=== PATIENT | male | born 1965 | race Two or more races ===

== ENCOUNTER 2020-10-23 06:21 | Outpatient (REF) | payer BC, SELFPAY ==
[2020-10-23 11:11] LABS: MANUAL DIFF FLAG NO
[2020-10-23 11:23] LABS: Glucose Urine UA NEG (NEG); Leukocyte Esterase Urine NEG (NEG); Nitrite Urine NEG (NEG); Urine Blood NEG (NEG); Urine Ketones NEG (NEG); Urine Protein NEG (NEG-TRACE)
[2020-10-23 11:25] LABS: Basophils Percent Auto 0.5 % (0-2); Eosinophils Absolute Auto 0.3 X10*3/uL (0.0-0.4); Eosinophils Percent Auto 5.3 % (0-4); Hematocrit 42.4 % (42-52); Hemoglobin 14.4 g/dl (14.0-18.0); Imm Gran Abs Auto 0.01 X10*3/uL (0.00-0.03); Imm Gran Pct Auto 0.2 % (0.0-0.4); Lymphocytes Absolute Auto 1.3 X10*3/uL (1.2-4.9); Lymphocytes Percent Auto 20.6 % (20-40); Mean Corpuscular Hemoglobin 32.8 pg (27.0-33.0); Mean Corpuscular Volume 96.6 fL (80-98); Mean Platelet Volume 10.8 fL (9.4-12.4); Monocytes Absolute Auto 0.5 X10*3/uL (0.1-1.2); Monocytes Percent Auto 8.1 % (2-11); Neutrophils Percent Auto 65.3 % (45-73); Platelet Count 205 X10*3/uL (160-400); Red Blood Count 4.39 X10*6/uL (4.60-5.80); Red Cell Distribution Width 12.8 % (11.0-16.0); White Blood Count 6.1 X10*3/uL (4.8-10.8)
[2020-10-23 11:29] LABS: Appearance Urine CLEAR; Color Urine YELLOW; Estimated Average Glucose 131 mg/dL; Hemoglobin A1c % 6.2 %
[2020-10-23 11:42] LABS: Alanine Aminotransferase 41 U/L (0-40); Alkaline Phosphatase 88 U/L (39-117); Anion Gap 11 (12-20); Aspartate Amino Transferase 48 U/L (5-37); Bilirubin Total 0.8 mg/dL (0.0-1.0); Blood Urea Nitrogen 20 mg/dL (9-16); Calcium 9.2 mg/dL (8.4-10.2); Carbon Dioxide 28 mmol/L (22-29); Chloride 100 mmol/L (96-108); Cholesterol 170 mg/dL; Estimated Glomerular Filt Rate 55; Glucose Random 136 mg/dL (60-115); HDL Cholesterol 51 mg/dL; LDL Cholesterol Calculated 96 mg/dl; Potassium 4.1 mmol/L (3.3-5.1); Sodium 135 mmol/L (135-145); Total Protein 7.1 g/dL (6.5-8.0); Triglycerides 117 mg/dL
== END 2020-10-23 06:22 | disposition home or self-care (01) ==
LOC: HO.HMGCLDS 06:21
PROVIDERS: PCP Internal Medicine Pulmonary Disease; Visit Provider Internal Medicine Pulmonary Disease
DX: J45.909 Unspecified asthma, uncomplicated (principal); E11.9 Type 2 diabetes mellitus without complications; I10 Essential (primary) hypertension; R56.9 Unspecified convulsions
CPT/HCPCS: 36415; 80053; 80061; 81003; 83036; 85025

== ENCOUNTER 2022-01-14 14:07 | Outpatient (REF) | payer BC, SELFPAY ==
--- NOTE | ~2022-01-14 | CT_ITS ---
EXAMINATION: CT CHEST SCREENING CLINICAL INFORMATION: Current smoker. 33 pack year history. COMPARISON: None. TECHNIQUE: Multidetector volumetric CT imaging of the chest is performed without contrast using low dose technique. Additional 2D coronal and sagittal reformatted images and axial 3D maximum intensity projection (MIP) images are generated on the CT workstation. This CT examination was performed using dose optimization techniques as appropriate, variously including the following: *Automated exposure control *Adjustment of mA and/or kV according to patient size (this includes techniques or standardized protocols for targeted exams where dose is matched to indication/reason for exam; i.e. extremities or head) *Use of iterative reconstruction technique DLP: 67 mGy-cm FINDINGS: LUNGS: 2 mm peripheral or subpleural right upper lobe nodule axial image 99 series 5. 2 mm right upper lobe nodule axial image 137 series 5. 2 mm right upper lobe nodule axial image 159 series 5 that may represent endobronchial soft tissue opacification or secretions. 2 mm right upper lobe nodule axial image 199 series 5. 2 mm peripheral or subpleural right middle lobe nodule adjacent to the minor fissure axial image 258 series 5 probably representing a subpleural lymph node. 2 mm peripheral left upper lobe nodule axial image 250 series 5. No endobronchial or endotracheal lesion. MEDIASTINUM: The mediastinum is normal. CORONARY ARTERY CALCIFICATION: Mild PLEURA: There is no pleural effusion. No pleural mass or thickening. AXILLA: No lymphadenopathy. UPPER ABDOMEN: Fatty liver. 4 mm left lower lobe nodule axial image 343 series 5. OSSEOUS STRUCTURES: Unremarkable. CT/CT lung screening IMPRESSION: Small pulmonary nodules, largest measuring 4 mm in the left lower lobe. Mild coronary artery calcification. ASSESSMENT: Lung-RADS category 2: Benign RECOMMENDATION: Annual low-dose chest CT follow-up recommended.
== END 2022-01-14 14:08 | disposition home or self-care (01) ==
LOC: HO.CT 14:07
PROVIDERS: Visit Provider Physician Assistant Medical
DX: Z12.2 Encounter for screening for malignant neoplasm of respiratory organs (principal); F17.210 Nicotine dependence, cigarettes, uncomplicated
CPT/HCPCS: 71271; G0296

== ENCOUNTER 2022-03-04 06:53 | Outpatient (REF) | payer BC, SELFPAY ==
[2022-03-04 11:27] LABS: MANUAL DIFF FLAG NO
[2022-03-04 11:40] LABS: Appearance Urine Clear; Color Urine Dark Yellow; Glucose Urine UA Negative (Negative); Leukocyte Esterase Urine Trace (Negative); Nitrite Urine Negative (Negative); Specific Gravity - Urine 1.025 (1.005-1.025); UMIC TRIGGER UACC YES; Urine Blood Negative (Negative); Urine Ketones Negative (Negative); Urine Protein Trace mg/dL (Neg-Trace)
[2022-03-04 11:48] LABS: Basophils Percent Auto 0.8 % (0-2); Eosinophils Absolute Auto 0.3 X10*3/uL (0.0-0.4); Eosinophils Percent Auto 5.1 % (0-4); Hematocrit 38.4 % (42.0-52.0); Imm Gran Abs Auto 0.01 X10*3/uL (0.00-0.03); Imm Gran Pct Auto 0.2 % (0.0-0.4); Lymphocytes Absolute Auto 1.2 X10*3/uL (1.2-4.9); Lymphocytes Percent Auto 22.6 % (20-40); Mean Corpuscular HGB Conc 33.9 g/dl (31.0-36.0); Mean Corpuscular Hemoglobin 32.3 pg (27.0-33.0); Mean Corpuscular Volume 95.3 fL (80.0-98.0); Mean Platelet Volume 10.4 fL (9.4-12.4); Monocytes Absolute Auto 0.6 X10*3/uL (0.1-1.2); Monocytes Percent Auto 11.6 % (2-11); Neutrophils Percent Auto 59.7 % (45-73); Platelet Count 165 X10*3/uL (160-400); Red Blood Count 4.03 X10*6/uL (4.60-5.80); Red Cell Distribution Width 13.3 % (11.0-16.0); White Blood Count 5.1 X10*3/uL (4.8-10.8)
[2022-03-04 11:50] LABS: Bacteria Urine None Seen (None Seen); Hyaline Casts Urine 0-2 /LPF (0-2); RBC Urine 0-2 /HPF (0-2); Squamous Epithelial Cell Urine 0-2 /HPF (0-2); WBC Urine 0-5 /HPF (0-5)
[2022-03-04 12:16] LABS: Estimated Average Glucose 140 mg/dL; Hemoglobin A1c % 6.5 %
[2022-03-04 12:24] LABS: Creatinine Urine 200.34 mg/dL; Microalbum/Creatinine Ratio Ur 12.4 ug/mg cr
[2022-03-04 13:36] LABS: Alanine Aminotransferase 91 U/L (0-40); Albumin Level 3.7 g/dL (3.5-5.0); Alkaline Phosphatase 109 U/L (39-117); Anion Gap 10 (12-20); Aspartate Amino Transferase 108 U/L (5-37); Blood Urea Nitrogen 24 mg/dL (9-16); Calcium 8.8 mg/dL (8.4-10.2); Carbon Dioxide 26 mmol/L (22-29); Chloride 103 mmol/L (96-108); Cholesterol 171 mg/dL; Estimated Glomerular Filt Rate 59; Glucose Fasting 136 mg/dL (60-99); HDL Cholesterol 42 mg/dL; LDL Cholesterol Calculated 113 mg/dl; Potassium 3.9 mmol/L (3.3-5.1); Prostate Specific Antigen Scr 0.85 ng/mL (<0.05-4.0); Sodium 135 mmol/L (135-145); TSH reflex Free T4 1.23 uIU/mL (0.32-4.0); Total Protein 6.8 g/dL (6.5-8.0); Triglycerides 84 mg/dL
== END 2022-03-04 06:54 | disposition home or self-care (01) ==
LOC: HO.HMGCLDS 06:53
PROVIDERS: PCP Nurse Practitioner Family; Visit Provider Nurse Practitioner Family
DX: Z12.5 Encounter for screening for malignant neoplasm of prostate (principal); E11.9 Type 2 diabetes mellitus without complications
CPT/HCPCS: 36415; 80053; 80061; 81001; 82043; 83036; 84153; 84443; 85025

== ENCOUNTER 2022-03-14 09:32 | Outpatient (REF) | payer BC, SELFPAY ==
[2022-03-14 11:30] LABS: MANUAL DIFF FLAG NO
[2022-03-14 11:36] LABS: Basophils Percent Auto 0.5 % (0-2); Eosinophils Absolute Auto 0.1 X10*3/uL (0.0-0.4); Eosinophils Percent Auto 1.3 % (0-4); Hematocrit 43.8 % (42.0-52.0); Hemoglobin 15.1 g/dl (14.0-18.0); Imm Gran Abs Auto 0.02 X10*3/uL (0.00-0.03); Imm Gran Pct Auto 0.3 % (0.0-0.4); Lymphocytes Absolute Auto 0.6 X10*3/uL (1.2-4.9); Lymphocytes Percent Auto 7.4 % (20-40); Mean Corpuscular HGB Conc 34.5 g/dl (31.0-36.0); Mean Corpuscular Hemoglobin 31.9 pg (27.0-33.0); Mean Corpuscular Volume 92.6 fL (80.0-98.0); Mean Platelet Volume 11.2 fL (9.4-12.4); Monocytes Absolute Auto 0.5 X10*3/uL (0.1-1.2); Monocytes Percent Auto 5.8 % (2-11); Neutrophils Absolute Auto 6.6 x10*3/uL (2.0-8.3); Neutrophils Percent Auto 84.7 % (45-73); Platelet Count 228 X10*3/uL (160-400); Red Blood Count 4.73 X10*6/uL (4.60-5.80); Red Cell Distribution Width 13.5 % (11.0-16.0); White Blood Count 7.7 X10*3/uL (4.8-10.8)
[2022-03-14 11:49] LABS: Appearance Urine Clear; Color Urine Dark Yellow; Glucose Urine UA Negative (Negative); Leukocyte Esterase Urine Trace (Negative); Nitrite Urine Negative (Negative); PH 5.5 (5.0-9.0); Specific Gravity - Urine 1.025 (1.005-1.025); UMIC TRIGGER UACC YES; Urine Blood Negative (Negative); Urine Ketones Trace mg/dL (Negative); Urine Protein 30 (1+) mg/dL (Neg-Trace)
[2022-03-14 11:53] LABS: Bacteria Urine None Seen (None Seen); Hyaline Casts Urine 0-2 /LPF (0-2); RBC Urine 0-2 /HPF (0-2); Squamous Epithelial Cell Urine 0-2 /HPF (0-2); WBC Urine 0-5 /HPF (0-5)
[2022-03-14 12:37] LABS: Alanine Aminotransferase 69 U/L (0-40); Alkaline Phosphatase 132 U/L (39-117); Anion Gap 13 (12-20); Aspartate Amino Transferase 73 U/L (5-37); Bilirubin Total 0.9 mg/dL (0.0-1.0); Blood Urea Nitrogen 16 mg/dL (9-16); Calcium 9.7 mg/dL (8.4-10.2); Carbon Dioxide 29 mmol/L (22-29); Chloride 97 mmol/L (96-108); Estimated Glomerular Filt Rate 55; Glucose Random 169 mg/dL (60-115); Potassium 4.2 mmol/L (3.3-5.1); Sodium 135 mmol/L (135-145); TSH reflex Free T4 1.33 uIU/mL (0.32-4.0); Total Protein 7.5 g/dL (6.5-8.0)
[2022-03-16 05:26] LABS: HBS Num1 0.63 mIU/mL (0-7.99); HBc Num1 0.06 S/CO (0.00-0.79); Hepatitis A Antibody IgM 0.63 Index (0-0.79); Hepatitis B Core Antibody Nonreactive (Nonreactive); ~HepC Num1 0.08 S/CO (0.00-0.79); ~Hepatitis A Antibody IgM Nonreactive (Nonreactive); ~Hepatitis B Surface Antibody NONREACTIVE (Nonreactive); ~Hepatitis C Antibody Nonreactive (Nonreactive)
[2022-03-16 06:03] LABS: HBsAGNum1 0.29 S/CO (0.00-0.99); Hepatitis B Surface Antigen Negative (Negative)
== END 2022-03-14 09:33 | disposition home or self-care (01) ==
LOC: HO.HMGCLDS 09:32
PROVIDERS: PCP Nurse Practitioner Family; Visit Provider Nurse Practitioner Family
DX: R74.8 Abnormal levels of other serum enzymes (principal); E11.9 Type 2 diabetes mellitus without complications; R60.0 Localized edema
CPT/HCPCS: 36415; 80053; 81001; 84443; 85025; 86704; 86706; 86709; 86803; 87340

== ENCOUNTER → 2022-03-22 07:15 | Outpatient (REF) | payer BC, SELFPAY ==
--- NOTE | 2022-03-22 07:19 | CA_ITS ---
Transthoracic Echocardiogram Patient (Last, First, Middle): Navneet Samaniego, Gender: Male Date of : 1965 Age: 56 Procedure Date: 03/22/2022 Procedure Type: Transthoracic Echocardiogram Location: OP Height: 180.34 cm Weight: 95.26 kg BSA: 2.15 m2 Heart Rate: bpm BP: 130 / 80 mmHg Wax Bleacher: TO Referring MD: Jose Romero [facility]- Symptoms: R60.0 - Localized edema Study Quality: Fair Conclusions: - 1. Normal LV systolic function with grade 1 diastolic dysfunction 2. Normal cardiac valvular Doppler 3. No gross pericardial effusion Findings Left Ventricle Normal left ventricular size, thickness, and systolic function. The visually estimated ejection fraction is between 60-65%. Spectral Doppler is indicative of an impaired relaxation filling pattern. E/E prime ratio is <8, consistent with normal filling pressures. Evidence suggests grade I (mild) diastolic dysfunction. Right Ventricle Normal right ventricular cavity size and systolic function. Atria The left atrium is normal in size. There is lipomatous hypertrophy of the interatrial septum. There is no evidence of interatrial shunt. The right atrium is normal in size. Aortic Valve The aortic valve structure and function is likely normal. There is no aortic valve stenosis. There is no aortic valve regurgitation. Mitral Valve Normal mitral valve structure and function. There is trace mitral valve regurgitation. There is no mitral valve stenosis. Pulmonic Valve The pulmonic valve was not well visualized. Tricuspid Valve Likely normal tricuspid valve structure and function. Tricuspid regurgitation envelope is inadequate for calculation of right ventricular systolic pressure. Normal right atrial pressure. Great Vessels The aorta was not well visualized. The pulmonary artery was not well visualized. Venous The inferior vena cava is normal in size and collapses greater than 50% with inspiration. Pericardium/Pleural There is no evidence of pericardial effusion. Prior Study Comparison No prior study available for comparison. Measurements 2D Linear Measurements IVSd: 1.10 0.6-0.9/0.6-1.0 cm LVIDd: 5.55 3.9-5.3/4.2-5.9 cm LVIDd Index: 2.58 2.4-3.2/2.2-3.1 cm/m2 LVIDs: 3.43 2.0-3.6 cm LVPWd: 0.87 0.7-1.1 cm LA Diam: 3.50 2.7-3.8/3.0-4.0 cm LAIDs Index: 1.63 1.5-2.3 cm/m2 LV Mass: 264.48 67-162/88-224 g LV Mass Index: 123.01 43-95/49-115 g/m2 LVOT Diam: 2.20 3.0+(-)1.3 cm 2D Systolic Function EF 4C: 66.40 >55% EF 2C: 63.10 >55% EF BiP: 65.00 >55% Mitral Valve MV Pk E: 0.60 MV PK A: 0.91 MV Decel Time: 273.00 E/A: 0.70 E'Lateral: 9.36 E'Medial: 8.81 E/E' Med: 6.90 E/E' Lat: 6.50 PHT: 80.00 MVA PHT: 2.75 Decel [place]: 2.21 Aortic Valve AoV Pk Emmanuel: 1.87 AoV Mn Emmanuel: 1.23 AoV VTI: 0.34 AoV Pk Grad: 14.00 Aov Mn Grad: 7.00 KARON Cont.VTI: 3.12 LVOT LVOT Pk Emmanuel: 1.54 LVOT Mn Emmanuel: 0.86 LVOT VTI: 0.28 LVOT Pk Grad: 9.00 LVOT Mn Grad: 4.00 LVOT Diam: 2.20 LVOT Area: 3.80 Diastolic Function MV Pk E: 0.60 MV Pk A: 0.91 E/A: 0.70 E'Medial: 8.81 E/E' Med: 6.90 E' Laterial: 9.36 E/E' Lat: 6.50 Right Ventricle TAPSE (mm): 29.10 TVS' Emmanuel: 17.30 Tricuspid Valve RA Press: 3.00 Great Vessels Aorta Sinus of Valsalva: 3.65 2.0-3.5 cm Ao Asc: 3.80 2.1-3.4 cm Updated in Other Vendor System with Status of Final Sumanth Pruett MD electronically signed on 03/23/2022 4:24:37 PM with status of Final
== END ==
LOC: HO.CARD 07:15
PROVIDERS: PCP Nurse Practitioner Family; Visit Provider Nurse Practitioner Family
DX: R60.0 Localized edema (principal)
CPT/HCPCS: 93306

== ENCOUNTER 2022-04-08 08:23 | Outpatient (REF) | payer BC, SELFPAY ==
--- NOTE | ~2022-04-08 | US_ITS ---
EXAMINATION: US ABDOMEN COMPLETE CLINICAL INFORMATION: Abnormal levels of other serum enzymes. COMPARISON: None TECHNIQUE: Real-time imaging of the abdominal viscera. FINDINGS: PANCREAS: Largely obscured by overlapping bowel gas. ABDOMINAL AORTA: The proximal, mid, and distal segments are normal in caliber. INFERIOR VENA CAVA: Visualized portions are normal. LIVER: The liver is normal in size. The liver contour is normal. There is diffuse increased liver parenchymal echogenicity, with pericholecystic sparing. No focal hepatic lesion. There is no intrahepatic biliary duct dilatation seen. GALLBLADDER: Normal. The gallbladder is physiologically distended without evidence of stones, sludge, polyps, wall thickening or pericholecystic fluid. COMMON BILE DUCT: Normal in caliber measuring 0.3 cm in diameter. RIGHT KIDNEY: Normal. No hydronephrosis. No renal calculi or focal parenchymal lesions. The kidney measures 11.0 cm in maximum dimension. LEFT KIDNEY: Normal. No hydronephrosis. No renal calculi or focal parenchymal lesions. The kidney measures 10.5 cm in maximum dimension. SPLEEN: Normal. The spleen measures 12.2 cm in maximum dimension. FREE FLUID: None. US/US abdomen complete IMPRESSION: 1. There is generalized increase in hepatic echotexture, consistent with fatty infiltration or hepatocellular disease. Please correlate clinically. Characteristic pericholecystic sparing favors fatty infiltration. No focal hepatic mass or intrahepatic biliary dilatation is seen. 2. Technically limited ultrasound examination of the pancreas.
== END 2022-04-08 08:24 | disposition home or self-care (01) ==
LOC: HO.HMGCX 08:23
PROVIDERS: PCP Nurse Practitioner Family; Visit Provider Nurse Practitioner Family
DX: R74.8 Abnormal levels of other serum enzymes (principal)
CPT/HCPCS: 76700

== ENCOUNTER 2022-10-27 06:33 | Outpatient (REF) | payer BC, SELFPAY ==
[2022-10-27 11:28] LABS: MANUAL DIFF FLAG NO
[2022-10-27 11:48] LABS: Basophils Percent Auto 0.7 % (0-2); Eosinophils Absolute Auto 0.3 X10*3/uL (0.0-0.4); Eosinophils Percent Auto 4.6 % (0-4); Hematocrit 38.4 % (42.0-52.0); Hemoglobin 13.5 g/dl (14.0-18.0); Imm Gran Abs Auto 0.02 X10*3/uL (0.00-0.03); Imm Gran Pct Auto 0.4 % (0.0-0.4); Lymphocytes Absolute Auto 1.5 X10*3/uL (1.2-4.9); Mean Corpuscular HGB Conc 35.2 g/dl (31.0-36.0); Mean Corpuscular Hemoglobin 34.1 pg (27.0-33.0); Monocytes Absolute Auto 0.6 X10*3/uL (0.1-1.2); Neutrophils Absolute Auto 3.3 x10*3/uL (2.0-8.3); Neutrophils Percent Auto 57.3 % (45-73); Platelet Count 157 X10*3/uL (160-400); Red Blood Count 3.96 X10*6/uL (4.60-5.80); White Blood Count 5.7 X10*3/uL (4.8-10.8)
[2022-10-27 11:55] LABS: Appearance Urine Turbid; Color Urine Dark Yellow; Glucose Urine UA Negative (Negative); Leukocyte Esterase Urine Moderate (2+) (Negative); Nitrite Urine Negative (Negative); PH 5.5 (5.0-9.0); Specific Gravity - Urine 1.015 (1.005-1.025); UMIC TRIGGER UACC YES; Urine Blood Trace (Negative); Urine Ketones Negative (Negative); Urine Protein 100 (2+) mg/dL (Neg-Trace)
[2022-10-27 12:05] LABS: Estimated Average Glucose 160 mg/dL; Hemoglobin A1c % 7.2 %
[2022-10-27 12:09] LABS: Alanine Aminotransferase 72 U/L (0-40); Alkaline Phosphatase 140 U/L (39-117); Anion Gap 20 (12-20); Aspartate Amino Transferase 124 U/L (5-37); Bilirubin Total 1.4 mg/dL (0.0-1.0); Blood Urea Nitrogen 23 mg/dL (9-16); Calcium 9.3 mg/dL (8.4-10.2); Carbon Dioxide 21 mmol/L (22-29); Chloride 96 mmol/L (96-108); Cholesterol 194 mg/dL; Estimated Glomerular Filt Rate 47; Glucose Fasting 147 mg/dL (60-99); HDL Cholesterol 55 mg/dL; LDL Cholesterol Calculated 108 mg/dl; Potassium 3.6 mmol/L (3.3-5.1); Sodium 133 mmol/L (135-145); Total Protein 8.1 g/dL (6.5-8.0); Triglycerides 159 mg/dL
[2022-10-27 12:10] LABS: Bacteria Urine None Seen (None Seen); UACC Culture Trigger YES
[2022-10-27 12:11] LABS: TSH reflex Free T4 1.65 uIU/mL (0.32-4.0)
== END 2022-10-27 06:34 | disposition home or self-care (01) ==
LOC: HO.HMGCLDS 06:33
PROVIDERS: PCP Nurse Practitioner Family; Visit Provider Nurse Practitioner Family
DX: E11.9 Type 2 diabetes mellitus without complications (principal); R82.90 Unspecified abnormal findings in urine
CPT/HCPCS: 36415; 80053; 80061; 81001; 83036; 84443; 85025; 87086

== ENCOUNTER 2022-10-31 13:34 | Outpatient (AMB) | payer BC, SELFPAY ==
--- NOTE | 2022-10-31 14:13 | MHC.PC.OV ---
Vital Signs 10/31/22 14:14 Height 5 ft 11 in Weight 203 lb 4 oz BMI 28.3 BP 130/78 Blood Pressure Location Lt brachial Position Sitting Pulse 80 Pulse Source Pulse Oximeter Pulse Oximetry (%) 97 Oxygen Delivery Method Room Air Intake Visit Reasons: Annual PE Allergies Penicillins Allergy (Verified 10/31/22 14:16) Hives Medication List - Last Reconciled 10/31/22 by DAMIÁN Gordon-CODEY albuterol sulfate 90 mcg/actuation (ProAir HFA) 2 puffs inhalation Q6H PRN amlodipine 5 mg PO DAILY 90 days fluticasone propion-salmeterol 250-50 mcg/dose (Advair Diskus) 1 inh inhalation BID hydrochlorothiazide 12.5 mg PO DAILY 30 days irbesartan 300 mg PO DAILY 90 days levetiracetam 1,000 mg PO BID 30 days metformin 1,000 mg PO DAILY Tobacco use date assessed: 10/31/22 Dental Screening Dental Screen Date: 10/31/22 Did you have a dental visit in the last 12 months?: Yes Did you have a dental problem in the last 6 months where you did not have access to dental care?: No Was dental information given to patient?: No HPI Annual PE HPI Details Pt is here for a PE. Labs were already performed. Colon screen is up to date. PSA is up to date. Denies dribbling with urination, weak stream, and nocturia. Pt is a diabetic, on an ARB. Last A1c was 7.2, microalbumin is up to date. Denies polyuria, polydipsia, and neuropathy. Pt denies any signs and symptoms of hypoglycemia and does know how to correct it. Eye exam is up to date. Micro hem noted, hx of kidney stones. Will repeat UA and order cytology and US. Creatinine was elevated, will have pt push fluids and repeat labs. elevated liver enzymes, Previous imaging with fatty liver. Pt reports he does not drink often. Pt reports he will work on his diet, repeating labs next week. [facility] Medical History (Updated 10/31/22 @ 14:34 by DAMIÁN Gordon-CODEY) Asthma Diabetes Fatty liver HTN (hypertension) Nicotine dependence, cigarettes, uncomplicated Seizures Surgical History History of colonoscopy Social History Housing: House Alcohol intake: current Alcohol intake frequency: a few times a month Patient Tobacco Use Status: Current everyday Tobacco user Cigarettes Per Day: 5 Years Smoked: (onset 20yo, 1/2-3/4ppd x 36yrs, 20pyh) e-Cigarette/Vaping Use: Never Used Second Hand Smoke Exposure: No service: No Current occupational status: employed Current occupation: [employer] Current occupational exposures/hazards: No Cognitive needs: No Hearing needs: No Vision needs: No Questionnaire Thrive Questionnaire Date Thrive assessed: 07/18/22 SARA-7 AMB Questionnaire SARA-7 Date SARA - 7 assessed: 07/18/22 Source: Developed by Drs. Archie Ribeiro, Sharlene Norris, Sean Celeste and colleagues, with an educational manjit from [employer]. Review of Systems Const Denies chills and Denies fever(s) Eyes Denies blurry vision ENT Denies vertigo, Denies dizziness and Denies sore throat Card Denies chest pain at rest, Denies chest pain with activity, Denies diaphoresis, Denies dyspnea and Denies dyspnea on exertion Resp Denies cough, Denies dyspnea, Denies dyspnea on exertion and Denies wheezing GI Denies abdominal pain, Denies melena, Denies hematochezia, Denies constipation, Denies diarrhea and Denies loose stools Denies hematuria Musc Denies numbness and Denies tingling Skin/Breast Denies lesions Neuro Denies vertigo, Denies dizziness, Denies numbness and Denies tingling Psych Denies anxiety, Denies depression, Denies homicidal ideation, Denies suicidal ideation and Denies other (substance abuse) Aller/Immun Denies wheezing Physical exam (Primary Care) Vital Signs: Last Vital Signs Pulse 80 10/31/22 14:14 BP 130/78 10/31/22 14:14 Pulse Ox 97 10/31/22 14:14 Oxygen Delivery Method Room Air 10/31/22 14:14 BMI result Body Mass Index 28.3 Tobacco/Smoking Status: Tobacco use Status Tobacco use date assessed 10/31/22 10/31/22 14:17 Patient Tobacco Use Status Current everyday Tobacco 10/31/22 14:14 e-Cigarette/Vaping Use Never Used 10/31/22 14:14 Thrive Assessment: Date of Thrive Assessment Date Thrive assessed 07/18/22 10/31/22 14:14 Const General: cooperative Nutritional Appearance: well nourished Orientation/consciousness: patient oriented x3 HENMT Head: Yes normal to inspection, Yes normocephalic and Yes atraumatic Ears: TM's normal bilaterally Eyes General: appearance normal, both eyes and all related structures Alignment and Position: alignment normal and position normal Neck Neck: Yes normal visual inspection and Yes no lymphadenopathy Thyroid: Thyroid normal Resp Effort & Inspection: normal respiratory effort Auscultation: clear to auscultation bilaterally Cardio Rate: regular rate Rhythm: regular rhythm Heart sounds: S1 normal heart sound present, S2 normal heart sound present and no murmurs GI Palpation (GI): Soft to palpation and nontender Auscultation: normal bowel sounds General: Yes no CVA tenderness Male General Exam: Yes normal external exam Penis: normal penis Scrotum: scrotum normal, testes descended bilaterally and no inguinal hernias Testes: no testicular mass Back/Spine/Pelvis Back: no CVA tenderness Skin Rashes: no rashes Neuro General: patient oriented x3, moves all extremities, no focal motor deficits and deep tendon reflexes 2+ bilaterally Romberg Test: Negative Extrem Other: bilat feet: + sensation with use of monofilament, onychomycosis noted to bilat big toenails Psych Appearance: grossly normal Mental Status: mental status grossly normal Speech and movement: Normal speech and movement present Affect: normal affect Attitude: cooperative Thought process: Normal thought process present Thought content: Normal thought content present Insight: Good insight present (Psych) Judgement: Good judgement present (Psych) Assessment and Plan Assessment & Plan (1) Microscopic hematuria: Code(s): R31.29 - Other microscopic hematuria Plan: UA and cytology ordered (2) Diabetes: Code(s): E11.9 - Type 2 diabetes mellitus without complications Plan: Labs ordered (3) Physical exam: Code(s): Z00.00 - Encounter for general adult medical examination without abnormal findings Plan: Labs ordered (4) HTN (hypertension): Code(s): I10 - Essential (primary) hypertension (5) Elevated serum creatinine: Code(s): R79.89 - Other specified abnormal findings of blood chemistry (6) Elevated liver enzymes: Code(s): R74.8 - Abnormal levels of other serum enzymes Plan The patient agreed to the use of a outside medical sales representative for this encounter. Scribed for PARMINDER Hernandez by Massiel Fox outside medical sales representative, on 10/31/2022 at 14:30 EST. Orders: Orders UA CC w/rflx Micro + Cult Today R31.29 - Other microscopic hematuria Urine Cytology Today R31.29 - Other microscopic hematuria Comprehensive Met. Panel Today I10 - Essential (primary) hypertension, R79.89 - Other specified abnormal findings of blood chemistry Complete Blood Count Auto Diff Today I10 - Essential (primary) hypertension, R79.89 - Other specified abnormal findings of blood chemistry US retroperitoneal comp Today R31.29 - Other microscopic hematuria Coding Level of Care Code Est Pt Prev Care 40-64y(34028) Diagnoses Microscopic hematuria R31.29 Diabetes E11.9 Physical exam Z00.00 HTN (hypertension) I10 Elevated serum creatinine R79.89 Elevated liver enzymes R74.8
[2022-10-31 14:14] VITALS: BP 130/78; PULSE 80; O2SAT 97; BMI 28.3
== END 2022-10-31 15:44 | disposition home or self-care (01) ==
PROVIDERS: Visit Provider Nurse Practitioner Family
DX: R31.29 Other microscopic hematuria (principal); E11.9 Type 2 diabetes mellitus without complications; Z00.00 Encounter for general adult medical examination without abnormal findings; I10 Essential (primary) hypertension; R79.89 Other specified abnormal findings of blood chemistry; R74.8 Abnormal levels of other serum enzymes
CPT/HCPCS: 99396

== ENCOUNTER 2022-11-08 09:38 | Outpatient (REF) | payer BC, SELFPAY ==
--- NOTE | ~2022-11-08 | US_ITS ---
EXAMINATION: US RETROPERITONEAL LIMITED (RENAL ONLY) CLINICAL INFORMATION: Other microscopic hematuria. COMPARISON: Ultrasound abdomen complete 04/08/2022. TECHNIQUE: Real-time imaging of the kidneys. FINDINGS: RIGHT KIDNEY: 10.8 x 4.8 x 4.4 cm (SAG x AP x TRV). The kidney is normal in size, contour, and echogenicity. Renal cortical thickness is normal. No calculi or focal parenchymal lesions. No hydronephrosis. LEFT KIDNEY: 11.4 x 5.0 x 4.8 cm (SAG x AP x TRV). The kidney is normal in size, contour, and echogenicity. Renal cortical thickness is normal. No calculi or focal parenchymal lesions. No hydronephrosis. BLADDER: Bladder is decompressed. Bilateral ureteral jets are demonstrated. ADDITIONAL FINDINGS: Prostate volume 23 mL. Nonspecific prominence of the seminal vesicles. Partially imaged increased echogenicity of the liver. US/US renal BI IMPRESSION: 1. No nephrolithiasis or hydronephrosis. 2. Suboptimally evaluation of the urinary bladder due to decompression, a repeat dedicated ultrasound of the bladder after adequate distention was scheduled, correlate with separate future dictation. 3. Nonspecific symmetric prominence of the seminal vesicles which could be seen in the absence of recent ejaculation, correlate clinically. If a seminal vesicle lesion/mass is suspected, correlation with an MRI could be obtained as clinically indicated. 4. Increased liver parenchyma echogenicity suggesting hepatic steatosis.
== END 2022-11-08 09:39 | disposition home or self-care (01) ==
LOC: HO.US 09:38
PROVIDERS: PCP Nurse Practitioner Family; Visit Provider Nurse Practitioner Family
DX: R31.29 Other microscopic hematuria (principal)
CPT/HCPCS: 76775

== ENCOUNTER 2022-11-08 11:05 | Outpatient (REF) | payer BC, SELFPAY ==
[2022-11-08 13:29] LABS: MANUAL DIFF FLAG NO
[2022-11-08 13:57] LABS: Basophils Percent Auto 0.4 % (0-2); Eosinophils Absolute Auto 0.1 X10*3/uL (0.0-0.4); Eosinophils Percent Auto 1.5 % (0-4); Hematocrit 37.5 % (42.0-52.0); Hemoglobin 13.3 g/dl (14.0-18.0); Imm Gran Abs Auto 0.03 X10*3/uL (0.00-0.03); Imm Gran Pct Auto 0.4 % (0.0-0.4); Lymphocytes Percent Auto 13.1 % (20-40); Mean Corpuscular HGB Conc 35.5 g/dl (31.0-36.0); Mean Corpuscular Hemoglobin 34.1 pg (27.0-33.0); Mean Corpuscular Volume 96.2 fL (80.0-98.0); Mean Platelet Volume 10.3 fL (9.4-12.4); Monocytes Absolute Auto 0.6 X10*3/uL (0.1-1.2); Monocytes Percent Auto 8.1 % (2-11); Neutrophils Absolute Auto 5.7 x10*3/uL (2.0-8.3); Neutrophils Percent Auto 76.5 % (45-73); Platelet Count 202 X10*3/uL (160-400); White Blood Count 7.5 X10*3/uL (4.8-10.8)
[2022-11-08 15:14] LABS: Alanine Aminotransferase 85 U/L (0-40); Alkaline Phosphatase 116 U/L (39-117); Anion Gap 19 (12-20); Aspartate Amino Transferase 106 U/L (5-37); Bilirubin Total 1.3 mg/dL (0.0-1.0); Blood Urea Nitrogen 15 mg/dL (9-16); Calcium 9.4 mg/dL (8.4-10.2); Carbon Dioxide 23 mmol/L (22-29); Chloride 96 mmol/L (96-108); Estimated Glomerular Filt Rate 49; Glucose Random 146 mg/dL (60-115); Potassium 4.5 mmol/L (3.3-5.1); Sodium 133 mmol/L (135-145); Total Protein 8.6 g/dL (6.5-8.0)
[2022-11-08 16:12] LABS: Urine Cytology See Pathology rpt
[2022-11-08 16:25] LABS: Appearance Urine Clear; Color Urine Yellow; Glucose Urine UA Negative (Negative); Leukocyte Esterase Urine Negative (Negative); Nitrite Urine Negative (Negative); PH 5.5 (5.0-9.0); Urine Blood Negative (Negative); Urine Ketones Negative (Negative); Urine Protein Negative (Neg-Trace)
== END 2022-11-08 11:06 | disposition home or self-care (01) ==
LOC: HO.HMGCLDS 11:05
PROVIDERS: PCP Nurse Practitioner Family; Visit Provider Nurse Practitioner Family
DX: R31.29 Other microscopic hematuria (principal); I10 Essential (primary) hypertension; R79.89 Other specified abnormal findings of blood chemistry
CPT/HCPCS: 36415; 80053; 81003; 85025; 88112

== ENCOUNTER 2022-11-09 14:36 | Outpatient (REF) | payer BC, SELFPAY ==
--- NOTE | ~2022-11-09 | US_ITS ---
EXAMINATION: US PELVIS LIMITED (BLADDER) CLINICAL INFORMATION: Microscopic hematuria. COMPARISON: Renal ultrasound 11/08/2022. Ultrasound abdomen complete 04/08/2022. TECHNIQUE: Real-time imaging of the bladder. FINDINGS: BLADDER: Well distended and normal. Bilateral ureteral jets are demonstrated. Prevoid bladder volume is 232 mL. Postvoid bladder volume is 7.8 mL. ADDITIONAL FINDINGS: Enlarged seminal vesicles. US/US bladder IMPRESSION: 1. No significant post void residual. 2. Normal sonographic appearance of the urinary bladder. 3. Nonspecific symmetric prominence of the seminal vesicles which could be seen in the absence of recent ejaculation, correlate clinically. If a seminal vesicle lesion/mass is suspected, correlation with an MRI could be obtained as clinically indicated.
== END 2022-11-09 14:37 | disposition home or self-care (01) ==
LOC: HO.US 14:36
PROVIDERS: PCP Nurse Practitioner Family; Visit Provider Nurse Practitioner Family
DX: R31.29 Other microscopic hematuria (principal)
CPT/HCPCS: 76857

== ENCOUNTER 2022-12-19 14:22 | Outpatient (AMB) | payer BC, SELFPAY ==
--- NOTE | 2022-12-19 14:24 | A.OFFVIS_ITS ---
Intake Intake Visit Reasons: microscopic hematuria Intake Note: NEW Patient presents today to established treatment for Microscopic Hematuria: Meds- None Allergies to Antibiotic- Penicillin Blood Thinner- None Client Support Administrator Required: No Accompanied by: Self / Same As Patient Allergies Penicillins Allergy (Verified 12/19/22 14:30) Hives HPI HPI Comments History of Present Illness Details Navneet is a 57-year-old male who presents today to the office to establish as a new patient for an evaluation of microscopic hematuria. 12/19/2022? He presents today for an evaluation of?microscopic hematuria. The Patient has a history of nicotine dependence, and cigarette use. He states that he is still smoking. He states that he noticed hematuria 1 month ago. He denies any pain with urination. He was referred to the nephrology by his PCP. He state he has seen medical kidney doctor last week. I reviewed the baldder US results from 11/09/2022 revealed no significant post void residual.? Normal sonographic appearance of the urinary bladder. I reviewed results from Kidney US- 11/08/2022 revealed no nephrolithiasis or hydronephrosis. Suboptimally evaluation of the urinary bladder due to decompression. I reviewed the urine culture results from 10/27/2022 which came back negative for bacterial growth.? I reviewed the urine cytology reports from 11/09/2022 revealed negative for high-grade urothelial carcinoma. I reviewed the PSA results from 03/04/2022 revealed 0.95 ng/mL. Evaluation today--UA--Leukocytes: negative; blood: negative; protein 1 +; bilirubin: 1 +. Plan: Discussed recommendations for nicotine cessation. Follow-up in office cystoscopy. [facility] Medical History (Updated 01/16/23 @ 14:12 by Orin Hernandez MD) Fatty liver Nicotine dependence, cigarettes, uncomplicated HTN (hypertension) Seizures Asthma Diabetes Surgical History History of colonoscopy Social History Housing: House Alcohol intake: current Alcohol intake frequency: a few times a month Patient Tobacco Use Status: Current everyday Tobacco user Cigarettes Per Day: 5 Years Smoked: (onset 20yo, 1/2-3/4ppd x 36yrs, 20pyh) e-Cigarette/Vaping Use: Never Used Second Hand Smoke Exposure: No service: No Current occupational status: employed Current occupation: [employer] Current occupational exposures/hazards: No Cognitive needs: No Hearing needs: No Vision needs: No Review of Systems Const All systems reviewed & are unremarkable except as noted in HPI and below Reports no additional complaints Eyes Reports no additional complaints ENT Reports no additional complaints Card Denies dyspnea Resp Denies cough and Denies dyspnea GI Reports no additional complaints Musc Reports no additional complaints Skin/Breast Denies rash and Denies unusual bruising Neuro Reports no additional complaints Psych Reports no additional complaints Endo Reports no additional complaints Isiah/Lymph Reports no additional complaints Aller/Immun Reports no additional complaints Physical Exam Const General: healthy appearing, no acute distress and well developed Orientation/consciousness: patient oriented x3 HEENT Head: Yes normocephalic and Yes atraumatic Eyes Conjunctivae: conjunctivae normal Neck Neck: Yes normal visual inspection Chest Chest palpation & inspection: normal inspection of the chest Resp Effort & Inspection: normal respiratory effort Cardio Rate: regular rate GI Inspection: Yes normal to inspection Palpation (GI): Soft to palpation Skin General skin exam: no rashes or lesions noted Neuro General: patient oriented x3 Extrem General: No pedal edema Psych Appearance: grossly normal Affect: normal affect Results AMB Urinalysis, Automated UA Leukoctes 0 Rosalina/uL Last Edit by JOSE Pandya on 12/19/22 14:37 UA Nitrite Negative Last Edit by JOSE Pandya on 12/19/22 14:37 UA Urobilinogen 0.2 mg/dL Last Edit by JOSE Pandya on 12/19/22 14:3 7 UA Protein 30 mg/dL Last Edit by JOSE Pandya on 12/19/22 14:37 1+ Jermaine Martinez 12/19/22 14:37 UA pH 6.0 Last Edit by JOSE Pandya on 12/19/22 14:37 UA Blood 0 Beni/uL Last Edit by Simafarhan Juan, JOSE on 12/19/22 14:37 UA Specific [place] 1.030 Last Edit by Simafarhan Juan, A on 12/19/22 14: 37 UA Ketone Positive Last Edit by Simafarhan JuanJOSE leary on 12/19/22 14:37 5mg/dL Jermaine Martinez 12/19/22 14:37 UA Bilirubin 1 mg/dL Last Edit by ANA PandyaA on 12/19/22 14:37 1+ Jermaine Martinez 12/19/22 14:37 UA Glucose 0 mg/dL Last Edit by Simafarhan JuanANA [email or web address] on 12/19/22 14:37 Results Reviewed Results Reviewed: Laboratory Last Values Urine pH (Auto) 6.0 12/19/22 14:35 Specific [place] (Auto) 1.030 12/19/22 14:35 Urine Protein (Auto) 30 mg/dL 12/19/22 14:35 Glucose (UA)(Auto) 0 mg/dL 12/19/22 14:35 Urine Ketones (Auto) Positive 12/19/22 14:35 Urine Blood (Auto) 0 Beni/uL 12/19/22 14:35 Urine Nitrite (Auto) Negative 12/19/22 14:35 Urine Bilirubin (Auto) 1 mg/dL 12/19/22 14:35 Urine Urobilinogen (Auto) 0.2 mg/dL 12/19/22 14:35 Leukocyte Esterase (Auto) 0 Rosalina/uL 12/19/22 14:35 Diagnosis Urine: Negative for high-grade urothelial carcinoma. COMMENT: Examination of a monolayer preparation slide shows benign squamous cells, benign urothelial cells with reactive changes, occasional acute and chronic inflammatory cells and few red blood cells. Clinical History Other microscopic hematuria Material Received Urine Gross Description 50cc clear yellow fluid Ordered:? Urine Culture? Procedure?Result?Verified?Site ? Urine Culture? Final?10/28/22-1254 ? No growth. Date of Service: 11/08/22 EXAMINATION:? US RETROPERITONEAL LIMITED (RENAL ONLY) CLINICAL INFORMATION: Other microscopic hematuria. COMPARISON:? Ultrasound abdomen complete 04/08/2022. FINDINGS: RIGHT KIDNEY: 10.8 x 4.8 x 4.4 cm (SAG x AP x TRV). The kidney is normal in size, contour, and echogenicity. Renal cortical thickness is normal. No calculi or focal parenchymal lesions. No hydronephrosis. LEFT KIDNEY: 11.4 x 5.0 x 4.8 cm (SAG x AP x TRV). The kidney is normal in size, contour, and echogenicity. Renal cortical thickness is normal. No calculi or focal parenchymal lesions. No hydronephrosis. BLADDER: Bladder is decompressed. Bilateral ureteral jets are demonstrated.? ADDITIONAL FINDINGS: Prostate volume 23 mL. Nonspecific prominence of the seminal vesicles. Partially imaged increased echogenicity of the liver. IMPRESSION:? 1.? No nephrolithiasis or hydronephrosis. 2.? Suboptimally evaluation of the urinary bladder due to decompression, a repeat dedicated ultrasound of the bladder after adequate distention was scheduled, correlate with separate future dictation. 3.? Nonspecific symmetric prominence of the seminal vesicles which could be seen in the absence of recent ejaculation, correlate clinically. If a seminal vesicle lesion/mass is suspected, correlation with an MRI could be obtained as clinically indicated.? 4.? Increased liver parenchyma echogenicity suggesting hepatic steatosis. Date of Service: 11/09/22 EXAMINATION:? US PELVIS LIMITED (BLADDER) CLINICAL INFORMATION: Microscopic hematuria. COMPARISON:? Renal ultrasound 11/08/2022. Ultrasound abdomen complete 04/08/2022. FINDINGS: BLADDER: Well distended and normal. Bilateral ureteral jets are demonstrated. Prevoid bladder volume is 232 mL. Postvoid bladder volume is 7.8 mL.? ADDITIONAL FINDINGS: Enlarged seminal vesicles. IMPRESSION:? 1.? No significant post void residual. 2.? Normal sonographic appearance of the urinary bladder. 3.? Nonspecific symmetric prominence of the seminal vesicles which could be seen in the absence of recent ejaculation, correlate clinically. If a seminal vesicle lesion/mass is suspected, correlation with an MRI could be obtained as clinically indicated. Assessment & Plan Assessment & Plan (1) Hematuria: Code(s): R31.9 - Hematuria, unspecified (2) Nicotine dependence, cigarettes, uncomplicated: Comment: (current smoker, onset 20yo, 1/2-3/4ppd x 36yrs, 20pyh) Code(s): F17.210 - Nicotine dependence, cigarettes, uncomplicated Plan Discussed recommendations for nicotine cessation. Follow-up in office cystoscopy. Orders: Orders AMB Urinalysis Automated 12/19/22 Z13.9 - Encounter for screening, unspecified Patient Instructions: The patient had an opportunity to ask questions regarding treatment plan. All questions were answered. Imaging, Laboratory studies and physical exam results were discussed and reviewed in detail. No major barriers to understanding were identified. The patient expressed understanding and agreement with the above treatment plan.? ? ? The patient is aware they should contact our office by phone for worsening of their current condition or the appearance of new symptoms. Compliance is encouraged with any medications and followup testing that is ordered.? ? ? It is a privilege to be allowed the opportunity to participate in the urologic care of your patient. If you have any questions or concerns regarding treatment for the above conditions please do not hesitate to contact me. The office telephone contact is [phone].? ? ? This note is constructed in part using voice recognition software. While every effort has been made to ensure accuracy quality control assistant errors may have been included.? ? ? Yours sincerely,? ? ? Orin Hernandez MD? Coding Level of Care Code New Pt Level 4 (97620) Diagnoses Hematuria R31.9 Nicotine dependence, cigarettes, uncomplicated F17.210
== END 2022-12-19 15:41 | disposition home or self-care (01) ==
PROVIDERS: PCP Nurse Practitioner Family; Visit Provider Urology
DX: R31.9 Hematuria, unspecified (principal); F17.210 Nicotine dependence, cigarettes, uncomplicated
CPT/HCPCS: 99204

== ENCOUNTER → 2022-12-19 14:22 | Outpatient (BNVA) | payer BC, SELFPAY | PROVIDERS: PCP Nurse Practitioner Family; Visit Provider Urology | DX: R31.29 Other microscopic hematuria (principal); F17.210 Nicotine dependence, cigarettes, uncomplicated | CPT/HCPCS: 81003 ==

== ENCOUNTER 2022-12-26 15:31 | Outpatient (REF) | payer BC, SELFPAY ==
--- NOTE | ~2022-12-26 | MR_ITS ---
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 FINDINGS: PROSTATE AND SEMINAL VESICLES: Prostate is normal in size measuring 4.2 cm in transverse diameter. Few wedge-shaped hypodensities in the peripheral zone which may reflect sequelae of prior prostatitis. Please note this was not performed as a dedicated prostate MR and therefore limited assessment for any underlying prostatic malignancy. Seminal vesicles are mildlysymmetrically prominent without discrete underlying mass. BLADDER: Unremarkable. PELVIC FREE FLUID: No free fluid or ascites. LYMPH NODES: No pathologically enlarged lymph nodes. VISUALIZED BOWEL: Unremarkable. SOFT TISSUES: Unremarkable. OSSEOUS STRUCTURES: No acute or suspicious osseous abnormalities. MR/MR pelvis wo/w con IMPRESSION: * Seminal vesicles are mildly symmetrically prominent without discrete underlying mass. * Few wedge-shaped hypodensities in the peripheral zone which may reflect sequelae of prior prostatitis. Please note this was not performed as a dedicated prostate MR and therefore limited assessment for any underlying prostatic malignancy.
[2022-12-26] MEDS: gadobutroL 10 ML VIAL IVPUSH (16:55)
== END 2022-12-26 15:32 | disposition home or self-care (01) ==
LOC: HO.MRI 15:31
PROVIDERS: PCP Nurse Practitioner Family; Visit Provider Nurse Practitioner Family
DX: N49.0 Inflammatory disorders of seminal vesicle (principal)
CPT/HCPCS: 72197; A9585

== ENCOUNTER 2023-01-16 13:48 | Outpatient (AMB) | payer BC, SELFPAY ==
--- NOTE | 2023-01-16 14:47 | A.OFFVIS_ITS ---
Intake Intake Visit Reasons: cysto Intake Note: Patient presents today for a CYSTOSCOPY Procedure: Meds: None Allergies to Antibiotic: No Known Allergies Blood Thinner: None Urinalysis test cleared for Cysto Disposable Uro-G Cystoscope Cannula: Lot: [id number] Exp: 08/07/2024 Lean Consultant Required: No Accompanied by: Self / Same As Patient Allergies Penicillins Allergy (Verified 01/17/23 07:55) Hives HPI HPI Comments History of Present Illness Details Navneet is a 57-year-old male who presents today to the office for a follow-up. 01/16/23? He is followed today for a cystoscopy procedure and to discuss results. Cystoscopy procedure: Consent form was obtained for Cystoscopy procedure. Cystoscopy findings: Moderate trabeculations noted; bilobar enlargement of the prostate; no suspicious bladder lesions noted. I reviewed the bladder US results from 11/09/22 revealed no significant post void residual. Normal sonographic appearance of the urinary bladder. I reviewed the PSA results revealed 0.95 ng/mL. I reviewed the renal US results from 11/08/22 revealed no nephrolithiasis or hydronephrosis. 12/26/22--MRI of the pelvis did not note any discrete masses in the seminal vesicles, few symmetrical shaped hypo densities which may reflect prior prostatitis. 01/16/23: Evaluation today?UA?Leukocytes : 15 Rosalina; blood: negative. 01/16/23: Plan: Continue tamsulosin daily 0.4 mg daily at bed time. Ordered PSA screening. [facility] Medical History Fatty liver Nicotine dependence, cigarettes, uncomplicated HTN (hypertension) Seizures Asthma Diabetes Surgical History History of colonoscopy Social History Housing: House Alcohol intake: current Alcohol intake frequency: a few times a month Alcohol type: hard liquor Patient Tobacco Use Status: Current everyday Tobacco user Cigarettes Per Day: 5 Years Smoked: (onset 20yo, 1/2-3/4ppd x 36yrs, 20pyh) Smoked in Last 30 Days: Yes e-Cigarette/Vaping Use: Never Used Second Hand Smoke Exposure: No Use of substances other than those prescribed or required for medical reasons: No Any prior treatment program specific to substance use: No Advance Directives: No Advance Directives Information Provided: No service: No Current occupational status: employed Current occupation: [employer] Current occupational exposures/hazards: No Cognitive needs: No Hearing needs: No Vision needs: No Office Procedures Cystoscopy Consent Discussed risk and benefit or proposed procedure with the patient. Information consent for procedure given to the patient. Discussed technical aspects, risks, benefits and alternatives in full. Addressed all of the patient's questions and concerns regarding the procedure. The patient demonstrated knowledge and und erstanding. They wish to proceed with this procedure. Preparation The patient was prepped in the usual manner. A heavy equipment plumbing supervisor was present and in the room. Genitalia was prepped with betadine solution in a sterile manner. Lidocaine Jelly 2% was placed into the urethra and 16Fr flexible Olympus cystoscope was inserted into the meatus after adequate lubrication. Procedure Time out per protocol performed. Bladder Inspection Bladder Inspection: The bladder was inspected in its entirety with utilization retroflexion displaying: Tumor(s): none visualized Trabeculation: moderate Mucosal Erthema: N/A Orifices: normal shape and position Urethra: normal Cystoscopy findings: prostatic urethra bilobar enlargement, bulbous urethra WNL, no suspicious bladder lesions visualized [id number] DISPOSABLE SCOPE URO-G FLEXIBLE SCOPE Procedure code (CPT) selection complete Office Meds lidocaine HCl 2 % mucosal jelly in applicator Performing Provider: Orin Hernandez MD Performing Location: [facility] Administered by: Sergei Palma LPN on 01/16/23 14:56 Dose Route Admin Location Dispensed Lot Number Expiration Date ND Blocker And Cutter Contact Lens 10 mL intra-urethral 20 mL naproxen 500 mg tablet Performing Provider: Orin Hernandez MD Performing Location: [facility] Administered by: Sergei Palma LPN on 01/16/23 14:56 Dose Route Admin Location Dispensed Lot Number Expiration Date NDC Blocker And Cutter Contact Lens 500 mg PO 1 tab ciprofloxacin HCl 500 mg tablet Performing Provider: Orin Hernandez MD Performing Location[facility] Administered by: Sergei Palma LPN on 01/16/23 14:56 Dose Route Admin Location Dispensed Lot Number Expiration Date NDC Blocker And Cutter Contact Lens 500 mg PO 1 tab Results AMB Urinalysis, Automated UA Leukoctes 15 Rosalina/uL Last Edit by JOSE Pandya on 01/16/23 14:56 UA Nitrite Negative Last Edit by Jermaine Martinez [facility] on 01/16/23 14:56 UA Urobilinogen 1 mg/dL Last Edit by Jermaine Martinez [facility] on 01/16/23 14:56 UA Protein 100 mg/dL Last Edit by Jermaine Martinez [facility] on 01/16/23 14:56 2+ Jermaine Martinez 01/16/23 14:56 UA pH 5.5 Last Edit by Jermaine Martinez [facility] on 01/16/23 14:56 UA Blood 0 Beni/uL Last Edit by Jermaine Martinez [facility] on 01/16/23 14:56 UA Specific [place] 1.030 Last Edit by Jermaine Martinez [place] on 01/16/23 14: 56 UA Ketone Negative Last Edit by Jermaine Martinez [facility] on 01/16/23 14:56 5mg Jermaine Martinez 01/16/23 14:56 UA Bilirubin 0 mg/dL Last Edit by Jermaine Martinez [facility] on 01/16/23 14:56 UA Glucose 0 mg/dL Last Edit by Jermaine Martinez [facility] on 01/16/23 14:56 Results Reviewed Results Reviewed: Laboratory Last Values Urine pH (Auto) 5.5 01/16/23 14:54 Specific [place] (Auto) 1.030 01/16/23 14:54 Urine Protein (Auto) 100 mg/dL 01/16/23 14:54 Glucose (UA)(Auto) 0 mg/dL 01/16/23 14:54 Urine Ketones (Auto) Negative 01/16/23 14:54 Urine Blood (Auto) 0 Beni/uL 01/16/23 14:54 Urine Nitrite (Auto) Negative 01/16/23 14:54 Urine Bilirubin (Auto) 0 mg/dL 01/16/23 14:54 Urine Urobilinogen (Auto) 1 mg/dL 01/16/23 14:54 Leukocyte Esterase (Auto) 15 Rosalina/uL 01/16/23 14:54 Date of Service: 11/09/22 EXAMINATION:? US PELVIS LIMITED (BLADDER) CLINICAL INFORMATION: Microscopic hematuria. COMPARISON:? Renal ultrasound 11/08/2022. Ultrasound abdomen complete 04/08/2022. FINDINGS: BLADDER: Well distended and normal. Bilateral ureteral jets are demonstrated. Prevoid bladder volume is 232 mL. Postvoid bladder volume is 7.8 mL.? ADDITIONAL FINDINGS: Enlarged seminal vesicles. IMPRESSION:? 1.? No significant post void residual. 2.? Normal sonographic appearance of the urinary bladder. 3.? Nonspecific symmetric prominence of the seminal vesicles which could be seen in the absence of recent ejaculation, correlate clinically. If a seminal vesicle lesion/mass is suspected, correlation with an MRI could be obtained as clinically indicated. Date of Service: 11/08/22 EXAMINATION:? US RETROPERITONEAL LIMITED (RENAL ONLY) CLINICAL INFORMATION: Other microscopic hematuria. COMPARISON:? Ultrasound abdomen complete 04/08/2022. FINDINGS: RIGHT KIDNEY: 10.8 x 4.8 x 4.4 cm (SAG x AP x TRV). The kidney is normal in size, contour, and echogenicity. Renal cortical thickness is normal. No calculi or focal parenchymal lesions. No hydronephrosis. LEFT KIDNEY: 11.4 x 5.0 x 4.8 cm (SAG x AP x TRV). The kidney is normal in size, contour, and echogenicity. Renal cortical thickness is normal. No calculi or focal parenchymal lesions. No hydronephrosis. BLADDER: Bladder is decompressed. Bilateral ureteral jets are demonstrated.? ADDITIONAL FINDINGS: Prostate volume 23 mL. Nonspecific prominence of the seminal vesicles. Partially imaged increased echogenicity of the liver. IMPRESSION:? 1.? No nephrolithiasis or hydronephrosis. 2.? Suboptimally evaluation of the urinary bladder due to decompression, a repeat dedicated ultrasound of the bladder after adequate distention was scheduled, correlate with separate future dictation. 3.? Nonspecific symmetric prominence of the seminal vesicles which could be seen in the absence of recent ejaculation, correlate clinically. If a seminal vesicle lesion/mass is suspected, correlation with an MRI could be obtained as clinically indicated.? 4.? Increased liver parenchyma echogenicity suggesting hepatic steatosis. Assessment & Plan Assessment & Plan (1) BPH loc w urin obs/LUTS: Code(s): N40.1 - Benign prostatic hyperplasia with lower urinary tract symptoms (2) Nicotine dependence, cigarettes, uncomplicated: Comment: (current smoker, onset 20yo, 1/2-3/4ppd x 36yrs, 20pyh) Code(s): F17.210 - Nicotine dependence, cigarettes, uncomplicated (3) Hematuria: Code(s): R31.9 - Hematuria, unspecified Plan Continue tamsulosin daily 0.4 mg daily at bed time. Ordered PSA screening. Orders: Orders AMB Cystoscopy 01/16/23 R31.9 - Hematuria, unspecified AMB Urinalysis Automated 01/16/23 Z13.9 - Encounter for screening, unspecified PSA,Total (Free>4and<10) 02/23/23 N40.1 - Benign prostatic hyperplasia with lower urinary tract symptoms Medications: New tamsulosin (Flomax) 0.4 mg PO BEDTIME 90 caps 2RF Patient Instructions: The patient had an opportunity to ask questions regarding treatment plan. All questions were answered. Imaging, Laboratory studies and physical exam results were discussed and reviewed in detail. No major barriers to understanding were identified. The patient expressed understanding and agreement with the above treatment plan.? ? ? The patient is aware they should contact our office by phone for worsening of their current condition or the appearance of new symptoms. Compliance is encouraged with any medications and followup testing that is ordered.? ? ? It is a privilege to be allowed the opportunity to participate in the urologic care of your patient. If you have any questions or concerns regarding treatment for the above conditions please do not hesitate to contact me. The office telephone contact is [phone].? ? ? This note is constructed in part using voice recognition software. While every effort has been made to ensure accuracy news agent errors may have been included.? ? ? Yours sincerely,? ? ? Orin Hernandez MD? Coding Level of Care Code Est Pt Level 3 (90479) Diagnoses BPH loc w urin obs/LUTS N40.1 Nicotine dependence, cigarettes, uncomplicated F17.210 Hematuria R31.9 CPT Codes Cystoscopy - CPT: [id number] ([id number])
== END 2023-01-16 15:37 | disposition home or self-care (01) ==
PROVIDERS: PCP Nurse Practitioner Family; Visit Provider Urology
DX: R31.9 Hematuria, unspecified (principal); Z13.9 Encounter for screening, unspecified
CPT/HCPCS: 52000

== ENCOUNTER → 2023-01-16 13:48 | Outpatient (BNVA) | payer BC, SELFPAY | PROVIDERS: PCP Nurse Practitioner Family; Visit Provider Urology | DX: N40.1 Benign prostatic hyperplasia with lower urinary tract symptoms (principal); N13.8 Other obstructive and reflux uropathy; R31.9 Hematuria, unspecified; F17.210 Nicotine dependence, cigarettes, uncomplicated | CPT/HCPCS: 52000; 81003 ==

== ENCOUNTER 2023-01-30 08:47 | Emergency (ER) | payer BC, SELFPAY ==
[2023-01-30 08:55] VITALS: BP 160/80; PULSE 88; RESP 18; TEMP 37.1; O2SAT 99; BMI 29.3
[2023-01-30 09:06] VITALS: BP 151/87; PULSE 83; RESP 14; O2SAT 99
--- NOTE | 2023-01-30 09:13 | ED.GENADULT ---
HPI - General Adult General Chief complaint: General Medical Stated complaint: shaking/ history of seizures Time Seen by Provider: 01/30/23 09:06 Source: patient Mode of arrival: ambulatory Limitations: no limitations History of Present Illness HPI narrative: This is a 57 years old male with history of epilepsy on Keppra 1000 mg twice a day presented to the emergency department with a chief complaint of feeling shaky he feels like is going to have a seizure. He reported he is compliant with the Keppra, the last seizure was about 1 year ago Onset (ago): hour(s) (5) Radiation: non-radiation Severity: moderate Pain Consistency: constant Relieving factors: none Exacerbating factors: none Related Data Home Medications Medication Instructions Recorded Confirmed albuterol sulfate 90 mcg/actuation 2 puff inhalation Q6H PRN 03/14/22 10/31/22 aerosol inhaler (ProAir HFA) fluticasone 250 mcg-salmeterol 50 1 inh inhalation BID 03/14/22 10/31/22 mcg/dose blistr powdr for inhalation (Advair Diskus) Previous Rx's Medication Instructions Recorded irbesartan 300 mg tablet 300 mg PO DAILY 90 days #90 tabs 10/14/22 amlodipine 5 mg tablet 5 mg PO DAILY 90 days #90 tabs 11/30/22 metformin 1,000 mg tablet 1,000 mg PO DAILY #90 tabs 01/13/23 tamsulosin 0.4 mg capsule (Flomax) 0.4 mg PO BEDTIME #90 caps 01/16/23 levetiracetam 1,000 mg tablet 1,000 mg PO BID 30 days #60 tabs 01/17/23 hydrochlorothiazide 12.5 mg tablet 12.5 mg PO DAILY 30 days #30 tabs 02/17/23 magnesium oxide 500 mg capsule 500 mg PO DAILY #30 caps 02/19/23 Allergies Allergy/AdvReac Type Severity Reaction Status Date / Time Penicillins Allergy Hives Verified 01/17/23 07:55 Review of Systems Eyes: Eyes: Reports no additional eye complaints ENT: Reports system reviewed and no additional complaints, except as documented Respiratory: Respiratory: Reports no additional respiratory complaints Neurologic: Reports as per HPI [facility] Past Medical History Medical History Fatty liver Nicotine dependence, cigarettes, uncomplicated HTN (hypertension) Seizures Asthma Diabetes Surgical History History of colonoscopy Social History Social History Housing: House Alcohol intake: current Alcohol intake frequency: a few times a month Alcohol type: hard liquor Patient Tobacco Use Status: Current everyday Tobacco user Cigarettes Per Day: 5 Years Smoked: (onset 20yo, 1/2-3/4ppd x 36yrs, 20pyh) e-Cigarette/Vaping Use: Never Used Second Hand Smoke Exposure: No service: No Current occupational status: employed Current occupation: [employer] Current occupational exposures/hazards: No Cognitive needs: No Hearing needs: No Vision needs: No Physical Exam ED Vital Signs: Vital Signs - 24 hr 01/30/23 08:55 01/30/23 09:06 01/30/23 09:23 Temperature 98.8 F 98.2 F Pulse Rate 88 83 69 Respiratory Rate 18 14 Blood Pressure 160/80 H 151/87 H Pulse Oximetry 99 99 Oxygen Delivery Method Room Air Room Air 01/30/23 10:09 Temperature Pulse Rate 88 Respiratory Rate 14 Blood Pressure 130/80 Pulse Oximetry 98 Oxygen Delivery Method BMI result Body Mass Index 29.3 Const General: cooperative Nutritional Appearance: well nourished Orientation/consciousness: oriented to person and patient oriented x3 HENMT Head: Yes normal to inspection Ears: hearing grossly normal bilaterally General nose exam: Normal external nose present Face and sinus: Yes normal facial exam Mouth: Normal oral and palatal mucosa present Throat: Yes posterior oropharynx normal Neck Neck: Yes normal visual inspection Chest Chest palpation & inspection: normal inspection of the chest Resp Effort & Inspection: normal respiratory effort Cardio Jugular venous distension: no JVD Rate: regular rate Rhythm: regular rhythm GI Inspection: Yes normal to inspection Palpation (GI): Soft to palpation, not firm and nontender Auscultation: normal bowel sounds Skin General skin exam: no rashes or lesions noted and elasticity normal Lesions: no lesions Rashes: no rashes Neuro General: oriented to person and patient oriented x3 Course Reevaluation(s) Reevaluation #1: doing better asymptomatic Time: 12:02 Medications Administered Discontinued Medications Generic Name Dose Route Start Last Admin Trade Name Freq PRN Reason Stop Dose Admin Magnesium Sulfate 2 gm in 50 mls @ 25 mls/hr 01/30/23 09:46 01/30/23 10:09 Magnesium Sulfate/H2o IV 01/30/23 11:45 25 mls/hr ONCE ONE Administration Lorazepam 1 mg 01/30/23 09:12 01/30/23 09:22 Lorazepam 2 Mg/Ml Vial IVPUSH 01/30/23 09:13 1 mg ONCE ONE Administration Medical Decision Making Medical Decision Making [facility] Narrative: Patient presented to the emergency department complaining of tremors shakiness he thinks he may have a seizure will check his blood work administer lorazepam and reassessed @12:02 PM completely asymptomatic workup showed hypo magnesemia elevated liver function tests, reviewing the chart liver function tests have been elevated in the past. He has history of alcohol abuse. Magnesium has been repleted received 1 mg lorazepam and is completely asymptomatic. His vital signs at this point a stable, no tachycardia normotensive afebrile anticipate discharge Differential Diagnosis Differential Diagnoses: The differential diagnosis associated with the presentation includes Aura for seizure/infection/anxiety Admission/Observation Consideration of admission/observation: Escalation of care including admission/observation considered Lab Data [facility] Lab Attestation statement: I reviewed the patient's lab results. 01/30/23 09:19 01/30/23 09:19 Labs: Lab Results 01/30/23 Range/Units 09:19 WBC 5.9 (4.8-10.8) X10*3/uL RBC 3.77 L (4.60-5.80) X10*6/uL Hgb 13.1 L (14.0-18.0) g/dl Hct 36.4 L (42.0-52.0) % MCV 96.6 (80.0-98.0) fL MCH 34.7 H (27.0-33.0) pg MCHC 36.0 (31.0-36.0) g/dl RDW 14.2 (11.0-16.0) % Plt Count 80 L D (160-400) X10*3/uL MPV 10.0 (9.4-12.4) fL Immature Gran % (Auto) 0.2 (0.0-0.4) % Neut % (Auto) 88.4 H (45-73) % Lymph % (Auto) 5.3 L (20-40) % [place] % (Auto) 5.6 (2-11) % Eos % (Auto) 0.2 (0-4) % Baso % (Auto) 0.3 (0-2) % Lymph # (Auto) 0.3 L (1.2-4.9) X10*3/uL [place] # (Auto) 0.3 (0.1-1.2) X10*3/uL Eos # (Auto) 0.0 (0.0-0.4) X10*3/uL Baso # (Auto) 0.0 (0.0-0.2) X10*3/uL Abs Immat Gran (auto) 0.01 (0.00-0.03) X10*3/uL Absolute Neuts (auto) 5.2 (2.0-8.3) x10*3/uL Absolute Nucleated RBC 0.000 (0.0-0.012) X10*3/uL Nucleated RBC % (auto) 0.0 (0.0-0.2) /100WBC Sodium 131 L (135-145) mmol/L Potassium 4.7 (3.3-5.1) mmol/L Chloride 94 L (96-108) mmol/L Carbon Dioxide 21 L (22-29) mmol/L Anion Gap 21 H (12-20) BUN 15 (9-16) mg/dL Creatinine 1.37 (0.5-1.4) mg/dL Estim Creat Clear Calc 70.0 Estimated GFR 54 Random Glucose 200 H (60-115) mg/dL Calcium 9.3 (8.4-10.2) mg/dL Magnesium 1.2 L* (1.6-2.6) mg/dL Total Bilirubin 2.0 H (0.0-1.0) mg/dL AST 97 H (5-37) U/L ALT 45 H (0-40) U/L Alkaline Phosphatase 169 H (39-117) U/L Total Protein 8.5 H (6.5-8.0) g/dL Albumin 4.1 (3.5-5.0) g/dL Influenza Type A (PCR) NEGATIVE (Negative) Influenza Type B (PCR) NEGATIVE (Negative) RSV RNA Qual (PCR) NEGATIVE (Negative) SARS-CoV-2 RNA (RT-PCR) NEGATIVE (Negative) Discharge Plan Discharge Clinical Impression: Hypomagnesemia, Elevated LFTs Patient Disposition: Home, Self-Care Instructions: Hypomagnesemia (ED) Additional Instructions: Your liver function tests were elevated ,were elevated in the past, measure you follow-up with your primary care physician call today make an appointment Prescriptions: No Action irbesartan 300 mg tablet 300 mg PO DAILY 90 Days Qty: 90 1RF amlodipine 5 mg tablet 5 mg PO DAILY 90 Days Qty: 90 1RF metformin 1,000 mg tablet 1,000 mg PO DAILY Qty: 90 1RF levetiracetam 1,000 mg tablet 1,000 mg PO BID 30 Days Qty: 60 1RF hydrochlorothiazide 12.5 mg tablet 12.5 mg PO DAILY 30 Days Qty: 30 3RF magnesium oxide 500 mg capsule 500 mg PO DAILY Qty: 30 1RF fluticasone propion-salmeterol [Advair Diskus] 250-50 mcg/dose blister with device 1 inh inhalation BID albuterol sulfate [ProAir HFA] 90 mcg/actuation HFA aerosol inhaler 2 puff inhalation Q6H PRN tamsulosin [Flomax] 0.4 mg capsule 0.4 mg PO BEDTIME Qty: 90 2RF Referrals: Jose Romero, [employer] [facility] [Primary Care Provider] - 2 days Stand Alone Forms: Work/School Release Interventions: ED Discharge Assessment Last Done: 01/30/23 12:17 Discharge Date/Time: 01/30/23 12:18
[2023-01-30] MEDS: LORazepam 2 MG/ML VIAL 1 MG IVPUSH (09:22)
[2023-01-30 09:23] VITALS: PULSE 69; TEMP 36.8
[2023-01-30 09:24] LABS: MANUAL DIFF FLAG NO
[2023-01-30 09:25] LABS: Basophils Percent Auto 0.3 % (0-2); Eosinophils Percent Auto 0.2 % (0-4); Hematocrit 36.4 % (42.0-52.0); Hemoglobin 13.1 g/dl (14.0-18.0); Imm Gran Abs Auto 0.01 X10*3/uL (0.00-0.03); Imm Gran Pct Auto 0.2 % (0.0-0.4); Lymphocytes Absolute Auto 0.3 X10*3/uL (1.2-4.9); Lymphocytes Percent Auto 5.3 % (20-40); Mean Corpuscular Hemoglobin 34.7 pg (27.0-33.0); Mean Corpuscular Volume 96.6 fL (80.0-98.0); Monocytes Absolute Auto 0.3 X10*3/uL (0.1-1.2); Monocytes Percent Auto 5.6 % (2-11); Neutrophils Absolute Auto 5.2 x10*3/uL (2.0-8.3); Neutrophils Percent Auto 88.4 % (45-73); Red Blood Count 3.77 X10*6/uL (4.60-5.80); Red Cell Distribution Width 14.2 % (11.0-16.0); White Blood Count 5.9 X10*3/uL (4.8-10.8)
--- OUTSIDE RECORDS SUMMARY | 2023-01-30 09:34 | XMS_ITS | Continuity of Care Document ---
Author Name Unknown Organization [facility] Address [address], [address], [address] [place] [id number] Care Team Providers Care Alliances Consultant Name Role Phone Juana UNGER, Gregorio Primary Care Physician Unava ilable [place] [facility] [place]22 [facility] [address], [address], [address] [place] [id number] Allergies, Adverse Reactions, Alerts Substance Reaction Severity Status amoxicillin Active Medications amLODIPine 2.5 mg oral tablet 1 tablet = 2.5 mg, By Mouth, Daily, # 30 tablet, 0 Refills, Maintenance, 03/21/19 15:28:00 EST, Tablet Start Date: 03/21/19 Status: Ordered hydrochlorothiazide 25 mg oral tablet 25 mg, 1, tablet, By Mouth, Daily, # 30 tablet, Refills 0, Maintenance, 03/21/19 15:29:00 EST Start Date: 03/21/19 Status: Ordered Keppra 1000 mg oral tablet 1 tablet = 1,000 mg, By Mouth, 2 times a day, # 180 tablet, 3 Refills, Maintenance, 08/02/22 16:39:00 EDT, Tablet, [facility], 173, cm, 09/01/20 7:46:00 EDT, Height Start Date: 08/02/22 Stop Date: 07/28/23 Status: Ordered losartan 100 mg oral tablet TAKE 1 TABLET BY MOUTH ONCE DAILY Start Date: 03/21/19 Status: Ordered metFORMIN 1000 mg oral tablet 1 tablet = 1,000 mg, By Mouth, 2 times a day, # 180 tablet, 0 Refills, Maintenance, 03/21/19 15:29:00 EST, Tablet Start Date: 03/21/19 Status: Ordered thiamine 100 mg oral tablet 2 Tablets, By Mouth, Daily, # 100 tablet, Refills 5, Tot. Refills 5, Maintenance, 02/18/20 11:21:00EST, Route to Pharmacy Electronically, [id number], 173, cm, 03/24/19 4:57:00 EST, Height, 88.8, kg, 03/21/19 11:56:00 EST, Dry Weight Start Date: 02/18/20 Status: Ordered Patient Care team information Care Team Personnel Name: Arturo Segovia RN Position: S RN Member Role: Primary Care Nurse Name: Gregorio Arias MD Position: Reference Physician Member Role: PCP Address: Address: [address] [place] [id number] Name: Shanel Syed RN Position: S RN Member Role: Primary Care Nurse Care Team Related Persons Name: KISHORE MARKS Address: home SAME PT
[2023-01-30 09:45] LABS: Alanine Aminotransferase 45 U/L (0-40); Albumin Level 4.1 g/dL (3.5-5.0); Alkaline Phosphatase 169 U/L (39-117); Anion Gap 21 (12-20); Aspartate Amino Transferase 97 U/L (5-37); Blood Urea Nitrogen 15 mg/dL (9-16); Calcium 9.3 mg/dL (8.4-10.2); Carbon Dioxide 21 mmol/L (22-29); Chloride 94 mmol/L (96-108); Estimated Glomerular Filt Rate 54; Glucose Random 200 mg/dL (60-115); Magnesium 1.2 mg/dL (1.6-2.6); Potassium 4.7 mmol/L (3.3-5.1); Sodium 131 mmol/L (135-145); Total Protein 8.5 g/dL (6.5-8.0)
[2023-01-30 09:53] LABS: Platelet Count 80 X10*3/uL (160-400)
[2023-01-30 10:04] LABS: Influenza A PCR NEGATIVE (Negative); Influenza B PCR NEGATIVE (Negative); Resp Syncy Virus RNA Qual PCR NEGATIVE (Negative); SARS COV2 PCR INHOUSE NEGATIVE (Negative)
[2023-01-30 10:09] VITALS: BP 130/80; PULSE 88; RESP 14; O2SAT 98
[2023-01-30] MEDS: Magnesium Sulfate/H2O 2 GM/50 ML PIGGYBACK IV (10:09)
--- NOTE | 2023-01-30 11:39 | PC.NURSE ---
alert. nad, skin wpd, states he feels better, no complaints
[2023-01-30 12:08] VITALS: BP 127/73; PULSE 84; RESP 14; O2SAT 97
== END 2023-01-30 12:18 | disposition home or self-care (01) ==
PROVIDERS: Emergency Provider Emergency Medicine; PCP Nurse Practitioner Family
DX: R25.1 Tremor, unspecified (principal); F17.210 Nicotine dependence, cigarettes, uncomplicated; Z20.822 Contact with and (suspected) exposure to COVID-19; Z20.828 Contact with and (suspected) exposure to other viral communicable diseases; Z79.899 Other long term (current) drug therapy; Z71.6 Tobacco abuse counseling
CPT/HCPCS: 0241U; 36415; 80053; 83735; 85025; 96374; 96375; 99284; J2060; J3475

== ENCOUNTER 2023-02-17 13:41 | Outpatient (REF) | payer BC, SELFPAY ==
[2023-02-17 15:14] LABS: MANUAL DIFF FLAG NO
[2023-02-17 15:15] LABS: Basophils Absolute Auto 0.1 X10*3/uL (0.0-0.2); Basophils Percent Auto 0.7 % (0-2); Eosinophils Absolute Auto 0.1 X10*3/uL (0.0-0.4); Eosinophils Percent Auto 1.3 % (0-4); Hematocrit 36.2 % (42.0-52.0); Hemoglobin 12.7 g/dl (14.0-18.0); Imm Gran Abs Auto 0.01 X10*3/uL (0.00-0.03); Imm Gran Pct Auto 0.1 % (0.0-0.4); Lymphocytes Absolute Auto 0.6 X10*3/uL (1.2-4.9); Mean Corpuscular HGB Conc 35.1 g/dl (31.0-36.0); Mean Corpuscular Hemoglobin 34.6 pg (27.0-33.0); Mean Corpuscular Volume 98.6 fL (80.0-98.0); Mean Platelet Volume 10.3 fL (9.4-12.4); Monocytes Absolute Auto 0.5 X10*3/uL (0.1-1.2); Monocytes Percent Auto 8.1 % (2-11); Neutrophils Absolute Auto 5.4 x10*3/uL (2.0-8.3); Neutrophils Percent Auto 80.8 % (45-73); Platelet Count 239 X10*3/uL (160-400); Red Blood Count 3.67 X10*6/uL (4.60-5.80); Red Cell Distribution Width 14.3 % (11.0-16.0); White Blood Count 6.7 X10*3/uL (4.8-10.8)
[2023-02-17 15:17] LABS: Appearance Urine Clear; Color Urine Yellow; Glucose Urine UA Negative (Negative); Leukocyte Esterase Urine Negative (Negative); Nitrite Urine Negative (Negative); PH 5.5 (5.0-9.0); Urine Blood Negative (Negative); Urine Ketones Negative (Negative); Urine Protein Negative (Neg-Trace)
[2023-02-17 15:47] LABS: TSH reflex Free T4 1.65 uIU/mL (0.32-4.0)
[2023-02-17 19:57] LABS: Alanine Aminotransferase 86 U/L (0-40); Albumin Level 3.9 g/dL (3.5-5.0); Alkaline Phosphatase 169 U/L (39-117); Anion Gap 15 (12-20); Aspartate Amino Transferase 139 U/L (5-37); Bilirubin Total 1.2 mg/dL (0.0-1.0); Blood Urea Nitrogen 15 mg/dL (9-16); Calcium 9.5 mg/dL (8.4-10.2); Carbon Dioxide 24 mmol/L (22-29); Chloride 97 mmol/L (96-108); Estimated Glomerular Filt Rate 56; Glucose Random 139 mg/dL (60-115); Potassium 4.1 mmol/L (3.3-5.1); Sodium 132 mmol/L (135-145); Total Protein 8.1 g/dL (6.5-8.0)
[2023-02-17 20:06] LABS: Magnesium 1.4 mg/dL (1.6-2.6)
== END 2023-02-17 13:42 | disposition home or self-care (01) ==
LOC: HO.HMGCLDS 13:41
PROVIDERS: PCP Nurse Practitioner Family; Visit Provider Nurse Practitioner Family
DX: I10 Essential (primary) hypertension (principal); E83.42 Hypomagnesemia
CPT/HCPCS: 36415; 80053; 81003; 83735; 84443; 85025

== ENCOUNTER 2023-02-27 15:06 | Outpatient (AMB) | payer BC, SELFPAY ==
--- NOTE | 2023-02-27 15:09 | MHC.PC.OV ---
Vital Signs 02/27/23 15:27 Height 5 ft 11 in Weight 196 lb BMI 27.3 BP 118/70 Blood Pressure Location Lt brachial Position Sitting Pulse 86 Pulse Source Pulse Oximeter Pulse Oximetry (%) 97 Oxygen Delivery Method Room Air Intake Visit Reasons: 4 month f/u Intake Note: Pt is here today for his 4 mo. f/u Allergies Penicillins Allergy (Verified 01/17/23 07:55) Hives Tobacco use date assessed: 02/27/23 Dental Screening Dental Screen Date: 02/27/23 Did you have a dental visit in the last 12 months?: No Was dental information given to patient?: No HPI 4 month f/u HPI Details Pt is a diabetic, on an ARB. A1C in office today is 7.2. Due for microalbumin. Denies polyuria, polydipsia, and neuropathy. Pt denies any signs and symptoms of hypoglycemia and does know how to correct it. Pt reports that his blood sugar at home is similar to what it is today. Will start jardiance 10mg. Eye exam is up to date. Will restart atorvastatin. Encouraged pt to obtain his shingles vaccine at his pharmacy. Pt is working on quitting smoking. [facility] Medical History Fatty liver Nicotine dependence, cigarettes, uncomplicated HTN (hypertension) Seizures Asthma Diabetes Surgical History History of colonoscopy Social History Housing: House Alcohol intake: current Alcohol intake frequency: a few times a month Alcohol type: hard liquor Patient Tobacco Use Status: Current everyday Tobacco user Cigarettes Per Day: 5 Years Smoked: (onset 20yo, 1/2-3/4ppd x 36yrs, 20pyh) e-Cigarette/Vaping Use: Never Used Second Hand Smoke Exposure: No service: No Current occupational status: employed Current occupation: [employer] Current occupational exposures/hazards: No Cognitive needs: No Hearing needs: No Vision needs: No Questionnaire Thrive Questionnaire Date Thrive assessed: 07/18/22 SARA-7 AMB Questionnaire SARA-7 Date SARA - 7 assessed: 07/18/22 Source: Developed by Drs. Archie Ribeiro, SharleneSean Gomez and colleagues, with an educational manjit from [employer]. Review of Systems Const Reports as per HPI Physical exam (Primary Care) Vital Signs: Last Vital Signs Pulse 86 02/27/23 15:27 BP 118/70 02/27/23 15:27 Pulse Ox 97 02/27/23 15:27 Oxygen Delivery Method Room Air 02/27/23 15:27 BMI result Body Mass Index 27.3 Tobacco/Smoking Status: Tobacco use Status Tobacco use date assessed 02/27/23 02/27/23 15:29 Patient Tobacco Use Status Current everyday Tobacco 02/27/23 15:09 e-Cigarette/Vaping Use Never Used 02/27/23 15:09 Thrive Assessment: Date of Thrive Assessment Date Thrive assessed 07/18/22 02/27/23 15:09 Const General: cooperative Orientation/consciousness: patient oriented x3 Resp Effort & Inspection: normal respiratory effort Auscultation: clear to auscultation bilaterally Cardio Rate: regular rate Rhythm: regular rhythm Heart sounds: S1 normal heart sound present and S2 normal heart sound present Neuro General: patient oriented x3 Extrem Other: bilat feet: + sensation with use of monofilament Psych Appearance: grossly normal Mental Status: mental status grossly normal Speech and movement: Normal speech and movement present Affect: normal affect Attitude: cooperative Thought process: Normal thought process present Thought content: Normal thought content present Insight: Good insight present (Psych) Judgement: Good judgement present (Psych) Results AMB Hemoglobin A1c AMB Hemoglobin A1c 7.2 % Last Edit by Eduarda Cardoso CMA on 02/27/23 15:27 Immunizations pneumoc 20-mei conj-dip cr(PF) 0.5 mL IM syringe Performing Provider: PARMINDER Gordon Performing [facility] Administered by: Eduarda Cardoso CMA on 02/27/23 15:59 Dose Route Admin Location Dispensed Lot Number Expiration Date NDC Director Of Valuation 0.5 mL IM Right Deltoid 0.5 mL [id number] 11/25/23 0076-6096-33 WYETH/PFIZER VIS Given Date VIS Provided VIS Publication Date 02/27/23 Single Vaccine 21 Eligibility Eligibility Date Funding Source Not VFC Eligible 02/27/23 Private Results Reviewed Results Reviewed: Laboratory Last Values Hgb A1c (Clinic) 7.2 % (4.0-6.0) H 02/27/23 15:17 Assessment and Plan Assessment & Plan (1) ETOH abuse: Code(s): F10.10 - Alcohol abuse, uncomplicated (2) Low magnesium level: Code(s): R79.0 - Abnormal level of blood mineral (3) Diabetes: Code(s): E11.9 - Type 2 diabetes mellitus without complications Plan The patient agreed to the use of a director of medical staff services for this encounter. Scribed for PARMINDER Hernandez by Massiel Fox director of medical staff services, on 02/27/2023 at 15:45 EST. Orders: Orders Pneumococcal 20 Immunization Today Z23 - Encounter for immunization AMB Hemoglobin A1c Today E11.9 - Type 2 diabetes mellitus without complications Coding Level of Care Code Est Pt Level 3 (97878) Diagnoses ETOH abuse F10.10 Low magnesium level R79.0 Diabetes E11.9
[2023-02-27 15:27] VITALS: BP 118/70; PULSE 86; O2SAT 97; BMI 27.3
== END 2023-02-27 16:05 | disposition home or self-care (01) ==
PROVIDERS: PCP Nurse Practitioner Family; Visit Provider Nurse Practitioner Family
DX: F10.10 Alcohol abuse, uncomplicated (principal); R79.0 Abnormal level of blood mineral; E11.9 Type 2 diabetes mellitus without complications; Z23 Encounter for immunization
CPT/HCPCS: 83036; 90471; 90677; 99213

== ENCOUNTER 2023-06-08 11:15 | Inpatient (IN) | payer SELFPAY ==
[2023-06-08] VITALS (9 sets, daily range): BP systolic 81–140; BP diastolic 49–81; PULSE 71–88; RESP 12–20; TEMP 36.5–37.6; O2SAT 96–98; BMI 28.6; BMI 26.4
--- NOTE | ~2023-06-08 | CT_ITS ---
EXAMINATION: CT brain and CT cervical spine without IV contrast. CLINICAL INDICATION: Fall.. Injury. COMPARISON:: None. TECHNIQUE: 5 mm thin axial and reformatted 2 mm thin sagittal and coronal images of brain were obtained. Subsequently axial 3 mm thin and reformatted 2 mm thin sagittal and coronal images of cervical spine were obtained. DLP [id number]. This CT examination was performed using dose optimization technique as appropriate, variously including the following: Automated exposure control Adjustment of MA and/or KV according to patient size(this includes techniques or standardized protocols for targeted exams where dose is matched to indication/reason for exam; extremities or head. Use of iterative reconstruction techniques. FINDINGS: Brain: There is no acute intra-axial, extra-axial bleed, masses or midline shift. There is no acute infarction in evolution. 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 The hannah to white matter differentiation is maintained normal. The lateral ventricles are slightly asymmetrical but enlarged. Bone windows reveal no calvarial abnormality. There is complete opacification of left maxillary sinus. Rest of the paranasal sinuses and mastoid air cells are well-aerated. Cervical spine: On sagittal reconstructed images there is mild straightening of cervical lordosis. The vertebral heights and alignment is normal. Is loss of C5-C6 disc height. Rest of the disc heights and vertebral heights are normal. There is mild ventral spondylosis at C5-C6 and C6-C7 disc levels. The craniovertebral junction and C1-C2 alignment is normal. The thyroid lobes are symmetrical and normal. The lung apices are clear No aggressive lytic or sclerotic process seen. The paravertebral soft tissues are normal. Visualized airway is widely patent. CT/CT cervical spine wo IV con IMPRESSION: 1. No acute intracranial process seen. 2. 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 3. There is no acute fracture, dislocation or subluxation seen in cervical spine. There are degenerative disc changes C5-C6 disc level with mild ventral spondylosis C5-C6 and C6-C7 disc levels.
--- NOTE | ~2023-06-08 | XR_ITS ---
EXAMINATION: XR CHEST CLINICAL INFORMATION: Weakness. COMPARISON: None available. TECHNIQUE: Frontal view of the chest was obtained. FINDINGS: The lungs are moderately expanded. No focal consolidation. No pleural effusion. Cardiac silhouette is within normal limits. XR/XR chest 1V IMPRESSION: No acute abnormality.
--- NOTE | ~2023-06-08 | CT_ITS ---
EXAMINATION: CT ABDOMEN AND PELVIS WITHOUT CONTRAST CLINICAL INFORMATION: Nausea/vomiting and diarrhea and elevated creatinine. COMPARISON: None available. TECHNIQUE: Multidetector volumetric imaging was performed from the superior aspect of the liver through the pubic symphysis. Sagittal and coronal reformatted images were obtained on the technologist's workstation. This CT examination was performed using dose optimization techniques as appropriate, variously including the following: *Automated exposure control *Adjustment of mA and/or kV according to patient size (this includes techniques or standardized protocols for targeted exams where dose is matched to indication/reason for exam; i.e. extremities or head) *Use of iterative reconstruction technique DLP: 2526 mGy-cm FINDINGS: LUNG BASES: The visualized lung bases are unremarkable. LIVER, GALLBLADDER, AND BILIARY TREE: The liver is mildly enlarged in size, normal shape, and diffusely hypoattenuated. No focal hepatic lesion or biliary ductal dilatation is present. The gallbladder is unremarkable with no evidence of radiopaque gallstones, gallbladder wall thickening, or obvious pericholecystic inflammatory changes. PANCREAS: Unremarkable. SPLEEN: Unremarkable. ADRENAL GLANDS: Unremarkable. KIDNEYS AND URETERS: The kidneys are normal in size, shape, and attenuation. No hydronephrosis, hydroureter, or calculi seen. No perinephric stranding. BLADDER: Unremarkable. GASTROINTESTINAL TRACT: There is scattered stool and gas seen throughout the colon without any significant distention. The small bowel loops are normal caliber. Appendix is not visualized. No inflammatory process, free air or free fluid seen. ABDOMINAL WALL: No significant hernia is appreciated. LYMPH NODES: Normal. VASCULAR: Unremarkable. PELVIC VISCERA: There is no free air or free fluid. OSSEOUS STRUCTURES: No aggressive lytic or sclerotic process seen. CT/CT abdomen pelvis wo IV con IMPRESSION: 1. No acute intra-abdominal process seen. 2. Mild hepatomegaly with hepatic steatosis. Fleischner guidelines were followed.
[2023-06-08 11:33] LABS: Glucose, Whole Blood 172 mg/dL (60-115)
--- NOTE | 2023-06-08 11:42 | ECG_ITS ---
Test Reason : WEAKNESS Blood Pressure : / mmHG Vent. Rate : 076 BPM Atrial Rate : 076 BPM P-R Int : 184 ms QRS Dur : 094 ms QT Int : 398 ms P-R-T Axes : 069 041 073 degrees QTc Int : 447 ms Normal sinus rhythm Low voltage QRS Borderline ECG No previous ECGs available Referred By: Generic ED Physician Electronically Signed By:ROSE MARIE VARELA MD
[2023-06-08 11:54] LABS: MANUAL DIFF FLAG NO
[2023-06-08] MEDS: 0.9 % Sodium Chloride 1,000 ML 999 ML IV ×2 (11:55→13:11)
--- NOTE | 2023-06-08 11:55 | PC.NURSE ---
Addendum entered by Denise Kaufman 06/08/23 12:41: pt is also reporting some coughing at home, ls clear, abd soft and non-tender with active bowel sounds in all 4 quadrants Original Note: pt is alert and oriented, but slightly drowsy, skin appropriate for ethnicity but also slightly pale in color/sclera jaundice- pt reports being a daily drinker and has not dranked in a few days because of feeling generally weak, vomiting and having diarrhea, pt currently denies any pain, but is feeling slightly dizzy. ns on the monitor bp improving with fluids
[2023-06-08 11:58] LABS: Basophils Percent Auto 0.7 % (0-2); Eosinophils Percent Auto 0.5 % (0-4); Hemoglobin 11.2 g/dl (14.0-18.0); Imm Gran Abs Auto 0.03 X10*3/uL (0.00-0.03); Imm Gran Pct Auto 0.5 % (0.0-0.4); Lymphocytes Absolute Auto 0.7 X10*3/uL (1.2-4.9); Lymphocytes Percent Auto 11.3 % (20-40); Mean Corpuscular HGB Conc 36.1 g/dl (31.0-36.0); Mean Corpuscular Volume 94.2 fL (80.0-98.0); Monocytes Absolute Auto 0.5 X10*3/uL (0.1-1.2); Monocytes Percent Auto 8.9 % (2-11); NRBC Pct Auto 0.3 /100WBC (0.0-0.2); Neutrophils Absolute Auto 4.6 x10*3/uL (2.0-8.3); Neutrophils Percent Auto 78.1 % (45-73); Red Blood Count 3.29 X10*6/uL (4.60-5.80); Red Cell Distribution Width 15.5 % (11.0-16.0); White Blood Count 5.8 X10*3/uL (4.8-10.8)
[2023-06-08 12:13] LABS: Alanine Aminotransferase 49 U/L (0-40); Albumin Level 3.6 g/dL (3.5-5.0); Alkaline Phosphatase 315 U/L (39-117); Anion Gap 22 (12-20); Aspartate Amino Transferase 152 U/L (5-37); Bilirubin Direct 1.7 mg/dL (0.0-0.5); Bilirubin Total 2.4 mg/dL (0.0-1.0); Blood Urea Nitrogen 30 mg/dL (9-16); Calcium 9.2 mg/dL (8.4-10.2); Carbon Dioxide 21 mmol/L (22-29); Chloride 91 mmol/L (96-108); Estimated Glomerular Filt Rate 30; Ethanol 80 mg/dL; Glucose Random 161 mg/dL (60-115); Lipase 247 U/L (8-78); Potassium 4.5 mmol/L (3.3-5.1); Sodium 129 mmol/L (135-145); Total Protein 8.3 g/dL (6.5-8.0)
[2023-06-08 12:40] LABS: Platelet Count 80 X10*3/uL (160-400)
--- NOTE | 2023-06-08 12:45 | ED_ITS ---
HPI - Weakness General Chief complaint: Weakness Stated complaint: Weakness Time Seen by Provider: 06/08/23 11:56 History of Present Illness HPI Narrative: Patient is a 58-year-old male with a history of diabetes history of alcohol use presents today with having generalized malaise weakness. Also having nausea vomiting diarrhea. Feels very tired. Drinks alcohol on a daily basis. Denies noticing any blood in stool. No chest pain or shortness of breath. Positive coughing upper respiratory symptoms. Is vaccinated for COVID. Feel very weak. Related Data Home Medications Medication Instructions Recorded Confirmed albuterol sulfate 90 mcg/actuation 2 puff inhalation Q6H PRN 03/14/22 10/31/22 aerosol inhaler (ProAir HFA) fluticasone 250 mcg-salmeterol 50 1 inh inhalation BID 03/14/22 10/31/22 mcg/dose blistr powdr for inhalation (Advair Diskus) Previous Rx's Medication Instructions Recorded amlodipine 5 mg tablet 5 mg PO DAILY 90 days #90 tabs 11/30/22 metformin 1,000 mg tablet 1,000 mg PO DAILY #90 tabs 01/13/23 tamsulosin 0.4 mg capsule (Flomax) 0.4 mg PO BEDTIME #90 caps 01/16/23 levetiracetam 1,000 mg tablet 1,000 mg PO BID 30 days #60 tabs 01/17/23 hydrochlorothiazide 12.5 mg tablet 12.5 mg PO DAILY 30 days #30 tabs 02/17/23 magnesium oxide 500 mg capsule 500 mg PO DAILY #30 caps 02/19/23 empagliflozin 10 mg tablet 10 mg PO DAILY 30 days #30 tabs 02/27/23 (Jardiance) irbesartan 300 mg tablet 300 mg PO DAILY 90 days #90 tabs 04/11/23 atorvastatin 20 mg tablet 20 mg PO BEDTIME 90 days #90 tabs 05/28/23 Allergies Allergy/AdvReac Type Severity Reaction Status Date / Time Penicillins Allergy Hives Verified 06/08/23 11:20 Review of Systems 2 Review of Systems: Positive generalized malaise weakness PMFSH Past Medical History Attestation statement: The following information was validated with the patient. Medical History Fatty liver Nicotine dependence, cigarettes, uncomplicated HTN (hypertension) Seizures Asthma Diabetes Surgical History History of colonoscopy Social History Social History Housing: House Alcohol intake: current Alcohol intake frequency: 3 or more drinks per day Alcohol type: hard liquor Patient Tobacco Use Status: Current everyday Tobacco user Cigarettes Per Day: 5 Years Smoked: (onset 20yo, 1/2-3/4ppd x 36yrs, 20pyh) Smoked in Last 30 Days: Yes e-Cigarette/Vaping Use: Never Used Second Hand Smoke Exposure: No Use of substances other than those prescribed or required for medical reasons: No Advance Directives: No service: No Current occupational status: employed Current occupation: [employer] Current occupational exposures/hazards: No Cognitive needs: No Hearing needs: No Vision needs: No Physical Exam 2 Vital Signs: Vital Signs: Last Vital Signs Temp 98.5 F 06/08/23 11:55 Pulse 78 06/08/23 14:02 Resp 18 06/08/23 14:02 BP 121/77 06/08/23 14:02 Pulse Ox 96 06/08/23 14:02 O2 Del Method Room Air 06/08/23 14:02 BMI result Body Mass Index 28.6 Appearance: Alert. Oriented to self place time. No acute distress. Eyes: Pupils equal, round and reactive to light. ENT: Pharynx normal. Neck: Normal inspection. Neck supple. No lymph nodes noted. No crepitus CVS: Normal heart rate and rhythm. Pulses normal. Normal S1 and S2 Respiratory: No respiratory distress. Breath sounds normal. No Wheezing. No rales Abdomen: Soft and nontender. No rigidity. No distention. good BS x4 Skin: Skin warm and dry. Normal skin color. Normal skin turgor. Extremities: No lower extremity edema. Neurovascular intact to all extremities. No Lacerations. No Rash Neuro: Oriented X 3. No motor deficit. No sensory deficit. Moving all extermities. No slurred speech Medications Administered Discontinued Medications Generic Name Dose Route Start Last Admin Trade Name Freq PRN Reason Stop Dose Admin Sodium Chloride 1,000 mls @ 999 mls/hr 06/08/23 11:45 06/08/23 12:57 Ns IV 06/08/23 12:45 Infused .Q1H1M ISABELLA Infusion Sodium Chloride 1,000 mls @ 999 mls/hr 06/08/23 12:45 06/08/23 13:11 Ns IV 06/08/23 13:45 999 mls/hr .Q1H1M ISABELLA Administration Ceftriaxone Sodium 1 gm/ 50 mls @ 100 mls/hr 06/08/23 14:41 06/08/23 15:15 Sodium Chloride IV 06/08/23 15:10 100 mls/hr ONCE ONE Administration Medical Decision Making Medical Decision Making [facility] Narrative: Initial 1 reading of blood pressure was 81/49 after bolus of fluid blood pressure is 138/81. Patient's BUN and creatinine elevated consistent with having pre renal insufficiency positive EtOH which per patient is baseline. Might have fallen. Might have hit his head. CT scan of the head and C-spine was ordered. With the nausea vomiting and acute renal insufficiency CT scan of the abdomen pelvis was ordered. Additional IV fluid was ordered. Will monitor carefully. There is a question UTI. Patient's lactate is normal after bolus of fluids patient well-appearing. Patient given Rocephin for the urinary tract infection. To be admitted. Differential Diagnosis Differential Diagnoses: The differential diagnosis associated with the presentation includes Alcohol intoxication dehydration acute renal insufficiency urinary tract infection Admission/Observation Consideration of admission/observation: Escalation of care including admission/observation considered Consult Healthcare Provider Management of the patient was discussed with: Hospitalist Lab Data [facility] Lab Attestation statement: I reviewed the patient's lab results. 06/08/23 11:45 06/08/23 11:45 Labs: Lab Results 06/08/23 06/08/23 06/08/23 Range/Units 11:30 11:45 11:52 WBC 5.8 (4.8-10.8) X10*3/uL RBC 3.29 L (4.60-5.80) X10*6/uL Hgb 11.2 L (14.0-18.0) g/dl Hct 31.0 L (42.0-52.0) % MCV 94.2 (80.0-98.0) fL MCH 34.0 H (27.0-33.0) pg MCHC 36.1 H (31.0-36.0) g/dl RDW 15.5 (11.0-16.0) % Plt Count 80 L D (160-400) X10*3/uL MPV 11.0 (9.4-12.4) fL Immature Gran % (Auto) 0.5 H (0.0-0.4) % Neut % (Auto) 78.1 H (45-73) % Lymph % (Auto) 11.3 L (20-40) % [place] % (Auto) 8.9 (2-11) % Eos % (Auto) 0.5 (0-4) % Baso % (Auto) 0.7 (0-2) % Lymph # (Auto) 0.7 L (1.2-4.9) X10*3/uL [place] # (Auto) 0.5 (0.1-1.2) X10*3/uL Eos # (Auto) 0.0 (0.0-0.4) X10*3/uL Baso # (Auto) 0.0 (0.0-0.2) X10*3/uL Abs Immat Gran (auto) 0.03 (0.00-0.03) X10*3/uL Absolute Neuts (auto) 4.6 (2.0-8.3) x10*3/uL Absolute Nucleated RBC 0.020 H (0.0-0.012) X10*3/uL Nucleated RBC % (auto) 0.3 H (0.0-0.2) /100WBC Sodium 129 L (135-145) mmol/L Potassium 4.5 (3.3-5.1) mmol/L Chloride 91 L (96-108) mmol/L Carbon Dioxide 21 L (22-29) mmol/L Anion Gap 22 H (12-20) BUN 30 H (9-16) mg/dL Creatinine 2.23 H (0.5-1.4) mg/dL Estim Creat Clear Calc 42.0 Estimated GFR 30 POC Glucose 172 H (60-115) mg/dL Random Glucose 161 H (60-115) mg/dL Calcium 9.2 (8.4-10.2) mg/dL Magnesium 1.8 (1.6-2.6) mg/dL Total Bilirubin 2.4 H (0.0-1.0) mg/dL Direct Bilirubin 1.7 H (0.0-0.5) mg/dL AST 152 H (5-37) U/L ALT 49 H (0-40) U/L Alkaline Phosphatase 315 H (39-117) U/L Troponin I High Sens 3.0 (<3.5-35.0) ng/L Total Protein 8.3 H (6.5-8.0) g/dL Albumin 3.6 (3.5-5.0) g/dL Lipase 247 H (8-78) U/L Urine Color Urine Appearance Urine pH (5.0-9.0) Ur Specific [place] (1.005-1.025) Urine Protein (Neg-Trace) mg/dL Urine Glucose (UA) (Negative) mg/dL Urine Ketones (Negative) mg/dL Urine Blood (Negative) Urine Nitrite (Negative) Ur Leukocyte Esterase (Negative) Urine RBC (0-2) /HPF Urine WBC (0-5) /HPF Ur Squamous Epith Cells (0-2) /HPF Urine Bacteria (None Seen) Hyaline Casts (0-2) /LPF Granular Casts Ethyl Alcohol 80 mg/dL Influenza Type A (PCR) NEGATIVE (Negative) Influenza Type B (PCR) NEGATIVE (Negative) RSV RNA Qual (PCR) NEGATIVE (Negative) SARS-CoV-2 RNA (RT-PCR) NEGATIVE (Negative) 06/08/23 Range/Units 14:07 WBC (4.8-10.8) X10*3/uL RBC (4.60-5.80) X10*6/uL Hgb (14.0-18.0) g/dl Hct (42.0-52.0) % MCV (80.0-98.0) fL MCH (27.0-33.0) pg MCHC (31.0-36.0) g/dl RDW (11.0-16.0) % Plt Count (160-400) X10*3/uL MPV (9.4-12.4) fL Immature Gran % (Auto) (0.0-0.4) % Neut % (Auto) (45-73) % Lymph % (Auto) (20-40) % [place] % (Auto) (2-11) % Eos % (Auto) (0-4) % Baso % (Auto) (0-2) % Lymph # (Auto) (1.2-4.9) X10*3/uL [place] # (Auto) (0.1-1.2) X10*3/uL Eos # (Auto) (0.0-0.4) X10*3/uL Baso # (Auto) (0.0-0.2) X10*3/uL Abs Immat Gran (auto) (0.00-0.03) X10*3/uL Absolute Neuts (auto) (2.0-8.3) x10*3/uL Absolute Nucleated RBC (0.0-0.012) X10*3/uL Nucleated RBC % (auto) (0.0-0.2) /100WBC Sodium (135-145) mmol/L Potassium (3.3-5.1) mmol/L Chloride (96-108) mmol/L Carbon Dioxide (22-29) mmol/L Anion Gap (12-20) BUN (9-16) mg/dL Creatinine (0.5-1.4) mg/dL Estim Creat Clear Calc Estimated GFR POC Glucose (60-115) mg/dL Random Glucose (60-115) mg/dL Calcium (8.4-10.2) mg/dL Magnesium (1.6-2.6) mg/dL Total Bilirubin (0.0-1.0) mg/dL Direct Bilirubin (0.0-0.5) mg/dL AST (5-37) U/L ALT (0-40) U/L Alkaline Phosphatase (39-117) U/L Troponin I High Sens (<3.5-35.0) ng/L Total Protein (6.5-8.0) g/dL Albumin (3.5-5.0) g/dL Lipase (8-78) U/L Urine Color Dark Yellow Urine Appearance Cloudy Urine pH 5.5 (5.0-9.0) Ur Specific [place] 1.015 (1.005-1.025) Urine Protein 100 (2+) H (Neg-Trace) mg/dL Urine Glucose (UA) Negative (Negative) mg/dL Urine Ketones Negative (Negative) mg/dL Urine Blood Moderate (2+) H (Negative) Urine Nitrite Positive H (Negative) Ur Leukocyte Esterase Negative (Negative) Urine RBC 0-2 (0-2) /HPF Urine WBC 0-5 (0-5) /HPF Ur Squamous Epith Cells 11-20 (0-2) /HPF Urine Bacteria 4+ (None Seen) Hyaline Casts 3-5 (0-2) /LPF Granular Casts Present Ethyl Alcohol mg/dL Influenza Type A (PCR) (Negative) Influenza Type B (PCR) (Negative) RSV RNA Qual (PCR) (Negative) SARS-CoV-2 RNA (RT-PCR) (Negative) Independent Interpretation I performed an independent interpretation of an: CT Scan (CT scan of the abdomen is grossly negative) Radiology Impression Discussion of test interpretation with radiology: I have reviewed the radiologist's reading. Independent Historian Clinical information obtained from an independent historian. History obtained from or confirmed by: Spouse External Record Review External record reviewed: Inpatient record Chronic Conditions History of ETOH, chronic kidney disease, hypertension, hyperthyroid, seizures, diabetes Social Determinants Patient?s care significantly limited by Social Determinants of Health including: Inadequate housing and Alcoholism and drug addiction in family Critical Care Time Critical Care Time Critical Care Time: Yes Total Critical Care Time: 40 Attestation: I have personally provided 40 minutes of critical care time exclusive of time spent on separately billable procedures. ?Time includes review of lab data, radiology results, discussion with consultants, and monitoring for potential decompensation. ?Interventions were performed as documented above Discharge Plan Discharge Clinical Impression: Diabetes, Alcohol abuse, Renal failure Patient Disposition: Admitted As Inpatient
[2023-06-08 12:48] LABS: Influenza A PCR NEGATIVE (Negative); Influenza B PCR NEGATIVE (Negative); Resp Syncy Virus RNA Qual PCR NEGATIVE (Negative); SARS COV2 PCR INHOUSE NEGATIVE (Negative)
[2023-06-08 13:32] LABS: Magnesium 1.8 mg/dL (1.6-2.6)
--- NOTE | 2023-06-08 14:04 | PC.NURSE ---
patient resting comfortably at this time, at bedside, patient denies any pain at this time
[2023-06-08 14:20] LABS: Appearance Urine Cloudy; Color Urine Dark Yellow; Glucose Urine UA Negative (Negative); Leukocyte Esterase Urine Negative (Negative); Nitrite Urine Positive (Negative); PH 5.5 (5.0-9.0); Specific Gravity - Urine 1.015 (1.005-1.025); UMIC TRIGGER UACC YES; Urine Blood Moderate (2+) (Negative); Urine Ketones Negative (Negative); Urine Protein 100 (2+) mg/dL (Neg-Trace)
[2023-06-08 14:29] LABS: Bacteria Urine 4+ (None Seen); Granular Casts Urine Present; RBC Urine 0-2 /HPF (0-2); UACC Culture Trigger YES; WBC Urine 0-5 /HPF (0-5)
[2023-06-08] MEDS: cefTRIAXone sodium 1 GM in 0.9 % Sodium Chloride 50 ML IV (15:15)
[2023-06-08 15:27] LABS: Lactic Acid 1.2 mmol/L (0.5-2.0)
--- NOTE | 2023-06-08 15:54 | P.HPHOSP_ITS ---
History of Present Illness Date of Service: 06/08/23 Chief Complaint: Weakness, diarrhea 58 year old male with HTN, diabetes, seizure disorder, HLD, chronic Etoh use--up to 5 drinks a day. He presents to the ED accompanied by his with complaint weakness that has been ongoin for the last 2 weeks and getting worse. Additional he has been having intermitted diarrhea, nause and vomitting, no report of abdominal pain. He continues to drink however, last drink couple of days ago . Initial blood pressures 81/49. Work up has revealed acute kidney failure with creatine of 2.33, Sodium 129, LFTs are elevated, Lipase level of 247, UA show + nitrate, and 4 bacteria. Review of Systems 2 Review of Systems: Gen: no fever Resp: no sob, no cough CV: no chest, no VALENTIN, no leg edema GI: No n/v, no abd pain Neuro: No confusion Yes all other systems are reviewed and are negative [facility] Medical History Fatty liver Nicotine dependence, cigarettes, uncomplicated HTN (hypertension) Seizures Asthma Diabetes Surgical History History of colonoscopy Social History Household Members: Family Housing: House Do you presently have visiting nurse or other home services: No Alcohol intake: current Alcohol intake frequency: 3 or more drinks per day Alcohol type: hard liquor Patient Tobacco Use Status: Former Tobacco user Cigarettes Per Day: 5 Years Smoked: (onset 20yo, 1/2-3/4ppd x 36yrs, 20pyh) Smoked in Last 30 Days: Yes e-Cigarette/Vaping Use: Never Used Second Hand Smoke Exposure: No Use of substances other than those prescribed or required for medical reasons: Yes Substance Use Type: Marijuana Currently Displaying Signs/Symptoms of Drug Intoxication Withdrawal: No Have you been hit, kicked, punched, or otherwise hurt by someone within the past year? If so, by whom?: No Do you feel safe in your current relationship?: Yes Is there a partner from a previous relationship who is making you feel unsafe now?: No Advance Directives: No Do you have thoughts of harming others: None Do you have a plan to hurt others: No Plan Recently lost weight without trying: No Nutrition Risks: No Nutritional Risk service: No Current occupational status: employed Current occupation: [employer] Current occupational exposures/hazards: No Cognitive needs: No Hearing needs: No Vision needs: No Meds Allergies Allergy/AdvReac Type Severity Reaction Status Date / Time Penicillins Allergy Hives Verified 06/08/23 11:20 Home Medications Medication Instructions Recorded Confirmed Last Taken Type albuterol sulfate 90 mcg/actuation 2 puff inhalation Q6H PRN Wheezing 03/14/22 06/08/23 06/07/23 History aerosol inhaler (ProAir HFA) fluticasone 250 mcg-salmeterol 50 1 inh inhalation BID 03/14/22 06/08/23 06/07/23 History mcg/dose blistr powdr for inhalation (Advair Diskus) Physical Exam 2 Vital Signs and Narrative: Vital Signs: Last Vital Signs Temp 99.1 F 06/08/23 15:33 Pulse 86 06/08/23 15:33 Resp 16 06/08/23 15:33 BP 115/79 06/08/23 15:33 Pulse Ox 97 06/08/23 15:33 O2 Del Method Room Air 06/08/23 15:33 BMI result Body Mass Index 28.6 Constitutional: Alert, in no distress, overweight. Mental Status: Oriented to person, place and time. Eyes: Pupils are equal, round and reactive to light. Ear, Nose and Throat: Oropharynx clear, mucous membranes moist. Ears and nose without eformities. Trachea midline. Respiratory: Clear to auscultation. No wheezing, rales or rhonchi. Cardiovascular: S1 S2 regular. No murmurs, rubs or gallops. Gastrointestinal: Abdomen soft, non-tender, non-distended. Normal bowel sounds.? Neurologic: Cranial nerves II-XII grossly intact. No focal neurological deficits. Moves all extremities spontaneously.? Skin: No rashes or lesions.? Musculoskeletal: No cyanosis or clubbing. Psychiatric: Normal mood and affect? Results Labs 06/08/23 11:45 06/09/23 07:30 Labs: Laboratory Results - last 24 hr 06/08/23 06/08/23 06/08/23 11:30 11:45 11:52 MCV 94.2 MCH 34.0 H MCHC 36.1 H RDW 15.5 Plt Count 80 L D MPV 11.0 Immature Gran % (Auto) 0.5 H Neut % (Auto) 78.1 H Lymph % (Auto) 11.3 L [place] % (Auto) 8.9 Eos % (Auto) 0.5 Baso % (Auto) 0.7 Lymph # (Auto) 0.7 L [place] # (Auto) 0.5 Eos # (Auto) 0.0 Baso # (Auto) 0.0 Abs Immat Gran (auto) 0.03 Absolute Neuts (auto) 4.6 Absolute Nucleated RBC 0.020 H Nucleated RBC % (auto) 0.3 H Anion Gap 22 H Estim Creat Clear Calc 42.0 Estimated GFR 30 POC Glucose 172 H Random Glucose 161 H Lactic Acid Calcium 9.2 Magnesium 1.8 Total Bilirubin 2.4 H Direct Bilirubin 1.7 H AST 152 H ALT 49 H Alkaline Phosphatase 315 H Troponin I High Sens 3.0 Total Protein 8.3 H Albumin 3.6 Lipase 247 H Urine Color Urine Appearance Urine pH Ur Specific [place] Urine Protein Urine Glucose (UA) Urine Ketones Urine Blood Urine Nitrite Ur Leukocyte Esterase Urine RBC Urine WBC Ur Squamous Epith Cells Urine Bacteria Hyaline Casts Granular Casts Ethyl Alcohol 80 Influenza Type A (PCR) NEGATIVE Influenza Type B (PCR) NEGATIVE RSV RNA Qual (PCR) NEGATIVE SARS-CoV-2 RNA (RT-PCR) NEGATIVE 06/08/23 06/08/23 14:07 14:57 MCV MCH MCHC RDW Plt Count MPV Immature Gran % (Auto) Neut % (Auto) Lymph % (Auto) [place] % (Auto) Eos % (Auto) Baso % (Auto) Lymph # (Auto) [place] # (Auto) Eos # (Auto) Baso # (Auto) Abs Immat Gran (auto) Absolute Neuts (auto) Absolute Nucleated RBC Nucleated RBC % (auto) Anion Gap Estim Creat Clear Calc Estimated GFR POC Glucose Random Glucose Lactic Acid 1.2 Calcium Magnesium Total Bilirubin Direct Bilirubin AST ALT Alkaline Phosphatase Troponin I High Sens Total Protein Albumin Lipase Urine Color Dark Yellow Urine Appearance Cloudy Urine pH 5.5 Ur Specific [place] 1.015 Urine Protein 100 (2+) H Urine Glucose (UA) Negative Urine Ketones Negative Urine Blood Moderate (2+) H Urine Nitrite Positive H Ur Leukocyte Esterase Negative Urine RBC 0-2 Urine WBC 0-5 Ur Squamous Epith Cells 11-20 Urine Bacteria 4+ Hyaline Casts 3-5 Granular Casts Present Ethyl Alcohol Influenza Type A (PCR) Influenza Type B (PCR) RSV RNA Qual (PCR) SARS-CoV-2 RNA (RT-PCR) Imaging Radiologist's Impressions: Impressions Chest X-Ray 06/08/23 11:50 IMPRESSION: No acute abnormality. Abdomen/Pelvis CT 06/08/23 13:53 IMPRESSION: 1. No acute intra-abdominal process seen. 2. Mild hepatomegaly with hepatic steatosis. Fleischner guidelines were followed. Cervical Spine CT 06/08/23 13:53 IMPRESSION: 1. No acute intracranial process seen. 2. 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 3. There is no acute fracture, dislocation or subluxation seen in cervical spine. There are degenerative disc changes C5-C6 disc level with mild ventral spondylosis C5-C6 and C6-C7 disc levels. Head CT 06/08/23 13:53 IMPRESSION: 1. No acute intracranial process seen. 2. 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 3. There is no acute fracture, dislocation or subluxation seen in cervical spine. There are degenerative disc changes C5-C6 disc level with mild ventral spondylosis C5-C6 and C6-C7 disc levels. Assessment and Plan (1) Renal failure: Status: Acute (2) Alcohol abuse: Status: Acute (3) ETOH abuse: Status: Acute (4) Low magnesium level: Status: Acute Plan 58 year old male with HTN, diabetes, seizure disorder, HLD, chronic Etoh use--up to 5 drinks a day here with gen weakness, dehydration, STEFANO STEFANO--likely pre renal from dehydration -IVF and repeat labs in the morning, if not improving then US of kidney and nephrology consult HypOtension--not due sepsis, d/t diarrhea and dehydration--resolved with IVF -hold BP meds HypOnatremia--hypovolemia -hyponatremia, expected to improve with hydration Acute pancreatiis--likely related to Etoh -IVF, liquid diet and advance as sumeet -hold HCTZ and Irbesartan -repeat labs tomorrow Diabetes--Hold metformin in light of renal failure, add SI and if needed add lantus HTN--initialy was hypotensive, (not due to sepsis) -hold meds and reassess tomorrow Etoh use --at risk for withdrawal, add Phenobarbital Elevated AGAP, normal lactic and normal bicab, likely due renal failure and should improve with IVF UTI--Ceftriaxone, follow culture Elevated LFTs, hyperbilirubin, likely BPH--Flomax Seizure d/o--continue Keppra DVT prophylaxis heparin, Full Code admission for 2 midnights for management of STEFANO needing IVF Quality Stroke Does the patient have a stroke diagnosis?: No VTE Prior VTE?: No VTE Risk Level:: Medical - moderate - high VTE Device Contraindication: Treatment Not Indicated VTE Drug Contraindication: N/A - Med Ordered
[2023-06-08 17:41] LABS: Estimated Average Glucose 140 mg/dL; Hemoglobin A1c % 6.5 % (<6.0)
[2023-06-08] MEDS: Enoxaparin Sodium 40 MG/0.4 ML SYRINGE SUBCUT (18:21)
[2023-06-08] MEDS: PHENobarbitaL sodium 130 MG/ML IM ONCE 240.5 MG IM (18:22)
[2023-06-08] MEDS: 0.9 % Sodium Chloride 1,000 ML 100 ML IVCONT (18:24)
[2023-06-08 18:48] LABS: Glucose, Whole Blood 113 mg/dL (60-115)
[2023-06-08 20:56] LABS: Glucose, Whole Blood 127 mg/dL (60-115)
[2023-06-08] MEDS: levETIRAcetam 1,000 MG TABLET 1000 MG PO (21:13)
[2023-06-08] MEDS: Tamsulosin HCL 0.4 MG CAPSULE PO (21:13)
[2023-06-08] MEDS: PHENobarbitaL sodium 130 MG/ML VIAL IM Q3Hx2 180.7 MG IM ×2 (21:13→23:55)
[2023-06-09 04:00] VITALS: BP 128/72; PULSE 69; RESP 18; TEMP 36.9; O2SAT 97
[2023-06-09] MEDS: 0.9 % Sodium Chloride 1,000 ML 100 ML IVCONT ×2 (06:35→14:43)
[2023-06-09 07:28] LABS: Alanine Aminotransferase 39 U/L (0-40); Albumin Level 3.2 g/dL (3.5-5.0); Alkaline Phosphatase 269 U/L (39-117); Aspartate Amino Transferase 108 U/L (5-37); Bilirubin Direct 1.8 mg/dL (0.0-0.5); Bilirubin Total 2.3 mg/dL (0.0-1.0); Blood Urea Nitrogen 26 mg/dL (9-16); Calcium 8.5 mg/dL (8.4-10.2); Carbon Dioxide 22 mmol/L (22-29); Chloride 98 mmol/L (96-108); Creatinine Clr Calc Pharmacy 54.6; Estimated Glomerular Filt Rate 46; Glucose Random 101 mg/dL (60-115); Potassium 4.1 mmol/L (3.3-5.1); Sodium 131 mmol/L (135-145); Total Protein 7.2 g/dL (6.5-8.0)
[2023-06-09 07:53] LABS: Glucose, Whole Blood 109 mg/dL (60-115)
[2023-06-09 07:55] VITALS: BP 138/81; PULSE 74; RESP 20; TEMP 37.2; O2SAT 98
[2023-06-09 07:57] LABS: Anion Gap 16 (12-20)
[2023-06-09] MEDS: Magnesium Oxide 400 MG TABLET PO (08:49)
[2023-06-09] MEDS: levETIRAcetam 1,000 MG TABLET 1000 MG PO ×2 (08:49→21:32)
[2023-06-09] MEDS: PHENobarbitaL 30 MG TABLET 60 MG PO ×2 (08:49→21:32)
--- NOTE | 2023-06-09 11:14 | HO.PM.IMPN ---
Subjective Subjective Date of Service: 06/09/23 Interval History: F/u on dehydration, STEFANO, acute pancreatitis. He feels better, no further diarrhea, no abdominal pain, no signs of alcohol withdrawal renal function is better Physical Exam Vital Signs: Vital Signs: Last Vital Signs Temp 98.9 F 06/09/23 07:55 Pulse 74 06/09/23 07:55 Resp 20 06/09/23 07:55 BP 138/81 06/09/23 07:55 Pulse Ox 98 06/09/23 07:55 O2 Del Method Room Air 06/09/23 07:55 BMI result Body Mass Index 26.4 General: AO X 3, no acute distress Resp: CTA bilateral CVS: S1,S2,RRR GI: +BS, NT, no distention Skin: No rash Neuro: motor grossly intact Psych: appropriate affect Objective Data Active Medications Acetaminophen (Acetaminophen 325 Mg Tablet) 650 mg PO Q6H PRN PRN Reason: Pain, Mild (Pain Scale 1-3) Albuterol Sulfate (Albuterol Sulfate 90 Mcg 8 Gm Inhaler) 2 puff INHALE Q6H PRN PRN Reason: Wheezing Dextrose (Dextrose 50 % 25 Gm/50 Ml Syringe) 25 gm IVPUSH Q15M PRN; Protocol PRN Reason: per Hypoglycemia Standing Ord. Enoxaparin Sodium (Enoxaparin Sodium 40 Mg/0.4 Ml Syringe) 40 mg SUBCUT Q24H [facility] Last Admin: 06/08/23 18:21 Dose: 40 mg Documented By: SEBASTIAN Fluticasone/Vilanterol (Fluticasone/Vilanterol 100/25 Blst.W.Dev) 1 puff INHALE RDAILY [facility] Last Admin: 06/09/23 08:06 Dose: Not Given Documented By: MARU Non-Admin Reason: Med Not Available Comments: pharmacy notified Glucose (Glucose Gel 15 Gm Gel..Gram.) 15 gm PO Q15M PRN; Protocol PRN Reason: per Hypoglycemia Standing Ord. Sodium Chloride (Ns) 1,000 mls @ 100 mls/hr IVCONT .Q10H [facility] Last Admin: 06/09/23 06:35 Dose: 100 mls/hr Documented By: GABINO Ceftriaxone Sodium 1 gm/ (Sodium Chloride) 50 mls @ 100 mls/hr IV Q24H [facility] Insulin Human Lispro (Insulin Lispro 100 Unit/Ml 3 Ml Vial) 0 unit SUBCUT QIDACHS [facility]; Protocol Last Admin: 06/09/23 08:28 Dose: Not Given Documented By: MICHEAL Non-Admin Reason: poc 109 Levetiracetam (Levetiracetam 1,000 Mg Tablet) 1,000 mg PO BID [facility] Last Admin: 06/09/23 08:49 Dose: 1,000 mg Documented By: GABINO Magnesium Oxide (Magnesium Oxide 400 Mg Tablet) 400 mg PO DAILY [facility] Last Admin: 06/09/23 08:49 Dose: 400 mg Documented By: GABINO Melatonin (Melatonin 3 Mg Tablet) 6 mg PO BEDTIME PRN PRN Reason: Insomnia Ondansetron HCl (Ondansetron Hcl 4 Mg/2 Ml Vial) 4 mg IVPUSH Q8H PRN PRN Reason: Nausea and Vomiting Pharmacy Consult (Consult Rx Etoh Phenob Im/Po) 1 each MISCELLANE ONCE PRN; Protocol PRN Reason: Consult order Phenobarbital (Phenobarbital 30 Mg Tablet) 60 mg PO BID [facility]; Protocol Stop: 06/10/23 21:01 Last Admin: 06/09/23 08:49 Dose: 60 mg Documented By: GABINO Phenobarbital (Phenobarbital 30 Mg Tablet) 30 mg PO BID [facility]; Protocol Stop: 06/12/23 21:01 Phenobarbital (Phenobarbital 30 Mg Tablet) 30 mg PO DAILY [facility]; Protocol Stop: 06/14/23 09:01 Sodium Chloride (0.9 % Sodium Chloride Flush 3 Ml Syringe) 3 ml IVFLUSH QSHIFT [facility] Last Admin: 06/09/23 08:51 Dose: Not Given Documented By: GABINO Non-Admin Reason: IV Running Tamsulosin HCl (Tamsulosin Hcl 0.4 Mg Capsule) 0.4 mg PO BEDTIME [facility] Last Admin: 06/08/23 21:13 Dose: 0.4 mg Documented By: RK Labs 06/08/23 11:45 06/09/23 07:30 Labs: Laboratory Results - last 24 hr 06/08/23 06/08/23 06/08/23 11:30 11:45 11:52 MCV 94.2 MCH 34.0 H MCHC 36.1 H RDW 15.5 Plt Count 80 L D MPV 11.0 Immature Gran % (Auto) 0.5 H Neut % (Auto) 78.1 H Lymph % (Auto) 11.3 L Letcher % (Auto) 8.9 Eos % (Auto) 0.5 Baso % (Auto) 0.7 Lymph # (Auto) 0.7 L [place]cher # (Auto) 0.5 Eos # (Auto) 0.0 Baso # (Auto) 0.0 Abs Immat Gran (auto) 0.03 Absolute Neuts (auto) 4.6 Absolute Nucleated RBC 0.020 H Nucleated RBC % (auto) 0.3 H Hold Purple Top Anion Gap 22 H Estim Creat Clear Calc 42.0 Estimated GFR 30 POC Glucose 172 H Random Glucose 161 H Estimat Average Glucose 140 Hemoglobin A1c % 6.5 H Lactic Acid Calcium 9.2 Magnesium 1.8 Total Bilirubin 2.4 H Direct Bilirubin 1.7 H AST 152 H ALT 49 H Alkaline Phosphatase 315 H Troponin I High Sens 3.0 Total Protein 8.3 H Albumin 3.6 Lipase 247 H Urine Color Urine Appearance Urine pH Ur Specific [place] Urine Protein Urine Glucose (UA) Urine Ketones Urine Blood Urine Nitrite Ur Leukocyte Esterase Urine RBC Urine WBC Ur Squamous Epith Cells Urine Bacteria Hyaline Casts Granular Casts Ethyl Alcohol 80 Influenza Type A (PCR) NEGATIVE Influenza Type B (PCR) NEGATIVE RSV RNA Qual (PCR) NEGATIVE SARS-CoV-2 RNA (RT-PCR) NEGATIVE 06/08/23 06/08/23 06/08/23 14:07 14:57 18:45 MCV MCH MCHC RDW Plt Count MPV Immature Gran % (Auto) Neut % (Auto) Lymph % (Auto) Letcher % (Auto) Eos % (Auto) Baso % (Auto) Lymph # (Auto) [place]cher # (Auto) Eos # (Auto) Baso # (Auto) Abs Immat Gran (auto) Absolute Neuts (auto) Absolute Nucleated RBC Nucleated RBC % (auto) Hold Purple Top Anion Gap Estim Creat Clear Calc Estimated GFR POC Glucose 113 Random Glucose Estimat Average Glucose Hemoglobin A1c % Lactic Acid 1.2 Calcium Magnesium Total Bilirubin Direct Bilirubin AST ALT Alkaline Phosphatase Troponin I High Sens Total Protein Albumin Lipase Urine Color Dark Yellow Urine Appearance Cloudy Urine pH 5.5 Ur Specific [place] 1.015 Urine Protein 100 (2+) H Urine Glucose (UA) Negative Urine Ketones Negative Urine Blood Moderate (2+) H Urine Nitrite Positive H Ur Leukocyte Esterase Negative Urine RBC 0-2 Urine WBC 0-5 Ur Squamous Epith Cells 11-20 Urine Bacteria 4+ Hyaline Casts 3-5 Granular Casts Present Ethyl Alcohol Influenza Type A (PCR) Influenza Type B (PCR) RSV RNA Qual (PCR) SARS-CoV-2 RNA (RT-PCR) 06/08/23 06/09/23 06/09/23 20:53 06:40 07:30 MCV MCH MCHC RDW Plt Count MPV Immature Gran % (Auto) Neut % (Auto) Lymph % (Auto) [place] % (Auto) Eos % (Auto) Baso % (Auto) Lymph # (Auto) [place] # (Auto) Eos # (Auto) Baso # (Auto) Abs Immat Gran (auto) Absolute Neuts (auto) Absolute Nucleated RBC Nucleated RBC % (auto) Hold Purple Top SEE NOTE Anion Gap 16 Estim Creat Clear Calc 54.6 Estimated GFR 46 POC Glucose 127 H Random Glucose 101 Estimat Average Glucose Hemoglobin A1c % Lactic Acid Calcium 8.5 D Magnesium Total Bilirubin 2.3 H Direct Bilirubin 1.8 H AST 108 H ALT 39 Alkaline Phosphatase 269 H Troponin I High Sens Total Protein 7.2 Albumin 3.2 L Lipase Urine Color Urine Appearance Urine pH Ur Specific [place] Urine Protein Urine Glucose (UA) Urine Ketones Urine Blood Urine Nitrite Ur Leukocyte Esterase Urine RBC Urine WBC Ur Squamous Epith Cells Urine Bacteria Hyaline Casts Granular Casts Ethyl Alcohol Influenza Type A (PCR) Influenza Type B (PCR) RSV RNA Qual (PCR) SARS-CoV-2 RNA (RT-PCR) 06/09/23 07:33 MCV MCH MCHC RDW Plt Count MPV Immature Gran % (Auto) Neut % (Auto) Lymph % (Auto) [place] % (Auto) Eos % (Auto) Baso % (Auto) Lymph # (Auto) [place]cher # (Auto) Eos # (Auto) Baso # (Auto) Abs Immat Gran (auto) Absolute Neuts (auto) Absolute Nucleated RBC Nucleated RBC % (auto) Hold Purple Top Anion Gap Estim Creat Clear Calc Estimated GFR POC Glucose 109 Random Glucose Estimat Average Glucose Hemoglobin A1c % Lactic Acid Calcium Magnesium Total Bilirubin Direct Bilirubin AST ALT Alkaline Phosphatase Troponin I High Sens Total Protein Albumin Lipase Urine Color Urine Appearance Urine pH Ur Specific [place] Urine Protein Urine Glucose (UA) Urine Ketones Urine Blood Urine Nitrite Ur Leukocyte Esterase Urine RBC Urine WBC Ur Squamous Epith Cells Urine Bacteria Hyaline Casts Granular Casts Ethyl Alcohol Influenza Type A (PCR) Influenza Type B (PCR) RSV RNA Qual (PCR) SARS-CoV-2 RNA (RT-PCR) Assessment and Plan (1) Renal failure: Status: Acute (2) Alcohol abuse: Status: Acute Plan 58 year old male with HTN, diabetes, seizure disorder, HLD, chronic Etoh use--up to 5 drinks a day here with gen weakness, dehydration, STEFANO STEFANO--likely pre renal from dehydration, improving -IVF and repeat labs in the morning, HypOtension--not due sepsis, d/t diarrhea and dehydration--resolved with IVF -hold BP meds HypOnatremia--hypovolemia -hyponatremia, expected to improve with hydration diarrhea--resolved. Acute pancreatiis--likely related to Etoh -IVF, advance to full liq then regular Diabetes--Hold metformin in light of renal failure, SSI and A1C is 6.5 only , consider replacing metformin with glipizide 2.5 daily if sugars are high HTN--initialy was hypotensive, (not due to sepsis) -hold meds and reassess tomorrow Etoh use --at risk for withdrawal, add Phenobarbital Elevated AGAP, normal lactic and normal bicab, likely due renal failure and resolved. Thrmobocytopenia--likely related chronic alcohol use UTI--Ceftriaxone, follow culture Elevated LFTs, hyperbilirubin, likely BPH--Flomax Seizure d/o--continue Keppra DVT prophylaxis heparin, Full Code admission for 2 midnights for management of STEFANO needing IVF Quality Stroke Does the patient have a stroke diagnosis?: No VTE Prior VTE?: No VTE Risk Level:: Medical - moderate - high VTE Device Contraindication: Treatment Not Indicated VTE Drug Contraindication: N/A - Med Ordered
[2023-06-09 11:34] VITALS: BP 130/78; PULSE 78; RESP 20; TEMP 37.2; O2SAT 97
[2023-06-09 11:51] LABS: Lipase 239 U/L (8-78)
[2023-06-09 11:57] LABS: Hematocrit 29.4 % (42.0-52.0); Hemoglobin 10.4 g/dl (14.0-18.0); Mean Corpuscular HGB Conc 35.4 g/dl (31.0-36.0); Mean Corpuscular Hemoglobin 33.9 pg (27.0-33.0); Mean Corpuscular Volume 95.8 fL (80.0-98.0); Mean Platelet Volume 10.9 fL (9.4-12.4); Red Blood Count 3.07 X10*6/uL (4.60-5.80); Red Cell Distribution Width 15.9 % (11.0-16.0); White Blood Count 3.6 X10*3/uL (4.8-10.8)
[2023-06-09 12:00] LABS: Glucose, Whole Blood 116 mg/dL (60-115)
--- NOTE | 2023-06-09 12:21 | MHC.RECOVRN ---
Attempted to meet with pt in 461 after Addiction Medicine consult was received for alcohol use. Pt had presented to the ED reporting nonspecific weakness increasing over the past few weeks, hx seizures and diabetes. Upon evaluation, pt admitted for renal failure and alcohol use. Pt laying in bed, asleep, does not wake to voice. Pts , Aletha, at bedside. reports she has some concern regarding patient's alcohol use and that pt would like to reduce the amount he drinks. Resources were left at the bedside as patient was soundly sleeping and did not wake while and t/w were talking. denies questions or concerns at this time. Will return to discuss further with patient.
[2023-06-09 12:23] LABS: Platelet Count 47 X10*3/uL (160-400)
--- NOTE | 2023-06-09 14:24 | MHC.CM.PN ---
Pt sleeping very soundly, unable to awaken to engage in CM intake assessment. Pts Halle present at bedside able to answer questions on his behalf. Pt self-care, lives at home with his Halle who will transport him home at D/C. Pts states he has trouble sleeping at night and sleeps a lot during the day. No HCP, unable to complete at this time due to somnolence. PCP: Dr. Jose Romero
[2023-06-09 15:18] VITALS: BP 126/78; PULSE 78; RESP 16; TEMP 37; O2SAT 98
[2023-06-09] MEDS: 0.9 % Sodium Chloride Flush 3 ML SYRINGE IVFLUSH (15:30)
[2023-06-09] MEDS: cefTRIAXone sodium 1 GM in 0.9 % Sodium Chloride 50 ML IV (15:30)
[2023-06-09 16:13] LABS: Glucose, Whole Blood 126 mg/dL (60-115)
[2023-06-09] MEDS: Enoxaparin Sodium 40 MG/0.4 ML SYRINGE SUBCUT (17:30)
[2023-06-09 19:48] VITALS: BP 137/87; PULSE 82; RESP 20; TEMP 36.7; O2SAT 97
[2023-06-09 19:59] LABS: Glucose, Whole Blood 125 mg/dL (60-115)
[2023-06-09] MEDS: Tamsulosin HCL 0.4 MG CAPSULE PO (21:32)
[2023-06-10] VITALS: BP 143/78; PULSE 65; RESP 20; TEMP 37.1; O2SAT 99
[2023-06-10 03:25] VITALS: BP 127/75; PULSE 71; RESP 20; TEMP 36.1; O2SAT 96
[2023-06-10] MEDS: 0.9 % Sodium Chloride 1,000 ML 100 ML IVCONT (03:29)
[2023-06-10 07:13] VITALS: BP 133/78; PULSE 61; RESP 20; TEMP 36.9; O2SAT 98
[2023-06-10 07:19] LABS: Glucose, Whole Blood 81 mg/dL (60-115)
[2023-06-10 07:44] LABS: Hematocrit 29.8 % (42.0-52.0); Hemoglobin 10.4 g/dl (14.0-18.0); Mean Corpuscular HGB Conc 34.9 g/dl (31.0-36.0); Mean Corpuscular Hemoglobin 33.2 pg (27.0-33.0); Mean Corpuscular Volume 95.2 fL (80.0-98.0); Mean Platelet Volume 11.6 fL (9.4-12.4); Red Blood Count 3.13 X10*6/uL (4.60-5.80); Red Cell Distribution Width 15.7 % (11.0-16.0)
[2023-06-10 07:45] LABS: Platelet Count 50 X10*3/uL (160-400)
[2023-06-10 08:00] LABS: Anion Gap 16 (12-20); Blood Urea Nitrogen 19 mg/dL (9-16); Calcium 8.5 mg/dL (8.4-10.2); Carbon Dioxide 20 mmol/L (22-29); Chloride 101 mmol/L (96-108); Creatinine Clr Calc Pharmacy 73.2; Estimated Glomerular Filt Rate > 60; Glucose Random 83 mg/dL (60-115); Potassium 3.9 mmol/L (3.3-5.1); Sodium 133 mmol/L (135-145)
[2023-06-10] MEDS: Fluticasone/Vilanterol 100/25 BLST.W.DEV 1 PUFF INHALE (08:44)
[2023-06-10 08:47] VITALS: PULSE 76; RESP 16; O2SAT 99
[2023-06-10] MEDS: levETIRAcetam 1,000 MG TABLET 1000 MG PO (08:48)
[2023-06-10] MEDS: Magnesium Oxide 400 MG TABLET PO (08:48)
[2023-06-10] MEDS: PHENobarbitaL 30 MG TABLET 60 MG PO (08:48)
[2023-06-10 11:47] VITALS: BP 131/80; PULSE 71; RESP 20; TEMP 36.9; O2SAT 99
[2023-06-10 11:54] LABS: Glucose, Whole Blood 91 mg/dL (60-115)
--- NOTE | 2023-06-10 12:31 | PM.DS ---
DS: Providers Provider Date of Service: 06/10/23 Date of admission: 06/08/23 16:32 Primary care physician: MICHAEL Patel Consults: 06/08/23 16:44 Addiction Medicine Routine Consulting Provider: Addiction Covering Reason for consultation: excessive alcohol use DS: Diagnosis Discharge Diagnosis (1) Renal failure: Status: Resolved (2) Alcohol abuse: Status: Acute DS: Summary Hospital Course Hospital Course: admission hpi Chief Complaint: Weakness, diarrhea 58 year old male with HTN, diabetes, seizure disorder, HLD, chronic Etoh use--up to 5 drinks a day. He presents to the ED accompanied by his with complaint weakness that has been ongoin for the last 2 STEFANO--due to dehydration, diarrhea and irbesartan use. He was hydrated, Irbesartan stopped and renal function has returned to normal. Stoping Irbestartan Hospital course: HypOtension--not due sepsis, d/t diarrhea and dehydration--resolved with IVF HypOnatremia--hypovolemia -hyponatremia, improved with IVF sodium is now 133 diarrhea--resolved. No further testing was done Acute pancreatiis--likely related to Etoh, clinically resolved. Tolerating regular diet Diabetes--Held metformin in light of renal failure, SSI and A1C is 6.5 only , can resume metformin HTN--initialy was hypotensive, (not due to sepsis) Holding Irbesartin and to continue Norvasc at 10 mg daily Etoh use --at risk for withdrawal, was treated with phenobarbital and advised to stop drinking Elevated AGAP, normal lactic and normal bicab, likely due renal failure and resolving Thrmobocytopenia--likely related chronic alcohol and hypersplenism.. Was 80 then 47 and now 50.. No bleeding, again advised to stop drinking alohol and follow up with PCP UTI--Ceftriaxone, follow culture showing staph epidermis, sensitive to macrobid and will discharge with macrobid 100 bid x 5 hillman Elevated LFTs, hyperbilirubin, likely chronic from chronic alcohol use BPH--Flomax Seizure d/o--continue Keppra Time Attestation Discharge Coordination Time (in mins): 45 Quality: Safe Use of Opioids Does Pt have an Active Cancer Diagnosis on the Problem List?: No Quality: Stroke Does the patient have a stroke diagnosis?: No Physical Exam Vital Signs: Vital Signs: Last Vital Signs Temp 98.5 F 06/10/23 11:47 Pulse 71 06/10/23 11:47 Resp 20 06/10/23 11:47 BP 131/80 06/10/23 11:47 Pulse Ox 99 06/10/23 11:47 O2 Del Method Room Air 06/10/23 11:47 BMI result Body Mass Index 26.4 DS: Data Data Completed and Pending Labs on day of discharge: Laboratory Results - last 24 hr 06/09/23 06/09/23 06/10/23 16:00 19:55 06:59 WBC 4.0 L RBC 3.13 L Hgb 10.4 L Hct 29.8 L MCV 95.2 MCH 33.2 H MCHC 34.9 RDW 15.7 Plt Count 50 L MPV 11.6 Absolute Nucleated RBC 0.000 Nucleated RBC % (auto) 0.0 Sodium 133 L Potassium 3.9 Chloride 101 Carbon Dioxide 20 L Anion Gap 16 BUN 19 H Creatinine 1.17 Estim Creat Clear Calc 73.2 Estimated GFR > 60 POC Glucose 126 H 125 H Random Glucose 83 Calcium 8.5 06/10/23 06/10/23 07:12 11:49 WBC RBC Hgb Hct MCV MCH MCHC RDW Plt Count MPV Absolute Nucleated RBC Nucleated RBC % (auto) Sodium Potassium Chloride Carbon Dioxide Anion Gap BUN Creatinine Estim Creat Clear Calc Estimated GFR POC Glucose 81 91 Random Glucose Calcium Preliminary micro results at discharge 06/08/23 15:01 Blood Culture - Preliminary Blood - Venous No growth after 24 hours. 06/08/23 14:57 Blood Culture - Preliminary Blood - Venous No growth after 24 hours. Discharge Plan Discharge Anticipated Discharge Date/Time: 06/10/23 12:01 Patient Disposition: Home, Self-Care Discharge Diagnosis: Acute renal failure, Dehydration Referrals: Jose Romero, [facility] [Primary Care Provider] - 1 Week Discharge Medications: New amlodipine [Norvasc] 10 mg tablet 10 mg PO DAILY Qty: 30 0RF Continued levetiracetam 1,000 mg tablet 1,000 mg PO BID 30 Days Qty: 60 1RF atorvastatin 20 mg tablet 20 mg PO BEDTIME 90 Days Qty: 90 1RF fluticasone propion-salmeterol [Advair Diskus] 250-50 mcg/dose blister with device 1 inh inhalation BID albuterol sulfate [ProAir HFA] 90 mcg/actuation HFA aerosol inhaler 2 puff inhalation Q6H PRN (Reason: Wheezing) tamsulosin [Flomax] 0.4 mg capsule 0.4 mg PO BEDTIME Qty: 90 2RF Changed magnesium oxide 500 mg capsule 500 mg PO BID Qty: 60 1RF Discontinued amlodipine 5 mg tablet 5 mg PO DAILY 90 Days Qty: 90 1RF irbesartan 300 mg tablet 300 mg PO DAILY 90 Days Qty: 90 1RF No Action metformin 1,000 mg tablet 1,000 mg PO DAILY Qty: 90 1RF Discharge Orders: Discharge Order (Routine); Ordered 06/10/23 Ordered By: Cholo Solomon Diet: Diabetic diet Activity on Discharge: As tolerated Stand Alone Forms: Patient Portal Discharge page Print Language: Armenian Care Plan Goals: recovery from dedhydration and renal failure Health Concerns: Dehydration renal failure and diarrhea [place] Alsohol use disorder Plan of Treatment: stop taking Irbesartan Norvasc dose has been increased to 10 mg daily magnesium dose have been increased to 500 mg twice daily Drink plenty of fluid and get lab work done next and follow up with your Doctor in a week Assessment: See above Discharge Date/Time: 06/10/23 16:35
[2023-06-10 12:42] LABS: Magnesium 1.4 mg/dL (1.6-2.6)
--- NOTE | 2023-06-10 13:04 | MHC.RECOVRN ---
Attempted to meet with pt again to discuss recovery resources. Pt asleep, at bedside. reports pt has not looked over resources yet and does not have questions herself. Encouraged and patient to reach out to t/w if needed.
[2023-06-10] MEDS: Magnesium Sulfate/H2O 2 GM/50 ML PIGGYBACK IV (13:20)
[2023-06-10 15:02] VITALS: BP 95/66; PULSE 94; RESP 20; TEMP 36.4; O2SAT 99
[2023-06-10 15:21] LABS: Glucose, Whole Blood 137 mg/dL (60-115)
== END 2023-06-10 16:35 | disposition home or self-care (01) | DRG 689 ==
LOC: HO.ED 15:28 → HO.EDOVER 16:41 → HO.IMC 19:15
PROVIDERS: Admitting Provider Internal Medicine; Emergency Provider Emergency Medicine Emergency Medical Services; PCP Nurse Practitioner Family; Visit Provider Internal Medicine
DX: N39.0 Urinary tract infection, site not specified (principal); K85.20 Alcohol induced acute pancreatitis without necrosis or infection; E87.1 Hypo-osmolality and hyponatremia; N17.9 Acute kidney failure, unspecified; F10.129 Alcohol abuse with intoxication, unspecified; I95.9 Hypotension, unspecified; B95.7 Other staphylococcus as the cause of diseases classified elsewhere; N40.0 Benign prostatic hyperplasia without lower urinary tract symptoms; E86.1 Hypovolemia; T46.5X5A Adverse effect of other antihypertensive drugs, initial encounter; Y90.4 Blood alcohol level of 80-99 mg/100 ml; D69.59 Other secondary thrombocytopenia; E86.0 Dehydration; I10 Essential (primary) hypertension; E11.9 Type 2 diabetes mellitus without complications; E78.5 Hyperlipidemia, unspecified; G40.909 Epilepsy, unspecified, not intractable, without status epilepticus; Z20.822 Contact with and (suspected) exposure to COVID-19; Z87.891 Personal history of nicotine dependence; Z79.51 Long term (current) use of inhaled steroids; Z79.84 Long term (current) use of oral hypoglycemic drugs; Z79.899 Other long term (current) drug therapy
CPT/HCPCS: 0241U; 36415; 70450; 71045; 72125; 74176; 80048; 80076; 80307; 81001; 82947; 83036; 83605; 83690; 83735; 84484; 85025; 85027; 87040; 87086; 87088; 87186; 93005; 94640; 99285; J0696; J1650; J2560; J3475

== ENCOUNTER → 2023-06-08 11:42 | Outpatient (BNV) | payer SELFPAY | PROVIDERS: Emergency Provider Emergency Medicine Emergency Medical Services; PCP Nurse Practitioner Family; Visit Provider Internal Medicine Cardiovascular Disease | DX: R53.1 Weakness (principal) | CPT/HCPCS: 93010 ==

== ENCOUNTER → 2023-06-08 16:32 | Outpatient (BNV) | payer SELFPAY | PROVIDERS: Admitting Provider Internal Medicine; Emergency Provider Emergency Medicine Emergency Medical Services; PCP Nurse Practitioner Family; Visit Provider Internal Medicine | DX: N19 Unspecified kidney failure (principal); F10.10 Alcohol abuse, uncomplicated | CPT/HCPCS: 99223; 99232; 99239 ==

== ENCOUNTER 2023-06-29 01:57 | Inpatient (IN) | payer OTHER, SELFPAY ==
[2023-06-29] VITALS (8 sets, daily range): BP systolic 98–124; BP diastolic 61–75; PULSE 72–88; RESP 16–18; TEMP 36.9–37.7; O2SAT 96–100; BMI 28.6
--- OUTSIDE RECORDS SUMMARY | 2023-06-29 02:09 | XMS_ITS | Continuity of Care Document ---
Author Name Unknown Organization [facility] Address [address] [place] [address]- Care Team Providers Care Driver Guard Name Role Phone Juana UNGER, Gregorio Primary Care Physician Unava ilable [place] [facility] [place] - 02/23/[address] [id number] Attending Physician: Diego Ramos Admitting Physician: AdmtrDiego Referring Physician: Admtr, Ar8 Allergies, Adverse Reactions, Alerts Substance Reaction Severity [...] mg, By Mouth, 2 times a day, for 90 days, # 180 tablet, 3 Refills, Hard Stop 07/28/23 16:39:00 EDT, 08/02/22 16:39:00 EDT, Tablet, [facility], 173, cm, 09/01/20 7:46:00 EDT, Height Start Date: 08/02/22 Stop Date: 07/28/23 Status: Ordered Keppra 1000 mg oral tablet 1 tablet = 1,000 mg, By Mouth, 2 times a day, # 180 tablet, 3 Refills, Maintenance, 07/28/23 16:39:00 EDT, Tablet, [id number] Start Date: 07/28/23 Stop Date: 07/22/24 Status: Ordered losartan 100 mg oral tablet [...] Maintenance, 02/18/20 11:21:00EST, Route to Pharmacy Electronically, [id number], 173, cm, 03/24/19 4:57:00 EST, Height, 88.8, kg, 03/21/19 11:56:00 EST, Dry Weight Start Date: 02/18/20 Status: Ordered Patient Care team information Care Team Personnel Name: Arturo Segovia RN Position: [facility] RN Member Role: Primary Care Nurse Name: Gregorio Arias MD Position: Reference Physician Member Role: PCP Address: Address: [address] [place] [address] Name: Kunal CALDWELL, Shanel Position: [facility] RN Member Role: Primary Care Nurse Care Team Related Persons Name: KISHORE MARKS Address: home [address] [place] [address]
--- OUTSIDE RECORDS SUMMARY | 2023-06-29 02:09 | XMS_ITS | Continuity of Care Document ---
Author Name Unknown Organization [facility] Address [address] [facility], [address] Floor, [address] [place] [id number]- Care Team Providers Care Proced Tech Name Role Phone Juana UNGER, Gregorio Primary Care Physician Unava ilable En[place] [facility] [place] Date(s): 01/16/23 - 02/15/23 [facility] [address], [address], [address] [place] [id number] Allergies, Adverse Reactions, Alerts Substance Reaction Severity [...] 07/28/23 16:39:00 EDT, 08/02/22 16:39:00 EDT, Tablet, [facility], 173, cm, 09/01/20 7:46:00 EDT, Height Start Date: 08/02/22 Stop Date: 07/28/23 Status: Ordered Keppra 1000 mg oral tablet 1 tablet = 1,000 mg, By Mouth, 2 times a day, # 180 tablet, 3 Refills, Maintenance, 07/28/23 16:39:00 EDT, Tablet, [id number] Start Date: 07/28/23 Stop Date: 07/22/24 Status: [...] Maintenance, 02/18/20 11:21:00EST, Route to Pharmacy Electronically, [id number], 173, cm, 03/24/19 4:57:00 EST, Height, 88.8, kg, 03/21/19 11:56:00 EST, Dry Weight Start Date: 02/18/20 Status: Ordered Patient Care team information Care Team Personnel Name: Arturo Segovia RN Position: [facility] RN Member Role: Primary Care Nurse Name: Gregorio Arias MD Position: Reference Physician Member Role: PCP Address: Address: [address] [place] [id number] Name: Shanel Syed RN Position: [facility] RN Member Role: Primary Care Nurse Care Team Related Persons Name: KISHORE MARKS Address: home [address] [place] [address]
--- NOTE | 2023-06-29 02:53 | ED.ALCOHOL ---
HPI - Alcohol General Chief Complaint: ETOH/Substance Use Stated Complaint: Alcohol withdrawal Time Seen by Provider: 06/29/23 02:49 Source: patient and family Mode of arrival: ambulatory Limitations: no limitations History of Present Illness HPI narrative: 58-year-old male with history of HTN, DM, seizure disorder, HLD, chronic ETOH use came in feeling anxious, irritated, as per significant other patient with decreased appetite, feel nauseous, did not drink for 2 days patient has no reason for not drinking, last drink was 2 days ago, came in concern of alcohol withdrawal symptoms. Patient had recent admission for STEFANO and alcohol withdrawal. Patient with decreased p.o. intake and concern also of dehydration. Related Data Home Medications ?Medication ?Instructions ?Recorded ?Confirmed albuterol sulfate 90 mcg/actuation 2 puff inhalation Q6H PRN Wheezing 03/14/22 06/08/23 aerosol inhaler (ProAir HFA) fluticasone 250 mcg-salmeterol 50 1 inh inhalation BID 03/14/22 06/08/23 mcg/dose blistr powdr for inhalation (Advair Diskus) Previous Rx's ?Medication ?Instructions ?Recorded metformin 1,000 mg tablet 1,000 mg PO DAILY #90 tabs 01/13/23 tamsulosin 0.4 mg capsule (Flomax) 0.4 mg PO BEDTIME #90 caps 01/16/23 levetiracetam 1,000 mg tablet 1,000 mg PO BID 30 days #60 tabs 01/17/23 hydrochlorothiazide 12.5 mg tablet 12.5 mg PO DAILY 30 days #30 tabs 02/17/23 atorvastatin 20 mg tablet 20 mg PO BEDTIME 90 days #90 tabs 05/28/23 amlodipine 10 mg tablet (Norvasc) 10 mg PO DAILY #30 tabs 06/10/23 magnesium oxide 500 mg capsule 500 mg PO BID #60 caps 06/10/23 nitrofurantoin 100 mg PO Q12H 5 days #10 caps 06/11/23 monohydrate/macrocrystals 100 mg capsule (Macrobid) Allergies Allergy/AdvReac Type Severity Reaction Status Date / Time Penicillins Allergy Hives Verified 06/29/23 02:00 Review of Systems Review of Systems: All other systems are reviewed and are negative Constitutional: Reports as per HPI and Reports no additional constitutional complaints Eyes: Reports as per HPI and Reports no additional eye complaints Reports system reviewed and no additional complaints, except as documented Cardiovascular: Reports as per HPI and Reports no additional cardiovascular complaints Respiratory: Reports as per HPI and Reports no additional respiratory complaints Gastrointestinal: Reports as per HPI and Reports no additional gastrointestinal complaints Genitourinary: Reports no additional female genitourinary complaints Musculoskeletal: Reports no additional musculoskeletal complaints Skin/Breast: Reports system reviewed and no additional complaints, except as docu Psychiatric: Reports no additional psychiatric complaints Endocrine: Reports no additional endocrine complaints Hematologic/Lymphatic: Reports no additional hematologic/lymphatic complaints Allergic/Immunologic: Reports no additional allergic/immunologic complaints Reports system reviewed and no additional complaints, except as documented and Reports Abnormal speech present [facility] Past Medical History Medical History Fatty liver Nicotine dependence, cigarettes, uncomplicated HTN (hypertension) Seizures Asthma Diabetes Surgical History History of colonoscopy Social History Social History Household Members: Family Housing: House Do you presently have visiting nurse or other home services: No Alcohol intake: current Alcohol intake frequency: 3 or more drinks per day Alcohol type: hard liquor Patient Tobacco Use Status: Former Tobacco user Cigarettes Per Day: 5 Years Smoked: (onset 20yo, 1/2-3/4ppd x 36yrs, 20pyh) e-Cigarette/Vaping Use: Never Used Second Hand Smoke Exposure: No Substance Use Type: Marijuana Advance Directives: No Advance Directives Information Provided: No service: No Current occupational status: employed Current occupation: [employer] Current occupational exposures/hazards: No Cognitive needs: No Hearing needs: No Vision needs: No Physical Exam ED Vital Signs: Vital Signs - 24 hr 06/29/23 02:00 Temperature 99 F Pulse Rate 88 Respiratory Rate 18 Blood Pressure 98/65 Pulse Oximetry 100 Oxygen Delivery Method Room Air BMI result Body Mass Index 28.6 Vital signs have been reviewed and appear to be correct. Blood pressure elevated. Heart rate normal. Respiratory rate normal. Temperature normal. Oxygen saturation normal. Constitutional: Alert, in no distress, anxious, tremors, tongue fasciculation was noted on exam. Mental Status: Oriented to person, place and time. Eyes: Pupils are equal, round and reactive to light. Ear, Nose and Throat: Oropharynx clear, mucous membranes moist. Ears and nose without eformities. Trachea midline. Respiratory: Clear to auscultation. No wheezing, rales or rhonchi. Cardiovascular: S1 S2 regular. No murmurs, rubs or gallops. Gastrointestinal: Abdomen soft, non-tender, non-distended. Normal bowel sounds.? Neurologic: Cranial nerves II-XII grossly intact. No focal neurological deficits. Moves all extremities spontaneously.? Skin: No rashes or lesions.? Musculoskeletal: No cyanosis or clubbing. Psychiatric: Normal mood and affect? Course Reevaluation(s) Reevaluation #1: Alcohol withdrawal concern, dehydration, electrolyte derangement is a concern. Check electrolytes, IV hydration, start on phenobarb protocol for withdrawal. Time: 02:56 Medical Decision Making Differential Diagnosis Differential Diagnoses: The differential diagnosis associated with the presentation includes (Acute alcohol withdrawal, seizure, electrolyte derangement, severe anemia, dehydration, STEFANO, acute pancreatitis.) Admission/Observation Consideration of admission/observation: Escalation of care including admission/observation considered Consult Healthcare Provider Management of the patient was discussed with: Hospitalist (Dr. Schroeder) Lab Data MDM Lab Attestation statement: I reviewed the patient's lab results. 06/29/23 05:16 06/29/23 05:16 Labs: Lab Results 06/29/23 Range/Units 05:16 WBC 8.9 (4.8-10.8) X10*3/uL RBC 3.11 L (4.60-5.80) X10*6/uL Hgb 10.7 L (14.0-18.0) g/dl Hct 29.8 L (42.0-52.0) % MCV 95.8 (80.0-98.0) fL MCH 34.4 H (27.0-33.0) pg MCHC 35.9 (31.0-36.0) g/dl RDW 15.8 (11.0-16.0) % Plt Count 216 D (160-400) X10*3/uL MPV 10.2 (9.4-12.4) fL Immature Gran % (Auto) 0.6 H (0.0-0.4) % Neut % (Auto) 87.8 H (45-73) % Lymph % (Auto) 5.3 L (20-40) % [place] % (Auto) 5.7 (2-11) % Eos % (Auto) 0.0 (0-4) % Baso % (Auto) 0.6 (0-2) % Lymph # (Auto) 0.5 L (1.2-4.9) X10*3/uL [place] # (Auto) 0.5 (0.1-1.2) X10*3/uL Eos # (Auto) 0.0 (0.0-0.4) X10*3/uL Baso # (Auto) 0.1 (0.0-0.2) X10*3/uL Abs Immat Gran (auto) 0.05 H (0.00-0.03) X10*3/uL Absolute Neuts (auto) 7.9 (2.0-8.3) x10*3/uL Absolute Nucleated RBC 0.000 (0.0-0.012) X10*3/uL Nucleated RBC % (auto) 0.0 (0.0-0.2) /100WBC Sodium 132 L (135-145) mmol/L Potassium 4.1 (3.3-5.1) mmol/L Chloride 93 L (96-108) mmol/L Carbon Dioxide 28 (22-29) mmol/L Anion Gap 15 (12-20) BUN 15 (9-16) mg/dL Creatinine 1.15 (0.5-1.4) mg/dL Estim Creat Clear Calc 81.5 Estimated GFR > 60 Random Glucose 148 H (60-115) mg/dL Calcium 8.8 (8.4-10.2) mg/dL Magnesium 1.6 (1.6-2.6) mg/dL Total Bilirubin 2.4 H (0.0-1.0) mg/dL Direct Bilirubin 1.8 H (0.0-0.5) mg/dL AST 85 H (5-37) U/L ALT 31 (0-40) U/L Alkaline Phosphatase 321 H (39-117) U/L Troponin I High Sens < 2.7 (<3.5-35.0) ng/L Total Protein 7.8 (6.5-8.0) g/dL Albumin 3.0 L (3.5-5.0) g/dL Lipase 69 (8-78) U/L Ethyl Alcohol < 10 mg/dL Chronic Conditions Patient?s care impacted by: Diabetes, Hypertension and Other (Chronic alcohol abuse.) Discharge Plan Discharge Clinical Impression: Alcohol withdrawal, Dehydration Patient Disposition: Admitted As Inpatient Print Language: American
[2023-06-29] MEDS: 0.9 % Sodium Chloride 1,000 ML 999 ML IV (03:00)
[2023-06-29] MEDS: PHENobarbitaL sodium 130 MG/ML IM ONCE 299 MG IM (04:30)
[2023-06-29 05:59] LABS: Alanine Aminotransferase 31 U/L (0-40); Alkaline Phosphatase 321 U/L (39-117); Anion Gap 15 (12-20); Aspartate Amino Transferase 85 U/L (5-37); Bilirubin Direct 1.8 mg/dL (0.0-0.5); Bilirubin Total 2.4 mg/dL (0.0-1.0); Blood Urea Nitrogen 15 mg/dL (9-16); Calcium 8.8 mg/dL (8.4-10.2); Carbon Dioxide 28 mmol/L (22-29); Chloride 93 mmol/L (96-108); Creatinine Clr Calc Pharmacy 81.5; Estimated Glomerular Filt Rate > 60; Ethanol < 10 mg/dL; Glucose Random 148 mg/dL (60-115); Lipase 69 U/L (8-78); Magnesium 1.6 mg/dL (1.6-2.6); Potassium 4.1 mmol/L (3.3-5.1); Sodium 132 mmol/L (135-145); Total Protein 7.8 g/dL (6.5-8.0); Troponin-I High Sensitivity < 2.7 ng/L (<3.5-35.0)
[2023-06-29 06:09] LABS: Basophils Absolute Auto 0.1 X10*3/uL (0.0-0.2); Basophils Percent Auto 0.6 % (0-2); Hematocrit 29.8 % (42.0-52.0); Hemoglobin 10.7 g/dl (14.0-18.0); Imm Gran Abs Auto 0.05 X10*3/uL (0.00-0.03); Imm Gran Pct Auto 0.6 % (0.0-0.4); Lymphocytes Absolute Auto 0.5 X10*3/uL (1.2-4.9); Lymphocytes Percent Auto 5.3 % (20-40); MANUAL DIFF FLAG NO; Mean Corpuscular HGB Conc 35.9 g/dl (31.0-36.0); Mean Corpuscular Hemoglobin 34.4 pg (27.0-33.0); Mean Corpuscular Volume 95.8 fL (80.0-98.0); Mean Platelet Volume 10.2 fL (9.4-12.4); Monocytes Absolute Auto 0.5 X10*3/uL (0.1-1.2); Monocytes Percent Auto 5.7 % (2-11); Neutrophils Absolute Auto 7.9 x10*3/uL (2.0-8.3); Neutrophils Percent Auto 87.8 % (45-73); Platelet Count 216 X10*3/uL (160-400); Red Blood Count 3.11 X10*6/uL (4.60-5.80); Red Cell Distribution Width 15.8 % (11.0-16.0); White Blood Count 8.9 X10*3/uL (4.8-10.8)
[2023-06-29 06:27] LABS: Appearance Urine Clear; Color Urine Yellow; Glucose Urine UA Negative (Negative); Leukocyte Esterase Urine Negative (Negative); Nitrite Urine Negative (Negative); PH 6.5 (5.0-9.0); Urine Blood Negative (Negative); Urine Ketones Negative (Negative); Urine Protein Trace mg/dL (Neg-Trace)
--- NOTE | 2023-06-29 06:35 | PC.NURSE ---
Pt ca&ox4, no signs distress pt ambulates to the restroom with a steady gait. Pts at bedside. Plan of care ongoing.
--- NOTE | 2023-06-29 08:53 | PC.NURSE ---
PT IS A/OX 4 NO SOB/GLADYS NOTED . SPEAKS IN FULL SENTENCES. CIWA SCALE 1, AWARE. IV #20 TO L AC, PATENT. PT AMB (I) GAIT STEADY. PT AWARE OF PLAN OF CARE FOR ADMISSION. WILL CONTINUE TO MONITOR.
[2023-06-29] MEDS: PHENobarbitaL sodium 130 MG/ML VIAL IM Q3Hx2 221 MG IM ×2 (09:03→12:31)
--- NOTE | 2023-06-29 10:22 | PHA.MEDREC ---
Pharmacy Consult ? Medication Reconciliation Pharmacy has completed the medication reconciliation. Spoke to patient and confirmed medication list. He was unable to confirm when he did take his medications. He said he's not taking naltrexone.
--- NOTE | 2023-06-29 16:39 | P.HPHOSP_ITS ---
History of Present Illness Date of Service: 06/29/23 Attending physician on admission: Mel Lott Chief Complaint: alcohol withdrawal 58-year-old male with history of HTN, DM, seizure disorder, HLD, chronic ETOH use came in feeling anxious, irritated, as per significant other patient with decreased appetite, feel nauseous, did not drink for 2 days patient has no reason for not drinking, last drink was 2 days ago, came in concern of alcohol withdrawal with anxious and tremulous. Denies any new complaint of chest pain or shortness of breath or abdominal pain or fever or chills or any cough Denies any weakness or numbness. Patient had recent admission for STEFANO and alcohol withdrawal. Patient with decreased p.o. intake and concern also of dehydration. Lab imaging reviewed: Sodium 132 LFT mildly elevated but improving since the last admission Troponin x1 negative Review of Systems 2 Review of Systems: Yes all other systems are reviewed and are negative [facility] Medical History Fatty liver Nicotine dependence, cigarettes, uncomplicated HTN (hypertension) Seizures Asthma Diabetes Surgical History History of colonoscopy Social History Household Members: Family Housing: House Do you presently have visiting nurse or other home services: No Alcohol intake: current Alcohol intake frequency: 3 or more drinks per day Alcohol type: hard liquor Patient Tobacco Use Status: Former Tobacco user Cigarettes Per Day: 5 Years Smoked: (onset 20yo, 1/2-3/4ppd x 36yrs, 20pyh) e-Cigarette/Vaping Use: Never Used Second Hand Smoke Exposure: No Substance Use Type: Marijuana Advance Directives: No Advance Directives Information Provided: No service: No Current occupational status: employed Current occupation: [employer] Current occupational exposures/hazards: No Cognitive needs: No Hearing needs: No Vision needs: No Meds Allergies Allergy/AdvReac Type Severity Reaction Status Date / Time Penicillins Allergy Hives Verified 06/29/23 02:00 Active Medications: Current Medications Albuterol Sulfate (Albuterol Sulfate 90 Mcg 8 Gm Inhaler) 2 puff INHALE Q6H PRN PRN Reason: Wheezing Amlodipine Besylate (Amlodipine Besylate 10 Mg Tablet) 10 mg PO DAILY [facility]; Protocol Atorvastatin Calcium (Atorvastatin Calcium 20 Mg Tablet) 20 mg PO BEDTIME [facility] Hydrochlorothiazide (Hydrochlorothiazide 12.5 Mg Tablet) 12.5 mg PO DAILY [facility]; Protocol Levetiracetam (Levetiracetam 1,000 Mg Tablet) 1,000 mg PO BID [facility] Non-Formulary Medication (Fluticasone Propion-Salmeterol [Advair Diskus]) 1 inhalation INHALE BID [facility] Non-Formulary Medication (Magnesium Oxide) 500 mg PO BID [facility] Pharmacy Consult (Consult Rx Etoh Phenob Im/Po) 1 each MISCELLANE ONCE PRN; Protocol PRN Reason: Consult order Phenobarbital (Phenobarbital 30 Mg Tablet) 60 mg PO BID [facility]; Protocol Stop: 07/01/23 09:01 Phenobarbital (Phenobarbital 30 Mg Tablet) 30 mg PO BID [facility]; Protocol Stop: 07/03/23 09:01 Phenobarbital (Phenobarbital 30 Mg Tablet) 30 mg PO DAILY [facility]; Protocol Stop: 07/05/23 09:01 Sodium Chloride (0.9 % Sodium Chloride Flush 3 Ml Syringe) 3 ml IVFLUSH QSHIFT [facility] Tamsulosin HCl (Tamsulosin Hcl 0.4 Mg Capsule) 0.4 mg PO BEDTIME [facility] Home Medications ?Medication ?Instructions ?Recorded ?Confirmed ?Last Taken ?Type albuterol sulfate 90 mcg/actuation 2 puff inhalation Q6H PRN Wheezing 03/14/22 06/29/23 06/07/23 History aerosol inhaler (ProAir HFA) fluticasone 250 mcg-salmeterol 50 1 inh inhalation BID 03/14/22 06/29/23 06/07/23 History mcg/dose blistr powdr for inhalation (Advair Diskus) Physical Exam 2 Vital Signs and Narrative: Vital Signs: Last Vital Signs Temp 99.4 F 06/29/23 16:33 Pulse 88 06/29/23 16:33 Resp 18 06/29/23 16:33 BP 114/71 06/29/23 16:33 Pulse Ox 96 06/29/23 16:33 O2 Del Method Room Air 06/29/23 16:33 BMI result Body Mass Index 28.6 Appearance: Alert.? Oriented X3.? Tremulous and anxious Eyes: Pupils equal, round and reactive to light.? Sclera nonicteric.? ? somewhat dry mucous membranes. cvs: rrr, [id number] , no murmur res: clear to auscultation ,no rhonchii or wheezing abd: no rebound or guarding ,nt, bs present. ext pulses present , no cyanosis neuro: axo3 , nonfocal. Results Labs 06/29/23 05:16 06/29/23 05:16 Labs: Laboratory Results - last 24 hr 06/29/23 06/29/23 05:16 06:21 MCV 95.8 MCH 34.4 H MCHC 35.9 RDW 15.8 Plt Count 216 D MPV 10.2 Immature Gran % (Auto) 0.6 H Neut % (Auto) 87.8 H Lymph % (Auto) 5.3 L [place] % (Auto) 5.7 Eos % (Auto) 0.0 Baso % (Auto) 0.6 Lymph # (Auto) 0.5 L [place] # (Auto) 0.5 Eos # (Auto) 0.0 Baso # (Auto) 0.1 Abs Immat Gran (auto) 0.05 H Absolute Neuts (auto) 7.9 Absolute Nucleated RBC 0.000 Nucleated RBC % (auto) 0.0 Anion Gap 15 Estim Creat Clear Calc 81.5 Estimated GFR > 60 Random Glucose 148 H Calcium 8.8 Magnesium 1.6 Total Bilirubin 2.4 H Direct Bilirubin 1.8 H AST 85 H ALT 31 Alkaline Phosphatase 321 H Troponin I High Sens < 2.7 Total Protein 7.8 Albumin 3.0 L Lipase 69 Urine Color Yellow Urine Appearance Clear Urine pH 6.5 Ur Specific [place] 1.010 Urine Protein Trace Urine Glucose (UA) Negative Urine Ketones Negative Urine Blood Negative Urine Nitrite Negative Ur Leukocyte Esterase Negative Ethyl Alcohol < 10 Assessment and Plan (1) Dehydration: Status: Acute (2) Alcohol withdrawal: Qualifiers: Complication of substance-induced condition: uncomplicated Qualified Code(s): F10.930 - Alcohol use, unspecified with withdrawal, uncomplicated Status: Acute (3) Renal failure: Qualifiers: Renal failure chronicity: acute Status: Acute Plan 58 year old male with HTN, diabetes, seizure disorder, HLD, chronic Etoh use--up to 5 drinks a day here with gen weakness, dehydration, STEFANO Etoh withdrawal - Started phenobarb protocol, CIWA scale. Thiamine folic acid Addiction consult STEFANO--likely pre renal from dehydration -IVF and repeat labs in the morning, if not improving then US of kidney and nephrology consult HypOnatremia--hypovolemia -hyponatremia, expected to improve with hydration Diabetes--Hold metformin in light of renal failure, add SI . HTN--continue home medications. Elevated LFTs, hyperbilirubin, likely improving in comparison to last admission. BPH--Flomax Seizure d/o--continue Keppra DVT prophylaxis : Mechanical devices, ambulation Full Code Patient will benefit from 2 midnight stay for management of STEFANO needing IVF , alcohol withdrawal on CIWA scale and phenobarb protocol, hyponatremia need renal function and electrolyte monitoring. Above management discussed the patient and his family at bedside they both understand and in agreement with the above plan, time spent 70 minute. Quality Stroke Does the patient have a stroke diagnosis?: No VTE Prior VTE?: No VTE Risk Level:: Medical - moderate - high VTE Device Contraindication: N/A - Device Ordered VTE Drug Contraindication: N/A - Med Ordered
[2023-06-29] MEDS: PHENobarbitaL 30 MG TABLET 60 MG PO (18:37)
[2023-06-29] MEDS: Lactated Ringers 1,000 ML 80 ML IVCONT (18:38)
[2023-06-29] MEDS: 0.9 % Sodium Chloride Flush 3 ML SYRINGE IVFLUSH (18:38)
[2023-06-29] MEDS: Omeprazole 20 MG CAPSULE.DR PO (18:38)
[2023-06-29 19:35] LABS: Glucose, Whole Blood 162 mg/dL (60-115)
[2023-06-29] MEDS: ondansetron HCL 4 MG/2 ML VIAL IVPUSH (20:28)
[2023-06-29] MEDS: Atorvastatin Calcium 20 MG TABLET PO (21:19)
[2023-06-29] MEDS: Tamsulosin HCL 0.4 MG CAPSULE PO (21:19)
[2023-06-29] MEDS: Calcium Carbonate 750 MG TAB.CHEW PO (21:19)
[2023-06-29] MEDS: levETIRAcetam 1,000 MG TABLET 1000 MG PO (21:19)
[2023-06-29] MEDS: Magnesium Oxide 400 MG TABLET PO (21:19)
[2023-06-30 03:58] VITALS: BP 112/66; PULSE 80; RESP 20; TEMP 36.8; O2SAT 97
[2023-06-30] MEDS: Lactated Ringers 1,000 ML 80 ML IVCONT (05:32)
[2023-06-30] MEDS: Omeprazole 20 MG CAPSULE.DR PO (05:32)
[2023-06-30 07:04] VITALS: BP 110/73; PULSE 74; RESP 20; TEMP 37.5; O2SAT 95
[2023-06-30 07:24] LABS: Glucose, Whole Blood 113 mg/dL (60-115)
[2023-06-30] MEDS: amLODIPine Besylate 10 MG TABLET PO (07:47)
[2023-06-30] MEDS: levETIRAcetam 1,000 MG TABLET 1000 MG PO (07:47)
[2023-06-30] MEDS: Magnesium Oxide 400 MG TABLET PO (07:47)
[2023-06-30] MEDS: PHENobarbitaL 30 MG TABLET 60 MG PO (07:47)
[2023-06-30] MEDS: Fluticasone/Vilanterol 100/25 BLST.W.DEV 1 PUFF INHALE (08:03)
[2023-06-30 08:05] VITALS: PULSE 75; RESP 16; O2SAT 95
--- NOTE | 2023-06-30 11:02 | MHC.CM.PN ---
EMR REVIEWED, PT ADMITTED W/ETOH WITHDRAWAL, CM MET W/PT WHO REPORTS HE LIVES W/, IS FULLY INDEP W/CARE, DENIES USE OF DME/SERVICES, PT REPORTS HE DOES NOT FEEL HE NEEDS RECOVERY TEAM INTERVENTION HOWEVER WILL BE PROVIDED AT LEAST W/RESOURCES FROM RECOVERY TEAM. PT VERIFIES PCP IS SHERMAN VILLARREAL, LORRIE VACC X2 AND PT HAS BEEN EDUCATED ON AND COMPLETED A HCP NAMING HIS DARLENE GALAVIZ [phone] HIS H[facility] W/NO ALTERNATE CHOSEN, COPY UPLOADED TO [facility] AND PLACED IN CHART.
[2023-06-30 11:28] LABS: Glucose, Whole Blood 144 mg/dL (60-115)
--- NOTE | 2023-06-30 11:43 | P.DS_ITS ---
DS: Providers Provider Date of Service: 06/30/23 Date of admission: 06/29/23 10:33 Date of discharge: 06/30/23 Primary care physician: DAYNE PatelP- Consults: 06/29/23 20:23 Addiction Medicine Routine Consulting Provider: Addiction Covering Reason for consultation: drinks daily Has provider been notified: No Attending physician on discharge: Mel Lott Discharging clinician: Mel Lott DS: Diagnosis Discharge Diagnosis (1) Dehydration: Status: Acute (2) Alcohol withdrawal: Status: Acute (3) Renal failure: Status: Acute DS: Summary Hospital Course Hospital Course: 58-year-old male with history of HTN, DM, seizure disorder, HLD, chronic ETOH use came in feeling anxious, irritated, as per significant other patient with decreased appetite, feel nauseous, did not drink for 2 days patient has no reason for not drinking, last drink was 2 days ago, came in concern of alcohol withdrawal with anxious and tremulous. Denies any new complaint of chest pain or shortness of breath or abdominal pain or fever or chills or any cough Denies any weakness or numbness. Patient had recent admission for STEFANO and alcohol withdrawal. Patient with decreased p.o. intake and concern also of dehydration. Lab imaging reviewed: Sodium 132 LFT mildly elevated but improving since the last admission Troponin x1 negative Hospital course: Patient was admitted for alcohol withdrawal, STEFANO, hyponatremia, elevated LFT: patient was started on iv hydration ,hctz stopped for stefano ,hyponatremia . in addition started on pheonobarital protocol and monitered ciwa -with above supportive care patient improved. htn : blood pressure seems controlled is optimal with amlodipine ,will stop hctz -consider stefano,hyponatremia . moniter bmp outpatient with pcp. Lft's elevation seems chronic. moniter lft's plan: Patient was strongly advised to abstain from alcohol, htn : blood pressure seems controlled is optimal with amlodipine ,will stop hctz -consider stefano,hyponatremia . Lft's elevation seems chronic. moniter lft's Above management discussed with the patient detail length, he understand and in agreement with the above plan. Time spent 35 minutes. Time Attestation Total time managing care of this patient today: 35 mintues. Discharge Coordination Time (in mins): 35 min Quality: Safe Use of Opioids Does Pt have an Active Cancer Diagnosis on the Problem List?: No Quality: Stroke Does the patient have a stroke diagnosis?: No Physical Exam Vital Signs: Vital Signs: Last Vital Signs Temp 99.5 F 06/30/23 07:04 Pulse 75 06/30/23 08:05 Resp 16 06/30/23 08:05 BP 110/73 06/30/23 07:04 Pulse Ox 95 06/30/23 07:04 O2 Del Method Room Air 06/30/23 07:04 BMI result Body Mass Index 28.6 Appearance: Alert.? Oriented X3.? cvs: rrr, [id number] , no murmur res: clear to auscultation ,no rhonchii or wheezing abd: no rebound or guarding ,nt, bs present. ext pulses present , no cyanosis neuro: axo3 , nonfocal. DS: Data Data Completed and Pending Labs on day of discharge: Laboratory Results - last 24 hr 06/29/23 06/30/23 06/30/23 19:31 07:07 11:12 POC Glucose 162 H 113 144 H Discharge Plan Discharge Anticipated Discharge Date/Time: 06/30/23 11:34 Patient Disposition: Home, Self-Care Discharge Diagnosis: Alcohol withdrawal, STEFANO, hyponatremia ,htn Referrals: Jose Romero, [employer] [Primary Care Provider] - 1 Week Discharge Medications: Continued metformin 1,000 mg tablet 1,000 mg PO DAILY Qty: 90 1RF levetiracetam 1,000 mg tablet 1,000 mg PO BID 30 Days Qty: 60 1RF atorvastatin 20 mg tablet 20 mg PO BEDTIME 90 Days Qty: 90 1RF amlodipine [Norvasc] 10 mg tablet 10 mg PO DAILY Qty: 30 0RF magnesium oxide 500 mg capsule 500 mg PO BID Qty: 60 1RF fluticasone propion-salmeterol [Advair Diskus] 250-50 mcg/dose blister with device 1 inh inhalation BID albuterol sulfate [ProAir HFA] 90 mcg/actuation HFA aerosol inhaler 2 puff inhalation Q6H PRN (Reason: Wheezing) tamsulosin [Flomax] 0.4 mg capsule 0.4 mg PO BEDTIME Qty: 90 2RF Discontinued hydrochlorothiazide 12.5 mg tablet 12.5 mg PO DAILY 30 Days Qty: 30 3RF Discharge Orders: Discharge Order (Routine); Ordered 06/30/23 Ordered By: Mel Lott Diet: Advance to usual diet Activity on Discharge: As tolerated Stand Alone Forms: Patient Portal Discharge page Print Language: Divehi Other Ambulatory Orders: Basic Metabolic Panel (Routine) Timeframe: 1 Week Facility: [facility] - Location: Laboratory Ordered By: Mel Lott Liver Panel (Routine) Timeframe: 1 Week Facility: [facility] - Location: Laboratory Ordered By: Mel Lott Care Plan Goals: Patient was admitted for alcohol withdrawal, STEFANO, hyponatremia, elevated LFT: patient was started on iv hydration ,hctz stopped for stefano ,hyponatremia . in addition started on pheonobarital protocol -with above supportive care patient improved. htn : blood pressure seems controlled is optimal with amlodipine ,will stop hctz -consider stefano,hyponatremia . moniter bmp outpatient with pcp. Lft's elevation seems chronic. moniter lft's Health Concerns: As above. Plan of Treatment: As above. Assessment: As above.
--- NOTE | 2023-06-30 15:38 | MHC.RECOVRN ---
T/W received referral for Audit C assessment with this pt. Upon arrival to pt's room this PM, he was already D/C so I was unable to meet with pt.
== END 2023-06-30 14:30 | disposition home or self-care (01) | DRG 775 ==
LOC: HO.ED 02:58 → HO.EDOVER 11:49 → HO.S3 18:22
PROVIDERS: Admitting Provider Internal Medicine; Emergency Provider Emergency Medicine; PCP Nurse Practitioner Family; Visit Provider Internal Medicine
DX: F10.930 Alcohol use, unspecified with withdrawal, uncomplicated (principal); E78.5 Hyperlipidemia, unspecified; E86.0 Dehydration; E86.1 Hypovolemia; G40.909 Epilepsy, unspecified, not intractable, without status epilepticus; F17.210 Nicotine dependence, cigarettes, uncomplicated; Z71.6 Tobacco abuse counseling; Z79.51 Long term (current) use of inhaled steroids; Z79.84 Long term (current) use of oral hypoglycemic drugs; Z79.899 Other long term (current) drug therapy
CPT/HCPCS: 36415; 80048; 80076; 80307; 81003; 82947; 83690; 83735; 84484; 85025; 94640; 99285; J2405; J2560; J7120

== ENCOUNTER → 2023-06-29 10:33 | Outpatient (BNV) | payer OTHER, SELFPAY | PROVIDERS: Admitting Provider Internal Medicine; Emergency Provider Emergency Medicine; PCP Nurse Practitioner Family; Visit Provider Internal Medicine | DX: E86.0 Dehydration (principal); F10.930 Alcohol use, unspecified with withdrawal, uncomplicated; N19 Unspecified kidney failure | CPT/HCPCS: 99222; 99239 ==

== ENCOUNTER 2023-08-07 12:32 | Outpatient (AMB) | payer OTHER, SELFPAY ==
--- NOTE | 2023-08-07 12:42 | A.OFFPC_ITS ---
Vital Signs 08/07/23 12:43 Height 5 ft 11 in Weight 186 lb BMI 25.9 BP 108/70 Blood Pressure Location Lt brachial Position Sitting Pulse 114 H Pulse Source Pulse Oximeter Pulse Oximetry (%) 99 Oxygen Delivery Method Room Air Intake Visit Reasons: F/U after Detox missed on 08/03/23 Intake Note: Patient here to follow up. Allergies Penicillins Allergy (Verified 08/07/23 12:44) Hives Tobacco use date assessed: 08/07/23 Dental Screening Dental Screen Date: 08/07/23 Did you have a dental visit in the last 12 months?: No Did you have a dental problem in the last 6 months where you did not have access to dental care?: No Was dental information given to patient?: No HPI F/U after Detox missed on 08/03/23 HPI Details Pt was recently admitted to a detox program for 1 week due to alcohol abuse. Pt reports that he is still drinking alcohol daily. team spoke with pt and pt will be set up with a psychiatrist in addiction medicine. Pt c/o insomnia. Will send prazosin. Denies fever, chills, and dizziness. [facility] Medical History Fatty liver Nicotine dependence, cigarettes, uncomplicated HTN (hypertension) Seizures Asthma Diabetes Surgical History History of colonoscopy Social History Household Members: Spouse Housing: House Do you presently have visiting nurse or other home services: No Alcohol intake: current Alcohol intake frequency: 3 or more drinks per day Alcohol type: hard liquor Patient Tobacco Use Status: Current everyday Tobacco user Tobacco use type: Cigarette Cigarette Packs Per Day: 0.25 Cigarettes Per Day: 5.0 Years Smoked: 15 e-Cigarette/Vaping Use: Never Used Second Hand Smoke Exposure: No Substance Use Type: Marijuana service: No Current occupational status: employed Current occupation: [employer] Current occupational exposures/hazards: No Cognitive needs: No Hearing needs: No Vision needs: No Questionnaire Thrive Questionnaire Date Thrive assessed: 06/30/23 SARA-7 AMB Questionnaire SARA-7 Date SARA - 7 assessed: 07/18/22 Source: Developed by Drs. Archie Ribeiro, Sharlene Norris, Sean Celeste and colleagues, with an educational manjit from [employer]. Review of Systems Const Reports as per HPI Physical exam (Primary Care) Vital Signs: Last Vital Signs Pulse 114 H 08/07/23 12:43 BP 108/70 08/07/23 12:43 Pulse Ox 99 08/07/23 12:43 Oxygen Delivery Method Room Air 08/07/23 12:43 BMI result Body Mass Index 25.9 Tobacco/Smoking Status: Tobacco use Status Tobacco use date assessed 08/07/23 08/07/23 12:47 Patient Tobacco Use Status Current everyday Tobacco 08/07/23 12:43 Tobacco use type Cigarette 08/07/23 12:43 e-Cigarette/Vaping Use Never Used 08/07/23 12:43 Thrive Assessment: Date of Thrive Assessment Date Thrive assessed 06/30/23 08/07/23 12:43 Const General: cooperative Orientation/consciousness: patient oriented x3 Resp Other: lungs fairly clear Effort & Inspection: normal respiratory effort Cardio Rate: regular rate Rhythm: regular rhythm Heart sounds: S1 normal heart sound present and S2 normal heart sound present Neuro General: patient oriented x3 Psych Appearance: grossly normal Mental Status: mental status grossly normal Speech and movement: Normal speech and movement present Affect: normal affect Attitude: cooperative Thought process: Normal thought process present Thought content: Normal thought content present Insight: Good insight present (Psych) Judgement: Good judgement present (Psych) Assessment and Plan Assessment & Plan (1) Alcohol abuse: Code(s): F10.10 - Alcohol abuse, uncomplicated Plan: Pt will be set up with psychiatry/addiction medicine (2) Insomnia: Code(s): G47.00 - Insomnia, unspecified Plan: Prazosin sent Plan The patient agreed to the use of a medical certification specialist for this encounter. Scribed for DAMIÁN Hernandez-CODEY by Massiel Fox medical certification specialist, on 08/07/2023 at 13:00 EST. Medications: New prazosin 1 mg PO BEDTIME 30 caps 2RF 30 days Coding Level of Care Code Est Pt Level 3 (73494) Diagnoses Alcohol abuse F10.10 Insomnia G47.00
[2023-08-07 12:43] VITALS: BP 108/70; PULSE 114; O2SAT 99; BMI 25.9
== END 2023-08-07 14:07 | disposition home or self-care (01) ==
PROVIDERS: PCP Nurse Practitioner Family; Visit Provider Nurse Practitioner Family
DX: G47.00 Insomnia, unspecified (principal); F10.10 Alcohol abuse, uncomplicated; F17.210 Nicotine dependence, cigarettes, uncomplicated
CPT/HCPCS: 99213

== ENCOUNTER 2023-08-16 10:40 | Outpatient (REF) | payer OTHER, SELFPAY ==
[2023-08-16 13:16] LABS: MANUAL DIFF FLAG NO
[2023-08-16 13:21] LABS: Basophils Percent Auto 0.5 % (0-2); Eosinophils Absolute Auto 0.1 X10*3/uL (0.0-0.4); Eosinophils Percent Auto 0.8 % (0-4); Hematocrit 29.1 % (42.0-52.0); Hemoglobin 10.1 g/dl (14.0-18.0); Imm Gran Abs Auto 0.07 X10*3/uL (0.00-0.03); Imm Gran Pct Auto 0.8 % (0.0-0.4); Lymphocytes Absolute Auto 1.5 X10*3/uL (1.2-4.9); Mean Corpuscular HGB Conc 34.7 g/dl (31.0-36.0); Mean Corpuscular Hemoglobin 34.4 pg (27.0-33.0); Mean Platelet Volume 11.9 fL (9.4-12.4); Monocytes Absolute Auto 0.7 X10*3/uL (0.1-1.2); Monocytes Percent Auto 7.9 % (2-11); Neutrophils Absolute Auto 6.4 x10*3/uL (2.0-8.3); Red Blood Count 2.94 X10*6/uL (4.60-5.80); Red Cell Distribution Width 17.3 % (11.0-16.0); White Blood Count 8.8 X10*3/uL (4.8-10.8)
[2023-08-16 13:32] LABS: Platelet Count 68 X10*3/uL (160-400)
[2023-08-16 13:41] LABS: Alanine Aminotransferase 30 U/L (0-40); Albumin Level 2.3 g/dL (3.5-5.0); Alkaline Phosphatase 334 U/L (39-117); Anion Gap 19 (12-20); Aspartate Amino Transferase 131 U/L (5-37); Bilirubin Total 3.5 mg/dL (0.0-1.0); Blood Urea Nitrogen 8 mg/dL (9-16); Calcium 8.3 mg/dL (8.4-10.2); Carbon Dioxide 21 mmol/L (22-29); Chloride 101 mmol/L (96-108); Cholesterol 127 mg/dL (<200); Estimated Glomerular Filt Rate > 60; Glucose Fasting 134 mg/dL (60-99); HDL Cholesterol 12 mg/dL (>40); LDL Cholesterol Calculated 90 mg/dL (<100); Magnesium 1.5 mg/dL (1.6-2.6); Potassium 3.6 mmol/L (3.3-5.1); Sodium 137 mmol/L (135-145); Total Protein 8.1 g/dL (6.5-8.0); Triglycerides 125 mg/dL (<150)
[2023-08-16 13:59] LABS: TSH reflex Free T4 2.67 uIU/mL (0.32-4.0)
== END 2023-08-16 10:41 | disposition home or self-care (01) ==
LOC: HO.HMGCLDS 10:40
PROVIDERS: PCP Nurse Practitioner Family; Visit Provider Nurse Practitioner Family
DX: R74.8 Abnormal levels of other serum enzymes (principal); F10.10 Alcohol abuse, uncomplicated; R79.0 Abnormal level of blood mineral
CPT/HCPCS: 36415; 80053; 80061; 83735; 84443; 85025

== ENCOUNTER 2023-08-18 18:10 | Outpatient (REF) | payer OTHER, SELFPAY ==
[2023-08-19 11:21] LABS: Appearance Urine Clear; Color Urine Dark Yellow; Glucose Urine UA Negative (Negative); Leukocyte Esterase Urine Negative (Negative); Nitrite Urine Negative (Negative); Urine Blood Negative (Negative); Urine Ketones Negative (Negative); Urine Protein Trace mg/dL (Neg-Trace)
== END 2023-08-18 18:11 | disposition home or self-care (01) ==
LOC: HO.HMGCLNP 18:10
PROVIDERS: PCP Nurse Practitioner Family; Visit Provider Nurse Practitioner Family
DX: R74.8 Abnormal levels of other serum enzymes (principal); F10.10 Alcohol abuse, uncomplicated
CPT/HCPCS: 81003

== ENCOUNTER 2023-09-04 14:47 | Outpatient (AMB) | payer OTHER, SELFPAY ==
--- NOTE | 2023-09-04 15:25 | A.OFFVISCC_ITS ---
Vital Signs 09/04/23 15:26 BP 88/54 L Blood Pressure Location Rt brachial Position Sitting Respiration 20 Pulse 54 Pulse Source Pulse Oximeter Pulse Oximetry (%) 97 Oxygen Delivery Method Room Air Intake Visit Reasons: Intake Allergies Penicillins Allergy (Verified 08/07/23 12:44) Hives HPI HPI Intake: Details: Patient presents for intake for alcohol use He wishes to cut down and eventually stop drinking: see nursing intake note Denies medical condition or exacerbation of medical condition as a result of drinking, although presents with scleral icterus Guarded in conversation, difficult to engage Reviewed the different CHARBEL with patient Reviewed timeline of etoh withdrawal and educated him not to stop too suddenly with alcohol use PFSH Medical History Fatty liver Nicotine dependence, cigarettes, uncomplicated HTN (hypertension) Seizures Asthma Diabetes Surgical History History of colonoscopy Social History Household Members: Spouse Housing: House Do you presently have visiting nurse or other home services: No Alcohol intake: current Alcohol intake frequency: 3 or more drinks per day Alcohol type: hard liquor Patient Tobacco Use Status: Current everyday Tobacco user Tobacco use type: Cigarette Cigarette Packs Per Day: 0.25 Cigarettes Per Day: 5.0 Years Smoked: 15 e-Cigarette/Vaping Use: Never Used Second Hand Smoke Exposure: No Substance Use Type: Marijuana service: No Current occupational status: employed Current occupation: [employer] Current occupational exposures/hazards: No Cognitive needs: No Hearing needs: No Vision needs: No Physical Exam Vital Signs: Last Vital Signs Pulse 54 09/04/23 15:26 Resp 20 09/04/23 15:26 BP 88/54 L 09/04/23 15:26 Pulse Ox 97 09/04/23 15:26 Oxygen Delivery Method Room Air 09/04/23 15:26 Assessment & Plan Assessment & Plan (1) Alcohol use disorder, severe, dependence: Code(s): F10.20 - Alcohol dependence, uncomplicated Category: Medical Plan: -CHARBEL reveiwed, he is to go home and think about which medication he would like to trial -Harm reduction strategies reviewed -Provided list of AA meetings -Provided patient with information about a health coach, he is uninterested at this time -Follow up 1 week MAT Intake Nursing Intake Reason for visit: Excessive Alcohol use Are you currently using?: Yes What are you taking?: Vodka and seltzer When was your last use?: daily How much?: 10 drinks What is your source of income?: unemployment What is your current relationship status?: Current PCP: Dr. Romero Date of last visit: beginning of August 2023 Referral Source: PCP Substance Abuse History Details: Pt denies any other current or H/O substance use Social History Domestic Violence concerns: No Children: yes 4 boys Do you have a support system?: yes family Current mode of transportation?: drive own car Where are you currently residing?: house in [place] LMP: N/A IV Drug Use Have you ever shared needles?: No Have you ever belonged to a needle exchange program?: No Do you buy needles at a pharmacy?: No Have you ever overdosed?: No Have you ever been hospitalized for an overdose?: No Was Naloxone administered?: No Recovery History Have you had any periods of recovery?: No What is your longest time in recovery?: Never When was the last time you were in recovery?: never Have you ever had inpatient treatment for your substance abuse disorder?: Yes Have you been in an inpatient detoxification program?: Yes Have you been in an inpatient Rehab/Fpc house?: No Have you been in an outpatient Methadone Maintenance program?: No Have you been in an outpatient Suboxone Maintenance program?: No Have you been in an AA/NA support program?: No Have you had a Recovery Support Machine Set [employer]?: No Have you had Peer Support?: No Details: Pt reports he has been to detox a few times . Behavioral Health History Do you have a current provider? If so, who?: No diagnosis: N/A History of other addictive behavior: Denies History of inpatient psychiatric hospitalization? If so, how many? Most Recent? Where?: N/A History of self harming thoughts?: No History of homicidal or suicidal intentions?: No Medical Conditions Endocarditis?: No Skin Infection: No Seizure related to withdrawal or overdose: No Head or brain injury: No Hepatitis A (if yes, have you been treated?): No Hepatitis B (if yes, have you been treated?): No Hepatitis C (if yes, have you been treated?): No HIV (if yes, have you been treated?): No TB (if yes, have you been treated?): No Other: No Do you have any chronic pain conditions?: None Details: Pt is on medication for seizures. Legal History History of incarceration: No Currently on parole or probation: No Court mandated programs: No Pending court cases: No DCF involvement: No
[2023-09-04 15:26] VITALS: BP 88/54; PULSE 54; RESP 20; O2SAT 97
== END 2023-09-04 15:53 | disposition home or self-care (01) ==
PROVIDERS: PCP Nurse Practitioner Family; Visit Provider Nurse Practitioner Family
DX: F10.20 Alcohol dependence, uncomplicated (principal)
CPT/HCPCS: 99204

== ENCOUNTER → 2023-09-04 14:47 | Outpatient (BNVA) | payer OTHER, SELFPAY | PROVIDERS: PCP Nurse Practitioner Family; Visit Provider Nurse Practitioner Family | DX: F10.20 Alcohol dependence, uncomplicated (principal) | CPT/HCPCS: 99202 ==

== ENCOUNTER 2023-09-11 14:27 | Outpatient (AMB) | payer OTHER, SELFPAY ==
[2023-09-11 14:45] VITALS: BP 100/60; PULSE 120; RESP 19; O2SAT 98
--- NOTE | 2023-09-11 14:45 | A.OFFVISCC_ITS ---
Vital Signs 09/11/23 14:45 BP 100/60 Blood Pressure Location Lt radial Position Sitting Respiration 19 Pulse 120 H Pulse Source Pulse Oximeter Pulse Oximetry (%) 98 Intake Visit Reasons: MAT follow up Allergies Penicillins Allergy (Verified 08/07/23 12:44) Hives HPI HPI MAT follow up: Details: Patient presents for AUD treatment and follow up States he has continued to drink daily, mixed drinks Has been measuring, he has been drinking 6 mixed drinks with 1/2 shot glass of alcohol in each drink Endorses poor appetite beginning aproximately a month ago Has been trying to drink Glucerna Would like to trial naltrexone [facility] Medical History Fatty liver Nicotine dependence, cigarettes, uncomplicated HTN (hypertension) Seizures Asthma Diabetes Surgical History History of colonoscopy Social History Household Members: Spouse Housing: House Do you presently have visiting nurse or other home services: No Alcohol intake: current Alcohol intake frequency: 3 or more drinks per day Alcohol type: hard liquor Patient Tobacco Use Status: Current everyday Tobacco user Tobacco use type: Cigarette Cigarette Packs Per Day: 0.25 Cigarettes Per Day: 5.0 Years Smoked: 15 e-Cigarette/Vaping Use: Never Used Second Hand Smoke Exposure: No Substance Use Type: Marijuana service: No Current occupational status: employed Current occupation: [employer] Current occupational exposures/hazards: No Cognitive needs: No Hearing needs: No Vision needs: No Review of Systems Const Reports difficulty sleeping and Reports poor appetite Physical Exam Vital Signs: Last Vital Signs Pulse 120 H 09/11/23 14:45 Resp 19 09/11/23 14:45 BP 100/60 09/11/23 14:45 Pulse Ox 98 09/11/23 14:45 Const General: cooperative and tired appearing Eyes Sclerae: scleral abnormal (icteric) bilateral GI Inspection: Yes distended Skin General skin exam: jaundice Psych Appearance: grossly normal Mental Status: mental status grossly normal Speech and movement: Normal speech and movement present Affect: normal affect Assessment & Plan Assessment & Plan (1) Alcohol use disorder, severe, dependence: Code(s): F10.20 - Alcohol dependence, uncomplicated Category: Medical Plan: -Made plan with patient to decrease his alcohol use by 1/2 shot every 3-4 days. Educated on signs and symptoms of withdrawal and cautioned against stopping alc ohol too abruptly. -Discussed with patient to follow up with his PCP for abd distention, jaundice, and decreased appetite. -Reviewed with him to get his labwork done to assess most recent LFTs -Start Naltrexone, in the setting of jaundice and decreased appetite, the plan is to start at 25mg/day. Educated him on potential side effects and encouraged him to take medication after he has either eaten or had a Glucerna. -Follow up 1 week Medications: New naltrexone Take 1/2 tab daily as tolerated 50 mg PO DAILY 30 tabs 0RF
== END 2023-09-11 15:01 | disposition home or self-care (01) ==
PROVIDERS: PCP Nurse Practitioner Family; Visit Provider Nurse Practitioner Family
DX: F10.20 Alcohol dependence, uncomplicated (principal)
CPT/HCPCS: 99213

== ENCOUNTER → 2023-09-11 14:27 | Outpatient (BNVA) | payer OTHER, SELFPAY | PROVIDERS: PCP Nurse Practitioner Family; Visit Provider Nurse Practitioner Family | DX: F10.20 Alcohol dependence, uncomplicated (principal) | CPT/HCPCS: 99212 ==

== ENCOUNTER 2023-09-14 08:31 | Outpatient (REF) | payer OTHER, SELFPAY ==
[2023-09-14 08:52] LABS: Ammonia 56 umol/L (13-55)
== END 2023-09-14 08:32 | disposition home or self-care (01) ==
LOC: HO.LAB 08:31
PROVIDERS: PCP Nurse Practitioner Family; Visit Provider Nurse Practitioner Family
DX: F10.20 Alcohol dependence, uncomplicated (principal); I95.9 Hypotension, unspecified
CPT/HCPCS: 36415; 82140; 99212

== ENCOUNTER 2023-09-14 08:55 | Outpatient (AMB) | payer OTHER, SELFPAY ==
[2023-09-14 09:16] VITALS: BP 84/62; PULSE 90; O2SAT 99
--- NOTE | 2023-09-14 09:16 | MHC.AM.SUB ---
Vital Signs 09/14/23 09:16 BP 84/62 L Blood Pressure Location Lt brachial Pulse 90 Pulse Source Pulse Oximeter Pulse Oximetry (%) 99 Oxygen Delivery Method Room Air Intake Visit Reasons: MAT Allergies Penicillins Allergy (Verified 09/14/23 09:32) Hives HPI HPI MAT: Details: Patient presents for AUD treatment and follow up post lab draw Reports abdomen has been increasing in size, causing him discomfort He endorses poor appetite, and mental fogginess Hypotensive at visit, does endorse lightheadedness. States he is feeling like he is beginning to withdraw, last drink hours ago is with patient at this time [facility] Medical History Fatty liver Nicotine dependence, cigarettes, uncomplicated HTN (hypertension) Seizures Asthma Diabetes Surgical History History of colonoscopy Social History Household Members: Spouse Housing: House Do you presently have visiting nurse or other home services: No Alcohol intake: current Alcohol intake frequency: 3 or more drinks per day Alcohol type: hard liquor Patient Tobacco Use Status: Current everyday Tobacco user Tobacco use type: Cigarette Cigarette Packs Per Day: 0.25 Cigarettes Per Day: 5.0 Years Smoked: 15 e-Cigarette/Vaping Use: Never Used Second Hand Smoke Exposure: No Substance Use Type: Marijuana service: No Current occupational status: employed Current occupation: [employer] Current occupational exposures/hazards: No Cognitive needs: No Hearing needs: No Vision needs: No Review of Systems Const Reports poor appetite and Reports weakness GI Reports abdominal pain, Denies melena, Reports bloating and Denies coffee ground emesis Neuro Reports tremor(s) and Reports weakness Physical Exam Const General: ill appearing and tired appearing Nutritional Appearance: thin Eyes Sclerae: scleral abnormal (icteric) bilateral Resp Effort & Inspection: normal respiratory effort GI Inspection: Yes distended Skin General skin exam: no rashes or lesions noted and jaundice Assessment & Plan Assessment & Plan (1) Alcohol use disorder, severe, dependence: Code(s): F10.20 - Alcohol dependence, uncomplicated Category: Medical Plan: -Reviewed ammonia level results with patient and his , provided education on cause and effect of elevated serum ammonia. In light of symptomatic hypotension, increase in abdominal distention, worsening jaundice, patient and have been strongly encouraged to present to the emergency department. Will hold off on prescribing lactulose at this time and defer to emergency provider. -Report/expect called down to the charge nurse Chloe. T/w reported off his elevated ammonia, liver involvement, and impending alcohol withdrawal. -Will reach out to patient for follow up. Orders: Orders Comprehensive Met. Panel Today F10.20 - Alcohol dependence, uncomplicated Medications: New acamprosate 666 mg (2 x 333 mg) PO TID 90 tabs 0RF
== END 2023-09-14 09:13 | disposition home or self-care (01) ==
PROVIDERS: PCP Nurse Practitioner Family; Visit Provider Nurse Practitioner Family
DX: F10.20 Alcohol dependence, uncomplicated (principal)
CPT/HCPCS: 99213

== ENCOUNTER 2023-09-14 09:24 | Inpatient (IN) | payer OTHER, SELFPAY ==
[2023-09-14] VITALS (11 sets, daily range): BP systolic 82–120; BP diastolic 43–84; PULSE 90–122; RESP 14–24; TEMP 35.2–37.5; O2SAT 93–97; BMI 24.1
--- NOTE | ~2023-09-14 | XR_ITS ---
EXAMINATION: XR CHEST CLINICAL INFORMATION: Weakness COMPARISON: 06/08/2023 TECHNIQUE: Frontal view of the chest was obtained. FINDINGS: Lungs are well-inflated and clear. Trachea is midline in position. No interstitial disease, consolidation or mass. No pleural effusion or pneumothorax. Cardiac silhouette and pulmonary vessels are normal in size. The mediastinum and paloma have normal contour. The visualized bones and upper abdomen are unremarkable. XR/XR chest 1V IMPRESSION: Lungs have a normal appearance. No acute cardiopulmonary abnormality.
--- NOTE | ~2023-09-14 | US_ITS ---
ULTRASOUND GUIDED PARACENTESIS HISTORY: Ascites. STEFANO TECHNIQUE: Risks and benefits and possible complications were discussed with the patient and consent form was signed. A safe pocket of ascitic fluid was identified left lower quadrant using ultrasound guidance, and the overlying skin was marked, prepped, and draped in sterile fashion. 1% lidocaine was used as a local anesthetic. Using ultrasound guidance, a 5 fr catheter was placed into the ascitic pocket. 2.0 liters of yellow fluid was removed passively. The catheter was then removed. A few registration representative images from before and after the examination were obtained. The procedure was performed by Ian Christine PA-C and supervised by Dr. Marinelli. US/US paracentesis abd w/image IMPRESSION: Ultrasound-guided paracentesis as described above. No immediate complications
--- NOTE | ~2023-09-14 | US_ITS ---
EXAMINATION: US ABDOMEN LIMITED CLINICAL INFORMATION: History of abdominal pain. Evaluate for portal vein thrombosis.. COMPARISON: CT imaging of the abdomen from 09/14/2023 TECHNIQUE: Real-time imaging of the right upper quadrant abdominal viscera. FINDINGS: There is hepatomegaly with the right lobe measuring up to 25 cm in maximum craniocaudal dimension. The parenchyma is diffusely hyperechoic from steatosis or steatohepatitis. No evidence of focal liver lesion. The color Doppler images do not convincingly show any flow within the main portal vein although placement of a Doppler cursor in the vessel suggests low velocity flow. Overall, the vasculature is difficult to evaluate in this patient with a markedly enlarged hyperechoic liver. The visualized left hepatic artery has a peak systolic velocity of 93 cm/s and normal waveform. Moderate amount of abdominal ascites is visualized. US/US abdomen limited IMPRESSION: * Hepatomegaly and diffuse hepatic steatosis (or steatohepatitis). * Moderate volume of abdominal ascites is visualized. * The Doppler imaging exam is abnormal but is somewhat limited. There is either abnormally low velocity flow in the main portal vein (resulting in a false imaging appearance of thrombosis) or actual thrombosis within the vein. The recent noncontrast images from 09/14/2023 show a homogeneous appearance of the portal veins. If there are no contraindications to use of intravenous contrast, recommend follow-up portal venous phase CT imaging examination of the liver.
--- NOTE | ~2023-09-14 | CT_ITS ---
EXAMINATION: CT ABDOMEN AND PELVIS WITHOUT CONTRAST CLINICAL INFORMATION: Left lower quadrant pain COMPARISON: CT abdomen pelvis 06/08/2023 TECHNIQUE: Multidetector volumetric imaging was performed from the superior aspect of the liver through the pubic symphysis. Sagittal and coronal reformatted images were obtained on the technologist's workstation. This CT examination was performed using dose optimization techniques as appropriate, variously including the following: *Automated exposure control *Adjustment of mA and/or kV according to patient size (this includes techniques or standardized protocols for targeted exams where dose is matched to indication/reason for exam; i.e. extremities or head) *Use of iterative reconstruction technique DLP: 572 mGy-cm FINDINGS: LUNG BASES: The visualized lung bases are unremarkable. LIVER, GALLBLADDER, AND BILIARY TREE: Since the 06/08/2023 study there's been dramatic worsening of the hepatic steatosis. The liver continues to be markedly enlarged measuring approximately 23 cm in cephalocaudad dimension. No biliary ductal dilatation or definite focal hepatic lesion is seen. The gallbladder continues to contain high density material with no evidence of gallbladder wall thickening or obvious pericholecystic inflammatory changes. PERITONEUM: There is new large volume ascites present. At the time of the prior study on 06/08/2023, no ascites was present. No free intraperitoneal air. PANCREAS: Unremarkable. SPLEEN: Spleen is enlarged at 14.3 cm in greatest dimension. ADRENAL GLANDS: Unremarkable. KIDNEYS AND URETERS: The kidneys are normal in size, shape, and attenuation. No hydronephrosis, hydroureter, or calculi seen. No perinephric stranding. BLADDER: Empty but unremarkable GASTROINTESTINAL TRACT: The small and large bowel are unremarkable. The appendix is unremarkable. ABDOMINAL WALL: No significant hernia is appreciated. LYMPH NODES: No retroperitoneal lymphadenopathy. VASCULAR: Calcific atherosclerotic changes are present in the aorta and iliofemoral vessels. There is no evidence of an abdominal aortic aneurysm. PELVIC VISCERA: Unremarkable. OSSEOUS STRUCTURES: Unremarkable. CT/CT abdomen pelvis wo IV con IMPRESSION: 1. Marked worsening of hepatic steatosis with hepatomegaly and new large volume ascites. 2. Other incidental findings as described above. Fleischner guidelines were followed.
--- NOTE | 2023-09-14 09:40 | ECG_ITS ---
Test Reason : HYPOTENSION Blood Pressure : / mmHG Vent. Rate : 096 BPM Atrial Rate : 096 BPM P-R Int : 150 ms QRS Dur : 086 ms QT Int : 340 ms P-R-T Axes : 065 052 076 degrees QTc Int : 429 ms Normal sinus rhythm Nonspecific T wave abnormality Abnormal ECG When compared with ECG of 08-JUN-2023 11:55, Nonspecific T wave abnormality now evident in Lateral leads Referred By: Katie Snyder Electronically Signed By:Speedy Lara
[2023-09-14 10:07] LABS: MANUAL DIFF FLAG NO
[2023-09-14] MEDS: 0.9 % Sodium Chloride 1,000 ML 999 ML IV (10:08)
[2023-09-14 10:09] LABS: Basophils Percent Auto 0.3 % (0-2); Eosinophils Percent Auto 0.1 % (0-4); Hematocrit 26.4 % (42.0-52.0); Hemoglobin 9.3 g/dl (14.0-18.0); Imm Gran Pct Auto 0.7 % (0.0-0.4); Lymphocytes Absolute Auto 0.6 X10*3/uL (1.2-4.9); Lymphocytes Percent Auto 4.6 % (20-40); Mean Corpuscular HGB Conc 35.2 g/dl (31.0-36.0); Mean Corpuscular Hemoglobin 34.8 pg (27.0-33.0); Mean Corpuscular Volume 98.9 fL (80.0-98.0); Mean Platelet Volume 11.3 fL (9.4-12.4); Monocytes Absolute Auto 0.6 X10*3/uL (0.1-1.2); Monocytes Percent Auto 4.4 % (2-11); NRBC Pct Auto 0.4 /100WBC (0.0-0.2); Neutrophils Absolute Auto 12.2 x10*3/uL (2.0-8.3); Neutrophils Percent Auto 89.9 % (45-73); Platelet Count 187 X10*3/uL (160-400); Red Blood Count 2.67 X10*6/uL (4.60-5.80); Red Cell Distribution Width 20.8 % (11.0-16.0); White Blood Count 13.6 X10*3/uL (4.8-10.8)
--- NOTE | 2023-09-14 10:09 | ED_ITS ---
HPI - General Adult General Chief complaint: General Medical Stated complaint: Low BP Time Seen by Provider: 09/14/23 09:41 Source: patient, family and old records reviewed Mode of arrival: ambulatory Limitations: no limitations History of Present Illness ED Provider: HE TORIBIO narrative: 58 yo male with PMH of HTN, DM, seizure disorder on keppra, HLD, chronic ETOH use admitted in June for withdrawal mild STEFANO, low Na and mild bump in LFTs he was at addiction medicine clinic for ETOH management and they noted low BP so he was referred to the ED. He presents to the ED with his partner who notes 1 week of jaundice, increased swelling of abdomen, poor PO intake weakness and he started to c/o pain in LLQ only. No fevers, vomiting. Last drink was 10pm last night. He does not feel anxious or shaky. They deny hx of liver failure cirrhosis or jaundice to this degree. MD complaint: jaundice Onset (ago): week(s) (1) Location: abdomen Radiation: non-radiation Severity: moderate Quality: aching and dull Pain Consistency: intermittent Relieving factors: none Exacerbating factors: movement Associated symptoms: loss of appetite, malaise and nausea/vomiting Treatments prior to arrival: none Related Data Home Medications ?Medication ?Instructions ?Recorded ?Confirmed fluticasone 250 mcg-salmeterol 50 1 inh inhalation BID 03/14/22 09/14/23 mcg/dose blistr powdr for inhalation (Advair Diskus) irbesartan 300 mg tablet 300 mg PO DAILY 09/14/23 09/14/23 magnesium oxide 400 mg PO BID 09/14/23 09/14/23 tamsulosin 0.4 mg capsule 0.4 mg PO BEDTIME 09/14/23 09/14/23 Previous Rx's ?Medication ?Instructions ?Recorded atorvastatin 20 mg tablet 20 mg PO BEDTIME 90 days #90 tabs 05/28/23 metformin 1,000 mg tablet 1,000 mg PO DAILY #90 tabs 07/09/23 prazosin 1 mg capsule 1 mg PO BEDTIME 30 days #30 caps 08/07/23 levetiracetam 1,000 mg tablet 1,000 mg PO BID 90 days #180 tabs 08/09/23 Allergies Allergy/AdvReac Type Severity Reaction Status Date / Time Penicillins Allergy Hives Verified 09/14/23 09:32 Review of Systems 2 Review of Systems: Constitutional : pos fatigue, No Fever, No Chills ENT/Mouth : No sore throat, No Rhinorrhea Eyes: No Swelling, No Redness Cardiovascular : No Chest Pain, No SOB, NoEdema Respiratory : No Cough, No Sputum, No Wheezing Gastrointestinal : Positive Nausea, no Vomiting, no Diarrhea, positive abdominal Pain, No Hematochezia, No Melena Genitourinary : No Dysuria, No Urinary Frequency, No Hematuria, No Urgency Musculoskeletal : No joint pain, No Myalgias, No Joint Swelling Skin : No Skin Lesions, No rash Neuro : pos Weakness, No Numbness, No Dizziness, No Headache Psych : No Anxiety/Panic, No Depression All other systems reviewed and are negative. [facility] Past Medical History Attestation statement: The following information was validated with the patient. Source: old records reviewed Medical History Fatty liver Nicotine dependence, cigarettes, uncomplicated HTN (hypertension) Seizures Asthma Diabetes Surgical History History of colonoscopy Social History Social History Household Members: Spouse Housing: House Do you presently have visiting nurse or other home services: No Alcohol intake: current Alcohol intake frequency: 3 or more drinks per day Alcohol type: hard liquor Patient Tobacco Use Status: Current everyday Tobacco user Tobacco use type: Cigarette Cigarette Packs Per Day: 0.25 Cigarettes Per Day: 5.0 Years Smoked: 15 Smoked in Last 30 Days: No e-Cigarette/Vaping Use: Never Used Second Hand Smoke Exposure: No Use of substances other than those prescribed or required for medical reasons: No Substance Use Type: Marijuana Advance Directives: No Advance Directives Information Provided: Yes service: No Current occupational status: employed Current occupation: [employer]. Current occupational exposures/hazards: No Cognitive needs: No Hearing needs: No Vision needs: No Physical Exam ED Vital Signs: Vital Signs - 24 hr 09/14/23 09:30 09/14/23 09:43 09/14/23 10:42 Temperature 95.3 F L 97.9 F Pulse Rate 122 H 97 Respiratory Rate 14 24 H 18 Blood Pressure 82/43 L 94/48 L 97/67 Pulse Oximetry 97 96 Oxygen Delivery Method Room Air Room Air 09/14/23 12:21 09/14/23 12:47 09/14/23 13:17 Temperature 98.1 F Pulse Rate 93 Respiratory Rate 17 Blood Pressure 108/79 108/77 114/75 Pulse Oximetry 94 Oxygen Delivery Method Room Air 09/14/23 13:43 Temperature 98.1 F Pulse Rate 90 Respiratory Rate 18 Blood Pressure 108/77 Pulse Oximetry 95 Oxygen Delivery Method Room Air BMI result Body Mass Index 24.1 Appearance: Alert. Oriented X3. No acute distress. Eyes: Pupils equal, round and reactive to light. scleral icterus ENT: Pharynx very dry MM Neck: Normal inspection. Neck supple. CVS: Normal heart rate and rhythm. Pulses normal. Respiratory: No respiratory distress. Breath sounds diminished in basese Abdomen: moderate ascites no bruising noted has mild LLQ ttp no rebound Skin: Skin warm and dry. jaundice skin color. Normal skin turgor. Extremities: No lower extremity edema. No calf ttp Neuro: Oriented X 3. No motor deficit. No sensory deficit. Course Course Course Narrative: BP improved wtih fluids EGD rescheduled for tomorrow Medications Administered Discontinued Medications Generic Name Dose Route Start Last Admin Trade Name Freq PRN Reason Stop Dose Admin Sodium Chloride 1,000 mls @ 999 mls/hr 09/14/23 09:39 09/14/23 12:18 Ns IV 09/14/23 10:39 Infused .Q1H1M ONE Infusion Albumin Human 100 mls @ 133.333 mls/hr 09/14/23 09:45 09/14/23 12:32 Kedbumin 25 % IV 09/14/23 11:29 Infused Q1H ISABELLA Infusion Thiamine HCl 200 mg/ Sodium 102 mls @ 204 mls/hr 09/14/23 10:00 09/14/23 11:58 Chloride IV 09/14/23 10:29 Infused ONCE ONE Infusion Magnesium Sulfate 2 gm in 50 mls @ 25 mls/hr 09/14/23 10:00 09/14/23 12:18 Magnesium Sulfate/H2o IV 09/14/23 11:59 Infused ONCE ONE Infusion Ceftriaxone Sodium 2 gm/ 50 mls @ 100 mls/hr 09/14/23 10:16 09/14/23 11:58 Sodium Chloride IV 09/14/23 10:45 Infused ONCE ONE Infusion Phytonadione 5 mg/ Sodium 50.5 mls @ 50.5 mls/hr 09/14/23 14:00 09/14/23 14:21 Chloride IV 09/14/23 14:59 50.5 mls/hr ONCE ONE Administration Lidocaine HCl 5 ml 09/14/23 10:24 09/14/23 10:40 Lidocaine Hcl 1 % Mpf 5 Ml Vial SUBCUT 09/14/23 10:25 5 ml ONCE ONE Administration Pantoprazole Sodium 40 mg 09/14/23 10:00 09/14/23 10:19 Pantoprazole Sodium 40 Mg/10 Ml Vial IVPUSH 09/14/23 10:01 40 mg ONCE ONE Administration Phenobarbital Sodium 240 mg 09/14/23 14:00 09/14/23 14:26 Phenobarbital Sodium 130 Mg/Ml Im Once IM 09/14/23 14:01 240 mg ONCE ONE Administration Protocol Procedures Paracentesis Time Out Performed: Yes Indication: Ascites Procedure: diagnostic paracentesis Location: LLQ Local Anesthetic: lidocaine 1% Amount of anesthesia used (mL): 5 Bedside Ultrasound Used: yes, Ascites confirmed and location marked Preparation: sterile prep and drape Amount of fluid obtained (mL): 60 Fluid: clear Post Procedure Exam: awake, alert, normal BP, normal HR and normal SpO2 Patient Tolerated Procedure: well and no complications Complications: none Medical Decision Making Medical Decision Making MDM Narrative: 58 yo male with PMH of HTN, DM, seizure disorder on keppra, HLD, chronic ETOH use here with c/o jaundice, ascites, LLQ Pain and low BPs at this time 1L of NS, albumin x 2, empiric ceftriaxone, diagnostic tap to be done, UA, CXR, CT scan, IV thiamine/magnesium, protonix. Once BP improved will start on phenobarb low dose given heavy ETOH history. He is likely in acute alcoholic hepatitis. US also ordered for PV thrombosis. Differential Diagnosis Differential Diagnoses: The differential diagnosis associated with the presentation includes possible infection suspected 1023am - could be diverticulitis, SBP given WBC count but pressures low held tap at this time until plts and coags back and BP up will get diagnostic tap Admission/Observation Consideration of admission/observation: Escalation of care including admission/observation considered admit for further workup to GET EGD at 3pm with Dr. Wright Consult Healthcare Provider Management of the patient was discussed with: Hospitalist (will admit) and Order Department Supervisor (Dr. Wright aware agrees with plan EGD today at 3pm) Lab Data MDM Lab Attestation statement: I reviewed the patient's lab results. 09/14/23 10:01 09/14/23 10:00 Labs: Lab Results 09/14/23 09/14/23 09/14/23 Range/Units 10:00 10:01 10:36 WBC 13.6 H (4.8-10.8) X10*3/uL RBC 2.67 L (4.60-5.80) X10*6/uL Hgb 9.3 L (14.0-18.0) g/dl Hct 26.4 L (42.0-52.0) % MCV 98.9 H (80.0-98.0) fL MCH 34.8 H (27.0-33.0) pg MCHC 35.2 (31.0-36.0) g/dl RDW 20.8 H (11.0-16.0) % Plt Count 187 D (160-400) X10*3/uL MPV 11.3 (9.4-12.4) fL Immature Gran % (Auto) 0.7 H (0.0-0.4) % Neut % (Auto) 89.9 H (45-73) % Lymph % (Auto) 4.6 L (20-40) % [place] % (Auto) 4.4 (2-11) % Eos % (Auto) 0.1 (0-4) % Baso % (Auto) 0.3 (0-2) % Lymph # (Auto) 0.6 L (1.2-4.9) X10*3/uL [place] # (Auto) 0.6 (0.1-1.2) X10*3/uL Eos # (Auto) 0.0 (0.0-0.4) X10*3/uL Baso # (Auto) 0.0 (0.0-0.2) X10*3/uL Abs Immat Gran (auto) 0.10 H (0.00-0.03) X10*3/uL Absolute Neuts (auto) 12.2 H (2.0-8.3) x10*3/uL Absolute Nucleated RBC 0.060 H (0.0-0.012) X10*3/uL Nucleated RBC % (auto) 0.4 H (0.0-0.2) /100WBC Hold Purple Top SEE NOTE PT 26.7 H (11.1-13.3) SEC INR 2.2 H (0.9-1.1) APTT 35.7 (26.0-36.8) SEC Sodium 132 L (135-145) mmol/L Potassium 4.7 D (3.3-5.1) mmol/L Chloride 97 (96-108) mmol/L Carbon Dioxide 18 L (22-29) mmol/L Anion Gap 22 H (12-20) BUN 19 H (9-16) mg/dL Creatinine 2.31 H (0.5-1.4) mg/dL Estim Creat Clear Calc 37.1 Estimated GFR 29 Random Glucose 150 H (60-115) mg/dL Lactic Acid 4.2 H* (0.5-2.0) mmol/L Lactic Acid F/U @ 2Hr (0.5-2.0) mmol/L Calcium 8.4 (8.4-10.2) mg/dL Magnesium 1.5 L (1.6-2.6) mg/dL Total Bilirubin 13.3 H (0.0-1.0) mg/dL Direct Bilirubin 9.6 H (0.0-0.5) mg/dL AST 127 H (5-37) U/L ALT 26 (0-40) U/L Alkaline Phosphatase 228 H (39-117) U/L Ammonia 59 H (13-55) umol/L B-Natriuretic Peptide 82 (<100) pg/mL Total Protein 9.0 H (6.5-8.0) g/dL Albumin 2.1 L (3.5-5.0) g/dL Lipase 16 (8-78) U/L Peritoneal WBC X10*3/uL Peritoneal RBC X10*6/uL Periton Neutrophils % Periton Lymphocytes % Peritoneal Monocytes % Peritoneal Other Cells % Ethyl Alcohol < 10 mg/dL Influenza Type A (PCR) NEGATIVE (Negative) Influenza Type B (PCR) NEGATIVE (Negative) RSV RNA Qual (PCR) NEGATIVE (Negative) SARS-CoV-2 RNA (RT-PCR) NEGATIVE (Negative) Blood Type O Positive Antibody Screen NEGATIVE 09/14/23 09/14/23 Range/Units 12:21 13:36 WBC (4.8-10.8) X10*3/uL RBC (4.60-5.80) X10*6/uL Hgb (14.0-18.0) g/dl Hct (42.0-52.0) % MCV (80.0-98.0) fL MCH (27.0-33.0) pg MCHC (31.0-36.0) g/dl RDW (11.0-16.0) % Plt Count (160-400) X10*3/uL MPV (9.4-12.4) fL Immature Gran % (Auto) (0.0-0.4) % Neut % (Auto) (45-73) % Lymph % (Auto) (20-40) % [place] % (Auto) (2-11) % Eos % (Auto) (0-4) % Baso % (Auto) (0-2) % Lymph # (Auto) (1.2-4.9) X10*3/uL [place] # (Auto) (0.1-1.2) X10*3/uL Eos # (Auto) (0.0-0.4) X10*3/uL Baso # (Auto) (0.0-0.2) X10*3/uL Abs Immat Gran (auto) (0.00-0.03) X10*3/uL Absolute Neuts (auto) (2.0-8.3) x10*3/uL Absolute Nucleated RBC (0.0-0.012) X10*3/uL Nucleated RBC % (auto) (0.0-0.2) /100WBC Hold Purple Top PT (11.1-13.3) SEC INR (0.9-1.1) APTT (26.0-36.8) SEC Sodium (135-145) mmol/L Potassium (3.3-5.1) mmol/L Chloride (96-108) mmol/L Carbon Dioxide (22-29) mmol/L Anion Gap (12-20) BUN (9-16) mg/dL Creatinine (0.5-1.4) mg/dL Estim Creat Clear Calc Estimated GFR Random Glucose (60-115) mg/dL Lactic Acid (0.5-2.0) mmol/L Lactic Acid F/U @ 2Hr 2.0 (0.5-2.0) mmol/L Calcium (8.4-10.2) mg/dL Magnesium (1.6-2.6) mg/dL Total Bilirubin (0.0-1.0) mg/dL Direct Bilirubin (0.0-0.5) mg/dL AST (5-37) U/L ALT (0-40) U/L Alkaline Phosphatase (39-117) U/L Ammonia (13-55) umol/L B-Natriuretic Peptide (<100) pg/mL Total Protein (6.5-8.0) g/dL Albumin (3.5-5.0) g/dL Lipase (8-78) U/L Peritoneal WBC 0.103 X10*3/uL Peritoneal RBC < 0.002 X10*6/uL Periton Neutrophils 25 % Periton Lymphocytes 4 % Peritoneal Monocytes 9 % Peritoneal Other Cells 62 % Ethyl Alcohol mg/dL Influenza Type A (PCR) (Negative) Influenza Type B (PCR) (Negative) RSV RNA Qual (PCR) (Negative) SARS-CoV-2 RNA (RT-PCR) (Negative) Blood Type Antibody Screen Independent Interpretation I performed an independent interpretation of an: EKG, Plain X-Ray (no pneumonia) and CT Scan (ascites) Interpretation: Rate: 96 Rhythm: NSR [place]: normal Normal P waves. Normal CAMIL[place]. Normal QRS complex. ST T wave : nonspecific ST T wave changes lateral leads no KAI qTC:[id number] prior studies: slight change from priors The study has been interpreted contemporaneously by me. . Radiology Impression Discussion of test interpretation with radiology: I have reviewed the radiologist's reading. Independent Historian Clinical information obtained from an independent historian. History obtained from or confirmed by: Spouse External Record Review External record reviewed: Inpatient record and Office record Critical Care Time Critical Care Time Critical Care Time: Yes Total Critical Care Time: 60 Attestation: review of records, medical consult, fluid resuscitation, admission, IV magnesium, admission I attest to this time spent taking care of the patient Discharge Plan Discharge Clinical Impression: STEFANO (acute kidney injury), Elevated bilirubin Elevated WBC count Qualifiers: Leukocytosis type: unspecified Qualified Code(s): D72.829 - Elevated white blood cell count, unspecified Abdominal ascites Qualifiers: Ascites type: due to alcoholic cirrhosis Qualified Code(s): K70.31 - Alcoholic cirrhosis of liver with ascites Cirrhosis Qualifiers: Hepatic cirrhosis type: alcoholic cirrhosis Ascites presence: with ascites Q ualified Code(s): K70.31 - Alcoholic cirrhosis of liver with ascites Patient Disposition: Admitted as Observation Sepsis Bolus Exclusion Sepsis Bolus Exclusion CHF/Renal Failure This patient met severe sepsis criteria due to the following condition(s):: H ypotension and Lactate>=4mmol/L In my clinical judgement the administration of 30 ml/kg of crystalloid would be detrimental to this patient due to the patient's following conditions:: Concern for fluid overload Replace the 30 mls/kg with (Zero amount not acceptable and all fluids for severe sepsis must be given at GREATER than 125 mls/hr) Crystalloids amount given in mls: (rate must be at least 150cc/hr): 1,000 Colloids amount given in mls:: 200
[2023-09-14] MEDS: Albumin Human 25 % 100 ML 133.33 ML IV ×3 (10:19→17:24)
[2023-09-14] MEDS: Thiamine HCL 200 MG in 0.9 % Sodium Chloride 100 ML 204 MG IV (10:19)
[2023-09-14] MEDS: Magnesium Sulfate/H2O 2 GM/50 ML PIGGYBACK IV (10:19)
[2023-09-14] MEDS: Pantoprazole Sodium 40 MG/10 ML VIAL IVPUSH (10:19)
[2023-09-14 10:26] LABS: Ethanol < 10 mg/dL; Lactic Acid 4.2 mmol/L (0.5-2.0)
[2023-09-14 10:27] LABS: INTERNATIONAL NORM RATIO 2.2 (0.9-1.1); Prothrombin Time 26.7 SEC (11.1-13.3)
[2023-09-14 10:30] LABS: Alanine Aminotransferase 26 U/L (0-40); Albumin Level 2.1 g/dL (3.5-5.0); Alkaline Phosphatase 228 U/L (39-117); Anion Gap 22 (12-20); Aspartate Amino Transferase 127 U/L (5-37); Bilirubin Direct 9.6 mg/dL (0.0-0.5); Bilirubin Total 13.3 mg/dL (0.0-1.0); Blood Urea Nitrogen 19 mg/dL (9-16); Calcium 8.4 mg/dL (8.4-10.2); Carbon Dioxide 18 mmol/L (22-29); Chloride 97 mmol/L (96-108); Creatinine Clr Calc Pharmacy 37.1; Estimated Glomerular Filt Rate 29; Glucose Random 150 mg/dL (60-115); Lipase 16 U/L (8-78); Magnesium 1.5 mg/dL (1.6-2.6); Potassium 4.7 mmol/L (3.3-5.1); Sodium 132 mmol/L (135-145)
[2023-09-14 10:30] LABS: Partial Thromboplastin Time 35.7 SEC (26.0-36.8)
[2023-09-14 10:39] LABS: B Type Natriuretic Peptide 82 pg/mL (<100)
[2023-09-14] MEDS: cefTRIAXone sodium 2 GM in 0.9 % Sodium Chloride 50 ML IV (10:40)
[2023-09-14] MEDS: Lidocaine HCl 1 % MPF 5 ML VIAL SUBCUT (10:40)
[2023-09-14 10:46] LABS: Ammonia 59 umol/L (13-55)
[2023-09-14 10:49] LABS: Influenza A PCR NEGATIVE (Negative); Influenza B PCR NEGATIVE (Negative); Resp Syncy Virus RNA Qual PCR NEGATIVE (Negative); SARS COV2 PCR INHOUSE NEGATIVE (Negative)
--- NOTE | 2023-09-14 11:10 | PC.NURSE ---
a&ox4. vss and up to date aside from being slightly hypotensive. nsr on the air sampling and monitoring. pt presents to the ED from weekly addiction medicine appointment - staff noticed pt hypotensive as well as jaundice throughout which is not his baseline. pt reports to this administrative underwriter that he has a hx of etoh. pt is a daily drinker of 8+ vodka ginergerales per day. chronic etoh x 15 years. last drink was around 2200 on 09/12. CIWA = 1. sclera jaundice. yellow discoloration noted throughout entire body. abdomen round/distended. tender upon palpation in LLQ. nonradiating. 3+ pitting edema in LE bilaterally. two 20gIVs placed in the forearms bilaterally - labs obtained/sent to lab. ekg performed by tech. medication administered per provider order. xray/CT completed. results pending. pt waiting for ultrasound to be completed. no sob/wob noted. respirations even/unlabored. pt repositioned to comfort. plan of care ongoing. call meneses placed within reach.
[2023-09-14 12:04] LABS: Reflex Lactate? Lactic Acid Added
--- NOTE | 2023-09-14 13:29 | PC.NURSE ---
[facility]
--- NOTE | 2023-09-14 13:32 | PC.NURSE ---
MD Snyder at bedside for diagnostic parenthesis
--- NOTE | 2023-09-14 13:38 | P.HPHOSP_ITS ---
History of Present Illness Date of Service: 09/14/23 Attending physician on admission: Mumtaz Roberson Chief Complaint: Hypotension Pt is a 58-year-old male with a PMH significant for?HTN, cbi-vsujizx-nfmwbievd type 2 diabetes, seizure disorder, HLD, and alcohol use disorder with history of withdrawal who [facility] for evaluation low blood pressure with SBP in the 80s. The patient states he has been experiencing increased abdominal swelling for the past 2 months abdominal pain for the past 1 month, worsening in the past week. Also has been experiencing intermittent weakness, SOB, lightheadedness, and dizziness, significantly worse this morning while at the [facility]. States he is unable to climb up a flight of stairs. Endorses chills but no fever. Has had reduced p.o. intake of both food and drink secondary to increased abdominal bloating. Also reports has not been able to urinate for the past 3 weeks, when he was able to go ?only a little? while having a bowel movement. Continues to drink ?a few? drinks of vodka daily with last drink yesterday evening. States he was told by someone it was better for him to continue drinking at least a little rather than completely quitting. No increased agitation/anxiety, diaphoresis, tremors. Denies auditory or visual hallucinations. No acute bleeding: Denies hematemesis, hemoptysis, hematochezia, or melena. In the ED patient was initially hypothermic at 95.3, tachycardic up to 122, tachypneic up to 24, and hypotensive as low as 82/43. Labs were significant for leukocytosis of 13.6, H&H 9.3/26.4, MCV 98.9, INR 2.2, sodium 132, creatinine 2.31 (up from 1.03 on 08/15), lactic acid 4.2, magnesium 1.5. Total bilirubin 13.3, direct bilirubin 9.6, AST 127, alk-phos to 28, ammonia 59, and albumin 2.1. Tested negative for flu, RSV, COVID. CXR showed no acute cardiopulmonary abnormality. CT?of abdomen and pelvis showed marked worsening of hepatic steatosis with hepatomegaly and new large volume ascites. Ultrasound of abdomen found hepatomegaly and diffuse hepatic steatosis, moderate volume of abdominal ascites, and either abnormal low velocity flow and main portal vein or actual thrombosis within the vein. EKG demonstrated normal sinus rhythm without evidence of significant ST elevations or depressions. Pt was treated with IVF, albumin, thiamine, Mag sulfate, pantoprazole, ceftriaxone, vitamin K, and started phenobarb protocol. Pt will be admitted to the hospital for treatment and further evaluation of acute alcoholic hepatitis and acute hepatorenal syndrome. Review of Systems 2 Review of Systems: Abdominal pain, abdominal distention Weakness, fatigue Lightheadedness and dizziness Natividad x3 weeks Intermittent SOB, VALENTIN No hematochezia, melena, hemoptysis, or hematemesis Denies tremors, auditory or visual hallucinations, diaphoresis, increased anxiety PMFSH Medical History Fatty liver Nicotine dependence, cigarettes, uncomplicated HTN (hypertension) Seizures Asthma Diabetes Surgical History History of colonoscopy Social History Household Members: Family Housing: House Do you presently have visiting nurse or other home services: No Alcohol intake: current Alcohol intake frequency: 3 or more drinks per day Alcohol type: hard liquor Patient Tobacco Use Status: Former Tobacco user Tobacco use type: Cigarette Cigarette Packs Per Day: 0.25 Cigarettes Per Day: 5.0 Years Smoked: 15 Smoked in Last 30 Days: No e-Cigarette/Vaping Use: Never Used Patient Interested in Nicotine Replacement: No Second Hand Smoke Exposure: No Use of substances other than those prescribed or required for medical reasons: No Substance Use Type: Marijuana Currently Displaying Signs/Symptoms of Drug Intoxication Withdrawal: No Any prior treatment program specific to substance use: Yes Have you been hit, kicked, punched, or otherwise hurt by someone within the past year? If so, by whom?: No Do you feel safe in your current relationship?: Yes Is there a partner from a previous relationship who is making you feel unsafe now?: No Are you made to feel afraid or neglected: No Advance Directives: No Advance Directives Information Provided: Yes Do you have a plan to hurt others: No Plan Recently lost weight without trying: Yes How much weight loss: 24-33 pounds Eating poorly because of decreased appetite: Yes Nutrition screen score: 6 Poor oral hygiene: No service: No Current occupational status: employed Current occupation: [employer] Current occupational exposures/hazards: No Cognitive needs: No Hearing needs: No Vision needs: No Meds Allergies Allergy/AdvReac Type Severity Reaction Status Date / Time Penicillins Allergy Hives Verified 09/14/23 09:32 Active Medications: Current Medications Phytonadione 5 mg/ Sodium (Chloride) 50.5 mls @ 50.5 mls/hr IV ONCE ONE Stop: 09/14/23 14:05 Pharmacy Consult (Consult Rx Etoh Phenob Im/Po) 1 each MISCELLANE ONCE PRN; Protocol PRN Reason: Consult order Phenobarbital (Phenobarbital 30 Mg Tablet) 60 mg PO BID ISABELLA; Protocol Stop: 09/16/23 21:01 Phenobarbital (Phenobarbital 30 Mg Tablet) 30 mg PO BID ISABELLA; Protocol Stop: 09/18/23 21:01 Phenobarbital (Phenobarbital 30 Mg Tablet) 30 mg PO DAILY ISABELLA Stop: 09/20/23 09:01 Phenobarbital Sodium (Phenobarbital Sodium 130 Mg/Ml Im Once) 240 mg IM ONCE ONE; Protocol Stop: 09/14/23 14:01 Phenobarbital Sodium (Phenobarbital Sodium 130 Mg/Ml Vial Im Q3hx2) 180 mg IM Q3H ISABELLA; Protocol Stop: 09/14/23 20:01 Home Medications ?Medication ?Instructions ?Recorded ?Confirmed ?Last Taken ?Type fluticasone 250 mcg-salmeterol 50 1 inh inhalation BID 03/14/22 09/14/23 09/13/23 History mcg/dose blistr powdr for inhalation (Advair Diskus) irbesartan 300 mg tablet 300 mg PO DAILY 09/14/23 09/14/23 09/13/23 History magnesium oxide 400 mg PO BID 09/14/23 09/14/23 09/13/23 History tamsulosin 0.4 mg capsule 0.4 mg PO BEDTIME 09/14/23 09/14/23 09/13/23 19:00 History Physical Exam 2 Vital Signs and Narrative: Vital Signs: Last Vital Signs Temp 98.1 F 09/14/23 12:21 Pulse 93 09/14/23 12:21 Resp 17 09/14/23 12:21 BP 108/79 09/14/23 12:21 Pulse Ox 94 09/14/23 12:21 O2 Del Method Room Air 09/14/23 12:21 BMI result Body Mass Index 24.1 Constitutional: Alert, frail-looking, in no acute distress. Jaundiced. Mental Status: Oriented to person, place and time. Eyes: Pupils are equal, round, and reactive to light. Sclerae icteric Ear, Nose, and Throat: Oropharynx clear, mucous membranes moist. Ears and nose without deformities. Trachea midline. Respiratory: Clear to auscultation bilaterally. No wheezing, rales, or rhonchi. Cardiovascular: S1, S2 regular. No murmurs, rubs, or gallops. Gastrointestinal: Abdomen firm, non-tender, with moderate distention. Tympanic to palpation. Neurologic: Cranial nerves II-XII are grossly intact bilaterally. No focal neurological deficits. Moves all extremities spontaneously. Skin: Warm, dry. Musculoskeletal: No cyanosis or clubbing. Extremities: 3+ bilateral pitting edema of lower extremities. Psychiatric: Normal mood and affect. Results Labs 09/15/23 06:34 09/15/23 06:34 Labs: Laboratory Results - last 24 hr 09/14/23 09/14/23 09/14/23 10:00 10:01 10:36 MCV 98.9 H MCH 34.8 H MCHC 35.2 RDW 20.8 H Plt Count 187 D MPV 11.3 Immature Gran % (Auto) 0.7 H Neut % (Auto) 89.9 H Lymph % (Auto) 4.6 L Ware % (Auto) 4.4 Eos % (Auto) 0.1 Baso % (Auto) 0.3 Lymph # (Auto) 0.6 L Ware # (Auto) 0.6 Eos # (Auto) 0.0 Baso # (Auto) 0.0 Abs Immat Gran (auto) 0.10 H Absolute Neuts (auto) 12.2 H Absolute Nucleated RBC 0.060 H Nucleated RBC % (auto) 0.4 H Hold Purple Top SEE NOTE PT 26.7 H INR 2.2 H APTT 35.7 Anion Gap 22 H Estim Creat Clear Calc 37.1 Estimated GFR 29 Random Glucose 150 H Lactic Acid 4.2 H* Lactic Acid F/U @ 2Hr Calcium 8.4 Magnesium 1.5 L Total Bilirubin 13.3 H Direct Bilirubin 9.6 H AST 127 H ALT 26 Alkaline Phosphatase 228 H Ammonia 59 H B-Natriuretic Peptide 82 Total Protein 9.0 H Albumin 2.1 L Lipase 16 Ethyl Alcohol < 10 Influenza Type A (PCR) NEGATIVE Influenza Type B (PCR) NEGATIVE RSV RNA Qual (PCR) NEGATIVE SARS-CoV-2 RNA (RT-PCR) NEGATIVE Blood Type O Positive Antibody Screen NEGATIVE 09/14/23 12:21 MCV MCH MCHC RDW Plt Count MPV Immature Gran % (Auto) Neut % (Auto) Lymph % (Auto) Ware % (Auto) Eos % (Auto) Baso % (Auto) Lymph # (Auto) Ware # (Auto) Eos # (Auto) Baso # (Auto) Abs Immat Gran (auto) Absolute Neuts (auto) Absolute Nucleated RBC Nucleated RBC % (auto) Hold Purple Top PT INR APTT Anion Gap Estim Creat Clear Calc Estimated GFR Random Glucose Lactic Acid Lactic Acid F/U @ 2Hr 2.0 Calcium Magnesium Total Bilirubin Direct Bilirubin AST ALT Alkaline Phosphatase Ammonia B-Natriuretic Peptide Total Protein Albumin Lipase Ethyl Alcohol Influenza Type A (PCR) Influenza Type B (PCR) RSV RNA Qual (PCR) SARS-CoV-2 RNA (RT-PCR) Blood Type Antibody Screen Imaging Radiologist's Impressions: Impressions Abdomen/Pelvis CT 09/14/23 10:15 IMPRESSION: 1. Marked worsening of hepatic steatosis with hepatomegaly and new large volume ascites. 2. Other incidental findings as described above. Fleischner guidelines were followed. Chest X-Ray 09/14/23 10:22 IMPRESSION: Lungs have a normal appearance. No acute cardiopulmonary abnormality. Abdomen Ultrasound 09/14/23 11:35 IMPRESSION: * Hepatomegaly and diffuse hepatic steatosis (or steatohepatitis). * Moderate volume of abdominal ascites is visualized. * The Doppler imaging exam is abnormal but is somewhat limited. There is either abnormally low velocity flow in the main portal vein (resulting in a false imaging appearance of thrombosis) or actual thrombosis within the vein. The recent noncontrast images from 09/14/2023 show a homogeneous appearance of the portal veins. If there are no contraindications to use of intravenous contrast, recommend follow-up portal venous phase CT imaging examination of the liver. Assessment and Plan (1) Alcoholic hepatitis: Status: Acute (2) Hepatorenal syndrome: Status: Acute Plan Pt is a 58-year-old male with a PMH significant for?HTN, gyc-ugzbywa-nudvtmzje type 2 diabetes, seizure disorder, HLD, and alcohol use disorder with history of withdrawal who presents [facility] for evaluation low blood pressure with SBP in the 80s. Pt will be admitted to the hospital for treatment and further evaluation of acute alcoholic hepatitis and acute hepatorenal syndrome. Acute alcoholic hepatitis Patient with ascites, abdominal distention, jaundice, bilirubin 13.3, INR 2.2 In the setting of continued alcohol use, possible portal vein thrombosis as seen on U/S of abdomen Will hold on steroids for now awaiting EGD results tomorrow GI consult NPO after midnight Acute hepatorenal syndrome Patient reports anuria x3 weeks, creatinine 2.31 (up from 1.03 1 month prior on 08/15) Likely in the setting acute alcohol hepatitis secondary to portal vein thrombosis Nephrology consult Follow BMP Hypoalbuminemia Patient's albumin 2.1 at time of presentation Patient received 200 mL albumin in the ED Will give albumin 50 mL q.6 Follow albumin Hyperammonemia Ammonia 59 at time of presentation Pt AOx4 Will give lactulose Follow ammonia Question of SBP Patient received diagnostic paracentesis and prophylactically given ceftriaxone 2 g IV in the ED No indication of infection at this time: Abdomen nontender to palpation, no fever, CXR negative Will hold on additional antibiotics pending paracentesis cultures No indication for sepsis: Tachycardia, tachypnea secondary to ascites/abdominal distention, leukocytosis reactionary Clinically patient does not appear septic Lactic Acidosis, resolved Lactic acid 4.2 at time of presentation Repeat 2.0 after 1 L IVF Secondary to acute alcoholic hepatitis, not sepsis Hyponatremia, mild Sodium 132 at time presentation Patient given IVF in the ED Follow BMP Elevated INR INR 2.2 at time of presentation In the setting of above Will give 1 unit FFP tomorrow morning prior to EGD Hypomagnesemia Magnesium 1.5 at time of presentation Received magnesium 2 g IV in ED Follow Mag Alcohol use disorder Continue phenobarb protocol Daily multivitamin, folic acid, thiamine, famotidine Follow lytes, Mag, BNP Monitor on CIWA scale Seizure protocols Addiction medicine consult Monitor on telemetry Seizure disorder Continue Keppra Ufk-zrcmiug-yyfuoltjx type 2 diabetes Hold metformin Sliding-scale insulin, diabetic diet HLD Continue statin HTN Hold antihypertensives for now Full Code Attending:?Dr. Roberson DVT Prophylaxis: Pneumatic boots for now due to elevated INR, procedure tomorrow morning Pt will require a hospitalization of at least two nights for treatment of?acute alcoholic hepatitis and acute hepatorenal syndrome. Given patient's significant comorbidities, likelihood for quick decompensation, and significant lab abnormalities, patient will need close monitoring of labs, electrolyte resuscitation as necessary, close monitoring of vitals, and specialist consultation with Nephrology and GI. Quality Stroke Does the patient have a stroke diagnosis?: No VTE Prior VTE?: No VTE Risk Level:: Medical - moderate - high VTE Device Contraindication: N/A - Device Ordered VTE Drug Contraindication: Treatment Not Indicated
[2023-09-14 13:56] LABS: MN% 88.3 %; PMN% 11.7 %; WBC Peritoneal Fluid 0.103 X10*3/uL
[2023-09-14 13:57] LABS: RBC Peritoneal Fluid < 0.002 X10*6/uL
[2023-09-14] MEDS: Phytonadione (Vit K1) 5 MG in 0.9 % Sodium Chloride 50 ML 50.5 MG IV (14:21)
[2023-09-14] MEDS: PHENobarbitaL sodium 130 MG/ML IM ONCE 240 MG IM (14:26)
[2023-09-14 14:35] LABS: BF Shift QC OK YES; Lymphocyte Peritoneal Fl 4 %; Man Diluent Bkgrd OK YES; Monocytes Peritoneal Fl 9 %; Neutrophils Peritoneal Fluid 25 %; Other Peritioneal Fl 62 %
--- NOTE | 2023-09-14 14:49 | PHA.MEDREC ---
Pharmacy Consult ? Medication Reconciliation Pharmacy has completed the medication reconciliation. Confirmed medications with patient.
--- NOTE | 2023-09-14 15:33 | P.CONNP_ITS ---
History of Present Illness Reason for Consult Consult date: 09/14/23 Chief Complaint Chief complaint: Low BP History of Present Illness Narrative: 58-year-old male with HTN, avj-qqpmrbo-bfpenyari type 2 diabetes, seizure disorder, HLD, and alcohol use disorder with history of withdrawal who presents [facility] for evaluation low blood pressure with SBP in the 80s. The patient has increased abdominal swelling for the past 2 months abdominal pain for the past 1 month, worsening in the past week. Also has been experiencing intermittent weakness, SOB, lightheadedness, and dizziness, significantly worse this morning while at the [facility]. States he is unable to climb up a flight of stairs. Endorses chills but no fever. Has had reduced p.o. intake of both food and drink secondary to increased abdominal bloating. Also reports has not been able to urinate for the past 3 weeks, when he was able to go ?only a little? while having a bowel movement. Continues to drink ?a few? drinks of vodka daily with last drink yesterday evening. States he was told by someone it was better for him to continue drinking at least a little rather than completely quitting. No increased agitation/anxiety, diaphoresis, tremors. Denies auditory or visual hallucinations. Admits to drinking alcohol No urinary symptoms- polyuria or dysuria, no hematuria No edema PMFSH Past Medical History Medical History Fatty liver Nicotine dependence, cigarettes, uncomplicated HTN (hypertension) Seizures Asthma Diabetes Surgical History Surgical History History of colonoscopy Social History Social History Household Members: Spouse Housing: House Do you presently have visiting nurse or other home services: No Alcohol intake: current Alcohol intake frequency: 3 or more drinks per day Alcohol type: hard liquor Patient Tobacco Use Status: Current everyday Tobacco user Tobacco use type: Cigarette Cigarette Packs Per Day: 0.25 Cigarettes Per Day: 5.0 Years Smoked: 15 Smoked in Last 30 Days: No e-Cigarette/Vaping Use: Never Used Second Hand Smoke Exposure: No Use of substances other than those prescribed or required for medical reasons: No Substance Use Type: Marijuana Advance Directives: No Advance Directives Information Provided: Yes service: No Current occupational status: employed Current occupation: [employer] Current occupational exposures/hazards: No Cognitive needs: No Hearing needs: No Vision needs: No Meds Allergies Allergy/AdvReac Type Severity Reaction Status Date / Time Penicillins Allergy Hives Verified 09/14/23 09:32 Active Medications: Current Medications Acetaminophen (Acetaminophen 325 Mg Tablet) 650 mg PO Q6H PRN PRN Reason: Pain, Mild (Pain Scale 1-3), fever or headache Calcium Carbonate (Calcium Carbonate 750 Mg Tab.Chew) 750 mg PO Q4H PRN PRN Reason: Heartburn Famotidine (Famotidine 20 Mg Tablet) 20 mg PO BID ISABELLA Folic Acid (Folic Acid 1 Mg Tablet) 1 mg PO DAILY ISABELLA Stop: 09/17/23 15:29 Sodium Chloride (Ns) 100 mls @ 100 mls/hr IV ONCE ONE Stop: 09/14/23 15:57 Albumin Human (Kedbumin 25 %) 100 mls @ 133.333 mls/hr IV Q1H ISABELLA Stop: 09/14/23 19:44 Albumin Human (Kedbumin 25 %) 100 mls @ 133.333 mls/hr IV Q1H ISABELLA Stop: 09/15/23 01:44 Albumin Human (Kedbumin 25 %) 100 mls @ 133.333 mls/hr IV Q1H ISABELLA Stop: 09/15/23 07:44 Lactulose (Lactulose 20 Gm/30 Ml Solution) 20 gm PO BID ISABELLA Stop: 09/14/23 21:01 Magnesium Hydroxide (Milk Of Magnesia 30 Ml Oral.Susp) 30 ml PO DAILY PRN PRN Reason: Constipation Multivitamins/Vitamin C (Multivitamin Tablet) 1 tab PO DAILY ISABELLA Stop: 09/17/23 15:29 Pharmacy Consult (Consult Rx Etoh Phenob Im/Po) 1 each MISCELLANE ONCE PRN; Protocol PRN Reason: Consult order Phenobarbital (Phenobarbital 30 Mg Tablet) 60 mg PO BID ISABELLA; Protocol Stop: 09/16/23 21:01 Phenobarbital (Phenobarbital 30 Mg Tablet) 30 mg PO BID ISABELLA; Protocol Stop: 09/18/23 21:01 Phenobarbital (Phenobarbital 30 Mg Tablet) 30 mg PO DAILY ISABELLA Stop: 09/20/23 09:01 Phenobarbital Sodium (Phenobarbital Sodium 130 Mg/Ml Vial Im Q3hx2) 180 mg IM Q3H ISABELLA; Protocol Stop: 09/14/23 20:01 Sodium Chloride (0.9 % Sodium Chloride Flush 3 Ml Syringe) 3 ml IVFLUSH QSHIFT ISABELLA Thiamine HCl (Thiamine Hcl 100 Mg Tablet) 100 mg PO DAILY ISABELLA Stop: 09/18/23 08:59 Home Medications ?Medication ?Instructions ?Recorded ?Confirmed ?Last Taken ?Type fluticasone 250 mcg-salmeterol 50 1 inh inhalation BID 03/14/22 09/14/23 09/13/23 History mcg/dose blistr powdr for inhalation (Advair Diskus) irbesartan 300 mg tablet 300 mg PO DAILY 09/14/23 09/14/23 09/13/23 History magnesium oxide 400 mg PO BID 09/14/23 09/14/23 09/13/23 History tamsulosin 0.4 mg capsule 0.4 mg PO BEDTIME 09/14/23 09/14/23 09/13/23 19:00 History Physical Exam Vital Signs: Last Vital Signs Temp 98.3 F 09/14/23 14:40 Pulse 96 09/14/23 14:40 Resp 17 09/14/23 14:40 BP 113/77 09/14/23 14:40 Pulse Ox 95 09/14/23 14:40 O2 Del Method Room Air 09/14/23 14:40 BMI result Body Mass Index 24.1 Awake. Comfortable. Neck is supple. Mucosa moist. Lungs bilateral scattered rhonchi. Heart S1-S2 heard no gallop. Abdomen soft. distended Extremities no rash; No edema No involuntary movements. No myoclonus. Results Lab Results 09/14/23 10:01 09/14/23 10:00 Lab results: Chemistry 09/14/23 10:00 Sodium 132 L Potassium 4.7 D Carbon Dioxide 18 L BUN 19 H Creatinine 2.31 H Calcium 8.4 Hematology 09/14/23 10:01 WBC 13.6 H Hgb 9.3 L Plt Count 187 D Assessment and Plan (1) STEFANO (acute kidney injury): Status: Acute Plan STEFANO Most likely due to hypoperfusion Probably progressed to tubular injury Need to r/o obstruction No evidence of GN/IN Hyponatremia Lactic acidosis Anemia Hypomagnesemia Suggest Hold Irbesartan and avoid hypotension No diuretics for now IV hydration with NS at 60 cc/hr x 2 L Watch urine output Abdominal paracenthesis - CAutious volume remove to avoid hypotension; Prefer frequent small volume paracenthesis to avoid hypotension Restrict hypotonic fluids( free water) Replace Mg Procedures Date of Service Date of Service: 09/14/23
[2023-09-14] MEDS: Lactulose 20 GM/30 ML SOLUTION PO ×2 (15:36→21:26)
--- NOTE | 2023-09-14 15:37 | P.CNGI_ITS ---
History of Present Illness Data of Consult Service Date: 09/14/23 Requesting physician: Naif Bello Primary Care Provider: Jose Romero [facility] HPI Reason for consult: Acute alcohol hepatitis, ascites and suspected PVT 58 YM with ?HTN, [id number] type 2 diabetes, seizure disorder, HLD, and alcohol use disorder with history of withdrawal sent to [facility] 09/14[facility]23 for evaluation low blood pressure with SBP in the 80s. The patient complains of progressive abdominal bloating and distention for the past 1-2 months and abdominal pain for the past month - reversal of the past week. Pt also complained of nausea, chills and intermittent weakness, SOB, lightheadedness, and dizziness, significantly worse this morning while at the [facility]. States he is unable to climb up a flight of stairs. Pt reports decrease in oral intake due to increased abdominal bloating and reports has not been able to urinate for the past 3 weeks, when he was able to go ?only a little? while having a bowel movement. Pt admits to drinking ETOH x 15 yrs and continues to drink ?a few - 3 ? drinks of vodka daily with last drink yesterday evening (States he was told by someone it was better for him to continue drinking at least a little rather than completely quitting). 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 No increased agitation/anxiety, diaphoresis, tremors. Denies auditory or visual hallucinations. No acute bleeding: Denies hematemesis, hemoptysis, hematochezia, or melena. Patient quit smoking 6 months ago and denies use of street drugs or marijuana. Pt is and lives with his and has 4 children. He denies known family history of liver disease, alcoholism, colon polyps or GI malignancy, In the ED patient was initially hypothermic at 95.3, tachycardic up to 122, tachypneic up to 24, and hypotensive as low as 82/43. Labs were significant for leukocytosis of 13.6, H&H 9.3/26.4, MCV 98.9, INR 2.2, sodium 132, creatinine 2.31 (up from 1.03 on 08/15), lactic acid 4.2, magnesium 1.5. LFTs showed Total bilirubin 13.3, direct bilirubin 9.6, AST 127, alk-phos to 28, ammonia 59, and albumin 2.1. He tested negative for flu, RSV, COVID. CXR showed no acute cardiopulmonary abnormality. Ultrasound of abdomen found hepatomegaly and diffuse hepatic steatosis, moderate volume of abdominal ascites, and either abnormal low velocity flow and main portal vein or actual thrombosis within the vein. EKG demonstrated normal sinus rhythm without evidence of significant ST elevations or depressions. Pt was treated with IVF, albumin, thiamine, Mag sulfate, pantoprazole, ceftriaxone, vitamin K, and started phenobarb protocol and admitted for further evaluation of acute alcoholic hepatitis and acute hepatorenal syndrome 09/14/[address] SCAN SHOWED: LIVER, GALLBLADDER, AND BILIARY TREE: Since the 06/08/2023 study there's been dramatic worsening of the hepatic steatosis. The liver continues to be markedly enlarged measuring approximately 23 cm in cephalocaudad dimension. No biliary ductal dilatation or definite focal hepatic lesion is seen. The gallbladder continues to contain high density material with no evidence of gallbladder wall thickening or obvious pericholecystic inflammatory changes. PERITONEUM: There is new large volume ascites present. At the time of the prior study on 06/08/2023, no ascites was present. No free intraperitoneal air. SPLEEN: Spleen is enlarged at 14.3 cm in greatest dimension. IMPRESSION: 1. Marked worsening of hepatic steatosis with hepatomegaly and new large volume ascites. Review of Systems 2 Review of Systems: Abdominal pain, abdominal distention Weakness, fatigue Lightheadedness and dizziness [place] x3 weeks Intermittent SOB, VALENTIN No hematochezia, melena, hemoptysis, or hematemesis Denies tremors, auditory or visual hallucinations, diaphoresis, increased anxiety PMFSH Past Medical History Medical History (Updated 10/10/23 @ 13:04 by Mumtaz Roberson MD) Bleeding hemorrhoids Acute hypokalemia Acute on chronic anemia Hepatorenal syndrome Alcoholic hepatitis Elevated bilirubin Cirrhosis Abdominal ascites Elevated WBC count STEFANO (acute kidney injury) Portal hypertensive gastropathy Portal hypertension with esophageal varices Fatty liver Nicotine dependence, cigarettes, uncomplicated HTN (hypertension) Seizures Asthma Diabetes Surgical History Surgical History History of colonoscopy Social History Social History Household Members: Family Housing: House Do you presently have visiting nurse or other home services: No Alcohol intake: current Alcohol intake frequency: 3 or more drinks per day Alcohol type: hard liquor Comment: 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 Patient Tobacco Use Status: Former Tobacco user Tobacco use type: Cigarette Cigarette Packs Per Day: 0.25 Cigarettes Per Day: 5.0 Years Smoked: 15 e-Cigarette/Vaping Use: Never Used Second Hand Smoke Exposure: No Substance Use Type: Marijuana Advance Directives Date on File: 07/03/23 service: No Current occupational status: employed Current occupation: [employer] Current occupational exposures/hazards: No Cognitive needs: No Hearing needs: No Vision needs: No Meds Allergies Allergy/AdvReac Type Severity Reaction Status Date / Time Penicillins Allergy Hives Verified 10/06/23 19:24 Active Medications: Current Medications Acetaminophen (Acetaminophen 325 Mg Tablet) 650 mg PO Q6H PRN PRN Reason: Pain, Mild (Pain Scale 1-3), fever or headache Calcium Carbonate (Calcium Carbonate 750 Mg Tab.Chew) 750 mg PO Q4H PRN PRN Reason: Heartburn Famotidine (Famotidine 20 Mg Tablet) 20 mg PO BEDTIME ISABELLA Folic Acid (Folic Acid 1 Mg Tablet) 1 mg PO DAILY ISABELLA Stop: 09/17/23 15:29 Sodium Chloride (Ns) 100 mls @ 100 mls/hr IV ONCE ONE Stop: 09/14/23 15:57 Albumin Human (Kedbumin 25 %) 100 mls @ 133.333 mls/hr IV Q1H ISABELLA Stop: 09/14/23 19:44 Albumin Human (Kedbumin 25 %) 100 mls @ 133.333 mls/hr IV Q1H ISABELLA Stop: 09/15/23 01:44 Albumin Human (Kedbumin 25 %) 100 mls @ 133.333 mls/hr IV Q1H ISABELLA Stop: 09/15/23 07:44 Lactulose (Lactulose 20 Gm/30 Ml Solution) 20 gm PO BID ISABELLA Stop: 09/14/23 21:01 Last Admin: 09/14/23 15:36 Dose: 20 gm Magnesium Hydroxide (Milk Of Magnesia 30 Ml Oral.Susp) 30 ml PO DAILY PRN PRN Reason: Constipation Multivitamins/Vitamin C (Multivitamin Tablet) 1 tab PO DAILY [facility] Stop: 09/17/23 15:29 Pharmacy Consult (Consult Rx Etoh Phenob Im/Po) 1 each MISCELLANE ONCE PRN; Protocol PRN Reason: Consult order Phenobarbital (Phenobarbital 30 Mg Tablet) 60 mg PO BID [facility]; Protocol Stop: 09/16/23 21:01 Phenobarbital (Phenobarbital 30 Mg Tablet) 30 mg PO BID [facility]; Protocol Stop: 09/18/23 21:01 Phenobarbital (Phenobarbital 30 Mg Tablet) 30 mg PO DAILY [facility] Stop: 09/20/23 09:01 Phenobarbital Sodium (Phenobarbital Sodium 130 Mg/Ml Vial Im Q3hx2) 180 mg IM Q3H ISABELLA; Protocol Stop: 09/14/23 20:01 Sodium Chloride (0.9 % Sodium Chloride Flush 3 Ml Syringe) 3 ml IVFLUSH QSHIFT ISABELLA Thiamine HCl (Thiamine Hcl 100 Mg Tablet) 100 mg PO DAILY [facility] Stop: 09/18/23 08:59 Home Medications ?Medication ?Instructions ?Recorded ?Confirmed ?Last Taken ?Type fluticasone 250 mcg-salmeterol 50 1 inh inhalation BID 03/14/22 10/07/23 10/06/23 History mcg/dose blistr powdr for inhalation (Advair Diskus) magnesium oxide 400 mg PO BID 09/14/23 10/07/23 10/06/23 History prednisolone 15 mg/5 mL oral 40 mg PO DAILY 10/07/23 10/07/23 10/06/23 History solution Physical Exam 2 Vital Signs: Vital Signs: Last Vital Signs Temp 98.3 F 09/14/23 14:40 Pulse 96 09/14/23 14:40 Resp 17 09/14/23 14:40 BP 113/77 09/14/23 14:40 Pulse Ox 95 09/14/23 14:40 O2 Del Method Room Air 09/14/23 14:40 BMI result Body Mass Index 24.1 Const: General: no acute distress, ill appearing and tired appearing N utritional Appearance: average body habitus Orientation/consciousness: p atient oriented x3 HEENT: Head: Yes normal to inspection Ears: hearing grossly normal bilaterally Mouth: Normal oral and palatal mucosa present Eyes: Sclerae: sclerae normal and scleral abnormal (Jaundice) Pupils: E qual, round and reactive pupils present Neck: Neck: Yes normal visual inspection Chest: Chest palpation & inspection: normal inspection of the chest Resp: Effort & Inspection: normal respiratory effort Auscultation: clear to auscultation bilaterally Cardio: Palpation: normal PMI Rate: regular rate Rhythm: regular rhythm Heart sounds: S1 normal heart sound present, S2 normal heart sound present and no murmurs GI: Inspection: Yes distended (Due to ascites) Palpation (GI): Soft to palpation, nontender and Hepatomegaly present (Liver enlarged and palpable in RUQ) Auscultation: normal bowel sounds Rectal Exam - Male: Yes deferred Skin: General skin exam: no rashes or lesions noted Neuro: General: patient oriented x3, gait normal and moves all extremities Cranial nerves: Yes Equal, round and reactive pupils present Extrem: General: Yes pedal edema (1+ pitting edema) Psych: Appearance: grossly normal Mental Status: mental status grossly normal Results Labs 09/22/23 10:15 09/22/23 10:15 Labs: Short CBC 09/14/23 Range/Units 10:01 WBC 13.6 H (4.8-10.8) X10*3/uL Hgb 9.3 L (14.0-18.0) g/dl Hct 26.4 L (42.0-52.0) % Plt Count 187 D (160-400) X10*3/uL BMP 09/14/23 10:00 Sodium 132 L Potassium 4.7 D Chloride 97 Carbon Dioxide 18 L BUN 19 H Creatinine 2.31 H Calcium 8.4 Liver Function 09/14/23 Range/Units 10:00 Total Bilirubin 13.3 H (0.0-1.0) mg/dL Direct Bilirubin 9.6 H (0.0-0.5) mg/dL AST 127 H (5-37) U/L ALT 26 (0-40) U/L Alkaline Phosphatase 228 H (39-117) U/L Albumin 2.1 L (3.5-5.0) g/dL Microbiology Microbiology Results: Microbiology 09/14/23 13:36 Peritoneal Fluid Gram Stain - Final Assessment and Plan (1) Alcoholic hepatitis: Status: Inactive (2) Elevated bilirubin: Status: Inactive (3) Abdominal ascites: Qualifiers: Ascites type: due to alcoholic cirrhosis Qualified Code(s): K70.31 - Alcoholic cirrhosis of liver with ascites Status: Inactive (4) STEFANO (acute kidney injury): Status: Inactive Plan 58 YM with ?HTN, [id number] type 2 diabetes, seizure disorder, HLD, and alcohol use disorder with history of withdrawal sent to [facility] on 09/14/23 for evaluation low blood pressure with SBP in the 80s. The patient complains of progressive abdominal bloating and distention for the past 1-2 months and abdominal pain for the past month - reversal of the past week. Pt admits to drinking ETOH x 15 yrs and continues to drink ?a few - 3 ? drinks of vodka daily with last drink yesterday evening. Patient denies a diagnosis loud snoring or sleep apnea Elevated LFTs likely due to acute alcoholic hepatitis +/- cirrhosis, hemochromatosis, autoimmune hepatitis. Hepatitis AB and C serologies were negative. Abd US with duplex suspicious for portal vein thrombosis Maddrey score is 81 and MELD score of 33. RECOMMENDATIONS: 1. Agree with IV pepcid and CIWA protocol 2. Check iron studies to rule out possible hemochromatosis and CADENCE, SMA and AMC to rule out autoimmune hepatitis. 3. Pt is scheduled for an EGD tomorrow to screen for varices. If he has esophageal or gastric varices, treatment with steroids and anticoagulation is not recommended. ADDENDUM: PT WAS DISCHARGED ON 10/10/23: Hospital course - Generalized weakness secondary to physical deconditioning due to chronic liver disease. He was evaluated by Physical therapy who recommended STR. he needs to be on Fall precautions. pending vitamin-D level. - Lactice acidosis. Secondary to poor clearance due to chronic liver disease and use on metformin. DC Metformin at time of discharge. Last A1c of 5.6. no need for diabetes medications at this point. can be followed by PCP. - Chronic liver disease w ascites. Continue steroids tapering dose and lactulose for recent hx of Alcoholic hepatitis. (on tapering dose, lower Prednisone dose to 30mg daily for 1 month on 10/13) US showed moderate asictes. Started on Spironolactone with good tolerance. increased Spironolactone to 25 mg bid for fluid management. Keep on fluid restrictions up to 1.5L. repeat BMP as outpatient. having bowel movements, hold lactulose for diarrhea Discharge plan Continue Spironolactone as prescribed Midodrine as needed for low blood pressure discontinue Metformin Decrease Fluid intake to 1.5L daily only Lactulose with goal of 1-2 Bowel movements daily Increase physical therapy as tolerated to repeat blood test next week Procedures Date of Service Date of Service: 10/12/23
[2023-09-14] MEDS: PHENobarbitaL sodium 130 MG/ML VIAL IM Q3Hx2 180 MG IM ×2 (16:43→21:26)
[2023-09-14] MEDS: Multivitamin TABLET 1 TAB PO (16:44)
[2023-09-14] MEDS: Folic Acid 1 MG TABLET PO (16:44)
[2023-09-14] MEDS: 0.9 % Sodium Chloride Flush 3 ML SYRINGE IVFLUSH ×2 (16:51→21:42)
[2023-09-14] MEDS: Albumin Human 25 % 100 ML 133.3 ML IV (21:29)
[2023-09-14] MEDS: Famotidine 20 MG TABLET PO (21:30)
[2023-09-15] VITALS (15 sets, daily range): BP systolic 92–114; BP diastolic 51–73; PULSE 53–81; RESP 14–20; TEMP 36.3–36.8; O2SAT 95–100; BMI 24.1
[2023-09-15] MEDS: Albumin Human 25 % 100 ML 133.33 ML IV ×3 (00:22→07:23)
[2023-09-15] MEDS: Albumin Human 25 % 100 ML 133.3 ML IV (01:12)
[2023-09-15 06:17] LABS: Appearance Urine Cloudy; Color Urine Dark Yellow; Glucose Urine UA Negative (Negative); Leukocyte Esterase Urine Small (1+) (Negative); Nitrite Urine Positive (Negative); PH 5.5 (5.0-9.0); UMIC TRIGGER UACC YES; Urine Blood Trace (Negative); Urine Ketones Trace mg/dL (Negative); Urine Protein 30 (1+) mg/dL (Neg-Trace)
[2023-09-15 06:30] LABS: Granular Casts Urine Present; UACC Culture Trigger YES
[2023-09-15 06:31] LABS: Bacteria Urine 1+ (None Seen)
[2023-09-15 06:35] LABS: Amphetamine Screen Urine Not Detected (Not Detect); Barbiturates, Urine POSITIVE (Not Detect); Benzodiazepines Screen Urine POSITIVE (Not Detect); Buprenorphine Scr Not Detected (Not Detect); Cannabinoid Screen Urine Not Detected (Not Detect); Cocaine Screen Urine Not Detected (Not Detect); Fentanyl, urine Not Detected (Not Detect); Methadone Screen, Urine Not Detected (Not Detect); Opiate Screen Urine Not Detected (Not Detect); Oxycodone Screen Urine Not Detected (Not Detect); Phencyclidine Screen Urine Not Detected (Not Detect)
--- NOTE | 2023-09-15 06:35 | PC.NURSE ---
Pt. A and oriented to person, place, the date he said 2023 then able to recall rest of night. Flat affect. pt. denies N/V/dizziness overnight. BP's overnight 97/43 and 93/73, reported to Dr. Bear with no further intervention than Albumin 25% that is ordered. Pt. denies SOB, except d/t ascites/distension. CIWA scores 2,0, and 1 respectively. Telephone report called to Endoscopy. Pt. NPO since 12am.
[2023-09-15 06:46] LABS: Ammonia 33 umol/L (13-55)
[2023-09-15 07:25] LABS: Hematocrit 21.6 % (42.0-52.0); Hemoglobin 7.6 g/dl (14.0-18.0); Mean Corpuscular HGB Conc 35.2 g/dl (31.0-36.0); Mean Corpuscular Hemoglobin 35.2 pg (27.0-33.0); Mean Platelet Volume 11.4 fL (9.4-12.4); NRBC Pct Auto 0.3 /100WBC (0.0-0.2); Platelet Count 130 X10*3/uL (160-400); Red Blood Count 2.16 X10*6/uL (4.60-5.80); Red Cell Distribution Width 20.7 % (11.0-16.0)
[2023-09-15 08:13] LABS: Alanine Aminotransferase 19 U/L (0-40); Albumin Level 3.4 g/dL (3.5-5.0); Alkaline Phosphatase 155 U/L (39-117); Anion Gap 16 (12-20); Aspartate Amino Transferase 91 U/L (5-37); Bilirubin Total 13.8 mg/dL (0.0-1.0); Blood Urea Nitrogen 22 mg/dL (9-16); Calcium 9.2 mg/dL (8.4-10.2); Carbon Dioxide 24 mmol/L (22-29); Chloride 101 mmol/L (96-108); Creatinine Clr Calc Pharmacy 35.1; Estimated Glomerular Filt Rate 27; Glucose Random 116 mg/dL (60-115); Iron 74 mcg/dL (45-160); Magnesium 1.8 mg/dL (1.6-2.6); Percent Iron Saturation 75 % (15-50); Potassium 3.3 mmol/L (3.3-5.1); Sodium 138 mmol/L (135-145); Total Iron Binding Capacity 99 mcg/dL (228-428); Total Protein 7.8 g/dL (6.5-8.0); Unsaturated Iron Binding < 25 ug/dL
[2023-09-15 08:41] LABS: Ferritin 2016 ng/mL (20-250)
[2023-09-15] MEDS: Multivitamin TABLET 1 TAB PO (09:03)
[2023-09-15] MEDS: Clindamycin Phosphate/D5W 900 MG/50 ML PIGGYBACK 50 MG IV (09:03)
[2023-09-15] MEDS: Thiamine HCL 100 MG TABLET PO (09:03)
[2023-09-15] MEDS: PHENobarbitaL 30 MG TABLET 60 MG PO ×2 (09:03→20:00)
[2023-09-15] MEDS: Folic Acid 1 MG TABLET PO (09:03)
[2023-09-15] MEDS: 0.9 % Sodium Chloride Flush 3 ML SYRINGE IVFLUSH ×3 (09:04→20:01)
--- NOTE | 2023-09-15 09:40 | P.PNNP_ITS ---
Subjective Subjective Date of Service: 09/15/23 Interval history: Events noted. Has remained hypotensive. He is received IV albumin. It is unclear how much urine he has past Physical Exam 2 Vital Signs: Vital Signs: Last Vital Signs Temp 98.2 F 09/15/23 09:36 Pulse 81 09/15/23 09:36 Resp 16 09/15/23 09:36 BP 95/68 09/15/23 09:36 Pulse Ox 95 09/15/23 09:36 O2 Del Method Room Air 09/15/23 09:36 BMI result Body Mass Index 24.1 Awake. Comfortable. Neck is supple. Mucosa moist. Lungs bilateral scattered rhonchi. Heart S1-S2 heard no gallop. Abdomen soft. Distended Extremities no edema. No involuntary movements. No myoclonus. Objective Data Labs 09/15/23 06:34 09/15/23 06:34 Labs: Laboratory Results - last 24 hr 09/14/23 09/14/23 09/14/23 10:00 10:01 10:36 WBC 13.6 H RBC 2.67 L Hgb 9.3 L Hct 26.4 L MCV 98.9 H MCH 34.8 H MCHC 35.2 RDW 20.8 H Plt Count 187 D MPV 11.3 Immature Gran % (Auto) 0.7 H Neut % (Auto) 89.9 H Lymph % (Auto) 4.6 L [place] % (Auto) 4.4 Eos % (Auto) 0.1 Baso % (Auto) 0.3 Lymph # (Auto) 0.6 L [place] # (Auto) 0.6 Eos # (Auto) 0.0 Baso # (Auto) 0.0 Abs Immat Gran (auto) 0.10 H Absolute Neuts (auto) 12.2 H Absolute Nucleated RBC 0.060 H Nucleated RBC % (auto) 0.4 H Hold Purple Top SEE NOTE PT 26.7 H INR 2.2 H APTT 35.7 Sodium 132 L Potassium 4.7 D Chloride 97 Carbon Dioxide 18 L Anion Gap 22 H BUN 19 H Creatinine 2.31 H Estim Creat Clear Calc 37.1 Estimated GFR 29 Random Glucose 150 H Lactic Acid 4.2 H* Lactic Acid F/U @ 2Hr Calcium 8.4 Magnesium 1.5 L Iron TIBC % Saturation Unsat Iron Binding Ferritin Total Bilirubin 13.3 H Direct Bilirubin 9.6 H AST 127 H ALT 26 Alkaline Phosphatase 228 H Ammonia 59 H B-Natriuretic Peptide 82 Total Protein 9.0 H Albumin 2.1 L Lipase 16 Urine Color Urine Appearance Urine pH Ur Specific [place] Urine Protein Urine Glucose (UA) Urine Ketones Urine Blood Urine Nitrite Ur Leukocyte Esterase Urine RBC Urine WBC Ur Squamous Epith Cells Urine Bacteria Hyaline Casts Granular Casts Peritoneal WBC Peritoneal RBC Periton Neutrophils Periton Lymphocytes Peritoneal Monocytes Peritoneal Other Cells Urine Opiates Screen Ur Buprenorphine Scrn Ur Oxycodone Screen Urine Methadone Screen Urine Fentanyl Screen Ur Barbiturates Screen Ur Phencyclidine Scrn Ur Amphetamines Screen U Benzodiazepines Scrn Urine Cocaine Screen U Marijuana (THC) Screen Ethyl Alcohol < 10 Influenza Type A (PCR) NEGATIVE Influenza Type B (PCR) NEGATIVE RSV RNA Qual (PCR) NEGATIVE SARS-CoV-2 RNA (RT-PCR) NEGATIVE Blood Type O Positive Antibody Screen NEGATIVE 09/14/23 09/14/23 09/15/23 12:21 13:36 06:34 WBC 8.0 RBC 2.16 L Hgb 7.6 L Hct 21.6 L MCV 100.0 H MCH 35.2 H MCHC 35.2 RDW 20.7 H Plt Count 130 L D MPV 11.4 Immature Gran % (Auto) Neut % (Auto) Lymph % (Auto) [place] % (Auto) Eos % (Auto) Baso % (Auto) Lymph # (Auto) [place] # (Auto) Eos # (Auto) Baso # (Auto) Abs Immat Gran (auto) Absolute Neuts (auto) Absolute Nucleated RBC 0.020 H Nucleated RBC % (auto) 0.3 H Hold Purple Top PT INR APTT Sodium 138 Potassium 3.3 D Chloride 101 Carbon Dioxide 24 Anion Gap 16 BUN 22 H Creatinine 2.44 H Estim Creat Clear Calc 35.1 Estimated GFR 27 Random Glucose 116 H Lactic Acid Lactic Acid F/U @ 2Hr 2.0 Calcium 9.2 D Magnesium 1.8 Iron 74 TIBC 99 L % Saturation 75 H Unsat Iron Binding < 25 Ferritin 2016 H Total Bilirubin 13.8 H Direct Bilirubin AST 91 H ALT 19 Alkaline Phosphatase 155 H Ammonia 33 B-Natriuretic Peptide Total Protein 7.8 Albumin 3.4 L Lipase Urine Color Urine Appearance Urine pH Ur Specific [place] Urine Protein Urine Glucose (UA) Urine Ketones Urine Blood Urine Nitrite Ur Leukocyte Esterase Urine RBC Urine WBC Ur Squamous Epith Cells Urine Bacteria Hyaline Casts Granular Casts Peritoneal WBC 0.103 Peritoneal RBC < 0.002 Periton Neutrophils 25 Periton Lymphocytes 4 Peritoneal Monocytes 9 Peritoneal Other Cells 62 Urine Opiates Screen Ur Buprenorphine Scrn Ur Oxycodone Screen Urine Methadone Screen Urine Fentanyl Screen Ur Barbiturates Screen Ur Phencyclidine Scrn Ur Amphetamines Screen U Benzodiazepines Scrn Urine Cocaine Screen U Marijuana (THC) Screen Ethyl Alcohol Influenza Type A (PCR) Influenza Type B (PCR) RSV RNA Qual (PCR) SARS-CoV-2 RNA (RT-PCR) Blood Type Antibody Screen 09/15/23 Unknown WBC RBC Hgb Hct MCV MCH MCHC RDW Plt Count MPV Immature Gran % (Auto) Neut % (Auto) Lymph % (Auto) [place] % (Auto) Eos % (Auto) Baso % (Auto) Lymph # (Auto) [place] # (Auto) Eos # (Auto) Baso # (Auto) Abs Immat Gran (auto) Absolute Neuts (auto) Absolute Nucleated RBC Nucleated RBC % (auto) Hold Purple Top PT INR APTT Sodium Potassium Chloride Carbon Dioxide Anion Gap BUN Creatinine Estim Creat Clear Calc Estimated GFR Random Glucose Lactic Acid Lactic Acid F/U @ 2Hr Calcium Magnesium Iron TIBC % Saturation Unsat Iron Binding Ferritin Total Bilirubin Direct Bilirubin AST ALT Alkaline Phosphatase Ammonia B-Natriuretic Peptide Total Protein Albumin Lipase Urine Color Dark Yellow Urine Appearance Cloudy Urine pH 5.5 Ur Specific [place] 1.020 Urine Protein 30 (1+) H Urine Glucose (UA) Negative Urine Ketones Trace Urine Blood Trace H Urine Nitrite Positive H Ur Leukocyte Esterase Small (1+) H Urine RBC 3-5 H Urine WBC 6-10 Ur Squamous Epith Cells 3-5 Urine Bacteria 1+ Hyaline Casts 11-20 Granular Casts Present Peritoneal WBC Peritoneal RBC Periton Neutrophils Periton Lymphocytes Peritoneal Monocytes Peritoneal Other Cells Urine Opiates Screen Not Detected Ur Buprenorphine Scrn Not Detected Ur Oxycodone Screen Not Detected Urine Methadone Screen Not Detected Urine Fentanyl Screen Not Detected Ur Barbiturates Screen POSITIVE H Ur Phencyclidine Scrn Not Detected Ur Amphetamines Screen Not Detected U Benzodiazepines Scrn POSITIVE H Urine Cocaine Screen Not Detected U Marijuana (THC) Screen Not Detected Ethyl Alcohol Influenza Type A (PCR) Influenza Type B (PCR) RSV RNA Qual (PCR) SARS-CoV-2 RNA (RT-PCR) Blood Type Antibody Screen Microbiology Microbiology Results: Microbiology 09/14/23 13:36 Peritoneal Fluid Gram Stain - Final Procedures Date of Service Date of Service: 09/15/23 Assessment & Plan Assessment and plan (1) STEFANO (acute kidney injury): Status: Acute Plan STEFANO Most likely due to hypoperfusion Probably progressed to tubular injury Need to r/o obstruction No evidence of GN/IN Hyponatremia Lactic acidosis Anemia Hypomagnesemia Suggest Hold Irbesartan and avoid hypotension No diuretics for now IV hydration with NS at 60 cc/hr x 2 L Watch urine output Agree with IV albumin Abdominal paracenthesis - CAutious volume remove to avoid hypotension; Prefer frequent small volume paracenthesis to avoid hypotension Restrict hypotonic fluids( free water) Replace Mg as needed Time Spent With Patient Time: Total time managing care of this patient today ____ minutes. Progress Note: Quality Stroke Does the patient have a stroke diagnosis?: No
--- NOTE | 2023-09-15 09:56 | PC.NURSE ---
FFP unit on arrival to PACU was empty and disconnected from patient. IV ABTx of Clindamycin infusing. finished in PACU and then disconnected by this resume writer.
--- NOTE | 2023-09-15 10:33 | MHC.SHP ---
Pre-Procedural Eval Section A - 24 Hr Update-Section A only Date of Service: 09/15/23 The patient is an INPATIENT: Yes Changes since office visit: Yes New Medical Problems, Yes Changes in Medication and Yes Patient answered all questions; No Cold of Flu in the past 2 weeks The patient has been examined within 24 hours of the surgical procedure. The History & Physical has been completed within 30 days and I have reviewed it.: Yes Section B - Complete if H&P > 30 days Chief Complaint: Low BP Allergies: Allergies Allergy/AdvReac Type Severity Reaction Status Date / Time Penicillins Allergy Hives Verified 09/14/23 09:32 Plan Diagnosis/Plan: Unchanged I have reviewed the history and physical and performed a pertinent physical examination on my patient. No changes have occurred unless specified. Time Spent With Patient Time: Total time managing care of this patient today ____ minutes.
--- NOTE | 2023-09-15 11:18 | W.PM.OPN ---
Operative Note Operative Note Date of Service: 09/15/23 Narrative: FLEXIBLE TRANSORAL UPPER GASTROINTESTINAL ENDOSCOPY Pre-op diagnosis: Cirrhosis - screen for varices Post-op diagnosis: Non-bleeding esophageal varices, portal hypertensive gastropathy Endoscopist:? Suyapa Wright MD Anesthesia:?MAC UPPER ENDOSCOPY Consent: Indications for the procedure and potential complications of bleeding, perforation, reaction to medications and missed diagnosis were discussed with the patient and informed consent was obtained. Instrument: Olympus GIF H 190 mid size upper endoscope Monitoring: Vital signs and clinical assessment, continuous EKG monitoring, Pulse oximetry, Carbon Dioxide monitoring and blood pressure monitoring were done throughout the procedure. Procedure: The patient was placed in the left lateral decubitis position and pre-procedure medications were administered and a bite block was placed. The endoscope was inserted into the mouth and advanced under direct vision to the third part of duodenum. A careful inspection was made as the upper endoscope was withdrawn including a retroflexed examination of the proximal stomach; Findings and interventions are described below. Findings: Larynx: Normal Esophagus: GE junction at 40 cms. Three columns of grade 1-2 varices from 35 to 40 cms. A 4th column of grade 2-3 varix without high risk stigmata for bleeding - band ligation not needed Stomach: Patchy erythema with mosaic appearance of gastric mucosa consistent with portal hypertensive gastropathy. No gastric varices and grade 2 flap valve on retroflexed examination of the cardia. Duodenum: Normal bulb and descending duodenum Intervention: None Impression and Post Procedure Diagnosis: Endoscopy Findings: ESOPHAGUS: Three columns of grade 1-2 varices from 35 to 40 cms. A 4th column of grade 2-3 varix without high risk stigmata for bleeding - band ligation not needed STOMACH: Moderate portal hypertensive gastropathy Plan: 1. Pt can be treated with steroids for acute alcoholic hepatitis 2. Recommend holding off anticoagulation due to presence of esophageal varices. Above findings were reviewed with the patient.
--- NOTE | 2023-09-15 11:28 | P.CONAN_ITS ---
[facility] Active Problems Active Problems: All Active Problems Hepatorenal syndrome (Acute) Alcoholic hepatitis (Acute) Elevated bilirubin (Acute) Cirrhosis (Acute) Abdominal ascites (Acute) Elevated WBC count (Acute) STEFANO (acute kidney injury) (Acute) Alcohol use disorder, severe, dependence (Acute) Insomnia (Acute) Hyponatremia (Acute) Dehydration (Acute) Alcohol withdrawal (Acute) Alcohol abuse (Acute) BPH loc w urin obs/LUTS (Acute) Hematuria (Acute) Abscess, seminal vesicle (Acute) Elevated serum creatinine (Acute) Physical exam (Acute) Microscopic hematuria (Acute) HTN (hypertension) (Acute) Elevated liver enzymes (Acute) Bilateral lower extremity edema (Acute) Nicotine dependence, cigarettes, uncomplicated (Acute) Past Medical History Medical History Fatty liver Nicotine dependence, cigarettes, uncomplicated HTN (hypertension) Seizures Asthma Diabetes Family History Family history of problems with anesthesia: No Surgical History Surgical History History of colonoscopy History of Problems with Anesthesia: No Social History Social History Household Members: Family Housing: House Do you presently have visiting nurse or other home services: No Alcohol intake: current Alcohol intake frequency: 3 or more drinks per day Alcohol type: hard liquor Patient Tobacco Use Status: Former Tobacco user Tobacco use type: Cigarette Cigarette Packs Per Day: 0.25 Cigarettes Per Day: 5.0 Years Smoked: 15 Smoked in Last 30 Days: No e-Cigarette/Vaping Use: Never Used Patient Interested in Nicotine Replacement: No Second Hand Smoke Exposure: No Use of substances other than those prescribed or required for medical reasons: No Substance Use Type: Marijuana Currently Displaying Signs/Symptoms of Drug Intoxication Withdrawal: No Any prior treatment program specific to substance use: Yes Have you been hit, kicked, punched, or otherwise hurt by someone within the past year? If so, by whom?: No Do you feel safe in your current relationship?: Yes Is there a partner from a previous relationship who is making you feel unsafe now?: No Are you made to feel afraid or neglected: No Advance Directives: No Advance Directives Information Provided: Yes Do you have a plan to hurt others: No Plan Recently lost weight without trying: Yes How much weight loss: 24-33 pounds Eating poorly because of decreased appetite: Yes Nutrition screen score: 6 Poor oral hygiene: No service: No Current occupational status: employed Current occupation: [employer] Current occupational exposures/hazards: No Cognitive needs: No Hearing needs: No Vision needs: No Meds Allergies Allergy/AdvReac Type Severity Reaction Status Date / Time Penicillins Allergy Hives Verified 09/14/23 09:32 Active Medications: Current Medications Acetaminophen (Acetaminophen 325 Mg Tablet) 650 mg PO Q6H PRN PRN Reason: Pain, Mild (Pain Scale 1-3), fever or headache Atorvastatin Calcium (Atorvastatin Calcium 20 Mg Tablet) 20 mg PO BEDTIME ISABELLA Calcium Carbonate (Calcium Carbonate 750 Mg Tab.Chew) 750 mg PO Q4H PRN PRN Reason: Heartburn Famotidine (Famotidine 20 Mg Tablet) 20 mg PO BEDTIME [facility] Last Admin: 09/14/23 21:30 Dose: 20 mg Fluticasone/Vilanterol (Fluticasone/Vilanterol 100/25 Blst.W.Dev) 1 puff INHALE RDAILY [facility] Folic Acid (Folic Acid 1 Mg Tablet) 1 mg PO DAILY [facility] Stop: 09/17/23 15:29 Last Admin: 09/15/23 09:03 Dose: 1 mg Levetiracetam (Levetiracetam 500 Mg Tablet) 500 mg PO BID [facility] Magnesium Hydroxide (Milk Of Magnesia 30 Ml Oral.Susp) 30 ml PO DAILY PRN PRN Reason: Constipation Magnesium Oxide (Magnesium Oxide 400 Mg Tablet) 400 mg PO BID [facility] Multivitamins/Vitamin C (Multivitamin Tablet) 1 tab PO DAILY [facility] Stop: 09/17/23 15:29 Last Admin: 09/15/23 09:03 Dose: 1 tab Pharmacy Consult (Consult Rx Etoh Phenob Im/Po) 1 each MISCELLANE ONCE PRN; Protocol PRN Reason: Consult order Phenobarbital (Phenobarbital 30 Mg Tablet) 60 mg PO BID [facility]; Protocol Stop: 09/16/23 21:01 Last Admin: 09/15/23 09:03 Dose: 60 mg Phenobarbital (Phenobarbital 30 Mg Tablet) 30 mg PO BID [facility]; Protocol Stop: 09/18/23 21:01 Phenobarbital (Phenobarbital 30 Mg Tablet) 30 mg PO DAILY [facility] Stop: 09/20/23 09:01 Prazosin HCl (Prazosin Hcl 1 Mg Capsule) 1 mg PO BEDTIME ISABELLA; Protocol Sodium Chloride (0.9 % Sodium Chloride Flush 3 Ml Syringe) 3 ml IVFLUSH QSHIFT ISABELLA Last Admin: 09/15/23 09:04 Dose: 3 ml Thiamine HCl (Thiamine Hcl 100 Mg Tablet) 100 mg PO DAILY ISABELLA Stop: 09/18/23 08:59 Last Admin: 09/15/23 09:03 Dose: 100 mg Home Medications ?Medication ?Instructions ?Recorded ?Confirmed ?Last Taken ?Type fluticasone 250 mcg-salmeterol 50 1 inh inhalation BID 03/14/22 09/14/23 09/13/23 History mcg/dose blistr powdr for inhalation (Advair Diskus) irbesartan 300 mg tablet 300 mg PO DAILY 09/14/23 09/14/23 09/13/23 History magnesium oxide 400 mg PO BID 09/14/23 09/14/23 09/13/23 History tamsulosin 0.4 mg capsule 0.4 mg PO BEDTIME 09/14/23 09/14/23 09/13/23 19:00 History Exam Height,Weight and Vital Signs: Height 5 ft 11 in Weight 78.5 kg Last Vital Signs Temp 97.3 F 09/15/23 11:21 Pulse 79 09/15/23 11:21 Resp 16 09/15/23 11:21 BP 93/64 09/15/23 11:21 Pulse Ox 100 09/15/23 11:21 O2 Del Method Simple Mask 09/15/23 11:21 O2 Flow Rate 6 09/15/23 11:21 Pertinent Lab Results Pertinent Lab Results: Laboratory Tests 09/14/23 09/14/23 09/14/23 10:00 10:01 10:36 WBC 13.6 H RBC 2.67 L Hgb 9.3 L Hct 26.4 L MCV 98.9 H MCH 34.8 H MCHC 35.2 RDW 20.8 H Plt Count 187 D MPV 11.3 Immature Gran % (Auto) 0.7 H Neut % (Auto) 89.9 H Lymph % (Auto) 4.6 L [place] % (Auto) 4.4 Eos % (Auto) 0.1 Baso % (Auto) 0.3 Lymph # (Auto) 0.6 L [place] # (Auto) 0.6 Eos # (Auto) 0.0 Baso # (Auto) 0.0 Abs Immat Gran (auto) 0.10 H Absolute Neuts (auto) 12.2 H Absolute Nucleated RBC 0.060 H Nucleated RBC % (auto) 0.4 H Hold Purple Top SEE NOTE PT 26.7 H INR 2.2 H APTT 35.7 Sodium 132 L Potassium 4.7 D Chloride 97 Carbon Dioxide 18 L Anion Gap 22 H BUN 19 H Creatinine 2.31 H Estim Creat Clear Calc 37.1 Estimated GFR 29 Random Glucose 150 H Lactic Acid 4.2 H* Lactic Acid F/U @ 2Hr Calcium 8.4 Magnesium 1.5 L Iron TIBC % Saturation Unsat Iron Binding Ferritin Total Bilirubin 13.3 H Direct Bilirubin 9.6 H AST 127 H ALT 26 Alkaline Phosphatase 228 H Ammonia 59 H B-Natriuretic Peptide 82 Total Protein 9.0 H Albumin 2.1 L Lipase 16 Urine Color Urine Appearance Urine pH Ur Specific [place] Urine Protein Urine Glucose (UA) Urine Ketones Urine Blood Urine Nitrite Ur Leukocyte Esterase Urine RBC Urine WBC Ur Squamous Epith Cells Urine Bacteria Hyaline Casts Granular Casts Peritoneal WBC Peritoneal RBC Periton Neutrophils [place] Lymphocytes Peritoneal Monocytes Peritoneal Other Cells Urine Opiates Screen Ur Buprenorphine Scrn Ur Oxycodone Screen Urine Methadone Screen Urine Fentanyl Screen Ur Barbiturates Screen Ur Phencyclidine Scrn Ur Amphetamines Screen U Benzodiazepines Scrn Urine Cocaine Screen U Marijuana (THC) Screen Ethyl Alcohol < 10 Influenza Type A (PCR) NEGATIVE Influenza Type B (PCR) NEGATIVE RSV RNA Qual (PCR) NEGATIVE SARS-CoV-2 RNA (RT-PCR) NEGATIVE Blood Type O Positive Antibody Screen NEGATIVE 09/14/23 09/14/23 09/15/23 12:21 13:36 06:34 WBC 8.0 RBC 2.16 L Hgb 7.6 L Hct 21.6 L MCV 100.0 H MCH 35.2 H MCHC 35.2 RDW 20.7 H Plt Count 130 L D MPV 11.4 Immature Gran % (Auto) Neut % (Auto) Lymph % (Auto) [place] % (Auto) Eos % (Auto) Baso % (Auto) Lymph # (Auto) [place] # (Auto) Eos # (Auto) Baso # (Auto) Abs Immat Gran (auto) Absolute Neuts (auto) Absolute Nucleated RBC 0.020 H Nucleated RBC % (auto) 0.3 H Hold Purple Top PT INR APTT Sodium 138 Potassium 3.3 D Chloride 101 Carbon Dioxide 24 Anion Gap 16 BUN 22 H Creatinine 2.44 H Estim Creat Clear Calc 35.1 Estimated GFR 27 Random Glucose 116 H Lactic Acid Lactic Acid F/U @ 2Hr 2.0 Calcium 9.2 D Magnesium 1.8 Iron 74 TIBC 99 L % Saturation 75 H Unsat Iron Binding < 25 Ferritin 2016 H Total Bilirubin 13.8 H Direct Bilirubin AST 91 H ALT 19 Alkaline Phosphatase 155 H Ammonia 33 B-Natriuretic Peptide Total Protein 7.8 Albumin 3.4 L Lipase Urine Color Urine Appearance Urine pH Ur Specific [place] Urine Protein Urine Glucose (UA) Urine Ketones Urine Blood Urine Nitrite Ur Leukocyte Esterase Urine RBC Urine WBC Ur Squamous Epith Cells Urine Bacteria Hyaline Casts Granular Casts Peritoneal WBC 0.103 Peritoneal RBC < 0.002 Periton Neutrophils 25 Periton Lymphocytes 4 Peritoneal Monocytes 9 Peritoneal Other Cells 62 Urine Opiates Screen Ur Buprenorphine Scrn Ur Oxycodone Screen Urine Methadone Screen Urine Fentanyl Screen Ur Barbiturates Screen Ur Phencyclidine Scrn Ur Amphetamines Screen U Benzodiazepines Scrn Urine Cocaine Screen U Marijuana (THC) Screen Ethyl Alcohol Influenza Type A (PCR) Influenza Type B (PCR) RSV RNA Qual (PCR) SARS-CoV-2 RNA (RT-PCR) Blood Type Antibody Screen 09/15/23 Unknown WBC RBC Hgb Hct MCV MCH MCHC RDW Plt Count MPV Immature Gran % (Auto) Neut % (Auto) Lymph % (Auto) [place] % (Auto) Eos % (Auto) Baso % (Auto) Lymph # (Auto) [place] # (Auto) Eos # (Auto) Baso # (Auto) Abs Immat Gran (auto) Absolute Neuts (auto) Absolute Nucleated RBC Nucleated RBC % (auto) Hold Purple Top PT INR APTT Sodium Potassium Chloride Carbon Dioxide Anion Gap BUN Creatinine Estim Creat Clear Calc Estimated GFR Random Glucose Lactic Acid Lactic Acid F/U @ 2Hr Calcium Magnesium Iron TIBC % Saturation Unsat Iron Binding Ferritin Total Bilirubin Direct Bilirubin AST ALT Alkaline Phosphatase Ammonia B-Natriuretic Peptide Total Protein Albumin Lipase Urine Color Dark Yellow Urine Appearance Cloudy Urine pH 5.5 Ur Specific [place] 1.020 Urine Protein 30 (1+) H Urine Glucose (UA) Negative Urine Ketones Trace Urine Blood Trace H Urine Nitrite Positive H Ur Leukocyte Esterase Small (1+) H Urine RBC 3-5 H Urine WBC 6-10 Ur Squamous Epith Cells 3-5 Urine Bacteria 1+ Hyaline Casts 11-20 Granular Casts Present Peritoneal WBC Peritoneal RBC Periton Neutrophils Periton Lymphocytes Peritoneal Monocytes Peritoneal Other Cells Urine Opiates Screen Not Detected Ur Buprenorphine Scrn Not Detected Ur Oxycodone Screen Not Detected Urine Methadone Screen Not Detected Urine Fentanyl Screen Not Detected Ur Barbiturates Screen POSITIVE H Ur Phencyclidine Scrn Not Detected Ur Amphetamines Screen Not Detected U Benzodiazepines Scrn POSITIVE H Urine Cocaine Screen Not Detected U Marijuana (THC) Screen Not Detected Ethyl Alcohol Influenza Type A (PCR) Influenza Type B (PCR) RSV RNA Qual (PCR) SARS-CoV-2 RNA (RT-PCR) Blood Type Antibody Screen Airway Mallampati Class: II TM Dist: >3cm Neck ROM: Full Heart: rrr Lungs: cta Assessment and Plan Assessment Anesthesia Assessment: Anesthesia Plan Discussed and Chart Reviewed Final Anesthetic Review Family History of Problems with Anesthesia: No History of Problems with Anesthesia: No NPO: Yes ASA Class: IV Final Preanesthetic Review: No Changes in Pt Med Stat, Meds/Allgs Chart Reviewed and Consent Obtained/Reviewed Patient Risk: Intermediate Procedure Risk: Intermediate Anesthetic Plan Anesthetic Plan: MAC: Disposition: Standard PACU
--- NOTE | 2023-09-15 12:03 | MHC.CLN ---
PT IS MODERATELY MALNOURISHED-NONSEVERE IN THE CONTEXT OF SOCIAL, ENVIRONMENTAL/BEHAVIOR PT WITH MILDLY DEPLETED SUBCUTANEOUS FAT AND MUSCLE MASS WITH 12% SIGNIFICANT WT LOSS X 6 MONTHS WITH CHRONIC POOR PO INTAKE PT IS CURRENTLY NPO WHEN DIET TO ADVANCE; RECOMMEND 2200DM DIET RECOMMEND ADDING NUTRITION SUPPLEMENTS TO INCREASE KCALS ENSURE BID TO PROVIDE 700KCALS, 40G PROTEIN MONITOR PO INTAKE AND ENCOURAGE SUPPLEMENTS SEE ALSO FULL CLINICAL NUTRITION ASSESSMENT
[2023-09-15] MEDS: levETIRAcetam 500 MG TABLET PO ×2 (12:27→20:00)
[2023-09-15] MEDS: prednisoLONE sodium phosphate 15 MG/5 ML SOLUTION 40 MG PO (12:27)
--- NOTE | 2023-09-15 12:59 | PM.PROC ---
Brief Operative Note Date of procedure: 09/15/23 Pre-op diagnosis: ascites, cirrhosis Post-op diagnosis: same Procedure: US paracentesis 2 L yellow fluid removed. No immediate complications Anesthesia: local
[2023-09-15] MEDS: Lidocaine HCl 1 % MPF 5 ML VIAL SUBCUT (13:07)
--- NOTE | 2023-09-15 14:37 | MHC.CM.PN ---
Pt self-care, lives at home with his spouse/HCP. Pt will arrange his own transportation home at discharge. HCP on file and verified. PCP: Jose [facility]
--- NOTE | 2023-09-15 15:14 | P.PNIM_ITS ---
Subjective Subjective Date of Service: 09/15/23 Interval History: Seen and evaluated this morning reports abd distention moving bowels ammonia improved plan for EGD and Paracentesis Review of Systems Review of Systems: Yes all other systems are reviewed and are negative Physical Exam 2 Vital Signs: Vital Signs: Last Vital Signs Temp 97.3 F 09/15/23 12:11 Pulse 76 09/15/23 12:11 Resp 18 09/15/23 12:11 BP 92/68 09/15/23 12:11 Pulse Ox 100 09/15/23 12:11 O2 Del Method Room Air 09/15/23 12:11 O2 Flow Rate 2 09/15/23 11:51 BMI result Body Mass Index 24.1 Const: Other: Constitutional : Awake, interactive, jaundiced, not in distress Neck : Normal inspection, Supple Cardiovascular : RRR, no JVP, no lower extremity edema Respiratory : good bilateral air entry, no crackles, wheezes or rhonchi Gastrointestinal: soft, lax, Normal bowel sounds, distended with moderate amount of ascites, non tender Skin : Warm, Dry Neurological : Alert & oriented x3, No focal deficit Objective Data Active Medications Acetaminophen (Acetaminophen 325 Mg Tablet) 650 mg PO Q6H PRN PRN Reason: Pain, Mild (Pain Scale 1-3), fever or headache Atorvastatin Calcium (Atorvastatin Calcium 20 Mg Tablet) 20 mg PO BEDTIME [facility] Calcium Carbonate (Calcium Carbonate 750 Mg Tab.Chew) 750 mg PO Q4H PRN PRN Reason: Heartburn Famotidine (Famotidine 20 Mg Tablet) 20 mg PO BEDTIME [facility] Last Admin: 09/14/23 21:30 Dose: 20 mg Documented By: GRICELDA Fluticasone/Vilanterol (Fluticasone/Vilanterol 100/25 Blst.W.Dev) 1 puff INHALE RDAILY [facility] Folic Acid (Folic Acid 1 Mg Tablet) 1 mg PO DAILY [facility] Stop: 09/17/23 15:29 Last Admin: 09/15/23 09:03 Dose: 1 mg Documented By: CAITLIN Albumin Human (Kedbumin 25 %) 100 mls @ 100 mls/hr IV Q6H [facility] Stop: 09/16/23 10:14 Levetiracetam (Levetiracetam 500 Mg Tablet) 500 mg PO BID [facility] Last Admin: 09/15/23 12:27 Dose: 500 mg Documented By: CAITLIN Magnesium Hydroxide (Milk Of Magnesia 30 Ml Oral.Susp) 30 ml PO DAILY PRN PRN Reason: Constipation Magnesium Oxide (Magnesium Oxide 400 Mg Tablet) 400 mg PO BID [facility] Multivitamins/Vitamin C (Multivitamin Tablet) 1 tab PO DAILY [facility] Stop: 09/17/23 15:29 Last Admin: 09/15/23 09:03 Dose: 1 tab Documented By: CAITLIN Pharmacy Consult (Consult Rx Etoh Phenob Im/Po) 1 each MISCELLANE ONCE PRN; Protocol PRN Reason: Consult order Phenobarbital (Phenobarbital 30 Mg Tablet) 60 mg PO BID [facility]; Protocol Stop: 09/16/23 21:01 Last Admin: 09/15/23 09:03 Dose: 60 mg Documented By: CAITLIN Phenobarbital (Phenobarbital 30 Mg Tablet) 30 mg PO BID [facility]; Protocol Stop: 09/18/23 21:01 Phenobarbital (Phenobarbital 30 Mg Tablet) 30 mg PO DAILY [facility] Stop: 09/20/23 09:01 Prazosin HCl (Prazosin Hcl 1 Mg Capsule) 1 mg PO BEDTIME [facility]; Protocol Prednisolone Sodium Phosphate (Prednisolone Sodium Phosphate 15 Mg/5 Ml Solution) 40 mg PO DAILY [facility] Last Admin: 09/15/23 12:27 Dose: 40 mg Documented By: CAITLIN Sodium Chloride (0.9 % Sodium Chloride Flush 3 Ml Syringe) 3 ml IVFLUSH QSHIFT [facility] Last Admin: 09/15/23 09:04 Dose: 3 ml Documented By: CAITLIN Thiamine HCl (Thiamine Hcl 100 Mg Tablet) 100 mg PO DAILY [facility] Stop: 09/18/23 08:59 Last Admin: 09/15/23 09:03 Dose: 100 mg Documented By: CAITLIN Labs 09/15/23 14:40 09/15/23 06:34 Labs: Laboratory Results - last 24 hr 09/14/23 09/15/23 09/15/23 10:00 06:34 Unknown MCV 100.0 H MCH 35.2 H MCHC 35.2 RDW 20.7 H Plt Count 130 L D MPV 11.4 Absolute Nucleated RBC 0.020 H Nucleated RBC % (auto) 0.3 H Anion Gap 16 Estim Creat Clear Calc 35.1 Estimated GFR 27 Random Glucose 116 H Calcium 9.2 D Magnesium 1.8 Iron 74 TIBC 99 L % Saturation 75 H Unsat Iron Binding < 25 Ferritin 2016 H Total Bilirubin 13.8 H AST 91 H ALT 19 Alkaline Phosphatase 155 H Ammonia 33 Total Protein 7.8 Albumin 3.4 L Urine Color Dark Yellow Urine Appearance Cloudy Urine pH 5.5 Ur Specific [place] 1.020 Urine Protein 30 (1+) H Urine Glucose (UA) Negative Urine Ketones Trace Urine Blood Trace H Urine Nitrite Positive H Ur Leukocyte Esterase Small (1+) H Urine RBC 3-5 H Urine WBC 6-10 Ur Squamous Epith Cells 3-5 Urine Bacteria 1+ Hyaline Casts 11-20 Granular Casts Present Urine Opiates Screen Not Detected Ur Buprenorphine Scrn Not Detected Ur Oxycodone Screen Not Detected Urine Methadone Screen Not Detected Urine Fentanyl Screen Not Detected Ur Barbiturates Screen POSITIVE H Ur Phencyclidine Scrn Not Detected Ur Amphetamines Screen Not Detected U Benzodiazepines Scrn POSITIVE H Urine Cocaine Screen Not Detected U Marijuana (THC) Screen Not Detected Blood Type O Positive Antibody Screen NEGATIVE Microbiology Microbiology Results: Microbiology 09/14/23 10:00 Blood Culture - Preliminary Blood - Venous No growth after 24 hours. 09/14/23 10:00 Blood Culture - Preliminary Blood - Venous No growth after 24 hours. 09/14/23 13:36 Gram Stain - Final Peritoneal Fluid Routine Culture - Preliminary No growth to date. Anaerobic Culture - Preliminary No growth to date. Assessment and Plan (1) Hepatorenal syndrome: Status: Acute (2) Alcoholic hepatitis: Status: Acute (3) Abdominal ascites: Status: Acute (4) Cirrhosis: Status: Acute (5) Acute on chronic anemia: Status: Acute Plan Pt is a 58-year-old male with a PMH significant for?HTN, [id number] type 2 diabetes, seizure disorder, HLD, and alcohol use disorder with history of withdrawal who [facility] for evaluation low blood pressure with SBP in the 80s. Pt will be admitted to the hospital for treatment and further evaluation of acute alcoholic hepatitis and acute hepatorenal syndrome. Acute on chronic anemia no blood loss noted Hb 7.6, likely dilutional EGD done showing varices but no bleeding, did not need banding follow H&H transfuse as needed Acute alcoholic hepatitis bilirubin 13.7, INR improved to 2 In the setting of continued alcohol use possible portal vein thrombosis as seen on U/S of abdomen, to avoid blood thinners per dr Wright start Prednisolone GI following Acute hepatorenal syndrome creatinine worsen to 2.4 Albumin, Midodrine Nephrology following Follow BMP Hyperammonemia resolved continue lactulose Lactic Acidosis, resolved Secondary to alcoholic hepatitis, not sepsis Hyponatremia, mild Sodium 132 at time presentation Follow BMP Elevated INR INR 2 1 unit FFP received prior to EGD Hypomagnesemia resolved Alcohol use disorder Continue phenobarb protocol Daily multivitamin, folic acid, thiamine, famotidine CIWA Seizure protocols Addiction medicine consult Seizure disorder Continue Keppra [id number] type 2 diabetes Hold metformin Sliding-scale insulin, diabetic diet HLD Continue statin HTN Hold antihypertensives for now DVT Prophylaxis: Pneumatic boots Pt will require a hospitalization of overnight for treatment of?acute alcoholic hepatitis and acute hepatorenal syndrome. Quality Stroke Does the patient have a stroke diagnosis?: No VTE Prior VTE?: No VTE Risk Level:: Medical - moderate - high VTE Device Contraindication: N/A - Device Ordered VTE Drug Contraindication: Treatment Not Indicated
[2023-09-15 15:18] LABS: Prothrombin Time 23.8 SEC (11.1-13.3)
[2023-09-15 15:31] LABS: Hematocrit 21.4 % (42.0-52.0); Hemoglobin 7.5 g/dl (14.0-18.0); Mean Corpuscular Hemoglobin 34.7 pg (27.0-33.0); Mean Corpuscular Volume 99.1 fL (80.0-98.0); NRBC Pct Auto 0.4 /100WBC (0.0-0.2); Platelet Count 116 X10*3/uL (160-400); Red Blood Count 2.16 X10*6/uL (4.60-5.80); Red Cell Distribution Width 20.6 % (11.0-16.0)
--- NOTE | 2023-09-15 16:17 | P.EN_ITS ---
Event Note Date of Service: 09/15/23 Event Note: Addiction consult placed for paatient with AUD Patient actually seen at the [facility] and was referred to ED on day of admission No additional recommendations at this time. Patient should follow up with [facility] following discharge Time Spent With Patient Time: Total time managing care of this patient today ____ minutes.
[2023-09-15 16:19] LABS: Glucose, Whole Blood 125 mg/dL (60-115)
[2023-09-15] MEDS: Midodrine HCl 5 MG TABLET PO ×2 (16:25→20:00)
[2023-09-15] MEDS: Albumin Human 25 % 100 ML IV ×2 (16:25→21:05)
[2023-09-15] MEDS: Atorvastatin Calcium 20 MG TABLET PO (20:00)
[2023-09-15] MEDS: Prazosin HCL 1 MG CAPSULE PO (20:00)
[2023-09-15] MEDS: Famotidine 20 MG TABLET PO (20:01)
[2023-09-15] MEDS: Magnesium Oxide 400 MG TABLET PO (20:01)
[2023-09-15 20:35] LABS: OBS Int Ctl Valid YES; OBS1 POSITIVE (NEGATIVE)
[2023-09-15 20:55] LABS: Glucose, Whole Blood 200 mg/dL (60-115)
[2023-09-15] MEDS: Insulin Lispro 100 UNIT/ML 3 ML VIAL SUBCUT (21:03)
[2023-09-16] VITALS (14 sets, daily range): BP systolic 86–125; BP diastolic 59–75; PULSE 72–96; RESP 15–20; TEMP 36.3–37.2; O2SAT 92–96
[2023-09-16] MEDS: Albumin Human 25 % 100 ML IV ×4 (03:30→21:43)
[2023-09-16 07:44] LABS: Mean Corpuscular HGB Conc 35.4 g/dl (31.0-36.0); Mean Corpuscular Hemoglobin 35.1 pg (27.0-33.0); Mean Platelet Volume 11.4 fL (9.4-12.4); Platelet Count 105 X10*3/uL (160-400); Red Blood Count 1.91 X10*6/uL (4.60-5.80); Red Cell Distribution Width 20.8 % (11.0-16.0); White Blood Count 6.4 X10*3/uL (4.8-10.8)
[2023-09-16 07:46] LABS: Glucose, Whole Blood 165 mg/dL (60-115)
[2023-09-16] MEDS: Fluticasone/Vilanterol 100/25 BLST.W.DEV 1 PUFF INHALE (07:57)
[2023-09-16 07:58] LABS: Hematocrit 18.9 % (42.0-52.0); Hemoglobin 6.7 g/dl (14.0-18.0)
[2023-09-16 08:04] LABS: Anion Gap 17 (12-20); Blood Urea Nitrogen 24 mg/dL (9-16); Calcium 8.8 mg/dL (8.4-10.2); Carbon Dioxide 22 mmol/L (22-29); Chloride 101 mmol/L (96-108); Creatinine Clr Calc Pharmacy 36.3; Estimated Glomerular Filt Rate 28; Glucose Random 172 mg/dL (60-115); Potassium 3.2 mmol/L (3.3-5.1); Sodium 137 mmol/L (135-145)
[2023-09-16 08:05] LABS: Alanine Aminotransferase 18 U/L (0-40); Albumin Level 3.5 g/dL (3.5-5.0); Alkaline Phosphatase 120 U/L (39-117); Anion Gap 18 (12-20); Aspartate Amino Transferase 76 U/L (5-37); Bilirubin Direct 9.2 mg/dL (0.0-0.5); Bilirubin Total 11.9 mg/dL (0.0-1.0); Blood Urea Nitrogen 24 mg/dL (9-16); Calcium 8.9 mg/dL (8.4-10.2); Carbon Dioxide 21 mmol/L (22-29); Chloride 102 mmol/L (96-108); Creatinine Clr Calc Pharmacy 36.1; Estimated Glomerular Filt Rate 28; Glucose Random 172 mg/dL (60-115); Potassium 3.2 mmol/L (3.3-5.1); Sodium 138 mmol/L (135-145); Total Protein 7.1 g/dL (6.5-8.0)
[2023-09-16] MEDS: Insulin Lispro 100 UNIT/ML 3 ML VIAL SUBCUT ×4 (08:28→21:43)
[2023-09-16] MEDS: prednisoLONE sodium phosphate 15 MG/5 ML SOLUTION 40 MG PO (08:28)
[2023-09-16] MEDS: PHENobarbitaL 30 MG TABLET 60 MG PO ×2 (08:29→21:44)
[2023-09-16] MEDS: Omeprazole 20 MG CAPSULE.DR PO ×2 (08:29→15:38)
[2023-09-16] MEDS: Folic Acid 1 MG TABLET PO (08:30)
[2023-09-16] MEDS: Midodrine HCl 5 MG TABLET PO ×3 (08:30→21:56)
[2023-09-16] MEDS: Magnesium Oxide 400 MG TABLET PO ×2 (08:30→21:44)
[2023-09-16] MEDS: levETIRAcetam 500 MG TABLET PO ×2 (08:30→21:45)
[2023-09-16] MEDS: Thiamine HCL 100 MG TABLET PO (08:30)
[2023-09-16] MEDS: Multivitamin TABLET 1 TAB PO (08:30)
[2023-09-16] MEDS: 0.9 % Sodium Chloride Flush 3 ML SYRINGE IVFLUSH ×2 (08:31→15:39)
[2023-09-16] MEDS: Phytonadione (Vit K1) 10 MG in 0.9 % Sodium Chloride 50 ML 51 MG IV (09:04)
[2023-09-16] MEDS: Calcium Carbonate 750 MG TAB.CHEW PO (09:41)
--- NOTE | 2023-09-16 10:49 | P.PNIM_ITS ---
Subjective Subjective Date of Service: 09/16/23 Interval History: Seen and evaluated this morning Hb dropped to 6.7 Bili trending down moving bowels Had EGD and Paracentesis Review of Systems Review of Systems: Yes all other systems are reviewed and are negative Physical Exam 2 Vital Signs: Vital Signs: Last Vital Signs Temp 98.5 F 09/16/23 09:39 Pulse 96 09/16/23 09:39 Resp 20 09/16/23 09:39 BP 100/62 09/16/23 09:39 Pulse Ox 92 09/16/23 07:54 O2 Del Method Room Air 09/16/23 07:54 O2 Flow Rate 2 09/15/23 11:51 BMI result Body Mass Index 24.1 Const: Other: Constitutional : Awake, interactive, jaundiced, not in distress Neck : Normal inspection, Supple Cardiovascular : RRR, no JVP, no lower extremity edema Respiratory : good bilateral air entry, no crackles, wheezes or rhonchi Gastrointestinal: soft, lax, Normal bowel sounds, distended with mild amount of ascites, non tender Skin : Warm, Dry Neurological : Alert & oriented x3, No focal deficit Objective Data Active Medications Acetaminophen (Acetaminophen 325 Mg Tablet) 650 mg PO Q6H PRN PRN Reason: Pain, Mild (Pain Scale 1-3), fever or headache Atorvastatin Calcium (Atorvastatin Calcium 20 Mg Tablet) 20 mg PO BEDTIME [facility] Last Admin: 09/15/23 20:00 Dose: 20 mg Documented By: SARA Calcium Carbonate (Calcium Carbonate 750 Mg Tab.Chew) 750 mg PO Q4H PRN PRN Reason: Heartburn Last Admin: 09/16/23 09:41 Dose: 750 mg Documented By: ZEB Famotidine (Famotidine 20 Mg Tablet) 20 mg PO Q2D@2100 [facility] Fluticasone/Vilanterol (Fluticasone/Vilanterol 100/25 Blst.W.Dev) 1 puff INHALE RDAILY [facility] Last Admin: 09/16/23 07:57 Dose: 1 puff Documented By: SIMIN Folic Acid (Folic Acid 1 Mg Tablet) 1 mg PO DAILY [facility] Stop: 09/17/23 15:29 Last Admin: 09/16/23 08:30 Dose: 1 mg Documented By: ZEB Glucose (Glucose Gel 15 Gm Gel..Gram.) 15 gm PO Q15M PRN; Protocol PRN Reason: per Hypoglycemia Standing Ord. Albumin Human (Kedbumin 25 %) 100 mls @ 100 mls/hr IV Q6H [facility] Stop: 09/18/23 10:14 Last Infusion: 09/16/23 09:34 Dose: Infused Documented By: ZEB Dextrose (D10) 250 mls @ 750 mls/hr IV Q15M PRN; Protocol PRN Reason: per Hypoglycemia Standing Ord. Insulin Human Lispro (Insulin Lispro 100 Unit/Ml 3 Ml Vial) 0 unit SUBCUT QIDACHS [facility]; Protocol Last Admin: 09/16/23 08:28 Dose: 2 unit Documented By: ZEB Levetiracetam (Levetiracetam 500 Mg Tablet) 500 mg PO BID [facility] Last Admin: 09/16/23 08:30 Dose: 500 mg Documented By: ZEB Magnesium Hydroxide (Milk Of Magnesia 30 Ml Oral.Susp) 30 ml PO DAILY PRN PRN Reason: Constipation Magnesium Oxide (Magnesium Oxide 400 Mg Tablet) 400 mg PO BID [facility] Last Admin: 09/16/23 08:30 Dose: 400 mg Documented By: ZEB Midodrine (Midodrine Hcl 5 Mg Tablet) 5 mg PO TID [facility] Last Admin: 09/16/23 08:30 Dose: 5 mg Documented By: ZEB Multivitamins/Vitamin C (Multivitamin Tablet) 1 tab PO DAILY [facility] Stop: 09/17/23 15:29 Last Admin: 09/16/23 08:30 Dose: 1 tab Documented By: ZEB Omeprazole (Omeprazole 20 Mg Capsule.Dr) 20 mg PO BID@0630,1630 [facility] Last Admin: 09/16/23 08:29 Dose: 20 mg Documented By: ZEB Pharmacy Consult (Consult Rx Etoh Phenob Im/Po) 1 each MISCELLANE ONCE PRN; Protocol PRN Reason: Consult order Phenobarbital (Phenobarbital 30 Mg Tablet) 60 mg PO BID [facility]; Protocol Stop: 09/16/23 21:01 Last Admin: 09/16/23 08:29 Dose: 60 mg Documented By: ZEB Phenobarbital (Phenobarbital 30 Mg Tablet) 30 mg PO BID [facility]; Protocol Stop: 09/18/23 21:01 Phenobarbital (Phenobarbital 30 Mg Tablet) 30 mg PO DAILY [facility] Stop: 09/20/23 09:01 Prazosin HCl (Prazosin Hcl 1 Mg Capsule) 1 mg PO BEDTIME [facility]; Protocol Last Admin: 09/15/23 20:00 Dose: 1 mg Documented By: SARA Prednisolone Sodium Phosphate (Prednisolone Sodium Phosphate 15 Mg/5 Ml Solution) 40 mg PO DAILY [facility] Last Admin: 09/16/23 08:28 Dose: 40 mg Documented By: ZEB Sodium Chloride (0.9 % Sodium Chloride Flush 3 Ml Syringe) [facility] Last Admin: 09/16/23 08:31 Dose: 3 ml Documented By: ZEB Thiamine HCl (Thiamine Hcl 100 Mg Tablet) 100 mg PO DAILY [facility] Stop: 09/18/23 08:59 Last Admin: 09/16/23 08:30 Dose: 100 mg Documented By: ZEB Labs 09/16/23 07:03 09/16/23 07:03 Labs: Laboratory Results - last 24 hr 09/14/23 09/15/23 09/15/23 10:00 14:40 16:15 MCV 99.1 H MCH 34.7 H MCHC 35.0 RDW 20.6 H Plt Count 116 L MPV 11.0 Absolute Nucleated RBC 0.030 H Nucleated RBC % (auto) 0.4 H PT 23.8 H INR 2.0 H Anion Gap Estim Creat Clear Calc Estimated GFR POC Glucose 125 H Random Glucose Calcium Total Bilirubin Direct Bilirubin AST ALT Alkaline Phosphatase Total Protein Albumin Stool Occult Blood Blood Type O Positive Antibody Screen NEGATIVE Crossmatch See Detail 09/15/23 09/15/23 09/16/23 20:04 20:48 07:03 MCV 99.0 H MCH 35.1 H MCHC 35.4 RDW 20.8 H Plt Count 105 L MPV 11.4 Absolute Nucleated RBC 0.000 Nucleated RBC % (auto) 0.0 PT INR Anion Gap 18 Estim Creat Clear Calc Estimated GFR POC Glucose 200 H Random Glucose Calcium Total Bilirubin Direct Bilirubin AST ALT Alkaline Phosphatase Total Protein Albumin Stool Occult Blood POSITIVE Blood Type Antibody Screen Crossmatch 09/16/23 09/16/23 09/16/23 07:03 07:03 07:03 MCV MCH MCHC RDW Plt Count MPV Absolute Nucleated RBC Nucleated RBC % (auto) PT INR Anion Gap 17 Estim Creat Clear Calc 36.1 36.3 Estimated GFR 28 28 POC Glucose Random Glucose 172 H Calcium Total Bilirubin Direct Bilirubin AST ALT Alkaline Phosphatase Total Protein Albumin Stool Occult Blood Blood Type Antibody Screen Crossmatch 09/16/23 09/16/23 09/16/23 07:03 07:03 07:41 MCV MCH MCHC RDW Plt Count MPV Absolute Nucleated RBC Nucleated RBC % (auto) PT INR Anion Gap Estim Creat Clear Calc Estimated GFR POC Glucose 165 H Random Glucose 172 H Calcium 8.9 8.8 Total Bilirubin 11.9 H Direct Bilirubin 9.2 H AST 76 H ALT 18 Alkaline Phosphatase 120 H Total Protein 7.1 Albumin 3.5 Stool Occult Blood Blood Type Antibody Screen Crossmatch Microbiology Microbiology Results: Microbiology 09/15/23 Unknown Urine Culture - Final Urine clean catch - Urine hannah top No growth. 09/14/23 13:36 Gram Stain - Final Peritoneal Fluid Routine Culture - Final No growth after 2 days Anaerobic Culture - Preliminary No growth to date. 09/14/23 10:00 Blood Culture - Preliminary Blood - Venous No growth after 24 hours. 09/14/23 10:00 Blood Culture - Preliminary Blood - Venous No growth after 24 hours. Assessment and Plan (1) Acute on chronic anemia: Status: Acute (2) Hepatorenal syndrome: Status: Acute (3) Alcoholic hepatitis: Status: Acute (4) Abdominal ascites: Status: Acute (5) Acute hypokalemia: Status: Acute Plan Pt is a 58-year-old male with a PMH significant for?HTN, [id number] type 2 diabetes, seizure disorder, HLD, and alcohol use disorder with history of withdrawal who [facility] for evaluation low blood pressure with SBP in the 80s. Pt will be admitted to the hospital for treatment and further evaluation of acute alcoholic hepatitis and acute hepatorenal syndrome. Acute on chronic anemia no blood loss noted Hb 6.7, transfuse 2 units of PRBCs give IV Vit K Start Omeprazole no reporting bleeding EGD done showing varices but no bleeding, did not need banding follow H&H transfuse as needed Acute alcoholic hepatitis bilirubin down to 11.9 In the setting of continued alcohol use possible portal vein thrombosis as seen on U/S of abdomen, to avoid blood thinners per dr Wright continue Prednisolone GI following Acute hepatorenal syndrome creatinine worsen to 2.4 Albumin, Midodrine Nephrology following Follow BMP Acute Hypokalemia replacement given, follow BMP Hyperammonemia resolved continue lactulose Lactic Acidosis, resolved Secondary to alcoholic hepatitis, not sepsis Hyponatremia, mild Sodium 132 at time presentation Follow BMP Elevated INR INR 2 1 unit FFP received prior to EGD Hypomagnesemia resolved Alcohol use disorder Continue phenobarb protocol Daily multivitamin, folic acid, thiamine, famotidine CIWA Seizure protocols Addiction medicine consult Seizure disorder Continue Keppra Azk-zhqqjhm-[id number] type 2 diabetes Hold metformin Sliding-scale insulin, diabetic diet HLD Continue statin HTN Hold antihypertensives for now DVT Prophylaxis: Pneumatic boots Pt will require a hospitalization of overnight for treatment of?acute alcoholic hepatitis and acute hepatorenal syndrome. Quality Stroke Does the patient have a stroke diagnosis?: No VTE Prior VTE?: No VTE Risk Level:: Medical - moderate - high VTE Device Contraindication: N/A - Device Ordered VTE Drug Contraindication: Treatment Not Indicated
[2023-09-16 11:17] LABS: Glucose, Whole Blood 188 mg/dL (60-115)
[2023-09-16 16:07] LABS: Glucose, Whole Blood 257 mg/dL (60-115)
--- NOTE | 2023-09-16 16:09 | HO.POSTANES ---
Post Anesthesia Evaluation Post Anesthesia Evaluation Date of Service: 09/16/23 Vital Signs: Vital Signs Temp Pulse Resp BP Pulse Ox O2 Del Method 09/16/23 14:58 98.7 F 77 20 116/75 96 Room Air 09/16/23 13:31 98.4 F 74 18 116/63 09/16/23 13:10 98.0 F 80 18 108/74 09/16/23 13:09 98.0 F 81 18 108/74 09/16/23 11:32 97.4 F 86 18 105/70 96 Room Air 09/16/23 09:39 98.5 F 96 20 100/62 09/16/23 09:18 97.7 F 91 18 86/59 L 09/16/23 07:59 80 15 09/16/23 07:54 97.4 F 72 20 100/60 92 Room Air Anesthesia: Monitored Mental Status: Awake Pain Control: Satisfactory Nausea/Vomiting: None Hydration: Adequate Anesthesia-Related Issues: No Anes. Related Issues
[2023-09-16 21:10] LABS: Glucose, Whole Blood 190 mg/dL (60-115)
[2023-09-16] MEDS: Prazosin HCL 1 MG CAPSULE PO (21:44)
[2023-09-16] MEDS: Famotidine 20 MG TABLET PO (21:45)
[2023-09-16] MEDS: Atorvastatin Calcium 20 MG TABLET PO (21:45)
[2023-09-17] VITALS (7 sets, daily range): BP systolic 98–113; BP diastolic 65–72; PULSE 65–80; RESP 16–20; TEMP 36.3–37.3; O2SAT 93–96
[2023-09-17] MEDS: Albumin Human 25 % 100 ML IV ×4 (03:17→23:11)
[2023-09-17] MEDS: 0.9 % Sodium Chloride Flush 3 ML SYRINGE IVFLUSH ×4 (03:19→23:11)
[2023-09-17] MEDS: Omeprazole 20 MG CAPSULE.DR PO ×2 (06:12→16:07)
[2023-09-17 07:57] LABS: Glucose, Whole Blood 147 mg/dL (60-115)
[2023-09-17 08:38] LABS: Hematocrit 24.8 % (42.0-52.0); Hemoglobin 8.8 g/dl (14.0-18.0); Mean Corpuscular HGB Conc 35.5 g/dl (31.0-36.0); Mean Corpuscular Hemoglobin 32.8 pg (27.0-33.0); Mean Corpuscular Volume 92.5 fL (80.0-98.0); Mean Platelet Volume 10.6 fL (9.4-12.4); Red Blood Count 2.68 X10*6/uL (4.60-5.80); Red Cell Distribution Width 23.5 % (11.0-16.0); White Blood Count 7.4 X10*3/uL (4.8-10.8)
[2023-09-17 08:41] LABS: Platelet Count 87 X10*3/uL (160-400)
[2023-09-17 09:11] LABS: Alanine Aminotransferase 19 U/L (0-40); Albumin Level 3.8 g/dL (3.5-5.0); Alkaline Phosphatase 115 U/L (39-117); Anion Gap 17 (12-20); Aspartate Amino Transferase 91 U/L (5-37); Bilirubin Direct 9.7 mg/dL (0.0-0.5); Bilirubin Total 13.7 mg/dL (0.0-1.0); Blood Urea Nitrogen 30 mg/dL (9-16); Calcium 8.9 mg/dL (8.4-10.2); Carbon Dioxide 23 mmol/L (22-29); Chloride 103 mmol/L (96-108); Creatinine Clr Calc Pharmacy 41.4; Estimated Glomerular Filt Rate 33; Glucose Random 156 mg/dL (60-115); Sodium 140 mmol/L (135-145); Total Protein 7.2 g/dL (6.5-8.0)
[2023-09-17 09:14] LABS: Potassium 2.7 mmol/L (3.3-5.1)
[2023-09-17] MEDS: levETIRAcetam 500 MG TABLET PO ×2 (09:50→23:10)
[2023-09-17] MEDS: Potassium Chloride ER 20 MEQ TAB.ER.PRT 40 MEQ PO ×2 (09:50→13:55)
[2023-09-17] MEDS: Folic Acid 1 MG TABLET PO (09:50)
[2023-09-17] MEDS: Midodrine HCl 5 MG TABLET PO ×3 (09:51→23:10)
[2023-09-17] MEDS: Magnesium Oxide 400 MG TABLET PO ×2 (09:51→23:10)
[2023-09-17] MEDS: Thiamine HCL 100 MG TABLET PO (09:51)
[2023-09-17] MEDS: Multivitamin TABLET 1 TAB PO (09:51)
[2023-09-17] MEDS: PHENobarbitaL 30 MG TABLET PO ×2 (09:51→23:10)
[2023-09-17] MEDS: prednisoLONE sodium phosphate 15 MG/5 ML SOLUTION 40 MG PO (09:51)
--- NOTE | 2023-09-17 10:18 | P.PNIM_ITS ---
Subjective Subjective Date of Service: 09/17/23 Interval History: Seen and evaluated this morning Hb improved to 8.8 after 2 units transfusion Bili high at 13.7 moving bowels low potassium level Review of Systems Review of Systems: Yes all other systems are reviewed and are negative Physical Exam 2 Vital Signs: Vital Signs: Last Vital Signs Temp 97.6 F 09/17/23 08:00 Pulse 68 09/17/23 08:00 Resp 18 09/17/23 08:00 BP 106/65 09/17/23 08:00 Pulse Ox 96 09/17/23 08:00 O2 Del Method Room Air 09/17/23 08:00 O2 Flow Rate 2 09/15/23 11:51 BMI result Body Mass Index 24.1 Const: Other: Constitutional : Awake, interactive, jaundiced, not in distress Neck : Normal inspection, Supple Cardiovascular : RRR, no JVP, no lower extremity edema Respiratory : good bilateral air entry, no crackles, wheezes or rhonchi Gastrointestinal: soft, lax, Normal bowel sounds, distended with mild amount of ascites, non tender Skin : Warm, Dry Neurological : Alert & oriented to self and place, No focal deficit Objective Data Active Medications Acetaminophen (Acetaminophen 325 Mg Tablet) 650 mg PO Q6H PRN PRN Reason: Pain, Mild (Pain Scale 1-3), fever or headache Atorvastatin Calcium (Atorvastatin Calcium 20 Mg Tablet) 20 mg PO BEDTIME [facility] Last Admin: 09/16/23 21:45 Dose: 20 mg Documented By: GABRIELA Calcium Carbonate (Calcium Carbonate 750 Mg Tab.Chew) 750 mg PO Q4H PRN PRN Reason: Heartburn Last Admin: 09/16/23 09:41 Dose: 750 mg Documented By: ZEB Famotidine (Famotidine 20 Mg Tablet) 20 mg PO Q2D@2100 [facility] [place] Last Admin: 09/16/23 21:45 Dose: 20 mg Documented By: GABRIELA Fluticasone/Vilanterol (Fluticasone/Vilanterol 100/25 Blst.W.Dev) 1 puff INHALE RDAILY [facility] [place] Last Admin: 09/17/23 07:57 Dose: Not Given Documented By: SIMIN Non-Admin Reason: Patient Refused Folic Acid (Folic Acid 1 Mg Tablet) 1 mg PO DAILY [facility] [place] Stop: 09/17/23 15:29 Last Admin: 09/17/23 09:50 Dose: 1 mg Documented By: THUY Glucose (Glucose Gel 15 Gm Gel..Gram.) 15 gm PO Q15M PRN; Protocol PRN Reason: per Hypoglycemia Standing Ord. Albumin Human (Kedbumin 25 %) 100 mls @ 100 mls/hr IV Q6H [facility] [place] Stop: 09/19/23 10:14 Last Admin: 09/17/23 09:44 Dose: 100 mls/hr Documented By: THUY Dextrose (D10) 250 mls @ 750 mls/hr IV Q15M PRN; Protocol PRN Reason: per Hypoglycemia Standing Ord. Insulin Human Lispro (Insulin Lispro 100 Unit/Ml 3 Ml Vial) 0 unit SUBCUT QIDACHS [facility] [place]; Protocol Last Admin: 09/17/23 08:03 Dose: Not Given Documented By: THUY Non-Admin Reason: No Insulin Coverage Levetiracetam (Levetiracetam 500 Mg Tablet) 500 mg PO BID [facility] [place] Last Admin: 09/17/23 09:50 Dose: 500 mg Documented By: THUY Magnesium Hydroxide (Milk Of Magnesia 30 Ml Oral.Susp) 30 ml PO DAILY PRN PRN Reason: Constipation Magnesium Oxide (Magnesium Oxide 400 Mg Tablet) 400 mg PO BID [facility] [place] Last Admin: 09/17/23 09:51 Dose: 400 mg Documented By: THUY Midodrine (Midodrine Hcl 5 Mg Tablet) 5 mg PO TID [facility] [place] Last Admin: 09/17/23 09:51 Dose: 5 mg Documented By: THUY Multivitamins/Vitamin C (Multivitamin Tablet) 1 tab PO DAILY [facility] [place] Stop: 09/17/23 15:29 Last Admin: 09/17/23 09:51 Dose: 1 tab Documented By: THUY Omeprazole (Omeprazole 20 Mg Capsule.Dr) 20 mg PO BID@0630,1630 [facility] [place] Last Admin: 09/17/23 06:12 Dose: 20 mg Documented By: GABRIELA Pharmacy Consult (Consult Rx Etoh Phenob Im/Po) 1 each MISCELLANE ONCE PRN; Protocol PRN Reason: Consult order Phenobarbital (Phenobarbital 30 Mg Tablet) 30 mg PO BID [facility] [place]; Protocol Stop: 09/18/23 21:01 Last Admin: 09/17/23 09:51 Dose: 30 mg Documented By: THUY Phenobarbital (Phenobarbital 30 Mg Tablet) 30 mg PO DAILY [facility] [place] Stop: 09/20/23 09:01 Potassium Chloride (Potassium Chloride Er 20 Meq Tab.Er.Prt) 40 meq PO Q2H [facility] Stop: 09/17/23 11:16 Last Admin: 09/17/23 09:50 Dose: 40 meq Documented By: THUY Prazosin HCl (Prazosin Hcl 1 Mg Capsule) 1 mg PO BEDTIME [facility]; Protocol Last Admin: 09/16/23 21:44 Dose: 1 mg Documented By: GABRIELA Prednisolone Sodium Phosphate (Prednisolone Sodium Phosphate 15 Mg/5 Ml Solution) 40 mg PO DAILY [facility] [place] Last Admin: 09/17/23 09:51 Dose: 40 mg Documented By: THUY Sodium Chloride (0.9 % Sodium Chloride Flush 3 Ml Syringe) 3 ml IVFLUSH QSHIFT [facility] [place] Last Admin: 09/17/23 09:51 Dose: 3 ml Documented By: THUY Thiamine HCl (Thiamine Hcl 100 Mg Tablet) 100 mg PO DAILY [facility] Stop: 09/18/23 08:59 Last Admin: 09/17/23 09:51 Dose: 100 mg Documented By: THUY Labs 09/17/23 08:25 09/17/23 08:25 Labs: Laboratory Results - last 24 hr 09/14/23 09/16/23 09/16/23 10:00 11:10 15:58 MCV MCH MCHC RDW Plt Count MPV Absolute Nucleated RBC Nucleated RBC % (auto) Anion Gap Estim Creat Clear Calc Estimated GFR POC Glucose 188 H 257 H Random Glucose Calcium Total Bilirubin Direct Bilirubin AST ALT Alkaline Phosphatase Total Protein Albumin Blood Type O Positive Antibody Screen NEGATIVE Crossmatch See Detail 09/16/23 09/17/23 09/17/23 21:00 07:48 08:25 MCV 92.5 D MCH 32.8 MCHC 35.5 RDW 23.5 H Plt Count 87 L MPV 10.6 Absolute Nucleated RBC 0.000 Nucleated RBC % (auto) 0.0 Anion Gap 17 Estim Creat Clear Calc Estimated GFR POC Glucose 190 H 147 H Random Glucose Calcium Total Bilirubin Direct Bilirubin AST ALT Alkaline Phosphatase Total Protein Albumin Blood Type Antibody Screen Crossmatch 09/17/23 09/17/23 09/17/23 08:25 08:25 08:25 MCV MCH MCHC RDW Plt Count MPV Absolute Nucleated RBC Nucleated RBC % (auto) Anion Gap Cancelled Estim Creat Clear Calc 41.4 Cancelled Estimated GFR 33 Cancelled POC Glucose Random Glucose 156 H Calcium Total Bilirubin Direct Bilirubin AST ALT Alkaline Phosphatase Total Protein Albumin Blood Type Antibody Screen Crossmatch 09/17/23 09/17/23 08:25 08:25 MCV MCH MCHC RDW Plt Count MPV Absolute Nucleated RBC Nucleated RBC % (auto) Anion Gap Estim Creat Clear Calc Estimated GFR POC Glucose Random Glucose Cancelled Calcium 8.9 Cancelled Total Bilirubin 13.7 H Direct Bilirubin 9.7 H AST 91 H ALT 19 Alkaline Phosphatase 115 Total Protein 7.2 Albumin 3.8 Blood Type Antibody Screen Crossmatch Microbiology Microbiology Results: Microbiology 09/14/23 13:36 Gram Stain - Final Peritoneal Fluid Routine Culture - Final No growth after 2 days Anaerobic Culture - Preliminary No growth to date. 09/14/23 10:00 Blood Culture - Preliminary Blood - Venous No growth after 48 hours. 09/14/23 10:00 Blood Culture - Preliminary Blood - Venous No growth after 48 hours. 09/15/23 Unknown Urine Culture - Final Urine clean catch - Urine hannah top No growth. Assessment and Plan (1) Acute hypokalemia: Status: Acute (2) Acute on chronic anemia: Status: Acute (3) Hepatorenal syndrome: Status: Acute (4) Alcoholic hepatitis: Status: Acute Plan Pt is a 58-year-old male with a PMH significant for?HTN, pct-sezgeej-xijauejtl type 2 diabetes, seizure disorder, HLD, and alcohol use disorder with history of withdrawal who [facility] for evaluation low blood pressure with SBP in the 80s. Pt will be admitted to the hospital for treatment and further evaluation of acute alcoholic hepatitis and acute hepatorenal syndrome. Acute on chronic anemia no blood loss noted Hb 8.8 after 2 units of PRBCs given IV Vit K continue Omeprazole no reporting bleeding EGD done showing varices but no bleeding, did not need banding follow H&H transfuse as needed Acute alcoholic hepatitis In the setting of continued alcohol use bilirubin at 13.7 possible portal vein thrombosis as seen on U/S of abdomen, to avoid blood thinners per dr Wright continue Prednisolone GI following Acute hepatorenal syndrome creatinine improved to 2 continue Albumin, Midodrine Nephrology following Follow BMP Acute Hypokalemia K 2.7 replacement given, follow BMP Hyperammonemia resolved continue lactulose Lactic Acidosis, resolved Secondary to alcoholic hepatitis, not sepsis Hyponatremia, mild Sodium 132 at time presentation Follow BMP Elevated INR INR 2 1 unit FFP received prior to EGD Hypomagnesemia resolved Alcohol use disorder Continue phenobarb protocol Daily multivitamin, folic acid, thiamine, famotidine CIWA Seizure protocols Addiction medicine consult Seizure disorder Continue Keppra Gze-qrjnosl-fwdzbsqah type 2 diabetes Hold metformin Sliding-scale insulin, diabetic diet HLD Continue statin HTN Hold antihypertensives for now DVT Prophylaxis: Pneumatic boots Pt will require a hospitalization of overnight for treatment of?acute alcoholic hepatitis and acute hepatorenal syndrome. Quality Stroke Does the patient have a stroke diagnosis?: No VTE Prior VTE?: No VTE Risk Level:: Medical - moderate - high VTE Device Contraindication: N/A - Device Ordered VTE Drug Contraindication: Treatment Not Indicated
[2023-09-17 11:17] LABS: Glucose, Whole Blood 137 mg/dL (60-115)
[2023-09-17 14:56] LABS: Anion Gap 18 (12-20); Blood Urea Nitrogen 31 mg/dL (9-16); Calcium 9.3 mg/dL (8.4-10.2); Carbon Dioxide 23 mmol/L (22-29); Chloride 103 mmol/L (96-108); Estimated Glomerular Filt Rate 34; Glucose Random 202 mg/dL (60-115); Potassium 3.4 mmol/L (3.3-5.1); Sodium 141 mmol/L (135-145)
[2023-09-17 15:59] LABS: Glucose, Whole Blood 194 mg/dL (60-115)
[2023-09-17] MEDS: Insulin Lispro 100 UNIT/ML 3 ML VIAL SUBCUT ×2 (17:26→23:10)
[2023-09-17 20:37] LABS: Glucose, Whole Blood 185 mg/dL (60-115)
[2023-09-17] MEDS: Prazosin HCL 1 MG CAPSULE PO (23:00)
[2023-09-17] MEDS: Atorvastatin Calcium 20 MG TABLET PO (23:10)
[2023-09-18] VITALS (7 sets, daily range): BP systolic 97–117; BP diastolic 65–78; PULSE 68–85; RESP 14–20; TEMP 36.4–37.1; O2SAT 95–98
[2023-09-18] MEDS: Albumin Human 25 % 100 ML IV ×4 (03:49→21:24)
[2023-09-18] MEDS: Omeprazole 20 MG CAPSULE.DR PO ×2 (04:58→15:42)
[2023-09-18 07:05] LABS: Glucose, Whole Blood 142 mg/dL (60-115)
[2023-09-18 07:49] LABS: Hematocrit 25.9 % (42.0-52.0); Hemoglobin 9.3 g/dl (14.0-18.0); Mean Corpuscular HGB Conc 35.9 g/dl (31.0-36.0); Mean Corpuscular Hemoglobin 33.5 pg (27.0-33.0); Mean Corpuscular Volume 93.2 fL (80.0-98.0); Mean Platelet Volume 11.9 fL (9.4-12.4); Red Blood Count 2.78 X10*6/uL (4.60-5.80); Red Cell Distribution Width 23.7 % (11.0-16.0)
[2023-09-18 07:55] LABS: Platelet Count 84 X10*3/uL (160-400)
[2023-09-18] MEDS: 0.9 % Sodium Chloride Flush 3 ML SYRINGE IVFLUSH ×3 (07:56→21:25)
[2023-09-18] MEDS: prednisoLONE sodium phosphate 15 MG/5 ML SOLUTION 40 MG PO (07:56)
[2023-09-18] MEDS: levETIRAcetam 500 MG TABLET PO ×2 (07:58→21:24)
[2023-09-18] MEDS: Midodrine HCl 5 MG TABLET PO ×3 (07:58→21:24)
[2023-09-18] MEDS: PHENobarbitaL 30 MG TABLET PO ×2 (07:58→21:24)
[2023-09-18] MEDS: Magnesium Oxide 400 MG TABLET PO ×2 (07:58→21:30)
[2023-09-18 08:10] LABS: Alanine Aminotransferase 29 U/L (0-40); Alkaline Phosphatase 118 U/L (39-117); Anion Gap 15 (12-20); Aspartate Amino Transferase 121 U/L (5-37); Bilirubin Direct 9.2 mg/dL (0.0-0.5); Bilirubin Total 13.1 mg/dL (0.0-1.0); Blood Urea Nitrogen 33 mg/dL (9-16); Calcium 8.9 mg/dL (8.4-10.2); Carbon Dioxide 24 mmol/L (22-29); Chloride 106 mmol/L (96-108); Creatinine Clr Calc Pharmacy 47.6; Estimated Glomerular Filt Rate 39; Glucose Random 151 mg/dL (60-115); Potassium 3.6 mmol/L (3.3-5.1); Sodium 141 mmol/L (135-145); Total Protein 7.3 g/dL (6.5-8.0)
[2023-09-18] MEDS: Fluticasone/Vilanterol 100/25 BLST.W.DEV 1 PUFF INHALE (08:23)
[2023-09-18 08:50] LABS: pH Peritoneal Fluid 7.56
[2023-09-18 08:52] LABS: Albumin Peritoneal Fluid 0.6; Total Protein Peritoneal Fluid 1.6
[2023-09-18 08:53] LABS: Glucose Peritoneal Fluid 158; LDH Peritoneal Fluid 90
--- NOTE | 2023-09-18 10:37 | MHC.CLN ---
F/U PT IS MODERATELY MALNOURISHED-NONSEVERE IN THE CONTEXT OF SOCIAL, ENVIRONMENTAL/BEHAVIOR PT WITH MILDLY DEPLETED SUBCUTANEOUS FAT AND MUSCLE MASS WITH 12% SIGNIFICANT WT LOSS X 6 MONTHS WITH CHRONIC POOR PO INTAKE PO RANGING FROM 50-100% DIET RX: 1800DM; RECOMMEND 2200DM DIET TO INCREASE KCALS R/T MALNUTRITION RECOMMEND ADDING ENSURE BID TO PROVIDE 700KCALS, 40G PROTEIN MONITOR PO INTAKE AND ENCOURAGE SUPPLEMENTS
[2023-09-18 10:56] LABS: Glucose, Whole Blood 170 mg/dL (60-115)
--- NOTE | 2023-09-18 11:56 | HO.PM.IMPN ---
Subjective Subjective Date of Service: 09/18/23 Interval History: f/u hepatorenal syndrome, acute alcoholic hepatitis, gib/anemia overall making progress, no confusion, no bleeding Physical Exam Vital Signs: Vital Signs: Last Vital Signs Temp 97.5 F 09/18/23 11:17 Pulse 68 09/18/23 11:17 Resp 18 09/18/23 11:17 BP 117/78 09/18/23 11:17 Pulse Ox 97 09/18/23 11:17 O2 Del Method Room Air 09/18/23 11:17 O2 Flow Rate 2 09/15/23 11:51 BMI result Body Mass Index 24.1 Const: Other: Constitutional : Awake, interactive, jaundiced, not in distress sclera icteris Neck : Normal inspection, Supple Cardiovascular : RRR, no JVP, no lower extremity edema Respiratory : good bilateral air entry, no crackles, wheezes or rhonchi Gastrointestinal: soft, lax, Normal bowel sounds, distended with mild amount of ascites, non tender Skin : Warm, Dry Neurological : Alert & oriented to self and place, No focal deficit Objective Data Active Medications Acetaminophen (Acetaminophen 325 Mg Tablet) 650 mg PO Q6H PRN PRN Reason: Pain, Mild (Pain Scale 1-3), fever or headache Atorvastatin Calcium (Atorvastatin Calcium 20 Mg Tablet) 20 mg PO BEDTIME [facility] Last Admin: 09/17/23 23:10 Dose: 20 mg Documented By: LAURA Calcium Carbonate (Calcium Carbonate 750 Mg Tab.Chew) 750 mg PO Q4H PRN PRN Reason: Heartburn Last Admin: 09/16/23 09:41 Dose: 750 mg Documented By: ZEB Famotidine (Famotidine 20 Mg Tablet) 20 mg PO Q2D@2100 [facility] Last Admin: 09/16/23 21:45 Dose: 20 mg Documented By: TARRENÉ Fluticasone/Vilanterol (Fluticasone/Vilanterol 100/25 Blst.W.Dev) 1 puff INHALE RDAILY [facility] Last Admin: 09/18/23 08:23 Dose: 1 puff Documented By: EARL Glucose (Glucose Gel 15 Gm Gel..Gram.) 15 gm PO Q15M PRN; Protocol PRN Reason: per Hypoglycemia Standing Ord. Albumin Human (Kedbumin 25 %) 100 mls @ 100 mls/hr IV Q6H [facility] Stop: 09/19/23 10:14 Last Infusion: 09/18/23 08:56 Dose: Infused Documented By: BONNIE Dextrose (D10) 250 mls @ 750 mls/hr IV Q15M PRN; Protocol PRN Reason: per Hypoglycemia Standing Ord. Insulin Human Lispro (Insulin Lispro 100 Unit/Ml 3 Ml Vial) 0 unit SUBCUT QIDACHS [facility]; Protocol Last Admin: 09/18/23 07:34 Dose: Not Given Documented By: BONNIE Non-Admin Reason: [id number] Levetiracetam (Levetiracetam 500 Mg Tablet) 500 mg PO BID [facility] Last Admin: 09/18/23 07:58 Dose: 500 mg Documented By: BONNIE Magnesium Hydroxide (Milk Of Magnesia 30 Ml Oral.Susp) 30 ml PO DAILY PRN PRN Reason: Constipation Magnesium Oxide (Magnesium Oxide 400 Mg Tablet) 400 mg PO BID [facility] Last Admin: 09/18/23 07:58 Dose: 400 mg Documented By: BONNIE Midodrine (Midodrine Hcl 5 Mg Tablet) 5 mg PO TID [facility] Last Admin: 09/18/23 07:58 Dose: 5 mg Documented By: BONNIE Omeprazole (Omeprazole 20 Mg Capsule.) 20 mg PO BID@0630,1630 [facility] Last Admin: 09/18/23 04:58 Dose: 20 mg Documented By: LAURA Pharmacy Consult (Consult Rx Etoh Phenob Im/Po) 1 each MISCELLANE ONCE PRN; Protocol PRN Reason: Consult order Phenobarbital (Phenobarbital 30 Mg Tablet) 30 mg PO BID [facility]; Protocol Stop: 09/18/23 21:01 Last Admin: 09/18/23 07:58 Dose: 30 mg Documented By: BONNIE Phenobarbital (Phenobarbital 30 Mg Tablet) 30 mg PO DAILY [facility] Stop: 09/20/23 09:01 Prazosin HCl (Prazosin Hcl 1 Mg Capsule) 1 mg PO BEDTIME [facility]; Protocol Last Admin: 09/17/23 23:00 Dose: 1 mg Documented By: LAURA Prednisolone Sodium Phosphate (Prednisolone Sodium Phosphate 15 Mg/5 Ml Solution) 40 mg PO DAILY [facility] Last Admin: 09/18/23 07:56 Dose: 40 mg Documented By: BONNIE Sodium Chloride (0.9 % Sodium Chloride Flush 3 Ml Syringe) 3 ml IVFLUSH QSHIFT [facility] Last Admin: 09/18/23 07:56 Dose: 3 ml Documented By: BONNIE Labs 09/18/23 07:24 09/18/23 07:24 Labs: Laboratory Results - last 24 hr 09/14/23 09/17/23 09/17/23 13:36 14:13 15:52 MCV MCH MCHC RDW Plt Count MPV Absolute Nucleated RBC Nucleated RBC % (auto) Anion Gap 18 Estim Creat Clear Calc 42.0 Estimated GFR 34 POC Glucose 194 H Random Glucose 202 H Calcium 9.3 Total Bilirubin Direct Bilirubin AST ALT Alkaline Phosphatase Total Protein Albumin Peritoneal pH 7.56 Peritoneal Tot Protein 1.6 Peritoneal Albumin 0.6 Peritoneal LDH 90 Peritoneal Glucose 158 09/17/23 09/18/23 09/18/23 20:33 06:55 07:24 MCV 93.2 MCH 33.5 H MCHC 35.9 RDW 23.7 H Plt Count 84 L MPV 11.9 Absolute Nucleated RBC 0.000 Nucleated RBC % (auto) 0.0 Anion Gap 15 Estim Creat Clear Calc 47.6 Estimated GFR 39 POC Glucose 185 H 142 H Random Glucose 151 H Calcium 8.9 Total Bilirubin 13.1 H Direct Bilirubin 9.2 H AST 121 H ALT 29 Alkaline Phosphatase 118 H Total Protein 7.3 Albumin 4.0 Peritoneal pH Peritoneal Tot Protein Peritoneal Albumin Peritoneal LDH Peritoneal Glucose 09/18/23 10:49 MCV MCH MCHC RDW Plt Count MPV Absolute Nucleated RBC Nucleated RBC % (auto) Anion Gap Estim Creat Clear Calc Estimated GFR POC Glucose 170 H Random Glucose Calcium Total Bilirubin Direct Bilirubin AST ALT Alkaline Phosphatase Total Protein Albumin Peritoneal pH Peritoneal Tot Protein Peritoneal Albumin Peritoneal LDH Peritoneal Glucose Microbiology Microbiology Results: Microbiology 09/14/23 13:36 Gram Stain - Final Peritoneal Fluid Routine Culture - Final No growth after 2 days Anaerobic Culture - Preliminary No growth to date. Assessment and Plan (1) Acute hypokalemia: Status: Acute (2) Acute on chronic anemia: Status: Acute (3) Hepatorenal syndrome: Status: Acute (4) Alcoholic hepatitis: Status: Acute Plan Pt is a 58-year-old male with a PMH significant for?HTN, gnj-iogqizm-gehtazqpn type 2 diabetes, seizure disorder, HLD, and alcohol use disorder with history of withdrawal who [facility] for evaluation low blood pressure with SBP in the 80s. Pt will be admitted to the hospital for treatment and further evaluation of acute alcoholic hepatitis and acute hepatorenal syndrome. Acute on chronic anemia s/p 2 units of RBC, EGD showed varices but no active bleed, no intervention. Continue omeprazol, H/H remains stable at 12/19 Acute alcoholic hepatitis--bili remains high at 13, ? PVT no blood thiner d/t high risk for bleeding and coagulopathy -continue Prednisone Acute hepatorenal syndrome, Albumin, Modorine, Cr better at 1.8 Acute Hypokalemia, resolved. Hyperammonemia resolved continue lactulose Acute Lactic Acidosis, not due to sepsis, d/t alcoholic hepatitis, resolved Hyponatremia, mild, resolved Elevated INR INR 2 1 unit FFP received prior to EGD Hypomagnesemia resolved Alcohol use disorder Continue phenobarb protocol Daily multivitamin, folic acid, thiamine, famotidine CIWA Seizure protocols Addiction medicine consult Seizure disorder Continue Keppra Los-yqxorws-fwpvlciul type 2 diabetes Hold metformin Sliding-scale insulin, diabetic diet HLD Continue statin HTN Hold antihypertensives for now DVT Prophylaxis: Pneumatic boots Pt will require a hospitalization of overnight for treatment of?acute alcoholic hepatitis and acute hepatorenal syndrome. Quality Stroke Does the patient have a stroke diagnosis?: No VTE Prior VTE?: No VTE Risk Level:: Medical - moderate - high VTE Device Contraindication: N/A - Device Ordered VTE Drug Contraindication: Treatment Not Indicated
[2023-09-18] MEDS: Insulin Lispro 100 UNIT/ML 3 ML VIAL SUBCUT ×3 (12:04→21:25)
--- NOTE | 2023-09-18 13:21 | P.PNNP_ITS ---
Subjective Subjective Date of Service: 09/18/23 Interval history: Events noted. Renal function is slowly improving Nonoliguric Physical Exam 2 Vital Signs: Vital Signs: Last Vital Signs Temp 97.5 F 09/18/23 11:17 Pulse 68 09/18/23 11:17 Resp 18 09/18/23 11:17 BP 117/78 09/18/23 11:17 Pulse Ox 97 09/18/23 11:17 O2 Del Method Room Air 09/18/23 11:17 O2 Flow Rate 2 09/15/23 11:51 BMI result Body Mass Index 24.1 Awake. Comfortable. Neck is supple. Mucosa moist. Lungs bilateral scattered rhonchi. Heart S1-S2 heard no gallop. Abdomen soft. Distended Extremities no edema. No involuntary movements. No myoclonus. Objective Data Labs 09/18/23 07:24 09/18/23 07:24 Labs: Laboratory Results - last 24 hr 09/14/23 09/17/23 09/17/23 13:36 14:13 15:52 WBC RBC Hgb Hct MCV MCH MCHC RDW Plt Count MPV Absolute Nucleated RBC Nucleated RBC % (auto) Sodium 141 Potassium 3.4 D Chloride 103 Carbon Dioxide 23 Anion Gap 18 BUN 31 H Creatinine 2.04 H Estim Creat Clear Calc 42.0 Estimated GFR 34 POC Glucose 194 H Random Glucose 202 H Calcium 9.3 Total Bilirubin Direct Bilirubin AST ALT Alkaline Phosphatase Total Protein Albumin Peritoneal pH 7.56 Peritoneal Tot Protein 1.6 Peritoneal Albumin 0.6 Peritoneal LDH 90 Peritoneal Glucose 158 09/17/23 09/18/23 09/18/23 20:33 06:55 07:24 WBC 8.0 RBC 2.78 L Hgb 9.3 L Hct 25.9 L MCV 93.2 MCH 33.5 H MCHC 35.9 RDW 23.7 H Plt Count 84 L MPV 11.9 Absolute Nucleated RBC 0.000 Nucleated RBC % (auto) 0.0 Sodium 141 Potassium 3.6 Chloride 106 Carbon Dioxide 24 Anion Gap 15 BUN 33 H Creatinine 1.80 H Estim Creat Clear Calc 47.6 Estimated GFR 39 POC Glucose 185 H 142 H Random Glucose 151 H Calcium 8.9 Total Bilirubin 13.1 H Direct Bilirubin 9.2 H AST 121 H ALT 29 Alkaline Phosphatase 118 H Total Protein 7.3 Albumin 4.0 Peritoneal pH Peritoneal Tot Protein Peritoneal Albumin Peritoneal LDH Peritoneal Glucose 09/18/23 10:49 WBC RBC Hgb Hct MCV MCH MCHC RDW Plt Count MPV Absolute Nucleated RBC Nucleated RBC % (auto) Sodium Potassium Chloride Carbon Dioxide Anion Gap BUN Creatinine Estim Creat Clear Calc Estimated GFR POC Glucose 170 H Random Glucose Calcium Total Bilirubin Direct Bilirubin AST ALT Alkaline Phosphatase Total Protein Albumin Peritoneal pH Peritoneal Tot Protein Peritoneal Albumin Peritoneal LDH Peritoneal Glucose Microbiology Microbiology Results: Microbiology 09/14/23 13:36 Peritoneal Fluid Gram Stain - Final 09/14/23 13:36 Peritoneal Fluid Routine Culture - Final No growth after 2 days 09/14/23 13:36 Peritoneal Fluid Anaerobic Culture - Preliminary No growth to date. 09/14/23 10:00 Blood - Venous Blood Culture - Preliminary No growth after 48 hours. 09/14/23 10:00 Blood - Venous Blood Culture - Preliminary No growth after 48 hours. 09/15/23 Unknown Urine clean catch - Urine hannah top Urine Culture - Final No growth. Procedures Date of Service Date of Service: 09/18/23 Assessment & Plan Assessment and plan (1) STEFANO (acute kidney injury): Status: Acute Plan STEFANO Most likely due to hypoperfusion Probably progressed to tubular injury Need to r/o obstruction No evidence of GN/IN Hyponatremia Lactic acidosis Anemia Hypomagnesemia Renal function is marginally better. Remains nonoliguric Suggest Hold Irbesartan and avoid hypotension No diuretics for now Watch urine output Agree with IV albumin Abdominal paracenthesis - CAutious volume remove to avoid hypotension; Prefer frequent small volume paracenthesis to avoid hypotension Restrict hypotonic fluids( free water) Concur with current managed Time Spent With Patient Time: Total time managing care of this patient today ____ minutes. Progress Note: Quality Stroke Does the patient have a stroke diagnosis?: No
--- NOTE | 2023-09-18 14:28 | MHC.CM.PN ---
EMR reviewed and per MD rounds, pt is not medically cleared for discharge today due to management of acute alcoholic hepatitis and acute hepatorenal syndrome.
[2023-09-18 15:29] LABS: Anti Nuclear Antibody Screen NEGATIVE (NEGATIVE)
[2023-09-18 17:03] LABS: Glucose, Whole Blood 228 mg/dL (60-115)
[2023-09-18 20:23] LABS: Glucose, Whole Blood 217 mg/dL (60-115)
[2023-09-18] MEDS: Famotidine 20 MG TABLET PO (21:24)
[2023-09-18] MEDS: Prazosin HCL 1 MG CAPSULE PO (21:24)
[2023-09-18] MEDS: Atorvastatin Calcium 20 MG TABLET PO (21:24)
[2023-09-19] VITALS (8 sets, daily range): BP systolic 116–149; BP diastolic 68–97; PULSE 65–94; RESP 16–20; TEMP 36.2–36.7; O2SAT 94–98
[2023-09-19] MEDS: Albumin Human 25 % 100 ML IV ×2 (02:45→08:15)
[2023-09-19] MEDS: Omeprazole 20 MG CAPSULE.DR PO ×2 (05:18→16:00)
[2023-09-19 06:55] LABS: Alanine Aminotransferase 34 U/L (0-40); Albumin Level 4.4 g/dL (3.5-5.0); Alkaline Phosphatase 111 U/L (39-117); Anion Gap 18 (12-20); Aspartate Amino Transferase 130 U/L (5-37); Bilirubin Direct 8.4 mg/dL (0.0-0.5); Bilirubin Total 12.5 mg/dL (0.0-1.0); Blood Urea Nitrogen 37 mg/dL (9-16); Calcium 9.2 mg/dL (8.4-10.2); Carbon Dioxide 21 mmol/L (22-29); Chloride 108 mmol/L (96-108); Creatinine Clr Calc Pharmacy 51.9; Estimated Glomerular Filt Rate 43; Glucose Random 123 mg/dL (60-115); Potassium 3.5 mmol/L (3.3-5.1); Sodium 143 mmol/L (135-145); Total Protein 7.5 g/dL (6.5-8.0)
[2023-09-19] MEDS: Fluticasone/Vilanterol 100/25 BLST.W.DEV 1 PUFF INHALE (08:04)
[2023-09-19 08:11] LABS: Glucose, Whole Blood 117 mg/dL (60-115)
[2023-09-19] MEDS: levETIRAcetam 500 MG TABLET PO ×2 (08:15→22:15)
[2023-09-19] MEDS: PHENobarbitaL 30 MG TABLET PO (08:15)
[2023-09-19] MEDS: Midodrine HCl 5 MG TABLET PO ×3 (08:15→22:16)
[2023-09-19] MEDS: Magnesium Oxide 400 MG TABLET PO ×2 (08:15→22:15)
[2023-09-19] MEDS: prednisoLONE sodium phosphate 15 MG/5 ML SOLUTION 40 MG PO (08:16)
[2023-09-19] MEDS: 0.9 % Sodium Chloride Flush 3 ML SYRINGE IVFLUSH ×3 (08:20→22:16)
--- NOTE | 2023-09-19 10:26 | HO.PM.IMPN ---
Subjective Subjective Date of Service: 09/19/23 Interval History: f/u hepatorenal syndrome, acute alcoholic hepatitis, gib/anemia he is reporting blood in the stool today, alot but not seen by anyone H/H is pending Physical Exam Vital Signs: Vital Signs: Last Vital Signs Temp 97.4 F 09/19/23 08:00 Pulse 94 09/19/23 08:06 Resp 18 09/19/23 08:06 BP 149/97 H 09/19/23 08:00 Pulse Ox 95 09/19/23 08:00 O2 Del Method Room Air 09/19/23 08:00 O2 Flow Rate 2 09/15/23 11:51 BMI result Body Mass Index 24.1 General: AO X 3, no acute distress Resp: CTA bilateral CVS: S1,S2,RRR GI: +BS, NT, no distention Skin: No rash Neuro: motor grossly intact Psych: appropriate affect Objective Data Active Medications Acetaminophen (Acetaminophen 325 Mg Tablet) 650 mg PO Q6H PRN PRN Reason: Pain, Mild (Pain Scale 1-3), fever or headache Atorvastatin Calcium (Atorvastatin Calcium 20 Mg Tablet) 20 mg PO BEDTIME [facility] Last Admin: 09/18/23 21:24 Dose: 20 mg Documented By: PING Calcium Carbonate (Calcium Carbonate 750 Mg Tab.Chew) 750 mg PO Q4H PRN PRN Reason: Heartburn Last Admin: 09/16/23 09:41 Dose: 750 mg Documented By: ZEB Famotidine (Famotidine 20 Mg Tablet) 20 mg PO Q2D@2100 [facility] Last Admin: 09/18/23 21:24 Dose: 20 mg Documented By: PING Fluticasone/Vilanterol (Fluticasone/Vilanterol 100/25 Blst.W.Dev) 1 puff INHALE RDAILY [facility] Last Admin: 09/19/23 08:04 Dose: 1 puff Documented By: MAG Glucose (Glucose Gel 15 Gm Gel..Gram.) 15 gm PO Q15M PRN; Protocol PRN Reason: per Hypoglycemia Standing Ord. Dextrose (D10) 250 mls @ 750 mls/hr IV Q15M PRN; Protocol PRN Reason: per Hypoglycemia Standing Ord. Insulin Human Lispro (Insulin Lispro 100 Unit/Ml 3 Ml Vial) 0 unit SUBCUT QIDACHS [facility]; Protocol Last Admin: 09/19/23 08:20 Dose: Not Given Documented By: EMMANUELLE Non-Admin Reason: No Insulin Coverage Levetiracetam (Levetiracetam 500 Mg Tablet) 500 mg PO BID [facility] Last Admin: 09/19/23 08:15 Dose: 500 mg Documented By: EMMANUELLE Magnesium Hydroxide (Milk Of Magnesia 30 Ml Oral.Susp) 30 ml PO DAILY PRN PRN Reason: Constipation Magnesium Oxide (Magnesium Oxide 400 Mg Tablet) 400 mg PO BID [facility] Last Admin: 09/19/23 08:15 Dose: 400 mg Documented By: EMMANUELLE Midodrine (Midodrine Hcl 5 Mg Tablet) 5 mg PO TID [facility] Last Admin: 09/19/23 08:15 Dose: 5 mg Documented By: EMMANUELLE Omeprazole (Omeprazole 20 Mg Capsule.Dr) 20 mg PO BID@0630,1630 [facility] Last Admin: 09/19/23 05:18 Dose: 20 mg Documented By: PING Pharmacy Consult (Consult Rx Etoh Phenob Im/Po) 1 each MISCELLANE ONCE PRN; Protocol PRN Reason: Consult order Phenobarbital (Phenobarbital 30 Mg Tablet) 30 mg PO DAILY [facility] Stop: 09/20/23 09:01 Last Admin: 09/19/23 08:15 Dose: 30 mg Documented By: EMMANUELLE Prazosin HCl (Prazosin Hcl 1 Mg Capsule) 1 mg PO BEDTIME [facility]; Protocol Last Admin: 09/18/23 21:24 Dose: 1 mg Documented By: PING Prednisolone Sodium Phosphate (Prednisolone Sodium Phosphate 15 Mg/5 Ml Solution) 40 mg PO DAILY [facility] Last Admin: 09/19/23 08:16 Dose: 40 mg Documented By: EMMANUELLE Sodium Chloride (0.9 % Sodium Chloride Flush 3 Ml Syringe) 3 ml IVFLUSH QSHIFT [facility] Last Admin: 09/19/23 08:20 Dose: 3 ml Documented By: EMMANUELLE Labs 09/18/23 07:24 09/19/23 06:03 Labs: Laboratory Results - last 24 hr 09/15/23 09/16/23 09/18/23 06:34 07:03 10:49 Smear Path Review Anion Gap Estim Creat Clear Calc Estimated GFR POC Glucose 170 H Random Glucose Calcium Total Bilirubin Direct Bilirubin AST ALT Alkaline Phosphatase Total Protein Albumin CADENCE Screen NEGATIVE CADENCE Titer TNP CADENCE Titer 2 TNP CADENCE Titer 3 TNP CADENCE Pattern TNP CADENCE Pattern 2 TNP CADENCE Pattern 3 TNP 09/18/23 09/18/23 09/19/23 16:29 20:10 06:03 Smear Path Review Anion Gap 18 Estim Creat Clear Calc 51.9 Estimated GFR 43 POC Glucose 228 H 217 H Random Glucose 123 H Calcium 9.2 Total Bilirubin 12.5 H Direct Bilirubin 8.4 H AST 130 H ALT 34 Alkaline Phosphatase 111 Total Protein 7.5 Albumin 4.4 CADENCE Screen CADENCE Titer CADENCE Titer 2 CADENCE Titer 3 CADENCE Pattern CADENCE Pattern 2 CADENCE Pattern 3 09/19/23 08:07 Smear Path Review Anion Gap Estim Creat Clear Calc Estimated GFR POC Glucose 117 H Random Glucose Calcium Total Bilirubin Direct Bilirubin AST ALT Alkaline Phosphatase Total Protein Albumin CADENCE Screen CADENCE Titer CADENCE Titer 2 CADENCE Titer 3 CADENCE Pattern CADENCE Pattern 2 CADENCE Pattern 3 Microbiology Microbiology Results: Microbiology 09/14/23 13:36 Gram Stain - Final Peritoneal Fluid Routine Culture - Final No growth after 2 days Anaerobic Culture - Final NO GROWTH AFTER 5 DAYS Assessment and Plan (1) Acute hypokalemia: Status: Acute (2) Acute on chronic anemia: Status: Acute (3) Hepatorenal syndrome: Status: Acute (4) Alcoholic hepatitis: Status: Acute Plan Pt is a 58-year-old male with a PMH significant for?HTN, waz-wymldob-[id number] type 2 diabetes, seizure disorder, HLD, and alcohol use disorder with history of withdrawal who [facility] for evaluation low blood pressure with SBP in the 80s. Pt will be admitted to the hospital for treatment and further evaluation of acute alcoholic hepatitis and acute hepatorenal syndrome. Acute on chronic anemia s/p 2 units of RBC, EGD showed varices but no active bleed, no intervention. Continue omeprazol, H/H remains stable at 9/25 new lower gib this morning inform GI, recheck H/H and type and screen Acute alcoholic hepatitis--bili remains high at 12, ? PVT no blood thiner d/t high risk for bleeding and coagulopathy -continue Prednisone Acute hepatorenal syndrome, Albumin, Modorine, Cr better at 1.65 Acute Hypokalemia, resolved. HypERammonemia resolved continue lactulose Acute Lactic Acidosis, not due to sepsis, d/t alcoholic hepatitis, resolved Hyponatremia, mild, resolved Elevated INR INR 2 1 unit FFP received prior to EGD Hypomagnesemia resolved Alcohol use disorder Continue phenobarb protocol Daily multivitamin, folic acid, thiamine, famotidine CIWA Seizure protocols Addiction medicine consult Seizure disorder Continue Keppra Svn-wbiuabs-xeehwmjww type 2 diabetes Hold metformin Sliding-scale insulin, diabetic diet HLD Continue statin HTN Hold antihypertensives for now DVT Prophylaxis: Pneumatic boots Pt will require a hospitalization of overnight for treatment of?acute alcoholic hepatitis and acute hepatorenal syndrome and active gi bleeding Quality Stroke Does the patient have a stroke diagnosis?: No VTE Prior VTE?: No VTE Risk Level:: Medical - moderate - high VTE Device Contraindication: N/A - Device Ordered VTE Drug Contraindication: Treatment Not Indicated
[2023-09-19 11:06] LABS: Magnesium 1.7 mg/dL (1.6-2.6)
[2023-09-19 11:32] LABS: Hematocrit 26.9 % (42.0-52.0); Hemoglobin 9.5 g/dl (14.0-18.0); Mean Corpuscular HGB Conc 35.3 g/dl (31.0-36.0); Mean Corpuscular Hemoglobin 33.5 pg (27.0-33.0); Mean Corpuscular Volume 94.7 fL (80.0-98.0); PLT CLUMP 1; Red Blood Count 2.84 X10*6/uL (4.60-5.80); Red Cell Distribution Width 24.3 % (11.0-16.0)
[2023-09-19 11:34] LABS: Glucose, Whole Blood 170 mg/dL (60-115)
[2023-09-19 11:38] LABS: INTERNATIONAL NORM RATIO 1.9 (0.9-1.1); Prothrombin Time 23.5 SEC (11.1-13.3)
[2023-09-19 12:15] LABS: Platelet Count 78 X10*3/uL (160-400); White Blood Count 10.2 X10*3/uL (4.8-10.8)
[2023-09-19] MEDS: Insulin Lispro 100 UNIT/ML 3 ML VIAL SUBCUT ×3 (12:39→22:16)
--- NOTE | 2023-09-19 14:53 | P.PNNP_ITS ---
Subjective Subjective Date of Service: 09/19/23 Interval history: Events noted. Nonoliguric Creatinine is trending down Physical Exam 2 Vital Signs: Vital Signs: Last Vital Signs Temp 97.2 F 09/19/23 11:37 Pulse 86 09/19/23 11:37 Resp 16 09/19/23 11:37 BP 116/75 09/19/23 11:37 Pulse Ox 94 09/19/23 11:37 O2 Del Method Room Air 09/19/23 11:37 O2 Flow Rate 2 09/15/23 11:51 BMI result Body Mass Index 24.1 Awake. Comfortable. Neck is supple. Mucosa moist. Lungs bilateral scattered rhonchi. Heart S1-S2 heard no gallop. Abdomen soft. Distended Extremities no edema. No involuntary movements. No myoclonus. Objective Data Labs 09/19/23 11:11 09/19/23 06:03 Labs: Laboratory Results - last 24 hr 09/15/23 09/16/23 09/18/23 06:34 07:03 16:29 WBC RBC Hgb Hct MCV MCH MCHC RDW Plt Count MPV Absolute Nucleated RBC Nucleated RBC % (auto) Smear Path Review PT INR Sodium Potassium Chloride Carbon Dioxide Anion Gap BUN Creatinine Estim Creat Clear Calc Estimated GFR POC Glucose 228 H Random Glucose Calcium Magnesium Total Bilirubin Direct Bilirubin AST ALT Alkaline Phosphatase Total Protein Albumin CADENCE Screen NEGATIVE CADENCE Titer TNP CADENCE Titer 2 TNP CADENCE Titer 3 TNP CADENCE Pattern TNP CADENCE Pattern 2 TNP CADENCE Pattern 3 TNP Blood Type Antibody Screen 09/18/23 09/19/23 09/19/23 20:10 06:03 08:07 WBC RBC Hgb Hct MCV MCH MCHC RDW Plt Count MPV Absolute Nucleated RBC Nucleated RBC % (auto) Smear Path Review PT INR Sodium 143 Potassium 3.5 Chloride 108 Carbon Dioxide 21 L Anion Gap 18 BUN 37 H Creatinine 1.65 H Estim Creat Clear Calc 51.9 Estimated GFR 43 POC Glucose 217 H 117 H Random Glucose 123 H Calcium 9.2 Magnesium 1.7 Total Bilirubin 12.5 H Direct Bilirubin 8.4 H AST 130 H ALT 34 Alkaline Phosphatase 111 Total Protein 7.5 Albumin 4.4 CADENCE Screen CADENCE Titer CADENCE Titer 2 CADENCE Titer 3 CADENCE Pattern CADENCE Pattern 2 CADENCE Pattern 3 Blood Type Antibody Screen 09/19/23 09/19/23 11:11 11:19 WBC 10.2 RBC 2.84 L Hgb 9.5 L Hct 26.9 L MCV 94.7 MCH 33.5 H MCHC 35.3 RDW 24.3 H Plt Count 78 L MPV Not Reportable Absolute Nucleated RBC 0.000 Nucleated RBC % (auto) 0.0 Smear Path Review PT 23.5 H INR 1.9 H Sodium Potassium Chloride Carbon Dioxide Anion Gap BUN Creatinine Estim Creat Clear Calc Estimated GFR POC Glucose 170 H Random Glucose Calcium Magnesium Total Bilirubin Direct Bilirubin AST ALT Alkaline Phosphatase Total Protein Albumin CADENCE Screen CADENCE Titer CADENCE Titer 2 CADENCE Titer 3 CADENCE Pattern CADENCE Pattern 2 CADENCE Pattern 3 Blood Type O Positive Antibody Screen NEGATIVE Microbiology Microbiology Results: Microbiology 09/14/23 10:00 Blood - Venous Blood Culture - Final No growth after 5 days. 09/14/23 10:00 Blood - Venous Blood Culture - Final No growth after 5 days. 09/14/23 13:36 Peritoneal Fluid Gram Stain - Final 09/14/23 13:36 Peritoneal Fluid Routine Culture - Final No growth after 2 days 09/14/23 13:36 Peritoneal Fluid Anaerobic Culture - Final NO GROWTH AFTER 5 DAYS 09/15/23 Unknown Urine clean catch - Urine hannah top Urine Culture - Final No growth. Procedures Date of Service Date of Service: 09/19/23 Assessment & Plan Assessment and plan (1) STEFANO (acute kidney injury): Status: Acute Plan STEFANO Most likely due to hypoperfusion With superimposed ischemia tubular injury No evidence of GN/IN Hyponatremia Lactic acidosis Anemia Hypomagnesemia Renal function is improving. Creatinine is down to 1.65 . Remains nonoliguric Suggest Hold Irbesartan and avoid hypotension No diuretics for now Watch urine output Agree with IV albumin Abdominal paracenthesis - Cautious volume remove to avoid hypotension; Prefer frequent small volume paracenthesis to avoid hypotension Restrict hypotonic fluids( free water) Watch hematocrit Concur with current managed Time Spent With Patient Time: Total time managing care of this patient today ____ minutes. Progress Note: Quality Stroke Does the patient have a stroke diagnosis?: No
[2023-09-19 15:08] LABS: Mitochondrial Antibodies NEGATIVE (NEGATIVE)
--- NOTE | 2023-09-19 16:05 | PC.NURSE ---
BM form , very light [place] and yellow in color, no blood in stool
[2023-09-19 16:09] LABS: Glucose, Whole Blood 203 mg/dL (60-115)
--- NOTE | 2023-09-19 16:42 | PM.EVENT ---
Event Note Date of Service: 09/19/23 Event Note: Pt reported to have an episode of BRB per rectum this am after he had a BM. Pt had flushed the toilet and stool not seen by nursing staff - they do report seeing toilet paper stained with blood. No further bleeding since Repeat CBC was checked and stable. Pt reports a hx of hemorrhoids. Last colon in 2017 was negative (report scanned into pt's chart) RECOMMENDATIONS: 1. Stool softeners and hydrocortisone cream for hemorrhoids 2. If pt has recurrent bleeding, colonoscopy can be scheduled for further evaluation Time Spent With Patient Time: Total time managing care of this patient today 15 minutes.
[2023-09-19] MEDS: Atorvastatin Calcium 20 MG TABLET PO (22:15)
[2023-09-19] MEDS: Docusate Sodium 100 MG CAPSULE PO (22:15)
[2023-09-19] MEDS: Prazosin HCL 1 MG CAPSULE PO (22:16)
[2023-09-20] VITALS (8 sets, daily range): BP systolic 102–138; BP diastolic 60–78; PULSE 68–84; RESP 16–18; TEMP 35.8–36.6; O2SAT 96–99
[2023-09-20] MEDS: Omeprazole 20 MG CAPSULE.DR PO ×2 (05:14→16:25)
[2023-09-20 06:56] LABS: Glucose, Whole Blood 183 mg/dL (60-115)
[2023-09-20 07:41] LABS: Glucose, Whole Blood 99 mg/dL (60-115)
[2023-09-20 07:57] LABS: Hematocrit 26.9 % (42.0-52.0); Hemoglobin 9.6 g/dl (14.0-18.0); Mean Corpuscular HGB Conc 35.7 g/dl (31.0-36.0); Mean Corpuscular Hemoglobin 33.9 pg (27.0-33.0); Mean Corpuscular Volume 95.1 fL (80.0-98.0); Mean Platelet Volume 12.2 fL (9.4-12.4); Red Blood Count 2.83 X10*6/uL (4.60-5.80); White Blood Count 11.6 X10*3/uL (4.8-10.8)
[2023-09-20 07:58] LABS: Platelet Count 73 X10*3/uL (160-400)
[2023-09-20] MEDS: 0.9 % Sodium Chloride Flush 3 ML SYRINGE IVFLUSH ×2 (08:00→16:27)
[2023-09-20] MEDS: Magnesium Oxide 400 MG TABLET PO ×2 (08:00→22:30)
[2023-09-20] MEDS: PHENobarbitaL 30 MG TABLET PO (08:00)
[2023-09-20] MEDS: Midodrine HCl 5 MG TABLET PO ×3 (08:00→22:31)
[2023-09-20] MEDS: prednisoLONE sodium phosphate 15 MG/5 ML SOLUTION 40 MG PO (08:07)
[2023-09-20] MEDS: levETIRAcetam 500 MG TABLET PO ×2 (08:07→22:30)
[2023-09-20 08:12] LABS: Alanine Aminotransferase 48 U/L (0-40); Albumin Level 3.9 g/dL (3.5-5.0); Alkaline Phosphatase 121 U/L (39-117); Anion Gap 14 (12-20); Aspartate Amino Transferase 165 U/L (5-37); Bilirubin Direct 9.3 mg/dL (0.0-0.5); Bilirubin Total 13.2 mg/dL (0.0-1.0); Blood Urea Nitrogen 44 mg/dL (9-16); Calcium 9.1 mg/dL (8.4-10.2); Carbon Dioxide 24 mmol/L (22-29); Chloride 108 mmol/L (96-108); Creatinine Clr Calc Pharmacy 50.7; Estimated Glomerular Filt Rate 42; Glucose Random 111 mg/dL (60-115); Potassium 3.4 mmol/L (3.3-5.1); Sodium 143 mmol/L (135-145)
[2023-09-20] MEDS: Fluticasone/Vilanterol 100/25 BLST.W.DEV 1 PUFF INHALE (08:12)
--- NOTE | 2023-09-20 10:40 | PC.NURSE ---
During morning med pass patient stated he needed to use the restroom. I was previously informed by film processing shift supervisor nurse patient had a bloody stool, patient was able to have small BM this am and experienced blood in the toilet. MD notified. Surgery consulted and will further evaluate.
--- NOTE | 2023-09-20 10:49 | P.PNIM_ITS ---
Subjective Subjective Date of Service: 09/21/23 Interval History: f/u hepatorenal syndrome, acute alcoholic hepatitis, gib/anemia he has had several episode of blood in toilet but not asscoated with stool H/H is unchanged Physical Exam 2 Vital Signs: Vital Signs: Last Vital Signs Temp 97.3 F 09/20/23 07:44 Pulse 84 09/20/23 08:13 Resp 18 09/20/23 08:13 BP 102/77 09/20/23 07:44 Pulse Ox 98 09/20/23 07:44 O2 Del Method Room Air 09/20/23 07:44 O2 Flow Rate 2 09/15/23 11:51 BMI result Body Mass Index 24.1 Awake. Comfortable. Neck is supple. Mucosa moist. Lungs bilateral scattered rhonchi. Heart S1-S2 heard no gallop. Abdomen soft. Distended Extremities no edema. No involuntary movements. No myoclonus. Objective Data Active Medications Acetaminophen (Acetaminophen 325 Mg Tablet) 650 mg PO Q6H PRN PRN Reason: Pain, Mild (Pain Scale 1-3), fever or headache Atorvastatin Calcium (Atorvastatin Calcium 20 Mg Tablet) 20 mg PO BEDTIME [facility] Last Admin: 09/19/23 22:15 Dose: 20 mg Documented By: GRICELDA Calcium Carbonate (Calcium Carbonate 750 Mg Tab.Chew) 750 mg PO Q4H PRN PRN Reason: Heartburn Last Admin: 09/16/23 09:41 Dose: 750 mg Documented By: ZEB Docusate Sodium (Docusate Sodium 100 Mg Capsule) 100 mg PO BEDTIME [facility] Last Admin: 09/19/23 22:15 Dose: 100 mg Documented By: GRICELDA Famotidine (Famotidine 20 Mg Tablet) 20 mg PO Q2D@2100 [facility] Last Admin: 09/18/23 21:24 Dose: 20 mg Documented By: PING Fluticasone/Vilanterol (Fluticasone/Vilanterol 100/25 Blst.W.Dev) 1 puff INHALE RDAILY [facility] Last Admin: 09/20/23 08:12 Dose: 1 puff Documented By: SEBAS Glucose (Glucose Gel 15 Gm Gel..Gram.) 15 gm PO Q15M PRN; Protocol PRN Reason: per Hypoglycemia Standing Ord. Hydrocortisone (Hydrocortisone 2.5 % Rectal Cr 30 Gm Tube) 1 appl VT BEDTIME [facility] Last Admin: 09/19/23 22:17 Dose: Not Given Documented By: GRICELDA Non-Admin Reason: Patient Refused Dextrose (D10) 250 mls @ 750 mls/hr IV Q15M PRN; Protocol PRN Reason: per Hypoglycemia Standing Ord. Insulin Human Lispro (Insulin Lispro 100 Unit/Ml 3 Ml Vial) 0 unit SUBCUT QIDACHS [facility]; Protocol Last Admin: 09/20/23 08:09 Dose: Not Given Documented By: MARYANNE Non-Admin Reason: No Insulin Coverage Levetiracetam (Levetiracetam 500 Mg Tablet) 500 mg PO BID [facility] Last Admin: 09/20/23 08:07 Dose: 500 mg Documented By: MARYANNE Magnesium Hydroxide (Milk Of Magnesia 30 Ml Oral.Susp) 30 ml PO DAILY PRN PRN Reason: Constipation Magnesium Oxide (Magnesium Oxide 400 Mg Tablet) 400 mg PO BID [facility] Last Admin: 09/20/23 08:00 Dose: 400 mg Documented By: MARYANNE Midodrine (Midodrine Hcl 5 Mg Tablet) 5 mg PO TID [facility] Last Admin: 09/20/23 08:00 Dose: 5 mg Documented By: MARYANNE Omeprazole (Omeprazole 20 Mg Capsule.) 20 mg PO BID@0630,1630 [facility] Last Admin: 09/20/23 05:14 Dose: 20 mg Documented By: GRICELDA Pharmacy Consult (Consult Rx Etoh Phenob Im/Po) 1 each MISCELLANE ONCE PRN; Protocol PRN Reason: Consult order Prazosin HCl (Prazosin Hcl 1 Mg Capsule) 1 mg PO BEDTIME [facility]; Protocol Last Admin: 09/19/23 22:16 Dose: 1 mg Documented By: GRICELDA Prednisolone Sodium Phosphate (Prednisolone Sodium Phosphate 15 Mg/5 Ml Solution) 40 mg PO DAILY [facility] Last Admin: 09/20/23 08:07 Dose: 40 mg Documented By: MARYANNE Sodium Chloride (0.9 % Sodium Chloride Flush 3 Ml Syringe) 3 ml IVFLUSH QSHIFT [facility] Last Admin: 09/20/23 08:00 Dose: 3 ml Documented By: MARYANNE Labs 09/20/23 07:36 09/21/23 06:38 Labs: Laboratory Results - last 24 hr 09/15/23 09/19/23 09/19/23 06:34 06:03 11:11 MCV 94.7 MCH 33.5 H MCHC 35.3 RDW 24.3 H Plt Count 78 L MPV Not Reportable Absolute Nucleated RBC 0.000 Nucleated RBC % (auto) 0.0 PT 23.5 H INR 1.9 H Anion Gap Estim Creat Clear Calc Estimated GFR POC Glucose Random Glucose Calcium Magnesium 1.7 Total Bilirubin Direct Bilirubin AST ALT Alkaline Phosphatase Total Protein Albumin Anti-Mitochondrial Ab NEGATIVE Blood Type O Positive Antibody Screen NEGATIVE 09/19/23 09/19/23 09/19/23 11:19 16:04 20:52 MCV MCH MCHC RDW Plt Count MPV Absolute Nucleated RBC Nucleated RBC % (auto) PT INR Anion Gap Estim Creat Clear Calc Estimated GFR POC Glucose 170 H 203 H 183 H Random Glucose Calcium Magnesium Total Bilirubin Direct Bilirubin AST ALT Alkaline Phosphatase Total Protein Albumin Anti-Mitochondrial Ab Blood Type Antibody Screen 09/20/23 09/20/23 07:36 07:37 MCV 95.1 MCH 33.9 H MCHC 35.7 RDW 24.0 H Plt Count 73 L MPV 12.2 Absolute Nucleated RBC 0.000 Nucleated RBC % (auto) 0.0 PT INR Anion Gap 14 Estim Creat Clear Calc 50.7 Estimated GFR 42 POC Glucose 99 Random Glucose 111 Calcium 9.1 Magnesium Total Bilirubin 13.2 H Direct Bilirubin 9.3 H AST 165 H ALT 48 H Alkaline Phosphatase 121 H Total Protein 7.0 Albumin 3.9 Anti-Mitochondrial Ab Blood Type Antibody Screen Microbiology Microbiology Results: Microbiology 09/14/23 10:00 Blood Culture - Final Blood - Venous No growth after 5 days. 09/14/23 10:00 Blood Culture - Final Blood - Venous No growth after 5 days. 09/14/23 13:36 Gram Stain - Final Peritoneal Fluid Routine Culture - Final No growth after 2 days Anaerobic Culture - Final NO GROWTH AFTER 5 DAYS Assessment and Plan (1) Acute hypokalemia: Status: Acute (2) Acute on chronic anemia: Status: Acute (3) Hepatorenal syndrome: Status: Acute (4) Alcoholic hepatitis: Status: Acute Plan Pt is a 58-year-old male with a PMH significant for?HTN, vim-awudtnw-szhamhndl type 2 diabetes, seizure disorder, HLD, and alcohol use disorder with history of withdrawal who [facility] for evaluation low blood pressure with SBP in the 80s. Pt will be admitted to the hospital for treatment and further evaluation of acute alcoholic hepatitis and acute hepatorenal syndrome. Acute on chronic anemia s/p 2 units of RBC, EGD showed varices but no active bleed, no intervention. Continue omeprazol, H/H remains stable at 9/ new lower gib with no change in H/H description appear to be hemorrhoid, sugery consult for hemorrhoid. Prep H Acute alcoholic hepatitis--bili remains high but trending down to 9 from 12, ? POrtal vein thromboisis (PVT) no blood thiner d/t high risk for bleeding and coagulopathy -continue Prednisone Acute hepatorenal syndrome, Albumin, Modorine, Cr better at 1.65--probably new baseline Acute Hypokalemia, resolved. HypERammonemia resolved continue lactulose Acute Lactic Acidosis, not due to sepsis, d/t alcoholic hepatitis, resolved Hyponatremia, mild, resolved Elevated INR INR 2 1 unit FFP received prior to EGD Hypomagnesemia resolved Alcohol use disorder Continue phenobarb protocol Daily multivitamin, folic acid, thiamine, famotidine CIWA Seizure protocols Addiction medicine consult Seizure disorder Continue Keppra Tcf-ielzdlq-joglgaoqi type 2 diabetes Hold metformin Sliding-scale insulin, diabetic diet HLD Continue statin HTN Hold antihypertensives for now DVT Prophylaxis: Pneumatic boots Pt will require a hospitalization of overnight for treatment of?acute alcoholic hepatitis and acute hepatorenal syndrome and active gi bleeding Quality Stroke Does the patient have a stroke diagnosis?: No VTE Prior VTE?: No VTE Risk Level:: Medical - moderate - high VTE Device Contraindication: N/A - Device Ordered VTE Drug Contraindication: Treatment Not Indicated
--- NOTE | 2023-09-20 10:58 | MHC.CLN ---
F/U PT IS MODERATELY [id number] IN THE CONTEXT OF SOCIAL, ENVIRONMENTAL/BEHAVIOR SEE CLINICAL NUTRITION ASSESSMENT DATED 09/15/23 PO RANGING FROM 50-100% DIET RX: 2200DM DIET-APPROPRIATE PT RECEIVING ENSURE BID TO PROVIDE 700KCALS, 40G PROTEIN CONTINUE TO MONITOR PO INTAKE AND ENCOURAGE SUPPLEMENTS
--- NOTE | 2023-09-20 11:02 | PM.CNGS ---
History of Present Illness Consult details Consult date: 09/20/23 Reason for consult: other (symptomatic hemorrhoids ) Requesting physician: Cholo Solomon Narrative: Navneet Samaniego is a 58-year-old male with a PMH significant for HTN, eet-[id number]-[id number] type 2 diabetes, seizure disorder, HLD, and alcohol use disorder with history of withdrawal who [facility] of hypotension. He was admitted to the hospitalist service for treatment and further evaluation of acute alcoholic hepatitis and acute hepatorenal syndrome. He was found to have an acute on chronic anemia and was transfused 2 units of PRBC during his stay. EGD was performed which showed varices but no active bleed. He reported BRBPR yesterday and has a few BMs with blood in the toilet bowel and on the toilet paper after wiping however is currently just reporting small amount of blood staining on toilet paper. H/H remains stable. General surgery was consulted for bleeding hemorrhoids. He reports having 1-2 episodes of mild hemorrhoidal bleeding prior. He denies hard stools, constipation. Last colonoscopy in 2017 was normal. Review of Systems Constitutional: Constitutional: Denies chills and Denies fever(s) Cardiovascular: Cardiovascular: Denies chest pain and Denies dyspnea Respiratory: Respiratory: Denies dyspnea Gastrointestinal: Gastrointestinal: Reports as per HPI and Denies abdominal pain Integumentary/Breasts: Skin/Breast: Denies rash PMFSH Past Medical History Medical History Fatty liver Nicotine dependence, cigarettes, uncomplicated HTN (hypertension) Seizures Asthma Diabetes Surgical History Surgical History History of colonoscopy Social History Social History Household Members: Family Housing: House Do you presently have visiting nurse or other home services: No Alcohol intake: current Alcohol intake frequency: 3 or more drinks per day Alcohol type: hard liquor Comment: 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 Patient Tobacco Use Status: Former Tobacco user Tobacco use type: Cigarette Cigarette Packs Per Day: 0.25 Cigarettes Per Day: 5.0 Years Smoked: 15 e-Cigarette/Vaping Use: Never Used Second Hand Smoke Exposure: No Substance Use Type: Marijuana service: No Current occupational status: employed Current occupation: [employer] Current occupational exposures/hazards: No Cognitive needs: No Hearing needs: No Vision needs: No Meds Allergies Allergy/AdvReac Type Severity Reaction Status Date / Time Penicillins Allergy Hives Verified 09/14/23 09:32 Active Medications: Current Medications Acetaminophen (Acetaminophen 325 Mg Tablet) 650 mg PO Q6H PRN PRN Reason: Pain, Mild (Pain Scale 1-3), fever or headache Atorvastatin Calcium (Atorvastatin Calcium 20 Mg Tablet) 20 mg PO BEDTIME [facility] Last Admin: 09/19/23 22:15 Dose: 20 mg Calcium Carbonate (Calcium Carbonate 750 Mg Tab.Chew) 750 mg PO Q4H PRN PRN Reason: Heartburn Last Admin: 09/16/23 09:41 Dose: 750 mg Docusate Sodium (Docusate Sodium 100 Mg Capsule) 100 mg PO BEDTIME [facility] Last Admin: 09/19/23 22:15 Dose: 100 mg Famotidine (Famotidine 20 Mg Tablet) 20 mg PO Q2D@2100 [facility] Last Admin: 09/18/23 21:24 Dose: 20 mg Fluticasone/Vilanterol (Fluticasone/Vilanterol 100/25 Blst.W.Dev) 1 puff INHALE RDAILY [facility] Last Admin: 09/20/23 08:12 Dose: 1 puff Glucose (Glucose Gel 15 Gm Gel..Gram.) 15 gm PO Q15M PRN; Protocol PRN Reason: per Hypoglycemia Standing Ord. Hydrocortisone (Hydrocortisone 2.5 % Rectal Cr 30 Gm Tube) 1 appl AL BEDTIME [facility] Last Admin: 09/19/23 22:17 Dose: Not Given Hydrocortisone (Hydrocortisone 2.5 % Rectal Cr 30 Gm Tube) 1 appl AL BID PRN PRN Reason: Hemorrhoids Dextrose (D10) 250 mls @ 750 mls/hr IV Q15M PRN; Protocol PRN Reason: per Hypoglycemia Standing Ord. Insulin Human Lispro (Insulin Lispro 100 Unit/Ml 3 Ml Vial) 0 unit SUBCUT QIDACHS [facility]; Protocol Last Admin: 09/20/23 08:09 Dose: Not Given Levetiracetam (Levetiracetam 500 Mg Tablet) 500 mg PO BID [facility] Last Admin: 09/20/23 08:07 Dose: 500 mg Magnesium Hydroxide (Milk Of Magnesia 30 Ml Oral.Susp) 30 ml PO DAILY PRN PRN Reason: Constipation Magnesium Oxide (Magnesium Oxide 400 Mg Tablet) 400 mg PO BID [facility] Last Admin: 09/20/23 08:00 Dose: 400 mg Midodrine (Midodrine Hcl 5 Mg Tablet) 5 mg PO TID [facility] Last Admin: 09/20/23 08:00 Dose: 5 mg Omeprazole (Omeprazole 20 Mg Capsule.Dr) 20 mg PO BID@0630,1630 [facility] Last Admin: 09/20/23 05:14 Dose: 20 mg Pharmacy Consult (Consult Rx Etoh Phenob Im/Po) 1 each MISCELLANE ONCE PRN; Protocol PRN Reason: Consult order Prazosin HCl (Prazosin Hcl 1 Mg Capsule) 1 mg PO BEDTIME [facility]; Protocol Last Admin: 09/19/23 22:16 Dose: 1 mg Prednisolone Sodium Phosphate (Prednisolone Sodium Phosphate 15 Mg/5 Ml Solution) 40 mg PO DAILY [facility] Last Admin: 09/20/23 08:07 Dose: 40 mg Sodium Chloride (0.9 % Sodium Chloride Flush 3 Ml Syringe) [facility] Last Admin: 09/20/23 08:00 Dose: 3 ml Home Medications ?Medication ?Instructions ?Recorded ?Confirmed ?Last Taken ?Type fluticasone 250 mcg-salmeterol 50 1 inh inhalation BID 03/14/22 09/14/23 09/13/23 History mcg/dose blistr powdr for inhalation (Advair Diskus) irbesartan 300 mg tablet 300 mg PO DAILY 09/14/23 09/14/23 09/13/23 History magnesium oxide 400 mg PO BID 09/14/23 09/14/23 09/13/23 History tamsulosin 0.4 mg capsule 0.4 mg PO BEDTIME 09/14/23 09/14/23 09/13/23 19:00 History Physical Exam Vital Signs: Vital Signs: Last Vital Signs Temp 97.3 F 09/20/23 07:44 Pulse 84 09/20/23 08:13 Resp 18 09/20/23 08:13 BP 102/77 09/20/23 07:44 Pulse Ox 98 09/20/23 07:44 O2 Del Method Room Air 09/20/23 07:44 O2 Flow Rate 2 09/15/23 11:51 BMI result Body Mass Index 24.1 Const: General: comfortable, no acute distress and alert Eyes: Sclerae: scleral abnormal (icteric) Resp: Effort & Inspection: normal respiratory effort GI: Rectal Exam - Male: Yes hemorrhoids (small external hemorrhoid, nonbleeding, non thrombosed) and No tenderness Skin: General skin exam: jaundice Neuro: General: moves all extremities Results Labs 09/20/23 07:36 09/20/23 07:36 Labs: Abnormal lab results 09/19/23 09/19/23 09/19/23 Range/Units 11:11 11:19 16:04 WBC (4.8-10.8) X10*3/uL RBC 2.84 L (4.60-5.80) X10*6/uL Hgb 9.5 L (14.0-18.0) g/dl Hct 26.9 L (42.0-52.0) % MCH 33.5 H (27.0-33.0) pg RDW 24.3 H (11.0-16.0) % Plt Count 78 L (160-400) X10*3/uL PT 23.5 H (11.1-13.3) SEC INR 1.9 H (0.9-1.1) BUN (9-16) mg/dL Creatinine (0.5-1.4) mg/dL POC Glucose 170 H 203 H (60-115) mg/dL Total Bilirubin (0.0-1.0) mg/dL Direct Bilirubin (0.0-0.5) mg/dL AST (5-37) U/L ALT (0-40) U/L Alkaline Phosphatase (39-117) U/L 09/19/23 09/20/23 Range/Units 20:52 07:36 WBC 11.6 H (4.8-10.8) X10*3/uL RBC 2.83 L (4.60-5.80) X10*6/uL Hgb 9.6 L (14.0-18.0) g/dl Hct 26.9 L (42.0-52.0) % MCH 33.9 H (27.0-33.0) pg RDW 24.0 H (11.0-16.0) % Plt Count 73 L (160-400) X10*3/uL PT (11.1-13.3) SEC INR (0.9-1.1) BUN 44 H (9-16) mg/dL Creatinine 1.69 H (0.5-1.4) mg/dL POC Glucose 183 H (60-115) mg/dL Total Bilirubin 13.2 H (0.0-1.0) mg/dL Direct Bilirubin 9.3 H (0.0-0.5) mg/dL AST 165 H (5-37) U/L ALT 48 H (0-40) U/L Alkaline Phosphatase 121 H (39-117) U/L Short CBC 09/19/23 09/20/23 Range/Units 11:11 07:36 WBC 10.2 11.6 H (4.8-10.8) X10*3/uL Hgb 9.5 L 9.6 L (14.0-18.0) g/dl Hct 26.9 L 26.9 L (42.0-52.0) % Plt Count 78 L 73 L (160-400) X10*3/uL BMP 09/20/23 07:36 Sodium 143 Potassium 3.4 Chloride 108 Carbon Dioxide 24 BUN 44 H Creatinine 1.69 H Calcium 9.1 Liver Function 09/20/23 Range/Units 07:36 Total Bilirubin 13.2 H (0.0-1.0) mg/dL Direct Bilirubin 9.3 H (0.0-0.5) mg/dL AST 165 H (5-37) U/L ALT 48 H (0-40) U/L Alkaline Phosphatase 121 H (39-117) U/L Albumin 3.9 (3.5-5.0) g/dL Urine 09/15/23 Range/Units Unknown Urine Color Dark Yellow Urine Appearance Cloudy Urine pH 5.5 (5.0-9.0) Ur Specific [place] 1.020 (1.005-1.025) Urine Protein 30 (1+) H (Neg-Trace) mg/dL Urine Glucose (UA) Negative (Negative) mg/dL All other labs normal. Assessment and Plan (1) Bleeding hemorrhoids: Status: Acute Plan 58 year old male with multiple acute medical comorbidities found to have BRBPR. He has a small non bleeding, non thrombosed hemorrhoid on exam today. His H/H is stable. Currently no surgical intervention necessary. Recommend supportive measures with stool softeners, high fiber diet, sitz baths TID, prep H. If continues or worsens, can discuss hemorrhoidectomy but would hope to avoid this while acutely ill. Procedures Date of Service Date of Service: 09/20/23
[2023-09-20 11:23] LABS: Glucose, Whole Blood 157 mg/dL (60-115)
[2023-09-20] MEDS: Insulin Lispro 100 UNIT/ML 3 ML VIAL SUBCUT ×2 (11:46→16:25)
--- NOTE | 2023-09-20 13:14 | P.PNNP_ITS ---
Subjective Subjective Date of Service: 09/20/23 Interval history: Events noted. All recent data reviewed. Physical Exam 2 Vital Signs: Vital Signs: Last Vital Signs Temp 97.1 F 09/20/23 11:45 Pulse 69 09/20/23 11:45 Resp 18 09/20/23 11:45 BP 118/60 09/20/23 11:45 Pulse Ox 97 09/20/23 11:45 O2 Del Method Room Air 09/20/23 11:45 O2 Flow Rate 2 09/15/23 11:51 BMI result Body Mass Index 24.1 Const: General: no acute distress Eyes: EOM: EOMs intact bilaterally Neck: Neck: Yes supple Resp: Auscultation: diminished lung sounds Cardio: Rate: regular rate GI: Palpation (GI): Soft to palpation Neuro: General: moves all extremities Objective Data Labs 09/20/23 07:36 09/20/23 07:36 Labs: Laboratory Results - last 24 hr 09/15/23 09/19/23 09/19/23 06:34 16:04 20:52 WBC RBC Hgb Hct MCV MCH MCHC RDW Plt Count MPV Absolute Nucleated RBC Nucleated RBC % (auto) Sodium Potassium Chloride Carbon Dioxide Anion Gap BUN Creatinine Estim Creat Clear Calc Estimated GFR POC Glucose 203 H 183 H Random Glucose Calcium Total Bilirubin Direct Bilirubin AST ALT Alkaline Phosphatase Total Protein Albumin Anti-Mitochondrial Ab NEGATIVE 09/20/23 09/20/23 09/20/23 07:36 07:37 11:20 WBC 11.6 H RBC 2.83 L Hgb 9.6 L Hct 26.9 L MCV 95.1 MCH 33.9 H MCHC 35.7 RDW 24.0 H Plt Count 73 L MPV 12.2 Absolute Nucleated RBC 0.000 Nucleated RBC % (auto) 0.0 Sodium 143 Potassium 3.4 Chloride 108 Carbon Dioxide 24 Anion Gap 14 BUN 44 H Creatinine 1.69 H Estim Creat Clear Calc 50.7 Estimated GFR 42 POC Glucose 99 157 H Random Glucose 111 Calcium 9.1 Total Bilirubin 13.2 H Direct Bilirubin 9.3 H AST 165 H ALT 48 H Alkaline Phosphatase 121 H Total Protein 7.0 Albumin 3.9 Anti-Mitochondrial Ab Microbiology Microbiology Results: Microbiology 09/14/23 10:00 Blood - Venous Blood Culture - Final No growth after 5 days. 09/14/23 10:00 Blood - Venous Blood Culture - Final No growth after 5 days. 09/14/23 13:36 Peritoneal Fluid Gram Stain - Final 09/14/23 13:36 Peritoneal Fluid Routine Culture - Final No growth after 2 days 09/14/23 13:36 Peritoneal Fluid Anaerobic Culture - Final NO GROWTH AFTER 5 DAYS 09/15/23 Unknown Urine clean catch - Urine hannah top Urine Culture - Final No growth. Procedures Date of Service Date of Service: 09/20/23 Assessment & Plan Assessment and plan (1) STEFANO (acute kidney injury): Status: Acute Plan STEFANO due to tubular injury No evidence of GN/IN Renal function improved and stable. Remains nonoliguric Hold ARB as well as diuretics for now No indication for renal replacement Continue current supportive care.Labs AM Progress Note: Quality Stroke Does the patient have a stroke diagnosis?: No
--- NOTE | 2023-09-20 13:14 | MHC.CM.PN ---
EMR reviewed and per MD rounds, pt is not medically cleared for discharge due to management of active GI bleed.
[2023-09-20 16:17] LABS: Glucose, Whole Blood 273 mg/dL (60-115)
[2023-09-20] MEDS: PEG 3350/Na Sulf,Bicarb,Cl/KCL 4,000 ML SOLN.RECON 4000 ML PO (16:26)
[2023-09-20 20:35] LABS: Glucose, Whole Blood 199 mg/dL (60-115)
[2023-09-20] MEDS: Prazosin HCL 1 MG CAPSULE PO (22:28)
[2023-09-20] MEDS: Atorvastatin Calcium 20 MG TABLET PO (22:30)
[2023-09-20] MEDS: Famotidine 20 MG TABLET PO (22:30)
[2023-09-20] MEDS: Docusate Sodium 100 MG CAPSULE PO (22:31)
[2023-09-20 23:13] LABS: Smooth Muscle Antibody <20 U (<20)
[2023-09-21] VITALS (13 sets, daily range): BP systolic 100–122; BP diastolic 58–80; PULSE 62–97; RESP 12–20; TEMP 35.8–37.3; O2SAT 96–100
[2023-09-21 07:32] LABS: Alanine Aminotransferase 61 U/L (0-40); Albumin Level 3.7 g/dL (3.5-5.0); Alkaline Phosphatase 123 U/L (39-117); Anion Gap 17 (12-20); Aspartate Amino Transferase 178 U/L (5-37); Bilirubin Direct 9.6 mg/dL (0.0-0.5); Bilirubin Total 13.6 mg/dL (0.0-1.0); Blood Urea Nitrogen 46 mg/dL (9-16); Carbon Dioxide 23 mmol/L (22-29); Chloride 105 mmol/L (96-108); Creatinine Clr Calc Pharmacy 56.4; Estimated Glomerular Filt Rate 47; Glucose Random 103 mg/dL (60-115); Potassium 3.3 mmol/L (3.3-5.1); Sodium 142 mmol/L (135-145); Total Protein 6.9 g/dL (6.5-8.0)
[2023-09-21] MEDS: Fluticasone/Vilanterol 100/25 BLST.W.DEV 1 PUFF INHALE (07:56)
[2023-09-21] MEDS: levETIRAcetam 500 MG TABLET PO ×2 (08:15→21:23)
[2023-09-21] MEDS: prednisoLONE sodium phosphate 15 MG/5 ML SOLUTION 40 MG PO (08:15)
[2023-09-21] MEDS: Midodrine HCl 5 MG TABLET PO ×3 (08:15→21:23)
[2023-09-21] MEDS: Magnesium Oxide 400 MG TABLET PO ×2 (08:15→21:23)
[2023-09-21] MEDS: 0.9 % Sodium Chloride Flush 3 ML SYRINGE IVFLUSH ×2 (08:21→15:42)
[2023-09-21 08:56] LABS: Glucose, Whole Blood 93 mg/dL (60-115)
[2023-09-21 11:18] LABS: Glucose, Whole Blood 100 mg/dL (60-115)
--- NOTE | 2023-09-21 11:30 | P.PNIM_ITS ---
Subjective Subjective Date of Service: 09/21/23 Interval History: f/u hepatorenal syndrome, acute alcoholic hepatitis, gib/anemia Had a small amount of blood today Physical Exam 2 Vital Signs: Vital Signs: Last Vital Signs Temp 98.0 F 09/21/23 08:00 Pulse 72 09/21/23 08:00 Resp 20 09/21/23 08:00 BP 100/58 L 09/21/23 08:00 Pulse Ox 98 09/21/23 08:00 O2 Del Method Room Air 09/21/23 08:00 O2 Flow Rate 2 09/15/23 11:51 BMI result Body Mass Index 24.1 Awake. Comfortable. Neck is supple. Mucosa moist. Lungs bilateral scattered rhonchi. Heart S1-S2 heard no gallop. Abdomen soft. Distended Extremities no edema. No involuntary movements. No myoclonus. Const: Other: Constitutional : Awake, interactive, jaundiced, not in distress sclera icteris Neck : Normal inspection, Supple Cardiovascular : RRR, no JVP, no lower extremity edema Respiratory : good bilateral air entry, no crackles, wheezes or rhonchi Gastrointestinal: soft, lax, Normal bowel sounds, distended with mild amount of ascites, non tender Skin : Warm, Dry Neurological : Alert & oriented to self and place, No focal deficit Objective Data Active Medications Acetaminophen (Acetaminophen 325 Mg Tablet) 650 mg PO Q6H PRN PRN Reason: Pain, Mild (Pain Scale 1-3), fever or headache Atorvastatin Calcium (Atorvastatin Calcium 20 Mg Tablet) 20 mg PO BEDTIME [facility] Last Admin: 09/20/23 22:30 Dose: 20 mg Documented By: GRICELDA Bisacodyl (Bisacodyl 5 Mg Tablet.Dr) 10 mg PO ONCE ONE Stop: 09/21/23 13:01 Calcium Carbonate (Calcium Carbonate 750 Mg Tab.Chew) 750 mg PO Q4H PRN PRN Reason: Heartburn Last Admin: 09/16/23 09:41 Dose: 750 mg Documented By: ZEB Docusate Sodium (Docusate Sodium 100 Mg Capsule) 100 mg PO BEDTIME [facility] Last Admin: 09/20/23 22:31 Dose: 100 mg Documented By: GRICELDA Famotidine (Famotidine 20 Mg Tablet) 20 mg PO Q2D@2100 [facility] Last Admin: 09/20/23 22:30 Dose: 20 mg Documented By: GRICELDA Fluticasone/Vilanterol (Fluticasone/Vilanterol 100/25 Blst.W.Dev) 1 puff INHALE RDAILY [facility] Last Admin: 09/21/23 07:56 Dose: 1 puff Documented By: MAG Glucose (Glucose Gel 15 Gm Gel..Gram.) 15 gm PO Q15M PRN; Protocol PRN Reason: per Hypoglycemia Standing Ord. Hydrocortisone (Hydrocortisone 2.5 % Rectal Cr 30 Gm Tube) 1 appl MA BEDTIME [facility] Last Admin: 09/20/23 23:42 Dose: Not Given Documented By: GRICELDA Non-Admin Reason: Patient Refused Hydrocortisone (Hydrocortisone 2.5 % Rectal Cr 30 Gm Tube) 1 appl MA BID PRN PRN Reason: Hemorrhoids Dextrose (D10) 250 mls @ 750 mls/hr IV Q15M PRN; Protocol PRN Reason: per Hypoglycemia Standing Ord. Insulin Human Lispro (Insulin Lispro 100 Unit/Ml 3 Ml Vial) 0 unit SUBCUT QIDACHS [facility]; Protocol Last Admin: 09/21/23 11:19 Dose: Not Given Documented By: MARYANNE Non-Admin Reason: No Insulin Coverage Levetiracetam (Levetiracetam 500 Mg Tablet) 500 mg PO BID [facility] Last Admin: 09/21/23 08:15 Dose: 500 mg Documented By: AUGUSTO Magnesium Hydroxide (Milk Of Magnesia 30 Ml Oral.Susp) 30 ml PO DAILY PRN PRN Reason: Constipation Magnesium Oxide (Magnesium Oxide 400 Mg Tablet) 400 mg PO BID [facility] Last Admin: 09/21/23 08:15 Dose: 400 mg Documented By: AUGUSTO Midodrine (Midodrine Hcl 5 Mg Tablet) 5 mg PO TID [facility] Last Admin: 09/21/23 08:15 Dose: 5 mg Documented By: AUGUSTO Omeprazole (Omeprazole 20 Mg Capsule.) 20 mg PO BID@0630,1630 [facility] Last Admin: 09/21/23 06:15 Dose: Not Given Documented By: GRICELDA Non-Admin Reason: NPO Pharmacy Consult (Consult Rx Etoh Phenob Im/Po) 1 each MISCELLANE ONCE PRN; Protocol PRN Reason: Consult order Prazosin HCl (Prazosin Hcl 1 Mg Capsule) 1 mg PO BEDTIME [facility]; Protocol Last Admin: 09/20/23 22:28 Dose: 1 mg Documented By: GRICELDA Prednisolone Sodium Phosphate (Prednisolone Sodium Phosphate 15 Mg/5 Ml Solution) 40 mg PO DAILY [facility] Last Admin: 09/21/23 08:15 Dose: 40 mg Documented By: AUGUSTO Sodium Chloride (0.9 % Sodium Chloride Flush 3 Ml Syringe) 3 ml IVFLUSH QSHIFT [facility] Last Admin: 09/21/23 08:21 Dose: 3 ml Documented By: AUGUSTO Labs 09/20/23 07:36 09/21/23 06:38 Labs: Laboratory Results - last 24 hr 09/15/23 09/20/23 09/20/23 06:34 16:14 20:27 Anion Gap Estim Creat Clear Calc Estimated GFR POC Glucose 273 H 199 H Random Glucose Calcium Total Bilirubin Direct Bilirubin AST ALT Alkaline Phosphatase Total Protein Albumin Mitochondrial AB Titer TNP Anti-Smooth Muscle Ab <20 09/21/23 09/21/23 09/21/23 06:38 07:11 11:15 Anion Gap 17 Estim Creat Clear Calc 56.4 Estimated GFR 47 POC Glucose 93 100 Random Glucose 103 Calcium 9.0 Total Bilirubin 13.6 H Direct Bilirubin 9.6 H AST 178 H ALT 61 H Alkaline Phosphatase 123 H Total Protein 6.9 Albumin 3.7 Mitochondrial AB Titer Anti-Smooth Muscle Ab Assessment and Plan (1) Acute hypokalemia: Status: Acute (2) Acute on chronic anemia: Status: Acute (3) Hepatorenal syndrome: Status: Acute (4) Alcoholic hepatitis: Status: Acute Plan Pt is a 58-year-old male with a PMH significant for?HTN, zvv-bgoqiqt-ucdrwtqqw type 2 diabetes, seizure disorder, HLD, and alcohol use disorder with history of withdrawal who [facility] for evaluation low blood pressure with SBP in the 80s. Admitted for management of f acute alcoholic hepatitis and acute hepatorenal syndrome. Acute alcoholic hepatitis--Tbili remains high at 12 to 13 -continue Prednisone and follow LFTs POrtal vein thromboisis (PVT) --No anticoagulation d/t anemia, Upper and lowe gib Acute on chronic anemia s/p 2 units of RBC (1 each on 09/15 and 09/16) - EGD 09/14 showed varices but no active bleed, no intervention. Continue omeprazol, H/H remains stable at 12/20 -new lower gib as of 09/18 with no change in H/H description appear to be hemorrhoid, dorothy recommend conservative management -For colonscopy today Acute hepatorenal syndrome, Albumin, Modorine, Cr better at 1.55--probably new baseline Acute Hypokalemia, resolved. HypERammonemia, resolved, no confujsion continue lactulose Acute Lactic Acidosis, not due to sepsis, d/t alcoholic hepatitis, resolved Hyponatremia, mild, resolved Elevated INR INR 2 1 unit FFP received prior to EGD Hypomagnesemia resolved Alcohol use disorder Continue phenobarb protocol Daily multivitamin, folic acid, thiamine, famotidine CIWA Seizure protocols Addiction medicine consult Seizure disorder Continue Keppra Thc-yotcgky-lcgveetbl type 2 diabetes Hold metformin Sliding-scale insulin, diabetic diet HLD Continue statin HTN Hold antihypertensives for now DVT Prophylaxis: Pneumatic boots Pt will require a hospitalization of overnight for treatment of?acute alcoholic hepatitis and acute hepatorenal syndrome and active gi bleeding Quality Stroke Does the patient have a stroke diagnosis?: No VTE Prior VTE?: No VTE Risk Level:: Medical - moderate - high VTE Device Contraindication: N/A - Device Ordered VTE Drug Contraindication: Treatment Not Indicated
[2023-09-21 11:52] LABS: Magnesium 1.6 mg/dL (1.6-2.6)
--- NOTE | 2023-09-21 13:00 | PC.NURSE ---
two 20g ivs flushed with no problems. no redness noted.
--- NOTE | 2023-09-21 13:19 | MHC.SHP ---
Pre-Procedural Eval Section A - 24 Hr Update-Section A only Date of Service: 09/21/23 The patient is an INPATIENT: Yes The patient has been examined within 24 hours of the surgical procedure. The History & Physical has been completed within 30 days and I have reviewed it.: Yes Section B - Complete if H&P > 30 days Chief Complaint: rectal bleeding Allergies: Allergies Allergy/AdvReac Type Severity Reaction Status Date / Time Penicillins Allergy Hives Verified 09/14/23 09:32 Plan I have reviewed the history and physical and performed a pertinent physical examination on my patient. No changes have occurred unless specified. Time Spent With Patient Time: Total time managing care of this patient today ____ minutes.
--- NOTE | 2023-09-21 13:22 | P.PNNP_ITS ---
Subjective Subjective Date of Service: 09/21/23 Interval history: Events noted. Creatinine is trending down No labs today Physical Exam 2 Vital Signs: Vital Signs: Last Vital Signs Temp 99.2 F 09/21/23 12:56 Pulse 65 09/21/23 12:56 Resp 16 09/21/23 12:56 BP 105/69 09/21/23 12:56 Pulse Ox 96 09/21/23 12:56 O2 Del Method Room Air 09/21/23 12:56 O2 Flow Rate 2 09/15/23 11:51 BMI result Body Mass Index 24.1 Const: General: no acute distress Eyes: EOM: EOMs intact bilaterally Neck: Neck: Yes supple Resp: Auscultation: diminished lung sounds Cardio: Rate: regular rate GI: Palpation (GI): Soft to palpation Neuro: General: moves all extremities Objective Data Labs 09/22/23 10:15 09/22/23 10:15 Labs: Laboratory Results - last 24 hr 09/15/23 09/20/23 09/20/23 06:34 16:14 20:27 Sodium Potassium Chloride Carbon Dioxide Anion Gap BUN Creatinine Estim Creat Clear Calc Estimated GFR POC Glucose 273 H 199 H Random Glucose Calcium Magnesium Total Bilirubin Direct Bilirubin AST ALT Alkaline Phosphatase Total Protein Albumin Mitochondrial AB Titer TNP Anti-Smooth Muscle Ab <20 09/21/23 09/21/23 09/21/23 06:38 07:11 11:15 Sodium 142 Potassium 3.3 Chloride 105 Carbon Dioxide 23 Anion Gap 17 BUN 46 H Creatinine 1.52 H Estim Creat Clear Calc 56.4 Estimated GFR 47 POC Glucose 93 100 Random Glucose 103 Calcium 9.0 Magnesium 1.6 Total Bilirubin 13.6 H Direct Bilirubin 9.6 H AST 178 H ALT 61 H Alkaline Phosphatase 123 H Total Protein 6.9 Albumin 3.7 Mitochondrial AB Titer Anti-Smooth Muscle Ab Microbiology Microbiology Results: Microbiology 09/14/23 10:00 Blood - Venous Blood Culture - Final No growth after 5 days. 09/14/23 10:00 Blood - Venous Blood Culture - Final No growth after 5 days. 09/14/23 13:36 Peritoneal Fluid Gram Stain - Final 09/14/23 13:36 Peritoneal Fluid Routine Culture - Final No growth after 2 days 09/14/23 13:36 Peritoneal Fluid Anaerobic Culture - Final NO GROWTH AFTER 5 DAYS 09/15/23 Unknown Urine clean catch - Urine hannah top Urine Culture - Final No growth. Procedures Date of Service Date of Service: 09/25/23 Assessment & Plan Assessment and plan (1) STEFANO (acute kidney injury): Status: Acute Plan STEFANO Most likely due to hypoperfusion With superimposed ischemia tubular injury No evidence of GN/IN Hyponatremia Lactic acidosis Anemia Hypomagnesemia Renal function is improving. Creatinine is down to 1.5 . Remains nonoliguric Suggest Hold Irbesartan and avoid hypotension No diuretics for now Midodrine to avoid hypotension Watch urine output Agree with IV albumin Abdominal paracenthesis - Cautious volume remove to avoid hypotension; Prefer frequent small volume paracenthesis to avoid hypotension Restrict hypotonic fluids( free water) Watch hematocrit Concur with current managed Time Spent With Patient Time: Total time managing care of this patient today ____ minutes. Progress Note: Quality Stroke Does the patient have a stroke diagnosis?: No
--- NOTE | 2023-09-21 13:43 | P.CONAN_ITS ---
HPI - Anesthesia Eval Consult details Narrative: 58yo male patient for Colonoscopy PMFSH Active Problems Active Problems: All Active Problems (Updated 09/21/23 @ 13:45 by Marcela Echavarria MD) Bleeding hemorrhoids (Acute) Acute hypokalemia (Acute) Acute on chronic anemia (Acute). S/p transfusion 2units PRBC on 09/16/23 Hepatorenal syndrome (Acute) Alcoholic hepatitis (Acute) Elevated bilirubin (Acute) Cirrhosis (Acute) Abdominal ascites (Acute) Elevated WBC count (Acute) STEFANO (acute kidney injury) (Acute) Alcohol use disorder, severe, dependence (Acute) Insomnia (Acute) Hyponatremia (Acute) Dehydration (Acute) Alcohol withdrawal (Acute) Alcohol abuse (Acute) BPH loc w urin obs/LUTS (Acute) Hematuria (Acute) Abscess, seminal vesicle (Acute) Elevated serum creatinine (Acute) Physical exam (Acute) Microscopic hematuria (Acute) HTN (hypertension) (Acute) Elevated liver enzymes (Acute) Bilateral lower extremity edema (Acute) Nicotine dependence, cigarettes, uncomplicated (Acute) S/p EGD 09/15/23- Patient does not remember having procedure Past Medical History Medical History Fatty liver Nicotine dependence, cigarettes, uncomplicated HTN (hypertension) Seizures Asthma Diabetes Family History Family history of problems with anesthesia: No Surgical History Surgical History History of colonoscopy History of Problems with Anesthesia: No Social History Social History Household Members: Family Housing: House Do you presently have visiting nurse or other home services: No Alcohol intake: current Alcohol intake frequency: 3 or more drinks per day Alcohol type: hard liquor Comment: 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 Patient Tobacco Use Status: Former Tobacco user Tobacco use type: Cigarette Cigarette Packs Per Day: 0.25 Cigarettes Per Day: 5.0 Years Smoked: 15 e-Cigarette/Vaping Use: Never Used Second Hand Smoke Exposure: No Substance Use Type: Marijuana service: No Current occupational status: employed Current occupation: [employer] Current occupational exposures/hazards: No Cognitive needs: No Hearing needs: No Vision needs: No Meds Allergies Allergy/AdvReac Type Severity Reaction Status Date / Time Penicillins Allergy Hives Verified 09/14/23 09:32 Active Medications: Current Medications Acetaminophen (Acetaminophen 325 Mg Tablet) 650 mg PO Q6H PRN PRN Reason: Pain, Mild (Pain Scale 1-3), fever or headache Atorvastatin Calcium (Atorvastatin Calcium 20 Mg Tablet) 20 mg PO BEDTIME [facility] Last Admin: 09/20/23 22:30 Dose: 20 mg Calcium Carbonate (Calcium Carbonate 750 Mg Tab.Chew) 750 mg PO Q4H PRN PRN Reason: Heartburn Last Admin: 09/16/23 09:41 Dose: 750 mg Docusate Sodium (Docusate Sodium 100 Mg Capsule) 100 mg PO BEDTIME [facility] Last Admin: 09/20/23 22:31 Dose: 100 mg Famotidine (Famotidine 20 Mg Tablet) 20 mg PO Q2D@2100 [facility] Last Admin: 09/20/23 22:30 Dose: 20 mg Fluticasone/Vilanterol (Fluticasone/Vilanterol 100/25 Blst.W.Dev) 1 puff INHALE RDAILY [facility] Last Admin: 09/21/23 07:56 Dose: 1 puff Glucose (Glucose Gel 15 Gm Gel..Gram.) 15 gm PO Q15M PRN; Protocol PRN Reason: per Hypoglycemia Standing Ord. Hydrocortisone (Hydrocortisone 2.5 % Rectal Cr 30 Gm Tube) 1 appl ND BEDTIME [facility] Last Admin: 09/20/23 23:42 Dose: Not Given Hydrocortisone (Hydrocortisone 2.5 % Rectal Cr 30 Gm Tube) 1 appl ND BID PRN PRN Reason: Hemorrhoids Dextrose (D10) 250 mls @ 750 mls/hr IV Q15M PRN; Protocol PRN Reason: per Hypoglycemia Standing Ord. Insulin Human Lispro (Insulin Lispro 100 Unit/Ml 3 Ml Vial) 0 unit SUBCUT QIDACHS [facility]; Protocol Last Admin: 09/21/23 11:19 Dose: Not Given Levetiracetam (Levetiracetam 500 Mg Tablet) 500 mg PO BID [facility] Last Admin: 09/21/23 08:15 Dose: 500 mg Magnesium Hydroxide (Milk Of Magnesia 30 Ml Oral.Susp) 30 ml PO DAILY PRN PRN Reason: Constipation Magnesium Oxide (Magnesium Oxide 400 Mg Tablet) 400 mg PO BID [facility] Last Admin: 09/21/23 08:15 Dose: 400 mg Midodrine (Midodrine Hcl 5 Mg Tablet) 5 mg PO TID [facility] Last Admin: 09/21/23 08:15 Dose: 5 mg Omeprazole (Omeprazole 20 Mg Capsule.) 20 mg PO BID@0630,1630 [facility] Last Admin: 09/21/23 06:15 Dose: Not Given Pharmacy Consult (Consult Rx Etoh Phenob Im/Po) 1 each MISCELLANE ONCE PRN; Protocol PRN Reason: Consult order Prazosin HCl (Prazosin Hcl 1 Mg Capsule) 1 mg PO BEDTIME [facility]; Protocol Last Admin: 09/20/23 22:28 Dose: 1 mg Prednisolone Sodium Phosphate (Prednisolone Sodium Phosphate 15 Mg/5 Ml Solution) 40 mg PO DAILY [facility] Last Admin: 09/21/23 08:15 Dose: 40 mg Sodium Chloride (0.9 % Sodium Chloride Flush 3 Ml Syringe) 3 ml IVFLUSH QSHIFT [facility] Last Admin: 09/21/23 08:21 Dose: 3 ml Home Medications ?Medication ?Instructions ?Recorded ?Confirmed ?Last Taken ?Type fluticasone 250 mcg-salmeterol 50 1 inh inhalation BID 03/14/22 09/14/23 09/13/23 History mcg/dose blistr powdr for inhalation (Advair Diskus) irbesartan 300 mg tablet 300 mg PO DAILY 09/14/23 09/14/23 09/13/23 History magnesium oxide 400 mg PO BID 09/14/23 09/14/23 09/13/23 History tamsulosin 0.4 mg capsule 0.4 mg PO BEDTIME 09/14/23 09/14/23 09/13/23 19:00 History Exam Height,Weight and Vital Signs: Height 5 ft 11 in Weight 78.5 kg Last Vital Signs Temp 99.2 F 09/21/23 12:56 Pulse 65 09/21/23 12:56 Resp 16 09/21/23 12:56 BP 105/69 09/21/23 12:56 Pulse Ox 96 09/21/23 12:56 O2 Del Method Room Air 09/21/23 12:56 O2 Flow Rate 2 09/15/23 11:51 Pertinent Lab Results Pertinent Lab Results: Laboratory Tests 09/14/23 09/14/23 09/14/23 10:00 10:01 10:36 WBC 13.6 H RBC 2.67 L Hgb 9.3 L Hct 26.4 L MCV 98.9 H MCH 34.8 H MCHC 35.2 RDW 20.8 H Plt Count 187 D MPV 11.3 Immature Gran % (Auto) 0.7 H Neut % (Auto) 89.9 H Lymph % (Auto) 4.6 L [place] % (Auto) 4.4 Eos % (Auto) 0.1 Baso % (Auto) 0.3 Lymph # (Auto) 0.6 L [place] # (Auto) 0.6 Eos # (Auto) 0.0 Baso # (Auto) 0.0 Abs Immat Gran (auto) 0.10 H Absolute Neuts (auto) 12.2 H Absolute Nucleated RBC 0.060 H Nucleated RBC % (auto) 0.4 H Smear Path Review Hold Purple Top SEE NOTE PT 26.7 H INR 2.2 H APTT 35.7 Sodium 132 L Potassium 4.7 D Chloride 97 Carbon Dioxide 18 L Anion Gap 22 H BUN 19 H Creatinine 2.31 H Estim Creat Clear Calc 37.1 Estimated GFR 29 POC Glucose Random Glucose 150 H Lactic Acid 4.2 H* Lactic Acid F/U @ 2Hr Calcium 8.4 Magnesium 1.5 L Iron TIBC % Saturation Unsat Iron Binding Ferritin Total Bilirubin 13.3 H Direct Bilirubin 9.6 H AST 127 H ALT 26 Alkaline Phosphatase 228 H Ammonia 59 H B-Natriuretic Peptide 82 Total Protein 9.0 H Albumin 2.1 L Lipase 16 Mitochondrial AB Titer Urine Color Urine Appearance Urine pH Ur Specific [place] Urine Protein Urine Glucose (UA) Urine Ketones Urine Blood Urine Nitrite Ur Leukocyte Esterase Urine RBC Urine WBC Ur Squamous Epith Cells Urine Bacteria Hyaline Casts Granular Casts Peritoneal pH Peritoneal WBC Peritoneal RBC Periton Neutrophils Periton Lymphocytes Peritoneal Monocytes Peritoneal Other Cells Peritoneal Tot Protein Peritoneal Albumin Peritoneal LDH Peritoneal Glucose Stool Occult Blood Urine Opiates Screen Ur Buprenorphine Scrn Ur Oxycodone Screen Urine Methadone Screen Urine Fentanyl Screen Ur Barbiturates Screen Ur Phencyclidine Scrn Ur Amphetamines Screen U Benzodiazepines Scrn Urine Cocaine Screen U Marijuana (THC) Screen Ethyl Alcohol < 10 CADENCE Screen CADENCE Titer CADENCE Titer 2 CADENCE Titer 3 CADENCE Pattern CADENCE Pattern 2 [place] Pattern 3 Anti-Mitochondrial Ab Anti-Smooth Muscle Ab Influenza Type A (PCR) NEGATIVE Influenza Type B (PCR) NEGATIVE RSV RNA Qual (PCR) NEGATIVE SARS-CoV-2 RNA (RT-PCR) NEGATIVE Blood Type O Positive Antibody Screen NEGATIVE Crossmatch See Detail 09/14/23 09/14/23 09/15/23 12:21 13:36 06:34 WBC 8.0 RBC 2.16 L Hgb 7.6 L Hct 21.6 L MCV 100.0 H MCH 35.2 H MCHC 35.2 RDW 20.7 H Plt Count 130 L D MPV 11.4 Immature Gran % (Auto) Neut % (Auto) Lymph % (Auto) [place] % (Auto) Eos % (Auto) Baso % (Auto) Lymph # (Auto) [place] # (Auto) Eos # (Auto) Baso # (Auto) Abs Immat Gran (auto) Absolute Neuts (auto) Absolute Nucleated RBC 0.020 H Nucleated RBC % (auto) 0.3 H Smear Path Review Hold Purple Top PT INR APTT Sodium 138 Potassium 3.3 D Chloride 101 Carbon Dioxide 24 Anion Gap 16 BUN 22 H Creatinine 2.44 H Estim Creat Clear Calc 35.1 Estimated GFR 27 POC Glucose Random Glucose 116 H Lactic Acid Lactic Acid F/U @ 2Hr 2.0 Calcium 9.2 D Magnesium 1.8 Iron 74 TIBC 99 L % Saturation 75 H Unsat Iron Binding < 25 Ferritin 2016 H Total Bilirubin 13.8 H Direct Bilirubin AST 91 H ALT 19 Alkaline Phosphatase 155 H Ammonia 33 B-Natriuretic Peptide Total Protein 7.8 Albumin 3.4 L Lipase Mitochondrial AB Titer TNP Urine Color Urine Appearance Urine pH Ur Specific [place] Urine Protein Urine Glucose (UA) Urine Ketones Urine Blood Urine Nitrite Ur Leukocyte Esterase Urine RBC Urine WBC Ur Squamous Epith Cells Urine Bacteria Hyaline Casts Granular Casts Peritoneal pH 7.56 Peritoneal WBC 0.103 Peritoneal RBC < 0.002 Periton Neutrophils 25 Periton Lymphocytes 4 Peritoneal Monocytes 9 Peritoneal Other Cells 62 Peritoneal Tot Protein 1.6 Peritoneal Albumin 0.6 Peritoneal LDH 90 Peritoneal Glucose 158 Stool Occult Blood Urine Opiates Screen Ur Buprenorphine Scrn Ur Oxycodone Screen Urine Methadone Screen Urine Fentanyl Screen Ur Barbiturates Screen Ur Phencyclidine Scrn Ur Amphetamines Screen U Benzodiazepines Scrn Urine Cocaine Screen U Marijuana (THC) Screen Ethyl Alcohol CADENCE Screen NEGATIVE CADENCE Titer TNP CADENCE Titer 2 TNP CADENCE Titer 3 TNP CADENCE Pattern TNP CADENCE Pattern 2 TNP CADENCE Pattern 3 TNP Anti-Mitochondrial Ab NEGATIVE Anti-Smooth Muscle Ab <20 Influenza Type A (PCR) Influenza Type B (PCR) RSV RNA Qual (PCR) SARS-CoV-2 RNA (RT-PCR) Blood Type Antibody Screen Crossmatch 09/15/23 09/15/23 09/15/23 14:40 16:15 20:04 WBC 7.0 RBC 2.16 L Hgb 7.5 L Hct 21.4 L MCV 99.1 H MCH 34.7 H MCHC 35.0 RDW 20.6 H Plt Count 116 L MPV 11.0 Immature Gran % (Auto) Neut % (Auto) Lymph % (Auto) [place] % (Auto) Eos % (Auto) Baso % (Auto) Lymph # (Auto) [place] # (Auto) Eos # (Auto) Baso # (Auto) Abs Immat Gran (auto) Absolute Neuts (auto) Absolute Nucleated RBC 0.030 H Nucleated RBC % (auto) 0.4 H Smear Path Review Hold Purple Top PT 23.8 H INR 2.0 H APTT Sodium Potassium Chloride Carbon Dioxide Anion Gap BUN Creatinine Estim Creat Clear Calc Estimated GFR POC Glucose 125 H Random Glucose Lactic Acid Lactic Acid F/U @ 2Hr Calcium Magnesium Iron TIBC % Saturation Unsat Iron Binding Ferritin Total Bilirubin Direct Bilirubin AST ALT Alkaline Phosphatase Ammonia B-Natriuretic Peptide Total Protein Albumin Lipase Mitochondrial AB Titer Urine Color Urine Appearance Urine pH Ur Specific [place] Urine Protein Urine Glucose (UA) Urine Ketones Urine Blood Urine Nitrite Ur Leukocyte Esterase Urine RBC Urine WBC Ur Squamous Epith Cells Urine Bacteria Hyaline Casts Granular Casts Peritoneal pH Peritoneal WBC Peritoneal RBC Periton Neutrophils Periton Lymphocytes Peritoneal Monocytes Peritoneal Other Cells Peritoneal Tot Protein Peritoneal Albumin Peritoneal LDH Peritoneal Glucose Stool Occult Blood POSITIVE Urine Opiates Screen Ur Buprenorphine Scrn Ur Oxycodone Screen Urine Methadone Screen Urine Fentanyl Screen Ur Barbiturates Screen Ur Phencyclidine Scrn Ur Amphetamines Screen U Benzodiazepines Scrn Urine Cocaine Screen U Marijuana (THC) Screen Ethyl Alcohol CADENCE Screen CADENCE Titer CADENCE Titer 2 CADENCE Titer 3 CADENCE Pattern CADENCE Pattern 2 CADENCE Pattern 3 Anti-Mitochondrial Ab Anti-Smooth Muscle Ab Influenza Type A (PCR) Influenza Type B (PCR) RSV RNA Qual (PCR) SARS-CoV-2 RNA (RT-PCR) Blood Type Antibody Screen Crossmatch 09/15/23 09/15/23 09/16/23 20:48 Unknown 07:03 WBC 6.4 RBC 1.91 L Hgb 6.7 L* Hct 18.9 L* MCV 99.0 H MCH 35.1 H MCHC 35.4 RDW 20.8 H Plt Count 105 L MPV 11.4 Immature Gran % (Auto) Neut % (Auto) Lymph % (Auto) [place] % (Auto) Eos % (Auto) Baso % (Auto) Lymph # (Auto) [place] # (Auto) Eos # (Auto) Baso # (Auto) Abs Immat Gran (auto) Absolute Neuts (auto) Absolute Nucleated RBC 0.000 Nucleated RBC % (auto) 0.0 Smear Path Review Hold Purple Top PT INR APTT Sodium 138 Potassium Chloride Carbon Dioxide Anion Gap BUN Creatinine Estim Creat Clear Calc Estimated GFR POC Glucose 200 H Random Glucose Lactic Acid Lactic Acid F/U @ 2Hr Calcium Magnesium Iron TIBC % Saturation Unsat Iron Binding Ferritin Total Bilirubin Direct Bilirubin AST ALT Alkaline Phosphatase Ammonia B-Natriuretic Peptide Total Protein Albumin Lipase Mitochondrial AB Titer Urine Color Dark Yellow Urine Appearance Cloudy Urine pH 5.5 Ur Specific [place] 1.020 Urine Protein 30 (1+) H Urine Glucose (UA) Negative Urine Ketones Trace Urine Blood Trace H Urine Nitrite Positive H Ur Leukocyte Esterase Small (1+) H Urine RBC 3-5 H Urine WBC 6-10 Ur Squamous Epith Cells 3-5 Urine Bacteria 1+ Hyaline Casts 11-20 Granular Casts Present Peritoneal pH Peritoneal WBC Peritoneal RBC Periton Neutrophils Periton Lymphocytes Peritoneal Monocytes Peritoneal Other Cells Peritoneal Tot Protein Peritoneal Albumin Peritoneal LDH Peritoneal Glucose Stool Occult Blood Urine Opiates Screen Not Detected Ur Buprenorphine Scrn Not Detected Ur Oxycodone Screen Not Detected Urine Methadone Screen Not Detected Urine Fentanyl Screen Not Detected Ur Barbiturates Screen POSITIVE H Ur Phencyclidine Scrn Not Detected Ur Amphetamines Screen Not Detected U Benzodiazepines Scrn POSITIVE H Urine Cocaine Screen Not Detected U Marijuana (THC) Screen Not Detected Ethyl Alcohol CADENCE Screen CADENCE Titer CADENCE Titer 2 CADENCE Titer 3 CADENCE Pattern CADENCE Pattern 2 CADENCE Pattern 3 Anti-Mitochondrial Ab Anti-Smooth Muscle Ab Influenza Type A (PCR) Influenza Type B (PCR) RSV RNA Qual (PCR) SARS-CoV-2 RNA (RT-PCR) Blood Type Antibody Screen Crossmatch 09/16/23 09/16/23 09/16/23 07:03 07:03 07:03 WBC RBC Hgb Hct MCV MCH MCHC RDW Plt Count MPV Immature Gran % (Auto) Neut % (Auto) Lymph % (Auto) [place] % (Auto) Eos % (Auto) Baso % (Auto) Lymph # (Auto) [place] # (Auto) Eos # (Auto) Baso # (Auto) Abs Immat Gran (auto) Absolute Neuts (auto) Absolute Nucleated RBC Nucleated RBC % (auto) Smear Path Review Hold Purple Top PT INR APTT Sodium 137 Potassium 3.2 L 3.2 L Chloride 102 101 Carbon Dioxide 21 L Anion Gap BUN Creatinine Estim Creat Clear Calc Estimated GFR POC Glucose Random Glucose Lactic Acid Lactic Acid F/U @ 2Hr Calcium Magnesium Iron TIBC % Saturation Unsat Iron Binding Ferritin Total Bilirubin Direct Bilirubin AST ALT Alkaline Phosphatase Ammonia B-Natriuretic Peptide Total Protein Albumin Lipase Mitochondrial AB Titer Urine Color Urine Appearance Urine pH Ur Specific [place] Urine Protein Urine Glucose (UA) Urine Ketones Urine Blood Urine Nitrite Ur Leukocyte Esterase Urine RBC Urine WBC Ur Squamous Epith Cells Urine Bacteria Hyaline Casts Granular Casts Peritoneal pH Peritoneal WBC Peritoneal RBC Periton Neutrophils Periton Lymphocytes Peritoneal Monocytes Peritoneal Other Cells Peritoneal Tot Protein Peritoneal Albumin Peritoneal LDH Peritoneal Glucose Stool Occult Blood Urine Opiates Screen Ur Buprenorphine Scrn Ur Oxycodone Screen Urine Methadone Screen Urine Fentanyl Screen Ur Barbiturates Screen Ur Phencyclidine Scrn Ur Amphetamines Screen U Benzodiazepines Scrn Urine Cocaine Screen U Marijuana (THC) Screen Ethyl Alcohol CADENCE Screen CADENCE Titer CADENCE Titer 2 CADENCE Titer 3 CADENCE Pattern CADENCE Pattern 2 CADENCE Pattern 3 Anti-Mitochondrial Ab Anti-Smooth Muscle Ab Influenza Type A (PCR) Influenza Type B (PCR) RSV RNA Qual (PCR) SARS-CoV-2 RNA (RT-PCR) Blood Type Antibody Screen Crossmatch 09/16/23 09/16/23 09/16/23 07:03 07:03 07:03 WBC RBC Hgb Hct MCV MCH MCHC RDW Plt Count MPV Immature Gran % (Auto) Neut % (Auto) Lymph % (Auto) [place] % (Auto) Eos % (Auto) Baso % (Auto) Lymph # (Auto) [place] # (Auto) Eos # (Auto) Baso # (Auto) Abs Immat Gran (auto) Absolute Neuts (auto) Absolute Nucleated RBC Nucleated RBC % (auto) Smear Path Review Hold Purple Top PT INR APTT Sodium Potassium Chloride Carbon Dioxide 22 Anion Gap 18 17 BUN 24 H 24 H Creatinine 2.37 H Estim Creat Clear Calc Estimated GFR POC Glucose Random Glucose Lactic Acid Lactic Acid F/U @ 2Hr Calcium Magnesium Iron TIBC % Saturation Unsat Iron Binding Ferritin Total Bilirubin Direct Bilirubin AST ALT Alkaline Phosphatase Ammonia B-Natriuretic Peptide Total Protein Albumin Lipase Mitochondrial AB Titer Urine Color Urine Appearance Urine pH Ur Specific [place] Urine Protein Urine Glucose (UA) Urine Ketones Urine Blood Urine Nitrite Ur Leukocyte Esterase Urine RBC Urine WBC Ur Squamous Epith Cells Urine Bacteria Hyaline Casts Granular Casts Peritoneal pH Peritoneal WBC Peritoneal RBC Periton Neutrophils Periton Lymphocytes Peritoneal Monocytes Peritoneal Other Cells Peritoneal Tot Protein Peritoneal Albumin Peritoneal LDH Peritoneal Glucose Stool Occult Blood Urine Opiates Screen Ur Buprenorphine Scrn Ur Oxycodone Screen Urine Methadone Screen Urine Fentanyl Screen Ur Barbiturates Screen Ur Phencyclidine Scrn Ur Amphetamines Screen U Benzodiazepines Scrn Urine Cocaine Screen U Marijuana (THC) Screen Ethyl Alcohol CADENCE Screen CADENCE Titer CADENCE Titer 2 CADENCE Titer 3 CADENCE Pattern CADENCE Pattern 2 CADENCE Pattern 3 Anti-Mitochondrial Ab Anti-Smooth Muscle Ab Influenza Type A (PCR) Influenza Type B (PCR) RSV RNA Qual (PCR) SARS-CoV-2 RNA (RT-PCR) Blood Type Antibody Screen Crossmatch 09/16/23 09/16/23 09/16/23 07:03 07:03 07:03 WBC RBC Hgb Hct MCV MCH MCHC RDW Plt Count MPV Immature Gran % (Auto) Neut % (Auto) Lymph % (Auto) [place] % (Auto) Eos % (Auto) Baso % (Auto) Lymph # (Auto) [place] # (Auto) Eos # (Auto) Baso # (Auto) Abs Immat Gran (auto) Absolute Neuts (auto) Absolute Nucleated RBC Nucleated RBC % (auto) Smear Path Review Hold Purple Top PT INR APTT Sodium Potassium Chloride Carbon Dioxide Anion Gap BUN Creatinine 2.36 H Estim Creat Clear Calc 36.1 36.3 Estimated GFR 28 28 POC Glucose Random Glucose 172 H Lactic Acid Lactic Acid F/U @ 2Hr Calcium Magnesium Iron TIBC % Saturation Unsat Iron Binding Ferritin Total Bilirubin Direct Bilirubin AST ALT Alkaline Phosphatase Ammonia B-Natriuretic Peptide Total Protein Albumin Lipase Mitochondrial AB Titer Urine Color Urine Appearance Urine pH Ur Specific [place] Urine Protein Urine Glucose (UA) Urine Ketones Urine Blood Urine Nitrite Ur Leukocyte Esterase Urine RBC Urine WBC Ur Squamous Epith Cells Urine Bacteria Hyaline Casts Granular Casts Peritoneal pH Peritoneal WBC Peritoneal RBC Periton Neutrophils Periton Lymphocytes Peritoneal Monocytes Peritoneal Other Cells Peritoneal Tot Protein Peritoneal Albumin Peritoneal LDH Peritoneal Glucose Stool Occult Blood Urine Opiates Screen Ur Buprenorphine Scrn Ur Oxycodone Screen Urine Methadone Screen Urine Fentanyl Screen Ur Barbiturates Screen Ur Phencyclidine Scrn Ur Amphetamines Screen U Benzodiazepines Scrn Urine Cocaine Screen U Marijuana (THC) Screen Ethyl Alcohol CADENCE Screen CADENCE Titer CADENCE Titer 2 CADENCE Titer 3 CADENCE Pattern CADENCE Pattern 2 CADENCE Pattern 3 Anti-Mitochondrial Ab Anti-Smooth Muscle Ab Influenza Type A (PCR) Influenza Type B (PCR) RSV RNA Qual (PCR) SARS-CoV-2 RNA (RT-PCR) Blood Type Antibody Screen Crossmatch 09/16/23 09/16/23 09/16/23 07:03 07:03 07:41 WBC RBC Hgb Hct MCV MCH MCHC RDW Plt Count MPV Immature Gran % (Auto) Neut % (Auto) Lymph % (Auto) [place] % (Auto) Eos % (Auto) Baso % (Auto) Lymph # (Auto) [place] # (Auto) Eos # (Auto) Baso # (Auto) Abs Immat Gran (auto) Absolute Neuts (auto) Absolute Nucleated RBC Nucleated RBC % (auto) Smear Path Review Hold Purple Top PT INR APTT Sodium Potassium Chloride Carbon Dioxide Anion Gap BUN Creatinine Estim Creat Clear Calc Estimated GFR POC Glucose 165 H Random Glucose 172 H Lactic Acid Lactic Acid F/U @ 2Hr Calcium 8.9 8.8 Magnesium Iron TIBC % Saturation Unsat Iron Binding Ferritin Total Bilirubin 11.9 H Direct Bilirubin 9.2 H AST 76 H ALT 18 Alkaline Phosphatase 120 H Ammonia B-Natriuretic Peptide Total Protein 7.1 Albumin 3.5 Lipase Mitochondrial AB Titer Urine Color Urine Appearance Urine pH Ur Specific [place] Urine Protein Urine Glucose (UA) Urine Ketones Urine Blood Urine Nitrite Ur Leukocyte Esterase Urine RBC Urine WBC Ur Squamous Epith Cells Urine Bacteria Hyaline Casts Granular Casts Peritoneal pH Peritoneal WBC Peritoneal RBC Periton Neutrophils Periton Lymphocytes Peritoneal Monocytes Peritoneal Other Cells Peritoneal Tot Protein Peritoneal Albumin Peritoneal LDH Peritoneal Glucose Stool Occult Blood Urine Opiates Screen Ur Buprenorphine Scrn Ur Oxycodone Screen Urine Methadone Screen Urine Fentanyl Screen Ur Barbiturates Screen Ur Phencyclidine Scrn Ur Amphetamines Screen U Benzodiazepines Scrn Urine Cocaine Screen U Marijuana (THC) Screen Ethyl Alcohol CADENCE Screen CADENCE Titer CADENCE Titer 2 CDAENCE Titer 3 CADENCE Pattern CADENCE Pattern 2 CADNECE Pattern 3 Anti-Mitochondrial Ab Anti-Smooth Muscle Ab Influenza Type A (PCR) Influenza Type B (PCR) RSV RNA Qual (PCR) SARS-CoV-2 RNA (RT-PCR) Blood Type Antibody Screen Crossmatch 09/16/23 09/16/23 09/16/23 11:10 15:58 21:00 WBC RBC Hgb Hct MCV MCH MCHC RDW Plt Count MPV Immature Gran % (Auto) Neut % (Auto) Lymph % (Auto) [place] % (Auto) Eos % (Auto) Baso % (Auto) Lymph # (Auto) [place] # (Auto) Eos # (Auto) Baso # (Auto) Abs Immat Gran (auto) Absolute Neuts (auto) Absolute Nucleated RBC Nucleated RBC % (auto) Smear Path Review Hold Purple Top PT INR APTT Sodium Potassium Chloride Carbon Dioxide Anion Gap BUN Creatinine Estim Creat Clear Calc Estimated GFR POC Glucose 188 H 257 H 190 H Random Glucose Lactic Acid Lactic Acid F/U @ 2Hr Calcium Magnesium Iron TIBC % Saturation Unsat Iron Binding Ferritin Total Bilirubin Direct Bilirubin AST ALT Alkaline Phosphatase Ammonia B-Natriuretic Peptide Total Protein Albumin Lipase Mitochondrial AB Titer Urine Color Urine Appearance Urine pH Ur Specific [place] Urine Protein Urine Glucose (UA) Urine Ketones Urine Blood Urine Nitrite Ur Leukocyte Esterase Urine RBC Urine WBC Ur Squamous Epith Cells Urine Bacteria Hyaline Casts Granular Casts Peritoneal pH Peritoneal WBC Peritoneal RBC Periton Neutrophils Periton Lymphocytes Peritoneal Monocytes Peritoneal Other Cells Peritoneal Tot Protein Peritoneal Albumin Peritoneal LDH Peritoneal Glucose Stool Occult Blood Urine Opiates Screen Ur Buprenorphine Scrn Ur Oxycodone Screen Urine Methadone Screen Urine Fentanyl Screen Ur Barbiturates Screen Ur Phencyclidine Scrn Ur Amphetamines Screen U Benzodiazepines Scrn Urine Cocaine Screen U Marijuana (THC) Screen Ethyl Alcohol CADENCE Screen CADENCE Titer CADENCE Titer 2 CADENCE Titer 3 CADENCE Pattern CADENCE Pattern 2 CADENCE Pattern 3 Anti-Mitochondrial Ab Anti-Smooth Muscle Ab Influenza Type A (PCR) Influenza Type B (PCR) RSV RNA Qual (PCR) SARS-CoV-2 RNA (RT-PCR) Blood Type Antibody Screen Crossmatch 09/17/23 09/17/23 09/17/23 07:48 08:25 08:25 WBC 7.4 RBC 2.68 L D Hgb 8.8 L D Hct 24.8 L D MCV 92.5 D MCH 32.8 MCHC 35.5 RDW 23.5 H Plt Count 87 L MPV 10.6 Immature Gran % (Auto) Neut % (Auto) Lymph % (Auto) [place] % (Auto) Eos % (Auto) Baso % (Auto) Lymph # (Auto) [place] # (Auto) Eos # (Auto) Baso # (Auto) Abs Immat Gran (auto) Absolute Neuts (auto) Absolute Nucleated RBC 0.000 Nucleated RBC % (auto) 0.0 Smear Path Review Hold Purple Top PT INR APTT Sodium 140 Cancelled Potassium 2.7 L* Chloride Carbon Dioxide Anion Gap BUN Creatinine Estim Creat Clear Calc Estimated GFR POC Glucose 147 H Random Glucose Lactic Acid Lactic Acid F/U @ 2Hr Calcium Magnesium Iron TIBC % Saturation Unsat Iron Binding Ferritin Total Bilirubin Direct Bilirubin AST ALT Alkaline Phosphatase Ammonia B-Natriuretic Peptide Total Protein Albumin Lipase Mitochondrial AB Titer Urine Color Urine Appearance Urine pH Ur Specific [place] Urine Protein Urine Glucose (UA) Urine Ketones Urine Blood Urine Nitrite Ur Leukocyte Esterase Urine RBC Urine WBC Ur Squamous Epith Cells Urine Bacteria Hyaline Casts Granular Casts Peritoneal pH Peritoneal WBC Peritoneal RBC Periton Neutrophils Periton Lymphocytes Peritoneal Monocytes Peritoneal Other Cells Peritoneal Tot Protein Peritoneal Albumin Peritoneal LDH Peritoneal Glucose Stool Occult Blood Urine Opiates Screen Ur Buprenorphine Scrn Ur Oxycodone Screen Urine Methadone Screen Urine Fentanyl Screen Ur Barbiturates Screen Ur Phencyclidine Scrn Ur Amphetamines Screen U Benzodiazepines Scrn Urine Cocaine Screen U Marijuana (THC) Screen Ethyl Alcohol CADENCE Screen CADENCE Titer CADENCE Titer 2 CADENCE Titer 3 CADENCE Pattern CADENCE Pattern 2 CADENCE Pattern 3 Anti-Mitochondrial Ab Anti-Smooth Muscle Ab Influenza Type A (PCR) Influenza Type B (PCR) RSV RNA Qual (PCR) SARS-CoV-2 RNA (RT-PCR) Blood Type Antibody Screen Crossmatch 09/17/23 09/17/23 09/17/23 08:25 08:25 08:25 WBC RBC Hgb Hct MCV MCH MCHC RDW Plt Count MPV Immature Gran % (Auto) Neut % (Auto) Lymph % (Auto) [place] % (Auto) Eos % (Auto) Baso % (Auto) Lymph # (Auto) [place] # (Auto) Eos # (Auto) Baso # (Auto) Abs Immat Gran (auto) Absolute Neuts (auto) Absolute Nucleated RBC Nucleated RBC % (auto) Smear Path Review Hold Purple Top PT INR APTT Sodium Potassium Cancelled Chloride 103 Cancelled Carbon Dioxide 23 Cancelled Anion Gap 17 BUN Creatinine Estim Creat Clear Calc Estimated GFR POC Glucose Random Glucose Lactic Acid Lactic Acid F/U @ 2Hr Calcium Magnesium Iron TIBC % Saturation Unsat Iron Binding Ferritin Total Bilirubin Direct Bilirubin AST ALT Alkaline Phosphatase Ammonia B-Natriuretic Peptide Total Protein Albumin Lipase Mitochondrial AB Titer Urine Color Urine Appearance Urine pH Ur Specific [place] Urine Protein Urine Glucose (UA) Urine Ketones Urine Blood Urine Nitrite Ur Leukocyte Esterase Urine RBC Urine WBC Ur Squamous Epith Cells Urine Bacteria Hyaline Casts Granular Casts Peritoneal pH Peritoneal WBC Peritoneal RBC Periton Neutrophils Periton Lymphocytes Peritoneal Monocytes Peritoneal Other Cells Peritoneal Tot Protein Peritoneal Albumin Peritoneal LDH Peritoneal Glucose Stool Occult Blood Urine Opiates Screen Ur Buprenorphine Scrn Ur Oxycodone Screen Urine Methadone Screen Urine Fentanyl Screen Ur Barbiturates Screen Ur Phencyclidine Scrn Ur Amphetamines Screen U Benzodiazepines Scrn Urine Cocaine Screen U Marijuana (THC) Screen Ethyl Alcohol CADENCE Screen CADENCE Titer CADENCE Titer 2 CADENCE Titer 3 CADENCE Pattern CADENCE Pattern 2 CADENCE Pattern 3 Anti-Mitochondrial Ab Anti-Smooth Muscle Ab Influenza Type A (PCR) Influenza Type B (PCR) RSV RNA Qual (PCR) SARS-CoV-2 RNA (RT-PCR) Blood Type Antibody Screen Crossmatch 09/17/23 09/17/23 09/17/23 08:25 08:25 08:25 WBC RBC Hgb Hct MCV MCH MCHC RDW Plt Count MPV Immature Gran % (Auto) Neut % (Auto) Lymph % (Auto) [place] % (Auto) Eos % (Auto) Baso % (Auto) Lymph # (Auto) [place] # (Auto) Eos # (Auto) Baso # (Auto) Abs Immat Gran (auto) Absolute Neuts (auto) Absolute Nucleated RBC Nucleated RBC % (auto) Smear Path Review Hold Purple Top PT INR APTT Sodium Potassium Chloride Carbon Dioxide Anion Gap Cancelled BUN 30 H Cancelled Creatinine 2.07 H Cancelled Estim Creat Clear Calc 41.4 Estimated GFR POC Glucose Random Glucose Lactic Acid Lactic Acid F/U @ 2Hr Calcium Magnesium Iron TIBC % Saturation Unsat Iron Binding Ferritin Total Bilirubin Direct Bilirubin AST ALT Alkaline Phosphatase Ammonia B-Natriuretic Peptide Total Protein Albumin Lipase Mitochondrial AB Titer Urine Color Urine Appearance Urine pH Ur Specific [place] Urine Protein Urine Glucose (UA) Urine Ketones Urine Blood Urine Nitrite Ur Leukocyte Esterase Urine RBC Urine WBC Ur Squamous Epith Cells Urine Bacteria Hyaline Casts Granular Casts Peritoneal pH Peritoneal WBC Peritoneal RBC Periton Neutrophils Periton Lymphocytes Peritoneal Monocytes Peritoneal Other Cells Peritoneal Tot Protein Peritoneal Albumin Peritoneal LDH Peritoneal Glucose Stool Occult Blood Urine Opiates Screen Ur Buprenorphine Scrn Ur Oxycodone Screen Urine Methadone Screen Urine Fentanyl Screen Ur Barbiturates Screen Ur Phencyclidine Scrn Ur Amphetamines Screen U Benzodiazepines Scrn Urine Cocaine Screen U Marijuana (THC) Screen Ethyl Alcohol CADENCE Screen CADENCE Titer CADENCE Titer 2 CADENCE Titer 3 CADENCE Pattern CADENCE Pattern 2 CADENCE Pattern 3 Anti-Mitochondrial Ab Anti-Smooth Muscle Ab Influenza Type A (PCR) Influenza Type B (PCR) RSV RNA Qual (PCR) SARS-CoV-2 RNA (RT-PCR) Blood Type Antibody Screen Crossmatch 09/17/23 09/17/23 09/17/23 08:25 08:25 08:25 WBC RBC Hgb Hct MCV MCH MCHC RDW Plt Count MPV Immature Gran % (Auto) Neut % (Auto) Lymph % (Auto) [place] % (Auto) Eos % (Auto) Baso % (Auto) Lymph # (Auto) [place] # (Auto) Eos # (Auto) Baso # (Auto) Abs Immat Gran (auto) Absolute Neuts (auto) Absolute Nucleated RBC Nucleated RBC % (auto) Smear Path Review Hold Purple Top PT INR APTT Sodium Potassium Chloride Carbon Dioxide Anion Gap BUN Creatinine Estim Creat Clear Calc Cancelled Estimated GFR 33 Cancelled POC Glucose Random Glucose 156 H Cancelled Lactic Acid Lactic Acid F/U @ 2Hr Calcium 8.9 Magnesium Iron TIBC % Saturation Unsat Iron Binding Ferritin Total Bilirubin Direct Bilirubin AST ALT Alkaline Phosphatase Ammonia B-Natriuretic Peptide Total Protein Albumin Lipase Mitochondrial AB Titer Urine Color Urine Appearance Urine pH Ur Specific [place] Urine Protein Urine Glucose (UA) Urine Ketones Urine Blood Urine Nitrite Ur Leukocyte Esterase Urine RBC Urine WBC Ur Squamous Epith Cells Urine Bacteria Hyaline Casts Granular Casts Peritoneal pH Peritoneal WBC Peritoneal RBC Periton Neutrophils Periton Lymphocytes Peritoneal Monocytes Peritoneal Other Cells Peritoneal Tot Protein Peritoneal Albumin Peritoneal LDH Peritoneal Glucose Stool Occult Blood Urine Opiates Screen Ur Buprenorphine Scrn Ur Oxycodone Screen Urine Methadone Screen Urine Fentanyl Screen Ur Barbiturates Screen Ur Phencyclidine Scrn Ur Amphetamines Screen U Benzodiazepines Scrn Urine Cocaine Screen U Marijuana (THC) Screen Ethyl Alcohol CADENCE Screen CADENCE Titer CADENCE Titer 2 CADENCE Titer 3 CADENCE Pattern CADENCE Pattern 2 CADENCE Pattern 3 Anti-Mitochondrial Ab Anti-Smooth Muscle Ab Influenza Type A (PCR) Influenza Type B (PCR) RSV RNA Qual (PCR) SARS-CoV-2 RNA (RT-PCR) Blood Type Antibody Screen Crossmatch 09/17/23 09/17/23 09/17/23 08:25 10:59 14:13 WBC RBC Hgb Hct MCV MCH MCHC RDW Plt Count MPV Immature Gran % (Auto) Neut % (Auto) Lymph % (Auto) [place] % (Auto) Eos % (Auto) Baso % (Auto) Lymph # (Auto) [place] # (Auto) Eos # (Auto) Baso # (Auto) Abs Immat Gran (auto) Absolute Neuts (auto) Absolute Nucleated RBC Nucleated RBC % (auto) Smear Path Review Hold Purple Top PT INR APTT Sodium 141 Potassium 3.4 D Chloride 103 Carbon Dioxide 23 Anion Gap 18 BUN 31 H Creatinine 2.04 H Estim Creat Clear Calc 42.0 Estimated GFR 34 POC Glucose 137 H Random Glucose 202 H Lactic Acid Lactic Acid F/U @ 2Hr Calcium Cancelled 9.3 Magnesium Iron TIBC % Saturation Unsat Iron Binding Ferritin Total Bilirubin 13.7 H Direct Bilirubin 9.7 H AST 91 H ALT 19 Alkaline Phosphatase 115 Ammonia B-Natriuretic Peptide Total Protein 7.2 Albumin 3.8 Lipase Mitochondrial AB Titer Urine Color Urine Appearance Urine pH Ur Specific [place] Urine Protein Urine Glucose (UA) Urine Ketones Urine Blood Urine Nitrite Ur Leukocyte Esterase Urine RBC Urine WBC Ur Squamous Epith Cells Urine Bacteria Hyaline Casts Granular Casts Peritoneal pH Peritoneal WBC Peritoneal RBC Periton Neutrophils Periton Lymphocytes Peritoneal Monocytes Peritoneal Other Cells Peritoneal Tot Protein Peritoneal Albumin Peritoneal LDH Peritoneal Glucose Stool Occult Blood Urine Opiates Screen Ur Buprenorphine Scrn Ur Oxycodone Screen Urine Methadone Screen Urine Fentanyl Screen Ur Barbiturates Screen Ur Phencyclidine Scrn Ur Amphetamines Screen U Benzodiazepines Scrn Urine Cocaine Screen U Marijuana (THC) Screen Ethyl Alcohol CADENCE Screen CADENCE Titer CADENCE Titer 2 CADENCE Titer 3 CADENCE Pattern CADENCE Pattern 2 CADENCE Pattern 3 Anti-Mitochondrial Ab Anti-Smooth Muscle Ab Influenza Type A (PCR) Influenza Type B (PCR) RSV RNA Qual (PCR) SARS-CoV-2 RNA (RT-PCR) Blood Type Antibody Screen Crossmatch 09/17/23 09/17/23 09/18/23 15:52 20:33 06:55 WBC RBC Hgb Hct MCV MCH MCHC RDW Plt Count MPV Immature Gran % (Auto) Neut % (Auto) Lymph % (Auto) [place] % (Auto) Eos % (Auto) Baso % (Auto) Lymph # (Auto) [place] # (Auto) Eos # (Auto) Baso # (Auto) Abs Immat Gran (auto) Absolute Neuts (auto) Absolute Nucleated RBC Nucleated RBC % (auto) Smear Path Review Hold Purple Top PT INR APTT Sodium Potassium Chloride Carbon Dioxide Anion Gap BUN Creatinine Estim Creat Clear Calc Estimated GFR POC Glucose 194 H 185 H 142 H Random Glucose Lactic Acid Lactic Acid F/U @ 2Hr Calcium Magnesium Iron TIBC % Saturation Unsat Iron Binding Ferritin Total Bilirubin Direct Bilirubin AST ALT Alkaline Phosphatase Ammonia B-Natriuretic Peptide Total Protein Albumin Lipase Mitochondrial AB Titer Urine Color Urine Appearance Urine pH Ur Specific [place] Urine Protein Urine Glucose (UA) Urine Ketones Urine Blood Urine Nitrite Ur Leukocyte Esterase Urine RBC Urine WBC Ur Squamous Epith Cells Urine Bacteria Hyaline Casts Granular Casts Peritoneal pH Peritoneal WBC Peritoneal RBC Periton Neutrophils Periton Lymphocytes Peritoneal Monocytes Peritoneal Other Cells Peritoneal Tot Protein Peritoneal Albumin Peritoneal LDH Peritoneal Glucose Stool Occult Blood Urine Opiates Screen Ur Buprenorphine Scrn Ur Oxycodone Screen Urine Methadone Screen Urine Fentanyl Screen Ur Barbiturates Screen Ur Phencyclidine Scrn Ur Amphetamines Screen U Benzodiazepines Scrn Urine Cocaine Screen U Marijuana (THC) Screen Ethyl Alcohol CADENCE Screen CADENCE Titer CADENCE Titer 2 CADENCE Titer 3 CADENCE Pattern CADENCE Pattern 2 CADENCE Pattern 3 Anti-Mitochondrial Ab Anti-Smooth Muscle Ab Influenza Type A (PCR) Influenza Type B (PCR) RSV RNA Qual (PCR) SARS-CoV-2 RNA (RT-PCR) Blood Type Antibody Screen Crossmatch 09/18/23 09/18/23 09/18/23 07:24 10:49 16:29 WBC 8.0 RBC 2.78 L Hgb 9.3 L Hct 25.9 L MCV 93.2 MCH 33.5 H MCHC 35.9 RDW 23.7 H Plt Count 84 L MPV 11.9 Immature Gran % (Auto) Neut % (Auto) Lymph % (Auto) [place] % (Auto) Eos % (Auto) Baso % (Auto) Lymph # (Auto) [place] # (Auto) Eos # (Auto) Baso # (Auto) Abs Immat Gran (auto) Absolute Neuts (auto) Absolute Nucleated RBC 0.000 Nucleated RBC % (auto) 0.0 Smear Path Review Hold Purple Top PT INR APTT Sodium 141 Potassium 3.6 Chloride 106 Carbon Dioxide 24 Anion Gap 15 BUN 33 H Creatinine 1.80 H Estim Creat Clear Calc 47.6 Estimated GFR 39 POC Glucose 170 H 228 H Random Glucose 151 H Lactic Acid Lactic Acid F/U @ 2Hr Calcium 8.9 Magnesium Iron TIBC % Saturation Unsat Iron Binding Ferritin Total Bilirubin 13.1 H Direct Bilirubin 9.2 H AST 121 H ALT 29 Alkaline Phosphatase 118 H Ammonia B-Natriuretic Peptide Total Protein 7.3 Albumin 4.0 Lipase Mitochondrial AB Titer Urine Color Urine Appearance Urine pH Ur Specific [place] Urine Protein Urine Glucose (UA) Urine Ketones Urine Blood Urine Nitrite Ur Leukocyte Esterase Urine RBC Urine WBC Ur Squamous Epith Cells Urine Bacteria Hyaline Casts Granular Casts Peritoneal pH Peritoneal WBC Peritoneal RBC Periton Neutrophils Periton Lymphocytes Peritoneal Monocytes Peritoneal Other Cells Peritoneal Tot Protein Peritoneal Albumin Peritoneal LDH Peritoneal Glucose Stool Occult Blood Urine Opiates Screen Ur Buprenorphine Scrn Ur Oxycodone Screen Urine Methadone Screen Urine Fentanyl Screen Ur Barbiturates Screen Ur Phencyclidine Scrn Ur Amphetamines Screen U Benzodiazepines Scrn Urine Cocaine Screen U Marijuana (THC) Screen Ethyl Alcohol CADENCE Screen CADENCE Titer CADENCE Titer 2 CADENCE Titer 3 CADENCE Pattern CADENCE Pattern 2 CADENCE Pattern 3 Anti-Mitochondrial Ab Anti-Smooth Muscle Ab Influenza Type A (PCR) Influenza Type B (PCR) RSV RNA Qual (PCR) SARS-CoV-2 RNA (RT-PCR) Blood Type Antibody Screen Crossmatch 09/18/23 09/19/23 09/19/23 20:10 06:03 08:07 WBC RBC Hgb Hct MCV MCH MCHC RDW Plt Count MPV Immature Gran % (Auto) Neut % (Auto) Lymph % (Auto) [place] % (Auto) Eos % (Auto) Baso % (Auto) Lymph # (Auto) [place] # (Auto) Eos # (Auto) Baso # (Auto) Abs Immat Gran (auto) Absolute Neuts (auto) Absolute Nucleated RBC Nucleated RBC % (auto) Smear Path Review Hold Purple Top PT INR APTT Sodium 143 Potassium 3.5 Chloride 108 Carbon Dioxide 21 L Anion Gap 18 BUN 37 H Creatinine 1.65 H Estim Creat Clear Calc 51.9 Estimated GFR 43 POC Glucose 217 H 117 H Random Glucose 123 H Lactic Acid Lactic Acid F/U @ 2Hr Calcium 9.2 Magnesium 1.7 Iron TIBC % Saturation Unsat Iron Binding Ferritin Total Bilirubin 12.5 H Direct Bilirubin 8.4 H AST 130 H ALT 34 Alkaline Phosphatase 111 Ammonia B-Natriuretic Peptide Total Protein 7.5 Albumin 4.4 Lipase Mitochondrial AB Titer Urine Color Urine Appearance Urine pH Ur Specific [place] Urine Protein Urine Glucose (UA) Urine Ketones Urine Blood Urine Nitrite Ur Leukocyte Esterase Urine RBC Urine WBC Ur Squamous Epith Cells Urine Bacteria Hyaline Casts Granular Casts Peritoneal pH Peritoneal WBC Peritoneal RBC Periton Neutrophils Periton Lymphocytes Peritoneal Monocytes Peritoneal Other Cells Peritoneal Tot Protein Peritoneal Albumin Peritoneal LDH Peritoneal Glucose Stool Occult Blood Urine Opiates Screen Ur Buprenorphine Scrn Ur Oxycodone Screen Urine Methadone Screen Urine Fentanyl Screen Ur Barbiturates Screen Ur Phencyclidine Scrn Ur Amphetamines Screen U Benzodiazepines Scrn Urine Cocaine Screen U Marijuana (THC) Screen Ethyl Alcohol CADENCE Screen CADENCE Titer CADENCE Titer 2 CADENCE Titer 3 CADENCE Pattern CADENCE Pattern 2 CADENCE Pattern 3 Anti-Mitochondrial Ab Anti-Smooth Muscle Ab Influenza Type A (PCR) Influenza Type B (PCR) RSV RNA Qual (PCR) SARS-CoV-2 RNA (RT-PCR) Blood Type Antibody Screen Crossmatch 09/19/23 09/19/23 09/19/23 11:11 11:19 16:04 WBC 10.2 RBC 2.84 L Hgb 9.5 L Hct 26.9 L MCV 94.7 MCH 33.5 H MCHC 35.3 RDW 24.3 H Plt Count 78 L MPV Not Reportable Immature Gran % (Auto) Neut % (Auto) Lymph % (Auto) [place] % (Auto) Eos % (Auto) Baso % (Auto) Lymph # (Auto) [place] # (Auto) Eos # (Auto) Baso # (Auto) Abs Immat Gran (auto) Absolute Neuts (auto) Absolute Nucleated RBC 0.000 Nucleated RBC % (auto) 0.0 Smear Path Review Hold Purple Top PT 23.5 H INR 1.9 H APTT Sodium Potassium Chloride Carbon Dioxide Anion Gap BUN Creatinine Estim Creat Clear Calc Estimated GFR POC Glucose 170 H 203 H Random Glucose Lactic Acid Lactic Acid F/U @ 2Hr Calcium Magnesium Iron TIBC % Saturation Unsat Iron Binding Ferritin Total Bilirubin Direct Bilirubin AST ALT Alkaline Phosphatase Ammonia B-Natriuretic Peptide Total Protein Albumin Lipase Mitochondrial AB Titer Urine Color Urine Appearance Urine pH Ur Specific [place] Urine Protein Urine Glucose (UA) Urine Ketones Urine Blood Urine Nitrite Ur Leukocyte Esterase Urine RBC Urine WBC Ur Squamous Epith Cells Urine Bacteria Hyaline Casts Granular Casts Peritoneal pH Peritoneal WBC Peritoneal RBC Periton Neutrophils Periton Lymphocytes Peritoneal Monocytes Peritoneal Other Cells Peritoneal Tot Protein Peritoneal Albumin Peritoneal LDH Peritoneal Glucose Stool Occult Blood Urine Opiates Screen Ur Buprenorphine Scrn Ur Oxycodone Screen Urine Methadone Screen Urine Fentanyl Screen Ur Barbiturates Screen Ur Phencyclidine Scrn Ur Amphetamines Screen U Benzodiazepines Scrn Urine Cocaine Screen U Marijuana (THC) Screen Ethyl Alcohol CADENCE Screen CADENCE Titer CADENCE Titer 2 CADENCE Titer 3 CADENCE Pattern CADENCE Pattern 2 CADENCE Pattern 3 Anti-Mitochondrial Ab Anti-Smooth Muscle Ab Influenza Type A (PCR) Influenza Type B (PCR) RSV RNA Qual (PCR) SARS-CoV-2 RNA (RT-PCR) Blood Type O Positive Antibody Screen NEGATIVE Crossmatch 09/19/23 09/20/23 09/20/23 20:52 07:36 07:37 WBC 11.6 H RBC 2.83 L Hgb 9.6 L Hct 26.9 L MCV 95.1 MCH 33.9 H MCHC 35.7 RDW 24.0 H Plt Count 73 L MPV 12.2 Immature Gran % (Auto) Neut % (Auto) Lymph % (Auto) [place] % (Auto) Eos % (Auto) Baso % (Auto) Lymph # (Auto) [place] # (Auto) Eos # (Auto) Baso # (Auto) Abs Immat Gran (auto) Absolute Neuts (auto) Absolute Nucleated RBC 0.000 Nucleated RBC % (auto) 0.0 Smear Path Review Hold Purple Top PT INR APTT Sodium 143 Potassium 3.4 Chloride 108 Carbon Dioxide 24 Anion Gap 14 BUN 44 H Creatinine 1.69 H Estim Creat Clear Calc 50.7 Estimated GFR 42 POC Glucose 183 H 99 Random Glucose 111 Lactic Acid Lactic Acid F/U @ 2Hr Calcium 9.1 Magnesium Iron TIBC % Saturation Unsat Iron Binding Ferritin Total Bilirubin 13.2 H Direct Bilirubin 9.3 H AST 165 H ALT 48 H Alkaline Phosphatase 121 H Ammonia B-Natriuretic Peptide Total Protein 7.0 Albumin 3.9 Lipase Mitochondrial AB Titer Urine Color Urine Appearance Urine pH Ur Specific [place] Urine Protein Urine Glucose (UA) Urine Ketones Urine Blood Urine Nitrite Ur Leukocyte Esterase Urine RBC Urine WBC Ur Squamous Epith Cells Urine Bacteria Hyaline Casts Granular Casts Peritoneal pH Peritoneal WBC Peritoneal RBC Periton Neutrophils Periton Lymphocytes Peritoneal Monocytes Peritoneal Other Cells Peritoneal Tot Protein Peritoneal Albumin Peritoneal LDH Peritoneal Glucose Stool Occult Blood Urine Opiates Screen Ur Buprenorphine Scrn Ur Oxycodone Screen Urine Methadone Screen Urine Fentanyl Screen Ur Barbiturates Screen Ur Phencyclidine Scrn Ur Amphetamines Screen U Benzodiazepines Scrn Urine Cocaine Screen U Marijuana (THC) Screen Ethyl Alcohol CADENCE Screen CADENCE Titer CADENCE Titer 2 CADENCE Titer 3 CADENCE Pattern CADENCE Pattern 2 CADENCE Pattern 3 Anti-Mitochondrial Ab Anti-Smooth Muscle Ab Influenza Type A (PCR) Influenza Type B (PCR) RSV RNA Qual (PCR) SARS-CoV-2 RNA (RT-PCR) Blood Type Antibody Screen Crossmatch 09/20/23 09/20/23 09/20/23 11:20 16:14 20:27 WBC RBC Hgb Hct MCV MCH MCHC RDW Plt Count MPV Immature Gran % (Auto) Neut % (Auto) Lymph % (Auto) [place] % (Auto) Eos % (Auto) Baso % (Auto) Lymph # (Auto) [place] # (Auto) Eos # (Auto) Baso # (Auto) Abs Immat Gran (auto) Absolute Neuts (auto) Absolute Nucleated RBC Nucleated RBC % (auto) Smear Path Review Hold Purple Top PT INR APTT Sodium Potassium Chloride Carbon Dioxide Anion Gap BUN Creatinine Estim Creat Clear Calc Estimated GFR POC Glucose 157 H 273 H 199 H Random Glucose Lactic Acid Lactic Acid F/U @ 2Hr Calcium Magnesium Iron TIBC % Saturation Unsat Iron Binding Ferritin Total Bilirubin Direct Bilirubin AST ALT Alkaline Phosphatase Ammonia B-Natriuretic Peptide Total Protein Albumin Lipase Mitochondrial AB Titer Urine Color Urine Appearance Urine pH Ur Specific [place] Urine Protein Urine Glucose (UA) Urine Ketones Urine Blood Urine Nitrite Ur Leukocyte Esterase Urine RBC Urine WBC Ur Squamous Epith Cells Urine Bacteria Hyaline Casts Granular Casts Peritoneal pH Peritoneal WBC Peritoneal RBC Periton Neutrophils Periton Lymphocytes Peritoneal Monocytes Peritoneal Other Cells Peritoneal Tot Protein Peritoneal Albumin Peritoneal LDH Peritoneal Glucose Stool Occult Blood Urine Opiates Screen Ur Buprenorphine Scrn Ur Oxycodone Screen Urine Methadone Screen Urine Fentanyl Screen Ur Barbiturates Screen Ur Phencyclidine Scrn Ur Amphetamines Screen U Benzodiazepines Scrn Urine Cocaine Screen U Marijuana (THC) Screen Ethyl Alcohol CADENCE Screen CADENCE Titer CADENCE Titer 2 CADENCE Titer 3 CADENCE Pattern CADENCE Pattern 2 CADENCE Pattern 3 Anti-Mitochondrial Ab Anti-Smooth Muscle Ab Influenza Type A (PCR) Influenza Type B (PCR) RSV RNA Qual (PCR) SARS-CoV-2 RNA (RT-PCR) Blood Type Antibody Screen Crossmatch 09/21/23 09/21/23 09/21/23 06:38 07:11 11:15 WBC RBC Hgb Hct MCV MCH MCHC RDW Plt Count MPV Immature Gran % (Auto) Neut % (Auto) Lymph % (Auto) [place] % (Auto) Eos % (Auto) Baso % (Auto) Lymph # (Auto) [place] # (Auto) Eos # (Auto) Baso # (Auto) Abs Immat Gran (auto) Absolute Neuts (auto) Absolute Nucleated RBC Nucleated RBC % (auto) Smear Path Review Hold Purple Top PT INR APTT Sodium 142 Potassium 3.3 Chloride 105 Carbon Dioxide 23 Anion Gap 17 BUN 46 H Creatinine 1.52 H Estim Creat Clear Calc 56.4 Estimated GFR 47 POC Glucose 93 100 Random Glucose 103 Lactic Acid Lactic Acid F/U @ 2Hr Calcium 9.0 Magnesium 1.6 Iron TIBC % Saturation Unsat Iron Binding Ferritin Total Bilirubin 13.6 H Direct Bilirubin 9.6 H AST 178 H ALT 61 H Alkaline Phosphatase 123 H Ammonia B-Natriuretic Peptide Total Protein 6.9 Albumin 3.7 Lipase Mitochondrial AB Titer Urine Color Urine Appearance Urine pH Ur Specific [place] Urine Protein Urine Glucose (UA) Urine Ketones Urine Blood Urine Nitrite Ur Leukocyte Esterase Urine RBC Urine WBC Ur Squamous Epith Cells Urine Bacteria Hyaline Casts Granular Casts Peritoneal pH Peritoneal WBC Peritoneal RBC Periton Neutrophils Periton Lymphocytes Peritoneal Monocytes Peritoneal Other Cells Peritoneal Tot Protein Peritoneal Albumin Peritoneal LDH Peritoneal Glucose Stool Occult Blood Urine Opiates Screen Ur Buprenorphine Scrn Ur Oxycodone Screen Urine Methadone Screen Urine Fentanyl Screen Ur Barbiturates Screen Ur Phencyclidine Scrn Ur Amphetamines Screen U Benzodiazepines Scrn Urine Cocaine Screen U Marijuana (THC) Screen Ethyl Alcohol CADENCE Screen CADENCE Titer CADENCE Titer 2 CADENCE Titer 3 CADENCE Pattern CADENCE Pattern 2 CADENCE Pattern 3 Anti-Mitochondrial Ab Anti-Smooth Muscle Ab Influenza Type A (PCR) Influenza Type B (PCR) RSV RNA Qual (PCR) SARS-CoV-2 RNA (RT-PCR) Blood Type Antibody Screen Crossmatch Airway Mallampati Class: III TM Dist: >3cm Neck ROM: Full Loose/Missing/Broken Teeth: No Heart: RRR Lungs: CTAB Assessment and Plan Assessment Anesthesia Assessment: Anesthesia Plan Discussed and Chart Reviewed Final Anesthetic Review Family History of Problems with Anesthesia: No History of Problems with Anesthesia: No NPO: Yes ASA Class: IV Final Preanesthetic Review: No Changes in Pt Med Stat, Meds/Allgs Chart Reviewed, Consent Obtained/Reviewed and Anes Risks/Benef Reviewed Patient Risk: High Procedure Risk: Low Assessment/Block/Sedation in SS: Assess/Block/Sedation-SS Anesthetic Plan Anesthetic Plan: TIVA Disposition: Standard PACU and Inp. Admit - Standard Bed
--- NOTE | 2023-09-21 14:12 | PC.NURSE ---
patient felt like his sugar was low so i checked his blood sugar. poc within normal limits. asymptomatic
--- NOTE | 2023-09-21 14:39 | P.OPN-COLO_ITS ---
Colonoscopy Operative Note Operative Note Date of Service: 09/21/23 Narrative: Operative Information Procedure Description: Colonoscopy Indication: rectal bleeding Anesthesia: MAC COLONOSCOPY Instrument: Olympus variable stiffness ADULT scope 190L Colonoscopy Monitoring: Vital signs and clinical assessment, continuous EKG monitoring, Pulse oximetry, Carbon Dioxide monitoring and blood pressure monitoring were done throughout the procedure. Colon withdrawal time was 16 minutes. Procedure: The patient was placed in the left lateral decubitis position and pre-procedure medications were administered. After a digital rectal examination of the ano-rectum, the video colonoscope was inserted into the rectum and advanced through the colon to the cecum/TI. The colonoscope was slowly withdrawn in a retrograde panoramic fashion and the colon mucosa was carefully examined including a retroflexed view of the rectum. Findings and interventions are described below. Procedure Difficulty: easy Findings: Terminal Ileum-normal Cecum:normal Ascending Colon: 10 mm sessile polyp over the ileocecal valve removed with cold snare and then one clip applied for hemostasis Transverse Colon -normal Descending Colon:normal Sigmoid Colon: normal Rectum: Retroflexion with large inflammed internal hemorrhoids seen, grade I, mucosa was oozing, hemospray applied which worked well Anorectum - normal Intervention: cold snare, hemospray Colon preparation: [place] Bowel Preparation Scale Right colon; 2 Transverse colon: 1-2 Left colon; 2 (0 = Unprepared colon segment with mucosa not seen due to solid stool that cannot be cleared. 1 = Portion of mucosa of the colon segment seen, but other areas of the colon segment not well seen due to staining, residual stool and/or opaque liquid. 2 = Minor amount of residual staining, small fragments of stool and/or opaque liquid, but mucosa of colon segment seen well. 3 = Entire mucosa of colon segment seen well with no residual staining, small fragments of stool or opaque liquid) Impression and Post Procedure Diagnosis: colon polyp internal hemorrhoids bleeding 2/2 hemorrhoids Plan: High fiber diet leaflet Avoid straining at stool, epsom salts and sitz bath, anusol supps or cream Repeat Colonoscopy in 5 years or earlier if clinically indicated Above findings were reviewed with the patient and relevant handouts were provided if indicated.
[2023-09-21 16:23] LABS: Glucose, Whole Blood 159 mg/dL (60-115)
[2023-09-21] MEDS: Insulin Lispro 100 UNIT/ML 3 ML VIAL SUBCUT (17:15)
[2023-09-21] MEDS: Omeprazole 20 MG CAPSULE.DR PO (17:15)
[2023-09-21 20:48] LABS: Glucose, Whole Blood 146 mg/dL (60-115)
[2023-09-21] MEDS: Atorvastatin Calcium 20 MG TABLET PO (21:23)
[2023-09-21] MEDS: Docusate Sodium 100 MG CAPSULE PO (21:23)
[2023-09-21] MEDS: Prazosin HCL 1 MG CAPSULE PO (21:26)
[2023-09-21] MEDS: Hydrocortisone 2.5 % Rectal Cr 30 GM TUBE 1 APPL PR (21:26)
[2023-09-22] VITALS (8 sets, daily range): BP systolic 100–116; BP diastolic 57–71; PULSE 64–84; RESP 16–20; TEMP 36.2–36.4; O2SAT 96–100
[2023-09-22] MEDS: Omeprazole 20 MG CAPSULE.DR PO ×2 (05:34→16:56)
[2023-09-22] MEDS: 0.9 % Sodium Chloride Flush 3 ML SYRINGE IVFLUSH ×2 (05:36→08:45)
[2023-09-22] MEDS: Fluticasone/Vilanterol 100/25 BLST.W.DEV 1 PUFF INHALE (07:42)
[2023-09-22 07:52] LABS: Glucose, Whole Blood 127 mg/dL (60-115)
--- NOTE | 2023-09-22 08:40 | HO.POSTANES ---
Post Anesthesia Evaluation Post Anesthesia Evaluation Date of Service: 09/21/23 Vital Signs: Vital Signs Temp Pulse Resp BP Pulse Ox O2 Del Method 09/22/23 07:56 97.3 F 84 17 107/68 98 Room Air 09/22/23 07:43 81 16 09/22/23 04:00 97.2 F 75 18 111/66 98 Room Air 09/22/23 00:00 97.1 F 64 20 116/67 98 Room Air 09/21/23 21:26 114/77 Anesthesia: Monitored Mental Status: Awake Pain Control: Satisfactory Nausea/Vomiting: None Hydration: Adequate Anesthesia-Related Issues: No Anes. Related Issues
[2023-09-22] MEDS: levETIRAcetam 500 MG TABLET PO (08:43)
[2023-09-22] MEDS: Magnesium Oxide 400 MG TABLET PO (08:43)
[2023-09-22] MEDS: Midodrine HCl 5 MG TABLET PO ×2 (08:43→14:13)
[2023-09-22] MEDS: prednisoLONE sodium phosphate 15 MG/5 ML SOLUTION 40 MG PO (08:44)
--- NOTE | 2023-09-22 10:11 | MHC.CLN ---
F/U PT IS MODERATELY [id number] IN THE CONTEXT OF SOCIAL, ENVIRONMENTAL/BEHAVIOR SEE CLINICAL NUTRITION ASSESSMENT DATED 09/15/23 PO RANGING FROM 50-100% DIET RX: REGULAR- RECOMMEND 2200DM DIET WILL RE-START ENSURE BID TO PROVIDE 700KCALS, 40G PROTEIN MONITOR PO INTAKE AND ENCOURAGE SUPPLEMENTS
[2023-09-22 10:32] LABS: Hematocrit 27.2 % (42.0-52.0); Hemoglobin 9.4 g/dl (14.0-18.0); Mean Corpuscular HGB Conc 34.6 g/dl (31.0-36.0); Mean Corpuscular Hemoglobin 33.2 pg (27.0-33.0); Mean Corpuscular Volume 96.1 fL (80.0-98.0); Platelet Count 61 X10*3/uL (160-400); Red Blood Count 2.83 X10*6/uL (4.60-5.80); Red Cell Distribution Width 24.4 % (11.0-16.0); White Blood Count 11.2 X10*3/uL (4.8-10.8)
[2023-09-22 10:52] LABS: Anion Gap 20 (12-20); Blood Urea Nitrogen 47 mg/dL (9-16); Calcium 8.8 mg/dL (8.4-10.2); Carbon Dioxide 17 mmol/L (22-29); Chloride 107 mmol/L (96-108); Creatinine Clr Calc Pharmacy 59.9; Estimated Glomerular Filt Rate 51; Glucose Random 166 mg/dL (60-115); Potassium 3.5 mmol/L (3.3-5.1); Sodium 140 mmol/L (135-145)
--- NOTE | 2023-09-22 11:10 | P.DS_ITS ---
DS: Providers Provider Date of Service: 09/22/23 Date of admission: 09/14/23 14:28 Primary care physician: PARMINDER Patel Consults: 09/14/23 14:44 Consult to Gastroenterology Routine Consulting Provider: Suyapa Wright Reason for consultation: Acute alcoholic hepatitis 09/14/23 14:45 Consult to Nephrology Routine Consulting Provider: [facility] Reason for consultation: Anuria x3 weeks, hepatorenal 09/14/23 15:40 Addiction Medicine Routine Consulting Provider: Addiction Covering Reason for consultation: Alcohol use disorder 09/20/23 10:16 Consult to General Surgery Routine Consulting Provider: [facility] Reason for consultation: bleeding hemorrhoid DS: Diagnosis Discharge Diagnosis (1) STEFANO (acute kidney injury): Status: Acute DS: Summary Hospital Course Hospital Course: HPI from admission H&P: Pt is a 58-year-old male with a PMH significant for?HTN, dui-ptflpit-zryasvsrn type 2 diabetes, seizure disorder, HLD, and alcohol use disorder with history of withdrawal who presents [facility] from [facility] for evaluation low blood pressure with SBP in the 80s. The patient states he has been experiencing increased abdominal swelling for the past 2 months abdominal pain for the past 1 month, worsening in the past week. Also has been experiencing intermittent weakness, SOB, lightheadedness, and dizziness, significantly worse this morning while at the [facility]. States he is unable to climb up a flight of stairs. Endorses chills but no fever. Has had reduced p.o. intake of both food and drink secondary to increased abdominal bloating. Also reports has not been able to urinate for the past 3 weeks, when he was able to go ?only a little? while having a bowel movement. Continues to drink ?a few? drinks of vodka daily with last drink yesterday evening. States he was told by someone it was better for him to continue drinking at least a little rather than completely quitting. No increased agitation/anxiety, diaphoresis, tremors. Denies auditory or visual hallucinations. No acute bleeding: Denies hematemesis, hemoptysis, hematochezia, or melena. In the ED patient was initially hypothermic at 95.3, tachycardic up to 122, tachypneic up to 24, and hypotensive as low as 82/43. Labs were significant for leukocytosis of 13.6, H&H 9.3/26.4, MCV 98.9, INR 2.2, sodium 132, creatinine 2. 31 (up from 1.03 on 08/15), lactic acid 4.2, magnesium 1.5. Total bilirubin 13.3, direct bilirubin 9.6, AST 127, alk-phos to 28, ammonia 59, and albumin 2.1. Tested negative for flu, RSV, COVID. CXR showed no acute cardiopulmonary abnormality. CT?of abdomen and pelvis showed marked worsening of hepatic steatosis with hepatomegaly and new large volume ascites. Ultrasound of abdomen found hepatomegaly and diffuse hepatic steatosis, moderate volume of abdominal ascites, and either abnormal low velocity flow and main portal vein or actual thrombosis within the vein. EKG demonstrated normal sinus rhythm without evidence of significant ST elevations or depressions. Pt was treated with IVF, albumin, thiamine, Mag sulfate, pantoprazole, ceftriaxone, vitamin K, and started phenobarb protocol. Pt will be admitted to the hospital for treatment and further evaluation of acute alcoholic hepatitis and acute hepatorenal syndrome. Hospital Course Patient had a prolonged hospitalization, for full details, please see the full medical records Pt is a 58-year-old male with a PMH significant for?HTN, lxl-ovtdofv-fxiiahvel type 2 diabetes, seizure disorder, HLD, and alcohol use disorder with history of withdrawal who presents to the ED from [facility] for evaluation low blood pressure with SBP in the 80s. Admitted for management of f acute alcoholic hepatitis and acute hepatorenal syndrome. Acute alcoholic hepatitis--Tbili remains high at 12 to 13 started on steroids 40mg daily, will need to f/u with GI as outpatient stop drinking Portal vein thromboisis (PVT) anticoagulation deferred due to acute bleeding, will need f/u with GI Acute on chronic anemia s/p 2 units of RBC (1 each on 09/15 and 09/16) - EGD 09/14 showed varices but no active bleed, no intervention. Continue omeprazol, H/H remains stable at 12/20 colonosocpy showed hemorrhoids and polyps -- bleeding secondary to hemorrohoids -- will be on pr hydrocotrisone and bowel regime; should not strain Acute hepatorenal syndrome - treated with Albumin, Modorine; SCr stable around 1.5, likely representing new level will be continued on midodrine; his ibesartan has been d/c Acute Hypokalemia, resolved. HypERammonemia, resolved was not confused; will be sent on lactulos 20mg bid Acute Lactic Acidosis, not due to sepsis, d/t alcoholic hepatitis, resolved Hyponatremia, mild, resolved Coagulopathy -- due to liver disease Hypomagnesemia resolved Alcohol use disorder completed phenobarb, no signs of withdrawal at time of dc should f/u with addiction med as outpatient Seizure disorder Continue Keppra -- dose decreased to 500mg bid Mbm-mykgztw-apokjamcq type 2 diabetes treated with sliding scale in the hospital, can resume metformin -- CrCl is nearly 60 HLD Continue statin HTN stopped due to low bp Seen by PT and recommendations for outpatient PT -- will need to obtain referral from pcp Time Attestation Discharge Coordination Time (in mins): 45 Quality: Safe Use of Opioids Does Pt have an Active Cancer Diagnosis on the Problem List?: No Quality: Stroke Does the patient have a stroke diagnosis?: No Physical Exam Vital Signs: Vital Signs: Last Vital Signs Temp 97.5 F 09/22/23 11:05 Pulse 79 09/22/23 11:05 Resp 19 09/22/23 11:05 BP 100/57 L 09/22/23 11:05 Pulse Ox 100 09/22/23 11:05 O2 Del Method Room Air 09/22/23 11:05 O2 Flow Rate 2 09/15/23 11:51 BMI result Body Mass Index 24.1 Const: Other: General - no acute distress, appears comfortable Cardiovascular - regular rate and rhythm, S1-S2 Lungs - normal respiratory effort, clear to auscultation bilaterally, no wheezing Abdomen - soft, nontender, no rebound or guarding Extremities - no edema bilaterally Neuro - awake and alert, no focal deficits DS: Data Data Completed and Pending Completed studies during hospitalization [Text1]: Procedures Detoxification Services for Substance Abuse Treatment (06/29/23) Pending studies at discharge: Pending at discharge 09/21/23 14:21 Surgical [PTH] Routine Labs on day of discharge: Laboratory Results - last 24 hr 09/21/23 09/21/23 09/21/23 06:38 11:15 16:17 WBC RBC Hgb Hct MCV MCH MCHC RDW Plt Count MPV Absolute Nucleated RBC Nucleated RBC % (auto) Sodium Potassium Chloride Carbon Dioxide Anion Gap BUN Creatinine Estim Creat Clear Calc Estimated GFR POC Glucose 100 159 H Random Glucose Calcium Magnesium 1.6 09/21/23 09/22/23 09/22/23 20:33 07:46 10:15 WBC 11.2 H RBC 2.83 L Hgb 9.4 L Hct 27.2 L MCV 96.1 MCH 33.2 H MCHC 34.6 RDW 24.4 H Plt Count 61 L MPV Not Reportable Absolute Nucleated RBC 0.000 Nucleated RBC % (auto) 0.0 Sodium 140 Potassium 3.5 Chloride 107 Carbon Dioxide 17 L Anion Gap 20 BUN 47 H Creatinine 1.43 H Estim Creat Clear Calc 59.9 Estimated GFR 51 POC Glucose 146 H 127 H Random Glucose 166 H Calcium 8.8 Magnesium Discharge Plan Discharge Anticipated Discharge Date/Time: 09/22/23 10:57 Patient Disposition: Home, Self-Care Discharge Diagnosis: Hepatorenal syndrome alcoholic hepatitis acute blood loss anemia Referrals: Jose Romero, [employer] RELATIONS OFFICER-BC [Primary Care Provider] - 1 Week Discharge Medications: New levetiracetam 500 mg Tablet 500 mg PO BID Qty: 60 2RF famotidine 20 mg Tablet 20 mg PO Q2D@2100 Qty: 30 0RF omeprazole 20 mg Capsule,Delayed Release(Dr/Ec) 20 mg PO BID@0630,1630 Qty: 60 2RF hydrocortisone [Proctozone-HC] 2.5 % cream with perineal applicator 1 appl IN BEDTIME PRN (Reason: hemorrhoids) Qty: 30 1RF prednisolone 15 mg/5 mL solution 40 mg PO QAM 30 Days Qty: 399.999 0RF lactulose 20 gram/30 mL solution 20 g PO BID Qty: 2880 2RF midodrine 5 mg tablet 5 mg PO TID 30 Days Qty: 90 2RF Rx Instructions: do not give last dose of day after 6PM or within 4 hrs of bedtime Continued atorvastatin 20 mg tablet 20 mg PO BEDTIME 90 Days Qty: 90 1RF metformin 1,000 mg tablet 1,000 mg PO DAILY Qty: 90 1RF magnesium oxide 400 mg magnesium Tablet 400 mg PO BID fluticasone propion-salmeterol [Advair Diskus] 250-50 mcg/dose blister with device 1 inh inhalation BID prazosin 1 mg capsule 1 mg PO BEDTIME 30 Days Qty: 30 2RF Discontinued levetiracetam 1,000 mg tablet 1,000 mg PO BID 90 Days Qty: 180 1RF tamsulosin 0.4 mg capsule 0.4 mg PO BEDTIME irbesartan 300 mg tablet 300 mg PO DAILY Diet: Advance to usual diet Activity on Discharge: As tolerated Stand Alone Forms: Patient Portal Discharge page Print Language: Mongolian Care Plan Goals: To stay healthy and out of the hospital. Health Concerns: Alcoholic liver disease Plan of Treatment: Take prednisolon 40mg daily and follow up with GI doctors Do not drink alcohol take lactulose twice daily use hydrcortisone suppository for your hemorrhoids; do not strain take keppra 500mg twice daily Stop taking your BP medications; start midodrine 5mg three times a day Assessment: see d/c summary
[2023-09-22 11:44] LABS: Glucose, Whole Blood 210 mg/dL (60-115)
--- NOTE | 2023-09-22 13:15 | MHC.CM.PN ---
Per ROUNDS discussion, Patient is medically cleared for dc to home today, self care.
[2023-09-22] MEDS: Insulin Lispro 100 UNIT/ML 3 ML VIAL SUBCUT ×2 (14:13→16:56)
--- NOTE | 2023-09-22 15:55 | P.PNNP_ITS ---
Subjective Subjective Date of Service: 09/22/23 Interval history: Events noted. Creatinine is trending down Physical Exam 2 Vital Signs: Vital Signs: Last Vital Signs Temp 97.3 F 09/22/23 15:47 Pulse 68 09/22/23 15:47 Resp 17 09/22/23 15:47 BP 114/71 09/22/23 15:47 Pulse Ox 99 09/22/23 15:47 O2 Del Method Room Air 09/22/23 15:47 O2 Flow Rate 2 09/15/23 11:51 BMI result Body Mass Index 24.1 Const: General: no acute distress Eyes: EOM: EOMs intact bilaterally Neck: Neck: Yes supple Resp: Auscultation: diminished lung sounds Cardio: Rate: regular rate GI: Palpation (GI): Soft to palpation Neuro: General: moves all extremities Objective Data Labs 09/22/23 10:15 09/22/23 10:15 Labs: Laboratory Results - last 24 hr 09/21/23 09/21/23 09/22/23 16:17 20:33 07:46 WBC RBC Hgb Hct MCV MCH MCHC RDW Plt Count MPV Absolute Nucleated RBC Nucleated RBC % (auto) Sodium Potassium Chloride Carbon Dioxide Anion Gap BUN Creatinine Estim Creat Clear Calc Estimated GFR POC Glucose 159 H 146 H 127 H Random Glucose Calcium 09/22/23 09/22/23 10:15 11:38 WBC 11.2 H RBC 2.83 L Hgb 9.4 L Hct 27.2 L MCV 96.1 MCH 33.2 H MCHC 34.6 RDW 24.4 H Plt Count 61 L MPV Not Reportable Absolute Nucleated RBC 0.000 Nucleated RBC % (auto) 0.0 Sodium 140 Potassium 3.5 Chloride 107 Carbon Dioxide 17 L Anion Gap 20 BUN 47 H Creatinine 1.43 H Estim Creat Clear Calc 59.9 Estimated GFR 51 POC Glucose 210 H Random Glucose 166 H Calcium 8.8 Microbiology Microbiology Results: Microbiology 09/14/23 10:00 Blood - Venous Blood Culture - Final No growth after 5 days. 09/14/23 10:00 Blood - Venous Blood Culture - Final No growth after 5 days. 09/14/23 13:36 Peritoneal Fluid Gram Stain - Final 09/14/23 13:36 Peritoneal Fluid Routine Culture - Final No growth after 2 days 09/14/23 13:36 Peritoneal Fluid Anaerobic Culture - Final NO GROWTH AFTER 5 DAYS 09/15/23 Unknown Urine clean catch - Urine hannah top Urine Culture - Final No growth. Procedures Date of Service Date of Service: 09/22/23 Assessment & Plan Assessment and plan (1) STEFANO (acute kidney injury): Status: Acute Plan STEFANO due to tubular injury No evidence of GN/IN Renal function improved and stable. Remains nonoliguric Hold ARB for now Continue current supportive care Needs F/U with [facility] in couple of weeks when D/Lalit Progress Note: Quality Stroke Does the patient have a stroke diagnosis?: No
[2023-09-22 16:14] LABS: Glucose, Whole Blood 252 mg/dL (60-115)
== END 2023-09-22 18:16 | disposition home or self-care (01) | DRG 280 ==
LOC: HO.ED 13:43 → HO.EDOVER 14:49 → HO.IMC 16:22
PROVIDERS: Internal Medicine; Internal Medicine Gastroenterology; Student in an Organized Health Care Education/Training Program; Admitting Provider Student in an Organized Health Care Education/Training Program; Emergency Provider Emergency Medicine; PCP Nurse Practitioner Family; Visit Provider Family Medicine
PROC: 0DJ08ZZ Inspection of Upper Intestinal Tract, Via Natural or Artificial Opening Endoscopic (ICD-10-PCS; CPT 43235; principal; 2023-09-15 10:30)
PROC: 0DJD8ZZ Inspection of Lower Intestinal Tract, Via Natural or Artificial Opening Endoscopic (ICD-10-PCS; CPT 45378; principal; 2023-09-21 13:20)
DX: K70.31 Alcoholic cirrhosis of liver with ascites (principal); K70.11 Alcoholic hepatitis with ascites; N17.0 Acute kidney failure with tubular necrosis; K76.7 Hepatorenal syndrome; I81 Portal vein thrombosis; E72.20 Disorder of urea cycle metabolism, unspecified; E87.1 Hypo-osmolality and hyponatremia; D62 Acute posthemorrhagic anemia; E88.09 Other disorders of plasma-protein metabolism, not elsewhere classified; K76.6 Portal hypertension; K64.0 First degree hemorrhoids; E83.42 Hypomagnesemia; G40.909 Epilepsy, unspecified, not intractable, without status epilepticus; K63.5 Polyp of colon; K31.89 Other diseases of stomach and duodenum; I85.10 Secondary esophageal varices without bleeding; D68.4 Acquired coagulation factor deficiency; E87.6 Hypokalemia; I10 Essential (primary) hypertension; K62.5 Hemorrhage of anus and rectum; F10.239 Alcohol dependence with withdrawal, unspecified; E87.21 Acute metabolic acidosis; Z20.822 Contact with and (suspected) exposure to COVID-19; Z87.891 Personal history of nicotine dependence; Z79.51 Long term (current) use of inhaled steroids; Z79.84 Long term (current) use of oral hypoglycemic drugs; Z79.899 Other long term (current) drug therapy
CPT/HCPCS: 0241U; 36415; 49083; 71045; 74176; 76705; 80048; 80053; 80076; 80307; 81001; 82042; 82140; 82248; 82272; 82728; 82945; 82947; 83540; 83605; 83615; 83690; 83735; 83880; 83986; 84157; 85025; 85027; 85610; 85730; 86015; 86038; 86381; 86850; 86900; 86901; 86923; 87040; 87070; 87073; 87086; 87205; 88305; 89051; 93005; 94640; 97161; 99285; C1758; C9113; J0696; J0736; J2560; J2704; J3411; J3430; J3475; P9016; P9017; P9047

== ENCOUNTER → 2023-09-14 09:40 | Outpatient (BNV) | payer OTHER, SELFPAY | PROVIDERS: Admitting Provider Student in an Organized Health Care Education/Training Program; Emergency Provider Emergency Medicine; PCP Nurse Practitioner Family; Visit Provider Internal Medicine Cardiovascular Disease | DX: R94.31 Abnormal electrocardiogram [ECG] [EKG] (principal) | CPT/HCPCS: 93010 ==

== ENCOUNTER 2023-09-14 14:28 | Outpatient (BNV) | payer OTHER, SELFPAY | END 2023-09-15 11:05 | PROVIDERS: Admitting Provider Student in an Organized Health Care Education/Training Program; Emergency Provider Emergency Medicine; PCP Nurse Practitioner Family; Visit Provider Physician Assistant Surgical | DX: R18.8 Other ascites (principal); N17.9 Acute kidney failure, unspecified | CPT/HCPCS: 49083 ==

== ENCOUNTER → 2023-09-14 14:28 | Outpatient (BNV) | payer OTHER, SELFPAY | PROVIDERS: Admitting Provider Student in an Organized Health Care Education/Training Program; Emergency Provider Emergency Medicine; PCP Nurse Practitioner Family; Visit Provider Internal Medicine Gastroenterology | DX: K70.11 Alcoholic hepatitis with ascites (principal); K70.31 Alcoholic cirrhosis of liver with ascites; N17.9 Acute kidney failure, unspecified | CPT/HCPCS: 45385; 99232 ==

== ENCOUNTER → 2023-09-14 14:28 | Outpatient (BNV) | payer OTHER, SELFPAY | PROVIDERS: Admitting Provider Student in an Organized Health Care Education/Training Program; Emergency Provider Emergency Medicine; PCP Nurse Practitioner Family; Visit Provider Student in an Organized Health Care Education/Training Program | DX: N17.9 Acute kidney failure, unspecified (principal) | CPT/HCPCS: 99222; 99232; 99233; 99239 ==

== ENCOUNTER → 2023-09-14 14:28 | Outpatient (BNV) | payer OTHER, SELFPAY | PROVIDERS: Admitting Provider Student in an Organized Health Care Education/Training Program; Emergency Provider Emergency Medicine; PCP Nurse Practitioner Family; Visit Provider Physician Assistant Surgical | DX: K64.9 Unspecified hemorrhoids (principal) | CPT/HCPCS: 99222 ==

== ENCOUNTER → 2023-09-14 14:28 | Outpatient (BNV) | payer OTHER, SELFPAY | PROVIDERS: Admitting Provider Student in an Organized Health Care Education/Training Program; Emergency Provider Emergency Medicine; PCP Nurse Practitioner Family; Visit Provider Internal Medicine Gastroenterology | DX: K70.31 Alcoholic cirrhosis of liver with ascites (principal); I85.00 Esophageal varices without bleeding; K31.89 Other diseases of stomach and duodenum; K62.5 Hemorrhage of anus and rectum | CPT/HCPCS: 43235; 99499 ==

== ENCOUNTER → 2023-09-14 14:28 | Outpatient (BNV) | payer OTHER, SELFPAY | PROVIDERS: Admitting Provider Student in an Organized Health Care Education/Training Program; Emergency Provider Emergency Medicine; PCP Nurse Practitioner Family; Visit Provider Internal Medicine Hypertension Specialist | DX: N17.0 Acute kidney failure with tubular necrosis (principal) | CPT/HCPCS: 99223; 99232 ==

== ENCOUNTER 2023-10-06 19:00 | Observation (INO) | payer OTHER, SELFPAY ==
--- NOTE | 2023-10-06 | ECG_ITS ---
Test Reason : JAUNDICE Blood Pressure : / mmHG Vent. Rate : 066 BPM Atrial Rate : 066 BPM P-R Int : 156 ms QRS Dur : 090 ms QT Int : 438 ms P-R-T Axes : 060 042 069 degrees QTc Int : 459 ms Normal sinus rhythm with sinus arrhythmia Low voltage QRS Borderline ECG When compared with ECG of 14-SEP-2023 10:25, No significant change was found Referred By: Generic ED Physician Electronically Signed By:Speedy Lara
--- NOTE | ~2023-10-06 | XR_ITS ---
EXAMINATION: XR CHEST CLINICAL INFORMATION: Infectious workup COMPARISON: None available. TECHNIQUE: Frontal view of the chest was obtained. FINDINGS: No significant abnormality is noted involving the heart, lungs, mediastinum, bony thorax or soft tissues. XR/XR chest 1V IMPRESSION: Unremarkable examination.
--- NOTE | ~2023-10-06 | CT_ITS ---
EXAMINATION: CT HEAD WITHOUT CONTRAST CLINICAL INFORMATION: Headache status-post fall. COMPARISON: CT brain dated 06/08/2023. TECHNIQUE: Contiguous axial imaging was performed from the skull base to vertex without intravenous administration of contrast. Multiplanar reformatted images are submitted. This CT examination was performed using dose optimization techniques as appropriate, variously including the following: *Automated exposure control *Adjustment of mA and/or kV according to patient size (this includes techniques or standardized protocols for targeted exams where dose is matched to indication/reason for exam; i.e. extremities or head) *Use of iterative reconstruction technique DLP: 1229 mGy-cm (head and cervical spine) FINDINGS: There is no acute intracranial hemorrhage or evidence of territorial infarction. No abnormal mass effect or midline shift is seen. Alvarez to white matter differentiation is well preserved. There is stable low-attenuation chronic encephalopathy in the lateral right frontal region. There is mild patchy low attenuation change in the periventricular and subcortical white matter spaces. The ventricles are normal in size, with stable slight asymmetry. No extra-axial fluid collections are identified. The calvarium and scalp soft tissues are normal. The middle ear cavity and mastoid air cells are clear. The visualized paranasal sinuses are clear. CT/CT cervical spine wo IV con IMPRESSION: 1. No acute intracranial pathology. There is no significant interim change. 2. There is stable low-attenuation chronic encephalopathy within the lateral right frontal region. 3. There is mild patchy low attenuation change in the periventricular and subcortical white matter spaces, commonly associated with chronic microangiopathy. EXAMINATION: CT CERVICAL SPINE WITHOUT CONTRAST CLINICAL INFORMATION: Pain status-post fall. COMPARISON: None available. TECHNIQUE: Contiguous axial imaging was performed through the cervical spine without intravenous administration of contrast. Multiplanar reformatted images are submitted. This CT examination was performed using dose optimization techniques as appropriate, variously including the following: *Automated exposure control *Adjustment of mA and/or kV according to patient size (this includes techniques or standardized protocols for targeted exams where dose is matched to indication/reason for exam; i.e. extremities or head) *Use of iterative reconstruction technique DLP: As above FINDINGS: Vertebral body heights are normal. There is mild reversal of the normal lordotic curvature. At C5-C6, there is moderately severe disc space narrowing, with endplate arthropathy and Schmorl's node formation. The remaining disc spaces are well-maintained. No acute fracture or spondylolisthesis is seen. The posterior elements are intact. There is no prevertebral soft tissue swelling. The dens is intact. The bilateral lung apices are clear. IMPRESSION: 1. At C5-C6, there is moderately severe degenerative disc disease, with endplate arthropathy. 2. No acute fracture or spondylolisthesis is seen. Fleischner guidelines were followed.
--- NOTE | ~2023-10-06 | US_ITS ---
EXAMINATION: US ABDOMEN LIMITED CLINICAL INFORMATION: Elevated LFTs. COMPARISON: Ultrasound limited abdomen September 14, 2023 TECHNIQUE: Real-time imaging of the gallbladder, CBD. Assess for ascites. FINDINGS: GALLBLADDER: Gallbladder is contracted. Limited assessment for thickened wall the gallbladder due to to contraction in the abdominal ascites. Gallstones not identified. COMMON BILE DUCT: Normal in caliber measuring 0.2 cm in diameter. FREE FLUID: Moderate volume of abdominal ascites present in all 4 quadrants of the abdomen. US/US abdomen limited IMPRESSION: Moderate volume of abdominal ascites. Contracted gallbladder. No bile duct dilatation.
[2023-10-06 19:18] VITALS: BP 132/83; PULSE 68; RESP 18; TEMP 36.8; O2SAT 98
[2023-10-06 19:19] VITALS: BP 130/80; BP 132/83; PULSE 68; PULSE 97; RESP 18; TEMP 36.8; O2SAT 98; BMI 25.7
[2023-10-06 19:42] LABS: Basophils Percent Auto 0.1 % (0-2); Hemoglobin 9.2 g/dl (14.0-18.0); SCAN SMEAR FLAG 1
[2023-10-06 19:44] LABS: Hematocrit 26.9 % (42.0-52.0); Imm Gran Abs Auto 0.05 X10*3/uL (0.00-0.03); Imm Gran Pct Auto 0.4 % (0.0-0.4); Lymphocytes Absolute Auto 0.4 X10*3/uL (1.2-4.9); Lymphocytes Percent Auto 2.7 % (20-40); MANUAL DIFF FLAG SCAN; Mean Corpuscular HGB Conc 34.2 g/dl (31.0-36.0); Mean Corpuscular Hemoglobin 33.1 pg (27.0-33.0); Mean Corpuscular Volume 96.8 fL (80.0-98.0); Monocytes Absolute Auto 0.6 X10*3/uL (0.1-1.2); Monocytes Percent Auto 4.2 % (2-11); Neutrophils Absolute Auto 12.3 x10*3/uL (2.0-8.3); Neutrophils Percent Auto 92.6 % (45-73); Red Blood Count 2.78 X10*6/uL (4.60-5.80); Red Cell Distribution Width 24.1 % (11.0-16.0); White Blood Count 13.3 X10*3/uL (4.8-10.8)
[2023-10-06 19:46] LABS: PLT ABN DIST 1; Platelet Count 67 X10*3/uL (160-400)
[2023-10-06 19:48] LABS: INTERNATIONAL NORM RATIO 1.6 (0.9-1.1); Prothrombin Time 19.6 SEC (11.1-13.3)
[2023-10-06 20:08] LABS: SLIDE REVIEW VERIFIED
[2023-10-06 20:12] LABS: Alanine Aminotransferase 85 U/L (0-40); Albumin Level 3.1 g/dL (3.5-5.0); Alkaline Phosphatase 188 U/L (39-117); Anion Gap 23 (12-20); Aspartate Amino Transferase 183 U/L (5-37); Bilirubin Direct 10.7 mg/dL (0.0-0.5); Bilirubin Total 15.8 mg/dL (0.0-1.0); Blood Urea Nitrogen 39 mg/dL (9-16); Calcium 8.8 mg/dL (8.4-10.2); Carbon Dioxide 16 mmol/L (22-29); Chloride 106 mmol/L (96-108); Creatinine Clr Calc Pharmacy 57.1; Estimated Glomerular Filt Rate 48; Glucose Random 170 mg/dL (60-115); Potassium 4.9 mmol/L (3.3-5.1); Sodium 140 mmol/L (135-145); Total Protein 7.7 g/dL (6.5-8.0); Troponin-I High Sensitivity 10.7 ng/L (<3.5-35.0)
[2023-10-06 21:13] LABS: Lactic Acid 4.8 mmol/L (0.5-2.0)
[2023-10-06 21:59] LABS: Ammonia 40 umol/L (13-55)
[2023-10-06 22:27] LABS: Magnesium 2.6 mg/dL (1.6-2.6)
--- NOTE | 2023-10-06 22:46 | PC.NURSE ---
metallurgy laboratory technician at bedside.
[2023-10-06 22:55] LABS: Reflex Lactate? Lactic Acid Added
[2023-10-06] MEDS: Lactulose 20 GM/30 ML SOLUTION PO (23:18)
--- NOTE | 2023-10-06 23:18 | ED.GENADULT ---
HPI - General Adult General Chief complaint: Weakness Stated complaint: FALL,WEAKNESS,UNABLE TO STAND Time Seen by Provider: 10/06/23 20:10 Source: patient and family Mode of arrival: EMS History of Present Illness ED Provider: Dennis TORIBIO narrative: 58-year-old male past medical history of?HTN, [id number] type 2 diabetes, seizure disorder, HLD, alcohol use disorder, alcoholic hepatitis presents for weakness. Patient has been experiencing worsening weakness for the past few days. He suffered a fall today while walking outside stating his legs gave out. He endorses historical however denies LOC. He has no head or neck pain. He denies chest pain, abdominal pain, shortness of breath, fevers, chills, urinary symptoms, diarrhea. Patient was recently discharged from hospital after presenting for low blood pressure. Instructed to start midodrine and lactulose. Patient reports he has not been taking his lactulose. Related Data Home Medications ?Medication ?Instructions ?Recorded ?Confirmed fluticasone 250 mcg-salmeterol 50 1 inh inhalation BID 03/14/22 09/14/23 mcg/dose blistr powdr for inhalation (Advair Diskus) magnesium oxide 400 mg PO BID 09/14/23 09/14/23 Previous Rx's ?Medication ?Instructions ?Recorded atorvastatin 20 mg tablet 20 mg PO BEDTIME 90 days #90 tabs 05/28/23 metformin 1,000 mg tablet 1,000 mg PO DAILY #90 tabs 07/09/23 prazosin 1 mg capsule 1 mg PO BEDTIME 30 days #30 caps 08/07/23 famotidine 20 mg tablet 20 mg PO Q2D@2100 #30 tabs 09/22/23 hydrocortisone 2.5 % topical cream 1 appl ME BEDTIME PRN hemorrhoids 09/22/23 with perineal applicator #30 grams (Proctozone-HC) lactulose 20 gram/30 mL oral 20 g (30 mL) PO BID #2,880 mL 09/22/23 solution levetiracetam 500 mg tablet 500 mg PO BID #60 tabs 09/22/23 midodrine 5 mg tablet 5 mg PO TID 30 days #90 tabs 09/22/23 omeprazole 20 mg capsule,delayed 20 mg PO BID@0630,1630 #60 caps 09/22/23 release prednisolone 15 mg/5 mL oral 40 mg (13.3333 mL) PO QAM 30 days 09/22/23 solution #399.999 mL Allergies Allergy/AdvReac Type Severity Reaction Status Date / Time Penicillins Allergy Hives Verified 10/06/23 19:24 Review of Systems Review of Systems: Constitutional : No Fever, No Chills, generalized weakness ENT/Mouth : No oral swelling, No Hoarseness, No Swallowing Difficulty Eyes: No Eye Pain, No Swelling, No Redness Cardiovascular : No Chest Pain, No SOB Respiratory : No Cough, No Sputum, No Wheezing, No Smoke Exposure, No Dyspnea Gastrointestinal : No Nausea, No Vomiting, No Diarrhea, No abdominal Pain, abdominal distention Genitourinary : No Dysuria, No Urinary Frequency, No Hematuria Musculoskeletal : No joint pain, No Myalgias, No Joint Swelling Skin : No Skin Lesions, positive rash Neuro : No Numbness, No Headache Psych : No Anxiety/Panic, No Depression Heme/Lymph: No Bruising, No Lymphadenopathy Endocrine : No Polyuria, No Polydipsia All other systems reviewed and are negative [facility] Past Medical History Attestation statement: The following information was validated with the patient. [facility] Narrative: Alcohol abuse, alcoholic hepatitis, anemia, hypertension Source: old records reviewed Medical History (Updated 10/07/23 @ 02:25 by Vel Lerma MD) Bleeding hemorrhoids Acute hypokalemia Acute on chronic anemia Hepatorenal syndrome Alcoholic hepatitis Elevated bilirubin Cirrhosis Abdominal ascites Elevated WBC count STEFANO (acute kidney injury) Portal hypertensive gastropathy Portal hypertension with esophageal varices Fatty liver Nicotine dependence, cigarettes, uncomplicated HTN (hypertension) Seizures Asthma Diabetes Surgical History History of colonoscopy Social History Social History Household Members: Family Housing: House Do you presently have visiting nurse or other home services: No Alcohol intake: current Alcohol intake frequency: 3 or more drinks per day Alcohol type: hard liquor Comment: 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 Patient Tobacco Use Status: Former Tobacco user Tobacco use type: Cigarette Cigarette Packs Per Day: 0.25 Cigarettes Per Day: 5.0 Years Smoked: 15 e-Cigarette/Vaping Use: Never Used Second Hand Smoke Exposure: No Substance Use Type: Marijuana Advance Directives: Yes Advance Directives on File: Yes Advance Directives Date on File: 07/03/23 Do you have a plan to hurt others: No Plan service: No Current occupational status: employed Current occupation: [employer] Current occupational exposures/hazards: No Cognitive needs: No Hearing needs: No Vision needs: No Physical Exam ED Vital Signs: Vital Signs - 24 hr 10/06/23 19:18 10/06/23 19:19 10/07/23 00:12 Temperature 98.3 F 98.3 F 97.4 F Pulse Rate 68 68 68 Respiratory Rate 18 18 14 Blood Pressure 132/83 132/83 133/75 Pulse Oximetry 98 98 98 Oxygen Delivery Method Room Air Room Air Room Air BMI result Body Mass Index 25.7 Appearance: Alert. Oriented X3. No acute distress. Eyes: Pupils equal, round and reactive to light; jaundice scleral ENT: Pharynx normal. Neck: Normal inspection. Neck supple. CVS: Normal heart rate and rhythm. Pulses normal. Respiratory: No respiratory distress. Breath sounds normal. Abdomen: Distended, nontender Skin: Skin warm and dry. Jaundice appearance. Normal skin turgor. Extremities: No lower extremity edema. No calf ttp Neuro: Oriented X 3. No motor deficit. No sensory deficit. Medications Administered Generic Name Dose Route Start Last Admin Trade Name Freq PRN Reason Stop Dose Admin Levetiracetam 500 mg 10/07/23 01:05 10/07/23 01:35 Levetiracetam 500 Mg Tablet PO 500 mg BID ISABELLA Administration Discontinued Medications Generic Name Dose Route Start Last Admin Trade Name Freq PRN Reason Stop Dose Admin Lactulose 20 gm 10/06/23 22:59 10/06/23 23:18 Lactulose 20 Gm/30 Ml Solution PO 10/06/23 23:00 20 gm ONCE ONE Administration Medical Decision Making Medical Decision Making [facility] Narrative: Patient presents for generalized weakness. I have low suspicion for infection however we will obtain appropriate testing. I suspect patient is weak due to his underlying illnesses and this is likely in a picture of failure to thrive and med noncompliance. I will also rule out electrolyte/metabolic disturbance, traumatic head and neck injury CT head and neck negative for bleed, osseous injury Chest x-ray negative for launch consolidation Ultrasound showing ascites Elevated lactate likely secondary to poor liver clearance; no concerns for sepsis Patient admitted to medicine Differential Diagnosis Differential Diagnoses: The differential diagnosis associated with the presentation includes Electrolyte/metabolic disturbance, underlying infection Low suspicion for head bleed, SBP, sepsis/shock Lab Data MDM Lab Attestation statement: I reviewed the patient's lab results. 10/06/23 19:37 10/06/23 19:37 Labs: Lab Results 10/06/23 10/06/23 10/06/23 Range/Units 19:37 20:51 21:47 WBC 13.3 H (4.8-10.8) X10*3/uL RBC 2.78 L (4.60-5.80) X10*6/uL Hgb 9.2 L (14.0-18.0) g/dl Hct 26.9 L (42.0-52.0) % MCV 96.8 (80.0-98.0) fL MCH 33.1 H (27.0-33.0) pg MCHC 34.2 (31.0-36.0) g/dl RDW 24.1 H (11.0-16.0) % Plt Count 67 L (160-400) X10*3/uL MPV Not Reportable Immature Gran % (Auto) 0.4 (0.0-0.4) % Neut % (Auto) 92.6 H (45-73) % Lymph % (Auto) 2.7 L (20-40) % Stephens % (Auto) 4.2 (2-11) % Eos % (Auto) 0.0 (0-4) % Baso % (Auto) 0.1 (0-2) % Lymph # (Auto) 0.4 L (1.2-4.9) X10*3/uL Stephens # (Auto) 0.6 (0.1-1.2) X10*3/uL Eos # (Auto) 0.0 (0.0-0.4) X10*3/uL Baso # (Auto) 0.0 (0.0-0.2) X10*3/uL Abs Immat Gran (auto) 0.05 H (0.00-0.03) X10*3/uL Absolute Neuts (auto) 12.3 H (2.0-8.3) x10*3/uL Absolute Nucleated RBC 0.000 (0.0-0.012) X10*3/uL Nucleated RBC % (auto) 0.0 (0.0-0.2) /100WBC Smear Tech's Comments VERIFIED PT 19.6 H (11.1-13.3) SEC INR 1.6 H (0.9-1.1) Sodium 140 (135-145) mmol/L Potassium 4.9 D (3.3-5.1) mmol/L Chloride 106 (96-108) mmol/L Carbon Dioxide 16 L (22-29) mmol/L Anion Gap 23 H (12-20) BUN 39 H (9-16) mg/dL Creatinine 1.50 H (0.5-1.4) mg/dL Estim Creat Clear Calc 57.1 Estimated GFR 48 Random Glucose 170 H (60-115) mg/dL Lactic Acid 4.8 H* (0.5-2.0) mmol/L Lactic Acid F/U @ 2Hr (0.5-2.0) mmol/L Calcium 8.8 (8.4-10.2) mg/dL Magnesium 2.6 (1.6-2.6) mg/dL Total Bilirubin 15.8 H (0.0-1.0) mg/dL Direct Bilirubin 10.7 H (0.0-0.5) mg/dL AST 183 H (5-37) U/L ALT 85 H (0-40) U/L Alkaline Phosphatase 188 H (39-117) U/L Ammonia 40 (13-55) umol/L Troponin I High Sens 10.7 D (<3.5-35.0) ng/L B-Natriuretic Peptide 308 H (<100) pg/mL Total Protein 7.7 (6.5-8.0) g/dL Albumin 3.1 L (3.5-5.0) g/dL Ethyl Alcohol < 10 mg/dL 10/06/23 Range/Units 23:17 WBC (4.8-10.8) X10*3/uL RBC (4.60-5.80) X10*6/uL Hgb (14.0-18.0) g/dl Hct (42.0-52.0) % MCV (80.0-98.0) fL MCH (27.0-33.0) pg MCHC (31.0-36.0) g/dl RDW (11.0-16.0) % Plt Count (160-400) X10*3/uL MPV Immature Gran % (Auto) (0.0-0.4) % Neut % (Auto) (45-73) % Lymph % (Auto) (20-40) % Stephens % (Auto) (2-11) % Eos % (Auto) (0-4) % Baso % (Auto) (0-2) % Lymph # (Auto) (1.2-4.9) X10*3/uL Stephens # (Auto) (0.1-1.2) X10*3/uL Eos # (Auto) (0.0-0.4) X10*3/uL Baso # (Auto) (0.0-0.2) X10*3/uL Abs Immat Gran (auto) (0.00-0.03) X10*3/uL Absolute Neuts (auto) (2.0-8.3) x10*3/uL Absolute Nucleated RBC (0.0-0.012) X10*3/uL Nucleated RBC % (auto) (0.0-0.2) /100WBC Smear Tech's Comments PT (11.1-13.3) SEC INR (0.9-1.1) Sodium (135-145) mmol/L Potassium (3.3-5.1) mmol/L Chloride (96-108) mmol/L Carbon Dioxide (22-29) mmol/L Anion Gap (12-20) BUN (9-16) mg/dL Creatinine (0.5-1.4) mg/dL Estim Creat Clear Calc Estimated GFR Random Glucose (60-115) mg/dL Lactic Acid (0.5-2.0) mmol/L Lactic Acid F/U @ 2Hr 3.9 H* (0.5-2.0) mmol/L Calcium (8.4-10.2) mg/dL Magnesium (1.6-2.6) mg/dL Total Bilirubin (0.0-1.0) mg/dL Direct Bilirubin (0.0-0.5) mg/dL AST (5-37) U/L ALT (0-40) U/L Alkaline Phosphatase (39-117) U/L Ammonia (13-55) umol/L Troponin I High Sens 10.3 (<3.5-35.0) ng/L B-Natriuretic Peptide (<100) pg/mL Total Protein (6.5-8.0) g/dL Albumin (3.5-5.0) g/dL Ethyl Alcohol mg/dL Independent Interpretation I performed an independent interpretation of an: EKG, Plain X-Ray and CT Scan Radiology Impression Discussion of test interpretation with radiology: I have reviewed the radiologist's reading. Discharge Plan Discharge Clinical Impression: Adult failure to thrive, Abdominal ascites Patient Disposition: Admitted As Inpatient
[2023-10-06 23:30] LABS: B Type Natriuretic Peptide 308 pg/mL (<100)
[2023-10-06 23:36] LABS: ~Lactic Acid-LAB USE ONLY 3.9 mmol/L (0.5-2.0)
[2023-10-06 23:43] LABS: Troponin-I High Sensitivity 10.3 ng/L (<3.5-35.0)
[2023-10-07 00:12] VITALS: BP 133/75; PULSE 68; RESP 14; TEMP 36.3; O2SAT 98
--- NOTE | 2023-10-07 00:46 | P.HPHOSP_ITS ---
History of Present Illness Date of Service: 10/07/23 Attending physician on admission: Vel Lerma Chief Complaint: Tiffanie Samaniego is a 58 years old man alcoholic chronic liver disease, seizures, hypertension and type 2 diabetes was brought to the ED via EMS due to generalized weakness and fall after tripped and fell hitting his head. Patient denied headache, dizziness, nausea, vomiting, chest pain, shortness of breath, palpitations, abdominal pain, confusion, seizures, acute urinary changes, black/bloody stools or diarrhea. Patient was recently hospitalized from September 13- with multiple diagnosis including acute alcoholic hepatitis, portal vein thrombosis, acute on chronic anemia, acute hepatorenal syndrome and hyperammonemia. During this hospitalization he was started on prednisone, receive blood transfusions and was seen by GI service. He underwent an EGD on September 14 that showed varices but no active bleeding as well as a colonoscopy that showed polyps and internal hemorrhoids treated with hydrocortisone. Last time he drank alcohol was over a month ago, and denied tobacco smoking or illicit drug use. In the ED, he was found to have normal vital signs. Blood workup including CBC and CMP are remarkable for mild wall setting of LFTs. Hemoglobin platelets are around baseline. There is lactic acidosis. Renal function is stable. Troponin is negative x2. INR is 1.6 which is better than prior. Ammonia is normal. Head and C-spine CT scan showed nothing acute. CXR is negative. Abdominal ultrasound is remarkable for contracted gallbladder, no CBD dilatation and moderate ascites. ED tx: Lactulose 20 g p.o.. Review of Systems 2 Review of Systems: All 12 systems were reviewed and normal except as noted in HPI. [facility] Medical History (Updated 10/07/23 @ 02:25 by Vel Lerma MD) Bleeding hemorrhoids Acute hypokalemia Acute on chronic anemia Hepatorenal syndrome Alcoholic hepatitis Elevated bilirubin Cirrhosis Abdominal ascites Elevated WBC count STEFANO (acute kidney injury) Portal hypertensive gastropathy Portal hypertension with esophageal varices Fatty liver Nicotine dependence, cigarettes, uncomplicated HTN (hypertension) Seizures Asthma Diabetes Surgical History History of colonoscopy Social History Household Members: Family Housing: House Do you presently have visiting nurse or other home services: No Alcohol intake: current Alcohol intake frequency: 3 or more drinks per day Alcohol type: hard liquor Comment: 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 Patient Tobacco Use Status: Former Tobacco user Tobacco use type: Cigarette Cigarette Packs Per Day: 0.25 Cigarettes Per Day: 5.0 Years Smoked: 15 e-Cigarette/Vaping Use: Never Used Second Hand Smoke Exposure: No Substance Use Type: Marijuana Advance Directives: Yes Advance Directives on File: Yes Advance Directives Date on File: 07/03/23 Do you have a plan to hurt others: No Plan service: No Current occupational status: employed Current occupation: [employer] Current occupational exposures/hazards: No Cognitive needs: No Hearing needs: No Vision needs: No Meds Allergies Allergy/AdvReac Type Severity Reaction Status Date / Time Penicillins Allergy Hives Verified 10/06/23 19:24 Active Medications: Current Medications Calcium Carbonate (Calcium Carbonate 750 Mg Tab.Chew) 750 mg PO Q4H PRN PRN Reason: Heartburn Melatonin (Melatonin 3 Mg Tablet) 6 mg PO BEDTIME PRN PRN Reason: Insomnia Sodium Chloride (0.9 % Sodium Chloride Flush 3 Ml Syringe) 3 ml IVFLUSH QSHIFT [facility] Home Medications ?Medication ?Instructions ?Recorded ?Confirmed ?Last Taken ?Type fluticasone 250 mcg-salmeterol 50 1 inh inhalation BID 03/14/22 09/14/23 09/13/23 History mcg/dose blistr powdr for inhalation (Advair Diskus) magnesium oxide 400 mg PO BID 09/14/23 09/14/23 09/13/23 History Physical Exam 2 Vital Signs and Narrative: Vital Signs: Last Vital Signs Temp 97.4 F 10/07/23 00:12 Pulse 68 10/07/23 00:12 Resp 14 10/07/23 00:12 BP 133/75 10/07/23 00:12 Pulse Ox 98 10/07/23 00:12 O2 Del Method Room Air 10/07/23 00:12 BMI result Body Mass Index 25.7 Constitutional - Awake and Alert, No apparent distress. Cooperative. HEENT - PERRL, EOMI. Icteric sclerae Heart - RRR. Lungs - Normal lung expansion, Normal respiratory effort, No respiratory distress, CTA bilaterally Abdomen - Soft. NT / ND; +BS; No rebound or guarding. Positive fluid wave. Extremities - Bilateral pedal edema. Non tenderness. Musculoskeletal - Atrophic muscles. Skin - Warm/Dry Neurological - Alert & oriented x3. No focal weakness grossly noted. Normal speech. Psychological - Depressed affect Results Labs 10/06/23 19:37 10/06/23 19:37 Labs: Laboratory Results - last 24 hr 10/06/23 10/06/23 10/06/23 19:37 20:51 21:47 MCV 96.8 MCH 33.1 H MCHC 34.2 RDW 24.1 H Plt Count 67 L MPV Not Reportable Immature Gran % (Auto) 0.4 Neut % (Auto) 92.6 H Lymph % (Auto) 2.7 L [place] % (Auto) 4.2 Eos % (Auto) 0.0 Baso % (Auto) 0.1 Lymph # (Auto) 0.4 L [place] # (Auto) 0.6 Eos # (Auto) 0.0 Baso # (Auto) 0.0 Abs Immat Gran (auto) 0.05 H Absolute Neuts (auto) 12.3 H Absolute Nucleated RBC 0.000 Nucleated RBC % (auto) 0.0 Smear Tech's Comments VERIFIED PT 19.6 H INR 1.6 H Anion Gap 23 H Estim Creat Clear Calc 57.1 Estimated GFR 48 Random Glucose 170 H Lactic Acid 4.8 H* Lactic Acid F/U @ 2Hr Calcium 8.8 Magnesium 2.6 Total Bilirubin 15.8 H Direct Bilirubin 10.7 H AST 183 H ALT 85 H Alkaline Phosphatase 188 H Ammonia 40 Troponin I High Sens 10.7 D B-Natriuretic Peptide 308 H Total Protein 7.7 Albumin 3.1 L 10/06/23 23:17 MCV MCH MCHC RDW Plt Count MPV Immature Gran % (Auto) Neut % (Auto) Lymph % (Auto) [place] % (Auto) Eos % (Auto) Baso % (Auto) Lymph # (Auto) [place] # (Auto) Eos # (Auto) Baso # (Auto) Abs Immat Gran (auto) Absolute Neuts (auto) Absolute Nucleated RBC Nucleated RBC % (auto) Smear Tech's Comments PT INR Anion Gap Estim Creat Clear Calc Estimated GFR Random Glucose Lactic Acid Lactic Acid F/U @ 2Hr 3.9 H* Calcium Magnesium Total Bilirubin Direct Bilirubin AST ALT Alkaline Phosphatase Ammonia Troponin I High Sens 10.3 B-Natriuretic Peptide Total Protein Albumin Imaging Radiologist's Impressions: Impressions Cervical Spine CT 10/06/23 20:45 IMPRESSION: 1. No acute intracranial pathology. There is no significant interim change. 2. There is stable low-attenuation chronic encephalopathy within the lateral right frontal region. 3. There is mild patchy low attenuation change in the periventricular and subcortical white matter spaces, commonly associated with chronic microangiopathy. EXAMINATION: CT CERVICAL SPINE WITHOUT CONTRAST CLINICAL INFORMATION: Pain status-post fall. COMPARISON: None available. TECHNIQUE: Contiguous axial imaging was performed through the cervical spine without intravenous administration of contrast. Multiplanar reformatted images are submitted. This CT examination was performed using dose optimization techniques as appropriate, variously including the following: *Automated exposure control *Adjustment of mA and/or kV according to patient size (this includes techniques or standardized protocols for targeted exams where dose is matched to indication/reason for exam; i.e. extremities or head) *Use of iterative reconstruction technique DLP: As above FINDINGS: Vertebral body heights are normal. There is mild reversal of the normal lordotic curvature. At C5-C6, there is moderately severe disc space narrowing, with endplate arthropathy and Schmorl's node formation. The remaining disc spaces are well-maintained. No acute fracture or spondylolisthesis is seen. The posterior elements are intact. There is no prevertebral soft tissue swelling. The dens is intact. The bilateral lung apices are clear. IMPRESSION: 1. At C5-C6, there is moderately severe degenerative disc disease, with endplate arthropathy. 2. No acute fracture or spondylolisthesis is seen. Fleischner guidelines were followed. Head CT 10/06/23 20:45 IMPRESSION: 1. No acute intracranial pathology. There is no significant interim change. 2. There is stable low-attenuation chronic encephalopathy within the lateral right frontal region. 3. There is mild patchy low attenuation change in the periventricular and subcortical white matter spaces, commonly associated with chronic microangiopathy. EXAMINATION: CT CERVICAL SPINE WITHOUT CONTRAST CLINICAL INFORMATION: Pain status-post fall. COMPARISON: None available. TECHNIQUE: Contiguous axial imaging was performed through the cervical spine without intravenous administration of contrast. Multiplanar reformatted images are submitted. This CT examination was performed using dose optimization techniques as appropriate, variously including the following: *Automated exposure control *Adjustment of mA and/or kV according to patient size (this includes techniques or standardized protocols for targeted exams where dose is matched to indication/reason for exam; i.e. extremities or head) *Use of iterative reconstruction technique DLP: As above FINDINGS: Vertebral body heights are normal. There is mild reversal of the normal lordotic curvature. At C5-C6, there is moderately severe disc space narrowing, with endplate arthropathy and Schmorl's node formation. The remaining disc spaces are well-maintained. No acute fracture or spondylolisthesis is seen. The posterior elements are intact. There is no prevertebral soft tissue swelling. The dens is intact. The bilateral lung apices are clear. IMPRESSION: 1. At C5-C6, there is moderately severe degenerative disc disease, with endplate arthropathy. 2. No acute fracture or spondylolisthesis is seen. Fleischner guidelines were followed. Chest X-Ray 10/06/23 22:29 IMPRESSION: Unremarkable examination. Abdomen Ultrasound 10/06/23 22:47 IMPRESSION: Moderate volume of abdominal ascites. Contracted gallbladder. No bile duct dilatation. Assessment and Plan (1) Fall: Qualifiers: Encounter type: initial encounter Qualified Code(s): W19.XXXA - Unspecified fall, initial encounter Status: Acute (2) Generalized weakness: Status: Acute Plan Navneet Samaniego is a 58 y/o man presents with: * Generalized weakness likely secondary to physical deconditioning due to chronic liver disease. Observation. Physical therapy and case management evaluation. Fall precautions. Check vitamin-D level. * Likely acidosis. No severe sepsis criteria. Secondary to poor clearance due to chronic liver disease and use on metformin. Lactic acid in the morning. Discontinue metformin. * Chronic liver disease + alcoholic hepatitis. Continue steroids and lactulose. * Portal vein thromboisis (PVT). Anticoagulation contraindicated due to thrombocytopenia. * Chronic anemia, hemoglobin at baseline. Patient denied black/ bloody stools or any other acute bleeding. Continue to monitor H&H. * CKD with recent history of acute hepatorenal syndrome. Renal function at baseline. * Moderate ascites. Asymptomatic. * Coagulopathy. INR 1.6 (better than prior). * History of alcohol use disorder. Last alcoholic drink > a month. * Type 2 diabetes mellitus. Discontinue metformin due to advance liver disease (also, causing lactic acidosis). BG checks mucosal meals at bedtime. Diabetic diet. Insulin sliding scale. * Seizure disorder. Continue Keppra. * Hyperlipidemia. I would avoid statin due to liver disease. * History of essential hypertension. Blood pressure normal. Not currently on anti-HTN meds. Continue to monitor. * History of esophageal varices, internal hemorrhoids and polyp. No evidence of acute bleeding. DVT prophylaxis: SCDs Code status: Full Quality Stroke Does the patient have a stroke diagnosis?: No VTE Prior VTE?: No VTE Risk Level:: Medical - moderate - high VTE Device Contraindication: N/A - Device Ordered VTE Drug Contraindication: Treatment Not Indicated
[2023-10-07 00:52] LABS: Cancel Lactic Acid Canceled
[2023-10-07 01:17] LABS: Ethanol < 10 mg/dL
[2023-10-07] MEDS: levETIRAcetam 500 MG TABLET PO ×3 (01:35→20:33)
[2023-10-07 02:06] LABS: Appearance Urine Turbid; Color Urine Dark Yellow; Glucose Urine UA Negative (Negative); Leukocyte Esterase Urine Trace (Negative); Nitrite Urine Positive (Negative); PH 5.5 (5.0-9.0); UMIC TRIGGER UACC YES; Urine Blood Large (3+) (Negative); Urine Ketones Negative (Negative); Urine Protein 100 (2+) mg/dL (Neg-Trace)
[2023-10-07 02:22] LABS: Bacteria Urine None Seen (None Seen); Granular Casts Urine Present; RBC Urine >20 /HPF (0-2); UACC Culture Trigger YES; WBC Urine 0-5 /HPF (0-5)
[2023-10-07 05:54] LABS: MANUAL DIFF FLAG NO
[2023-10-07 06:03] LABS: Basophils Percent Auto 0.1 % (0-2); Eosinophils Absolute Auto 0.1 X10*3/uL (0.0-0.4); Eosinophils Percent Auto 0.4 % (0-4); Hematocrit 24.1 % (42.0-52.0); Hemoglobin 8.1 g/dl (14.0-18.0); Imm Gran Abs Auto 0.07 X10*3/uL (0.00-0.03); Imm Gran Pct Auto 0.5 % (0.0-0.4); Lymphocytes Absolute Auto 0.9 X10*3/uL (1.2-4.9); Lymphocytes Percent Auto 6.6 % (20-40); Mean Corpuscular HGB Conc 33.6 g/dl (31.0-36.0); Mean Corpuscular Volume 95.3 fL (80.0-98.0); Monocytes Absolute Auto 0.7 X10*3/uL (0.1-1.2); Neutrophils Absolute Auto 12.3 x10*3/uL (2.0-8.3); Neutrophils Percent Auto 87.4 % (45-73); Red Blood Count 2.53 X10*6/uL (4.60-5.80); Red Cell Distribution Width 24.2 % (11.0-16.0)
[2023-10-07 06:05] LABS: Platelet Count 72 X10*3/uL (160-400)
[2023-10-07 06:21] LABS: Lactic Acid 2.9 mmol/L (0.5-2.0)
[2023-10-07 06:25] LABS: Alanine Aminotransferase 82 U/L (0-40); Albumin Level 3.1 g/dL (3.5-5.0); Alkaline Phosphatase 179 U/L (39-117); Anion Gap 17 (12-20); Aspartate Amino Transferase 167 U/L (5-37); Blood Urea Nitrogen 43 mg/dL (9-16); Calcium 9.3 mg/dL (8.4-10.2); Carbon Dioxide 19 mmol/L (22-29); Chloride 107 mmol/L (96-108); Creatinine Clr Calc Pharmacy 47.9; Estimated Glomerular Filt Rate 39; Glucose Random 99 mg/dL (60-115); Potassium 4.1 mmol/L (3.3-5.1); Sodium 139 mmol/L (135-145); Total Protein 7.3 g/dL (6.5-8.0)
[2023-10-07 07:03] VITALS: BP 130/72; PULSE 73; RESP 15; TEMP 36.6; O2SAT 99
[2023-10-07 07:53] LABS: Reflex Lactate? Lactic Acid Added
[2023-10-07] MEDS: 0.9 % Sodium Chloride Flush 3 ML SYRINGE IVFLUSH ×3 (08:03→20:33)
[2023-10-07 09:03] VITALS: BP 138/78; PULSE 80; RESP 12; TEMP 36.6; O2SAT 97
[2023-10-07 09:13] LABS: Glucose, Whole Blood 96 mg/dL (60-115)
[2023-10-07 09:32] LABS: Estimated Average Glucose 105 mg/dL; Hemoglobin A1c % 5.3 % (<6.0)
[2023-10-07 09:54] LABS: ~Lactic Acid-LAB USE ONLY 2.5 mmol/L (0.5-2.0)
--- NOTE | 2023-10-07 09:59 | PHA.MEDREC ---
Pharmacy Consult ? Medication Reconciliation Pharmacy has completed the medication reconciliation.
[2023-10-07 11:08] LABS: Reflex Lactate? 2 Y
--- NOTE | 2023-10-07 11:10 | PM.EVENT ---
Event Note Date of Service: 10/07/23 Event Note: seen and evaluated this morning Feels little better but overall weak Lactic acid remains elevated from Liver disease and Metformin not due to sepsis pending PT eval continue home medicaitons High protein diet Time Spent With Patient Time: Total time managing care of this patient today ____ minutes.
[2023-10-07 11:43] LABS: Glucose, Whole Blood 112 mg/dL (60-115)
[2023-10-07] MEDS: prednisoLONE sodium phosphate 15 MG/5 ML SOLUTION 40 MG PO (12:09)
[2023-10-07] MEDS: Lactulose 20 GM/30 ML SOLUTION PO (12:09)
[2023-10-07] MEDS: Omeprazole 20 MG CAPSULE.DR PO (12:10)
[2023-10-07 12:25] LABS: ~Lactic Acid-LAB USE ONLY 2.1 mmol/L (0.5-2.0)
--- NOTE | 2023-10-07 13:14 | MHC.CM.PN ---
[place] delivered. Patient lives at home w/ . Functionally independent. PCP Jose Romero INFORMATION MANAGEMENT SPECIALIST HCP on file and verified. DP: Goal is home self care, to transport. CM will continue to follow.
[2023-10-07 16:00] VITALS: BP 145/79; PULSE 76; RESP 20; TEMP 36.7; O2SAT 97
[2023-10-07 16:22] LABS: Glucose, Whole Blood 157 mg/dL (60-115)
[2023-10-07 16:32] VITALS: BP 145/79; PULSE 76; O2SAT 97
--- NOTE | 2023-10-07 18:16 | PC.NURSE ---
Pt with frequent loose stools. Has had 5 BM's since arriving to unit this AM. Dr. Roberson ordered to hold 9pm dose of lactulose.
[2023-10-07 20:00] VITALS: BP 156/75; PULSE 68; RESP 16; TEMP 37; O2SAT 98
[2023-10-07] MEDS: Atorvastatin Calcium 20 MG TABLET PO (20:33)
[2023-10-07] MEDS: Magnesium Oxide 400 MG TABLET PO (20:33)
[2023-10-07] MEDS: Famotidine 20 MG TABLET PO (20:33)
[2023-10-07] MEDS: Prazosin HCL 1 MG CAPSULE PO (20:33)
[2023-10-07] MEDS: Insulin Lispro 100 UNIT/ML 3 ML VIAL SUBCUT (20:33)
[2023-10-07 20:36] LABS: Glucose, Whole Blood 163 mg/dL (60-115)
[2023-10-08 04:00] VITALS: BP 127/79; PULSE 92; RESP 18; TEMP 36.6; O2SAT 97
[2023-10-08] MEDS: Omeprazole 20 MG CAPSULE.DR PO ×2 (05:42→17:03)
[2023-10-08 07:12] LABS: Hemoglobin 8.3 g/dl (14.0-18.0); Mean Corpuscular HGB Conc 34.6 g/dl (31.0-36.0); Mean Corpuscular Hemoglobin 32.5 pg (27.0-33.0); Mean Corpuscular Volume 94.1 fL (80.0-98.0); Platelet Count 60 X10*3/uL (160-400); Red Blood Count 2.55 X10*6/uL (4.60-5.80); Red Cell Distribution Width 24.1 % (11.0-16.0); White Blood Count 11.4 X10*3/uL (4.8-10.8)
[2023-10-08 07:19] VITALS: BP 136/83; PULSE 76; RESP 16; TEMP 36.4; O2SAT 100
[2023-10-08 07:22] LABS: Alanine Aminotransferase 77 U/L (0-40); Albumin Level 2.9 g/dL (3.5-5.0); Alkaline Phosphatase 167 U/L (39-117); Aspartate Amino Transferase 165 U/L (5-37); Bilirubin Direct 11.3 mg/dL (0.0-0.5); Bilirubin Total 16.2 mg/dL (0.0-1.0)
[2023-10-08 07:24] LABS: Anion Gap 17 (12-20); Blood Urea Nitrogen 42 mg/dL (9-16); Calcium 8.6 mg/dL (8.4-10.2); Carbon Dioxide 17 mmol/L (22-29); Chloride 109 mmol/L (96-108); Creatinine Clr Calc Pharmacy 53.9; Estimated Glomerular Filt Rate 45; Glucose Random 145 mg/dL (60-115); Potassium 4.5 mmol/L (3.3-5.1); Sodium 138 mmol/L (135-145)
[2023-10-08 07:26] LABS: Glucose, Whole Blood 131 mg/dL (60-115)
[2023-10-08] MEDS: Fluticasone/Vilanterol 100/25 BLST.W.DEV 1 PUFF INHALE (08:21)
[2023-10-08 08:24] VITALS: PULSE 94; RESP 18; O2SAT 98
[2023-10-08] MEDS: prednisoLONE sodium phosphate 15 MG/5 ML SOLUTION 40 MG PO (08:39)
[2023-10-08] MEDS: Magnesium Oxide 400 MG TABLET PO ×2 (08:40→20:20)
[2023-10-08] MEDS: 0.9 % Sodium Chloride Flush 3 ML SYRINGE IVFLUSH ×2 (08:40→14:28)
--- NOTE | 2023-10-08 08:44 | MHC.CM.PN ---
Addendum entered by Anjana Casas RN 10/08/23 15:50: Patient and agreeable to STR and have accepted a bed offer from [facility]. [facility] is submitting for auth. Patient completed HCP naming as [facility]. Original Note: PT rec STR. CM met with patient who agrees to referrals being placed to local facilities (no preference), but would like to speak w/ his prior to making a decision. Is also considering home w/ services. His son lives in the home and provides assistance as well. Referrals sent via [facility]. CM will continue to follow.
[2023-10-08] MEDS: levETIRAcetam 500 MG TABLET PO ×2 (09:01→20:23)
[2023-10-08 12:02] LABS: Glucose, Whole Blood 163 mg/dL (60-115)
[2023-10-08] MEDS: Insulin Lispro 100 UNIT/ML 3 ML VIAL SUBCUT ×3 (12:10→20:22)
--- NOTE | 2023-10-08 12:37 | P.PNIM_ITS ---
Subjective Subjective Date of Service: 10/08/23 Interval History: seen and evaluated this morning overall feels better PT recommended STR for gen weakness Review of Systems Review of Systems: Yes all other systems are reviewed and are negative Physical Exam 2 Vital Signs: Vital Signs: Last Vital Signs Temp 97.6 F 10/08/23 07:19 Pulse 94 10/08/23 08:24 Resp 18 10/08/23 08:24 BP 136/83 10/08/23 07:19 Pulse Ox 100 10/08/23 07:19 O2 Del Method Room Air 10/08/23 07:19 BMI result Body Mass Index 25.7 Const: Other: Constitutional : Awake, interactive, not in distress Eyes: PERRL , jaundiced Cardiovascular : RRR, no JVP, no lower extremity edema Respiratory : good bilateral air entry, no crackles, wheezes or rhonchi Gastrointestinal: soft, lax, Normal bowel sounds, Non tender, mildly distended Skin : Warm, Dry Neurological : Alert & oriented x3, No focal deficit Objective Data Active Medications Atorvastatin Calcium (Atorvastatin Calcium 20 Mg Tablet) 20 mg PO BEDTIME [facility] Last Admin: 10/07/23 20:33 Dose: 20 mg Documented By: DANIELE Calcium Carbonate (Calcium Carbonate 750 Mg Tab.Chew) 750 mg PO Q4H PRN PRN Reason: Heartburn Famotidine (Famotidine 20 Mg Tablet) 20 mg PO Q2D@2100 [facility] Last Admin: 10/07/23 20:33 Dose: 20 mg Documented By: DANIELE Fluticasone/Vilanterol (Fluticasone/Vilanterol 100/25 Blst.W.Dev) 1 puff INHALE RDAILY [facility] Last Admin: 10/08/23 08:21 Dose: 1 puff Documented By: EARL Hydrocortisone (Hydrocortisone 2.5 % Rectal Cr 30 Gm Tube) 1 appl MT BEDTIME PRN PRN Reason: hemorrhoids Insulin Human Lispro (Insulin Lispro 100 Unit/Ml 3 Ml Vial) 0 unit SUBCUT QIDACHS [facility]; Protocol Last Admin: 10/08/23 12:10 Dose: 2 unit Documented By: RACHEL Lactulose (Lactulose 20 Gm/30 Ml Solution) 20 gm PO BID [facility] Last Admin: 10/08/23 08:55 Dose: Not Given Documented By: RACHEL Non-Admin Reason: holding for frequent loose stools Levetiracetam (Levetiracetam 500 Mg Tablet) 500 mg PO BID [facility] Last Admin: 10/08/23 09:01 Dose: 500 mg Documented By: RACHEL Magnesium Oxide (Magnesium Oxide 400 Mg Tablet) 400 mg PO BID [facility] Last Admin: 10/08/23 08:40 Dose: 400 mg Documented By: RACHEL Midodrine (Midodrine Hcl 5 Mg Tablet) 5 mg PO TID PRN PRN Reason: SBP<100 Omeprazole (Omeprazole 20 Mg Capsule.Dr) 20 mg PO BID@0630,1630 [facility] Last Admin: 10/08/23 05:42 Dose: 20 mg Documented By: DANIELE Prazosin HCl (Prazosin Hcl 1 Mg Capsule) 1 mg PO BEDTIME [facility]; Protocol Last Admin: 10/07/23 20:33 Dose: 1 mg Documented By: DANIELE Prednisolone Sodium Phosphate (Prednisolone Sodium Phosphate 15 Mg/5 Ml Solution) 40 mg PO DAILY [facility] Last Admin: 10/08/23 08:39 Dose: 40 mg Documented By: RACHEL Sodium Chloride (0.9 % Sodium Chloride Flush 3 Ml Syringe) 3 ml IVFLUSH QSHIFT [facility] Last Admin: 10/08/23 08:40 Dose: 3 ml Documented By: RACHEL Labs 10/08/23 06:23 10/08/23 06:23 Labs: Laboratory Results - last 24 hr 10/07/23 10/07/23 10/08/23 16:14 20:24 06:23 MCV 94.1 MCH 32.5 MCHC 34.6 RDW 24.1 H Plt Count 60 L MPV Not Reportable Absolute Nucleated RBC 0.000 Nucleated RBC % (auto) 0.0 Anion Gap 17 Estim Creat Clear Calc 53.9 Estimated GFR 45 POC Glucose 157 H 163 H Random Glucose 145 H Calcium 8.6 D Total Bilirubin 16.2 H Direct Bilirubin 11.3 H AST 165 H ALT 77 H Alkaline Phosphatase 167 H Total Protein 7.0 Albumin 2.9 L 10/08/23 10/08/23 07:22 11:58 MCV MCH MCHC RDW Plt Count MPV Absolute Nucleated RBC Nucleated RBC % (auto) Anion Gap Estim Creat Clear Calc Estimated GFR POC Glucose 131 H 163 H Random Glucose Calcium Total Bilirubin Direct Bilirubin AST ALT Alkaline Phosphatase Total Protein Albumin Microbiology Microbiology Results: Microbiology 10/07/23 Unknown Urine Culture - Final Urine clean catch - Clean Catch Midstream Assessment and Plan (1) Generalized weakness: Status: Acute (2) Fall: Status: Acute (3) Abdominal ascites: Status: Acute Plan Navneet Samaniego is a 58 y/o man presents with: Generalized weakness secondary to physical deconditioning due to chronic liver disease. Physical therapy rec STR Fall precautions. pending vitamin-D level. normal Ca Lactice acidosis. Secondary to poor clearance due to chronic liver disease and use on metformin. DC Metformin Chronic liver disease w ascites,. Continue steroids and lactulose for recent hx of Alcoholic hepatitis. US showing moderate asictes start Spironolactone for fluid management. Portal vein thromboisis (PVT). Anticoagulation contraindicated due to thrombocytopenia. Chronic anemia, hemoglobin at baseline. Patient denied black/ bloody stools or any other acute bleeding. Continue to monitor H&H. CKD with recent history of acute hepatorenal syndrome. Renal function at baseline. Moderate ascites. Asymptomatic. Coagulopathy. INR 1.6 (better than prior). History of alcohol use disorder. Last alcoholic drink > a month. Type 2 diabetes mellitus. Discontinue metformin due to advance liver disease (also, causing lactic acidosis). BG checks mucosal meals at bedtime. Diabetic diet. Insulin sliding scale. Seizure disorder. Continue Keppra. Hyperlipidemia. avoid statin due to liver disease. History of essential hypertension. Blood pressure normal. Not currently on anti-HTN meds. Continue to monitor. History of esophageal varices, internal hemorrhoids and polyp. No evidence of acute bleeding. DVT prophylaxis: SCDs Code status: Full Quality Stroke Does the patient have a stroke diagnosis?: No VTE Prior VTE?: No VTE Risk Level:: Medical - moderate - high VTE Device Contraindication: N/A - Device Ordered VTE Drug Contraindication: Treatment Not Indicated
[2023-10-08 15:09] VITALS: BP 148/83; PULSE 87; RESP 18; TEMP 36.7; O2SAT 98
[2023-10-08 16:21] LABS: Glucose, Whole Blood 209 mg/dL (60-115)
[2023-10-08] MEDS: Spironolactone 25 MG TABLET 12.5 MG PO (17:03)
[2023-10-08 18:47] VITALS: BP 140/77; PULSE 90; RESP 18; TEMP 36.8; O2SAT 100
[2023-10-08 20:06] LABS: Glucose, Whole Blood 201 mg/dL (60-115)
[2023-10-08 20:20] VITALS: BP 140/77
[2023-10-08] MEDS: Prazosin HCL 1 MG CAPSULE PO (20:20)
[2023-10-08] MEDS: Lactulose 20 GM/30 ML SOLUTION PO (20:20)
[2023-10-08] MEDS: Famotidine 20 MG TABLET PO (20:37)
[2023-10-09 02:47] VITALS: BP 144/86; PULSE 71; RESP 18; TEMP 36.6; O2SAT 97
[2023-10-09] MEDS: Omeprazole 20 MG CAPSULE.DR PO ×2 (05:26→16:45)
[2023-10-09 07:52] VITALS: BP 132/74; PULSE 72; RESP 12; TEMP 36.6; O2SAT 97
[2023-10-09 07:52] LABS: Glucose, Whole Blood 143 mg/dL (60-115)
[2023-10-09] MEDS: levETIRAcetam 500 MG TABLET PO ×2 (08:13→20:06)
[2023-10-09] MEDS: Magnesium Oxide 400 MG TABLET PO ×2 (08:13→20:06)
[2023-10-09] MEDS: Spironolactone 25 MG TABLET 12.5 MG PO (08:13)
[2023-10-09] MEDS: prednisoLONE sodium phosphate 15 MG/5 ML SOLUTION 40 MG PO (08:14)
[2023-10-09] MEDS: Lactulose 20 GM/30 ML SOLUTION PO ×2 (08:14→20:06)
[2023-10-09] MEDS: 0.9 % Sodium Chloride Flush 3 ML SYRINGE IVFLUSH ×3 (08:18→20:09)
[2023-10-09 08:19] VITALS: PULSE 98; RESP 20; O2SAT 100
[2023-10-09] MEDS: Fluticasone/Vilanterol 100/25 BLST.W.DEV 1 PUFF INHALE (08:19)
[2023-10-09 09:32] LABS: Hematocrit 23.7 % (42.0-52.0); Hemoglobin 8.3 g/dl (14.0-18.0); Mean Corpuscular Hemoglobin 33.1 pg (27.0-33.0); Mean Corpuscular Volume 94.4 fL (80.0-98.0); Red Blood Count 2.51 X10*6/uL (4.60-5.80); Red Cell Distribution Width 23.6 % (11.0-16.0)
[2023-10-09 09:34] LABS: Platelet Count 62 X10*3/uL (160-400)
[2023-10-09 09:48] LABS: Alanine Aminotransferase 73 U/L (0-40); Alkaline Phosphatase 182 U/L (39-117); Anion Gap 16 (12-20); Aspartate Amino Transferase 129 U/L (5-37); Bilirubin Direct 11.8 mg/dL (0.0-0.5); Bilirubin Total 16.1 mg/dL (0.0-1.0); Blood Urea Nitrogen 46 mg/dL (9-16); Calcium 8.5 mg/dL (8.4-10.2); Carbon Dioxide 18 mmol/L (22-29); Chloride 108 mmol/L (96-108); Creatinine Clr Calc Pharmacy 52.6; Estimated Glomerular Filt Rate 44; Glucose Random 159 mg/dL (60-115); Potassium 4.1 mmol/L (3.3-5.1); Sodium 138 mmol/L (135-145); Total Protein 7.2 g/dL (6.5-8.0)
[2023-10-09 11:26] LABS: Glucose, Whole Blood 165 mg/dL (60-115)
[2023-10-09] MEDS: Insulin Lispro 100 UNIT/ML 3 ML VIAL SUBCUT ×3 (11:52→20:32)
--- NOTE | 2023-10-09 13:49 | P.PNIM_ITS ---
Subjective Subjective Date of Service: 10/09/23 Interval History: seen and evaluated this morning tolerating diet no more diarrhea PT recommended STR Review of Systems Review of Systems: Yes all other systems are reviewed and are negative Physical Exam 2 Vital Signs: Vital Signs: Last Vital Signs Temp 97.9 F 10/09/23 07:52 Pulse 98 10/09/23 08:19 Resp 20 10/09/23 08:19 BP 132/74 10/09/23 07:52 Pulse Ox 97 10/09/23 07:52 O2 Del Method Room Air 10/09/23 07:52 BMI result Body Mass Index 25.7 Const: Other: Constitutional : Awake, interactive, not in distress Eyes: PERRL , jaundiced Cardiovascular : RRR, no JVP, no lower extremity edema Respiratory : good bilateral air entry, no crackles, wheezes or rhonchi Gastrointestinal: soft, lax, Normal bowel sounds, Non tender, mildly distended Skin : Warm, Dry Neurological : Alert & oriented x3, No focal deficit Objective Data Active Medications Calcium Carbonate (Calcium Carbonate 750 Mg Tab.Chew) 750 mg PO Q4H PRN PRN Reason: Heartburn Famotidine (Famotidine 20 Mg Tablet) 20 mg PO Q2D@2100 COUNT INCLUDES THE [facility] Last Admin: 10/08/23 20:37 Dose: 20 mg Documented By: ANA MARIA Fluticasone/Vilanterol (Fluticasone/Vilanterol 100/25 Blst.W.Dev) 1 puff INHALE RDAILY COUNT INCLUDES THE [facility] Last Admin: 10/09/23 08:19 Dose: 1 puff Documented By: EARL Hydrocortisone (Hydrocortisone 2.5 % Rectal Cr 30 Gm Tube) 1 appl [place] BEDTIME PRN PRN Reason: hemorrhoids Insulin Human Lispro (Insulin Lispro 100 Unit/Ml 3 Ml Vial) 0 unit SUBCUT QIDACHS COUNT INCLUDES THE [facility]; Protocol Last Admin: 10/09/23 11:52 Dose: 2 unit Documented By: JAJA Lactulose (Lactulose 20 Gm/30 Ml Solution) 20 gm PO BID COUNT INCLUDES THE [facility] Last Admin: 10/09/23 08:14 Dose: 20 gm Documented By: JAJA Levetiracetam (Levetiracetam 500 Mg Tablet) 500 mg PO BID COUNT INCLUDES THE [facility] Last Admin: 10/09/23 08:13 Dose: 500 mg Documented By: JAJA Magnesium Oxide (Magnesium Oxide 400 Mg Tablet) 400 mg PO BID COUNT INCLUDES THE [facility] Last Admin: 10/09/23 08:13 Dose: 400 mg Documented By: JAJA Midodrine (Midodrine Hcl 5 Mg Tablet) 5 mg PO TID PRN PRN Reason: SBP<100 Omeprazole (Omeprazole 20 Mg Capsule.) 20 mg PO BID@0630,1630 COUNT INCLUDES THE [facility] Last Admin: 10/09/23 05:26 Dose: 20 mg Documented By: ANA MARIA Prazosin HCl (Prazosin Hcl 1 Mg Capsule) 1 mg PO BEDTIME COUNT INCLUDES THE [facility]; Protocol Last Admin: 10/08/23 20:20 Dose: 1 mg Documented By: ANA MARIA Prednisolone Sodium Phosphate (Prednisolone Sodium Phosphate 15 Mg/5 Ml Solution) 40 mg PO DAILY COUNT INCLUDES THE [facility] Last Admin: 10/09/23 08:14 Dose: 40 mg Documented By: JAJA Sodium Chloride (0.9 % Sodium Chloride Flush 3 Ml Syringe) 3 ml IVFLUSH QSHIFT COUNT INCLUDES THE [facility] Last Admin: 10/09/23 08:18 Dose: 3 ml Documented By: JAJA Spironolactone (Spironolactone 25 Mg Tablet) 25 mg PO BID@0900,1800 COUNT INCLUDES THE [facility]; Protocol Labs 10/09/23 09:07 10/09/23 09:07 Labs: Laboratory Results - last 24 hr 10/08/23 10/08/23 10/09/23 16:18 20:02 07:49 MCV MCH MCHC RDW Plt Count MPV Absolute Nucleated RBC Nucleated RBC % (auto) Anion Gap Estim Creat Clear Calc Estimated GFR POC Glucose 209 H 201 H 143 H Random Glucose Calcium Total Bilirubin Direct Bilirubin AST ALT Alkaline Phosphatase Total Protein Albumin 10/09/23 10/09/23 09:07 11:18 MCV 94.4 MCH 33.1 H MCHC 35.0 RDW 23.6 H Plt Count 62 L MPV Not Reportable Absolute Nucleated RBC 0.000 Nucleated RBC % (auto) 0.0 Anion Gap 16 Estim Creat Clear Calc 52.6 Estimated GFR 44 POC Glucose 165 H Random Glucose 159 H Calcium 8.5 Total Bilirubin 16.1 H Direct Bilirubin 11.8 H AST 129 H ALT 73 H Alkaline Phosphatase 182 H Total Protein 7.2 Albumin 3.0 L Assessment and Plan (1) Generalized weakness: Status: Acute (2) Fall: Status: Acute Plan Navneet Danette is a 58 y/o man presents with: Generalized weakness secondary to physical deconditioning due to chronic liver disease. Physical therapy rec STR Fall precautions. pending vitamin-D level. normal Ca Lactice acidosis. Secondary to poor clearance due to chronic liver disease and use on metformin. DC Metformin Chronic liver disease w ascites,. Continue steroids and lactulose for recent hx of Alcoholic hepatitis. US showing moderate asictes increase Spironolactone to 25 mg bid for fluid management. Portal vein thromboisis (PVT). Anticoagulation contraindicated due to thrombocytopenia. Chronic anemia, hemoglobin at baseline. Patient denied black/ bloody stools or any other acute bleeding. Continue to monitor H&H. CKD with recent history of acute hepatorenal syndrome. Renal function at baseline. Moderate ascites. Asymptomatic. Coagulopathy. INR 1.6 (better than prior). History of alcohol use disorder. Last alcoholic drink > a month. Type 2 diabetes mellitus. Discontinue metformin due to advance liver disease (also, causing lactic acidosis). BG checks mucosal meals at bedtime. Diabetic diet. Insulin sliding scale. Seizure disorder. Continue Keppra. Hyperlipidemia. avoid statin due to liver disease. History of essential hypertension. Blood pressure normal. Not currently on anti-HTN meds. Continue to monitor. History of esophageal varices, internal hemorrhoids and polyp. No evidence of acute bleeding. DVT prophylaxis: SCDs Code status: Full Quality Stroke Does the patient have a stroke diagnosis?: No VTE Prior VTE?: No VTE Risk Level:: Medical - moderate - high VTE Device Contraindication: N/A - Device Ordered VTE Drug Contraindication: Treatment Not Indicated
[2023-10-09 14:29] VITALS: BMI 25.7
--- NOTE | 2023-10-09 14:31 | MHC.CM.PN ---
PT MEDICALLY CLEARED TO DC [facility] IS OFFERING A BED PENDING INSURANCE AUTH THEY HAVE SUBMITTED FOR AUTH AND WILL UPDATE CM ONCE OBTAINED PT WILL NEED BLS TRANSPORT
--- NOTE | 2023-10-09 14:45 | MHC.CLN ---
NUTRITION CONSULT FOR WEIGHT LOSS AND DECONDITIONING. DIET=DIABETIC 2000 KCALS, 2 GRAM SODIUM. PER PROVIDER, ENSURE CLEAR TID. SUPPLEMENT PROVIDES 720 KCALS, 24 G PROTEIN. REVIEW OF WEIGHT HX SHOWS SIGNIFICANT WEIGHT LOSS X 3 MONTHS, -10%. WEIGHT GAIN X ONE MONTH +6.6%. PATIENT WITH ASCITES AND EDEMA. INTAKE MOST MEALS 75-100%. FOLLOW FOR INTAKE AND WEIGHT. SEE CLINICAL NUTRITION ASSESSMENT 10/09/23.
[2023-10-09 16:00] VITALS: BP 128/78; PULSE 72; RESP 12; TEMP 36.6; O2SAT 98
[2023-10-09 16:41] LABS: Glucose, Whole Blood 209 mg/dL (60-115)
[2023-10-09] MEDS: Spironolactone 25 MG TABLET PO (16:47)
[2023-10-09 19:57] VITALS: BP 146/84; PULSE 16; RESP 16; TEMP 36.4; O2SAT 100
[2023-10-09] MEDS: Prazosin HCL 1 MG CAPSULE PO (20:05)
[2023-10-09 20:29] LABS: Glucose, Whole Blood 179 mg/dL (60-115)
[2023-10-10 03:30] VITALS: BP 125/81; PULSE 83; RESP 16; TEMP 36.7; O2SAT 98
[2023-10-10] MEDS: Omeprazole 20 MG CAPSULE.DR PO (05:32)
[2023-10-10 07:43] LABS: Glucose, Whole Blood 135 mg/dL (60-115)
[2023-10-10 07:48] VITALS: BP 130/75; PULSE 86; RESP 14; TEMP 36.9; O2SAT 98
[2023-10-10] MEDS: Magnesium Oxide 400 MG TABLET PO (07:54)
[2023-10-10] MEDS: 0.9 % Sodium Chloride Flush 3 ML SYRINGE IVFLUSH (07:54)
[2023-10-10] MEDS: Lactulose 20 GM/30 ML SOLUTION PO (07:54)
[2023-10-10] MEDS: levETIRAcetam 500 MG TABLET PO (07:54)
[2023-10-10] MEDS: Spironolactone 25 MG TABLET PO (07:54)
[2023-10-10] MEDS: prednisoLONE sodium phosphate 15 MG/5 ML SOLUTION 40 MG PO (07:54)
[2023-10-10] MEDS: Fluticasone/Vilanterol 100/25 BLST.W.DEV 1 PUFF INHALE (07:59)
[2023-10-10 08:00] VITALS: PULSE 86; RESP 14; O2SAT 98
--- NOTE | 2023-10-10 10:51 | HO.PM.IMPN ---
Subjective Subjective Date of Service: 10/10/23 Interval History: seen and evaluated this morning tolerating diet no more diarrhea PT recommended STR Physical Exam Vital Signs: Vital Signs: Last Vital Signs Temp 98.4 F 10/10/23 07:48 Pulse 86 10/10/23 08:00 Resp 14 10/10/23 08:00 BP 130/75 10/10/23 07:48 Pulse Ox 98 10/10/23 07:48 O2 Del Method Room Air 10/10/23 07:48 BMI result Body Mass Index 25.7 Const: Other: Constitutional : Awake, interactive, not in distress Eyes: PERRL , jaundiced Cardiovascular : RRR, no JVP, no lower extremity edema Respiratory : good bilateral air entry, no crackles, wheezes or rhonchi Gastrointestinal: soft, lax, Normal bowel sounds, Non tender, mildly distended Skin : Warm, Dry Neurological : Alert & oriented x3, No focal deficit Objective Data Active Medications Calcium Carbonate (Calcium Carbonate 750 Mg Tab.Chew) 750 mg PO Q4H PRN PRN Reason: Heartburn Famotidine (Famotidine 20 Mg Tablet) 20 mg PO Q2D@2100 [facility] Last Admin: 10/08/23 20:37 Dose: 20 mg Documented By: ANA MARIA Fluticasone/Vilanterol (Fluticasone/Vilanterol 100/25 Blst.W.Dev) 1 puff INHALE RDAILY [facility] Last Admin: 10/10/23 07:59 Dose: 1 puff Documented By: ANGELA Hydrocortisone (Hydrocortisone 2.5 % Rectal Cr 30 Gm Tube) 1 appl [place] BEDTIME PRN PRN Reason: hemorrhoids Insulin Human Lispro (Insulin Lispro 100 Unit/Ml 3 Ml Vial) 0 unit SUBCUT QIDACHS [facility]; Protocol Last Admin: 10/10/23 07:45 Dose: Not Given Documented By: NEO Non-Admin Reason: No Insulin Coverage Lactulose (Lactulose 20 Gm/30 Ml Solution) 20 gm PO BID [facility] Last Admin: 10/10/23 07:54 Dose: 20 gm Documented By: NEO Levetiracetam (Levetiracetam 500 Mg Tablet) 500 mg PO BID [facility] Last Admin: 10/10/23 07:54 Dose: 500 mg Documented By: NEO Magnesium Oxide (Magnesium Oxide 400 Mg Tablet) 400 mg PO BID [facility] Last Admin: 10/10/23 07:54 Dose: 400 mg Documented By: NEO Midodrine (Midodrine Hcl 5 Mg Tablet) 5 mg PO TID PRN PRN Reason: SBP<100 Omeprazole (Omeprazole 20 Mg Capsule.) 20 mg PO BID@0630,1630 [facility] Last Admin: 10/10/23 05:32 Dose: 20 mg Documented By: CONSTANTIN Prazosin HCl (Prazosin Hcl 1 Mg Capsule) 1 mg PO BEDTIME [facility]; Protocol Last Admin: 10/09/23 20:05 Dose: 1 mg Documented By: CONSTANTIN Prednisolone Sodium Phosphate (Prednisolone Sodium Phosphate 15 Mg/5 Ml Solution) 40 mg PO DAILY [facility] Last Admin: 10/10/23 07:54 Dose: 40 mg Documented By: NEO Sodium Chloride (0.9 % Sodium Chloride Flush 3 Ml Syringe) 3 ml IVFLUSH QSHIFT [facility] Last Admin: 10/10/23 07:54 Dose: 3 ml Documented By: NEO Spironolactone (Spironolactone 25 Mg Tablet) 25 mg PO BID@0900,1800 [facility]; Protocol Last Admin: 10/10/23 07:54 Dose: 25 mg Documented By: NEO Labs 10/09/23 09:07 10/09/23 09:07 Labs: Laboratory Results - last 24 hr 10/09/23 10/09/23 10/09/23 11:18 16:37 20:08 POC Glucose 165 H 209 H 179 H 10/10/23 07:39 POC Glucose 135 H Assessment and Plan (1) Generalized weakness: Status: Acute (2) Fall: Status: Acute Plan Navneet Samaniego is a 58 y/o man presents with: Generalized weakness secondary to physical deconditioning due to chronic liver disease. Physical therapy rec STR Fall precautions. pending vitamin-D level. normal Ca Lactice acidosis. Secondary to poor clearance due to chronic liver disease and use on metformin. DC Metformin Chronic liver disease w ascites,. Continue steroids and lactulose for recent hx of Alcoholic hepatitis. (on tapering dose, lower to 30 for 1 month on 10/13 US showed moderate asictes increase Spironolactone to 25 mg bid for fluid management. having bowel movements, hold lactulose for diarrhea Portal vein thromboisis (PVT). Anticoagulation contraindicated due to thrombocytopenia. Chronic anemia, hemoglobin at baseline. Patient denied black/ bloody stools or any other acute bleeding. Continue to monitor H&H. CKD with recent history of acute hepatorenal syndrome. Renal function at baseline. Moderate ascites. Asymptomatic. Coagulopathy. INR 1.6 (better than prior). History of alcohol use disorder. Last alcoholic drink > a month. Type 2 diabetes mellitus. Discontinue metformin due to advance liver disease (also, causing lactic acidosis). BG checks mucosal meals at bedtime. Diabetic diet. Insulin sliding scale. Seizure disorder. Continue Keppra. Hyperlipidemia. avoid statin due to liver disease. History of essential hypertension. Blood pressure normal. Not currently on anti-HTN meds. Continue to monitor. History of esophageal varices, internal hemorrhoids and polyp. No evidence of acute bleeding. DVT prophylaxis: SCDs Code status: Full Quality Stroke Does the patient have a stroke diagnosis?: No VTE Prior VTE?: No VTE Risk Level:: Medical - moderate - high VTE Device Contraindication: N/A - Device Ordered VTE Drug Contraindication: Treatment Not Indicated
[2023-10-10 11:46] LABS: Glucose, Whole Blood 182 mg/dL (60-115)
[2023-10-10] MEDS: Insulin Lispro 100 UNIT/ML 3 ML VIAL SUBCUT (11:51)
--- NOTE | 2023-10-10 12:47 | MHC.CM.PN ---
Per MD rounds patient medically cleared for dc to [facility]. [facility] has accepted and has auth. BLS transport scheduled for 2pm. , RN, patient and aware.
--- NOTE | 2023-10-10 13:00 | PM.DS ---
DS: Providers Provider Date of Service: 10/10/23 Date of admission: 10/07/23 00:40 Primary care physician: MICHAEL Patel DS: Diagnosis Discharge Diagnosis (1) Generalized weakness: Status: Acute (2) Fall: Status: Acute (3) Abdominal ascites: Status: Acute (4) Adult failure to thrive: Status: Acute (5) Lactic acidosis: Status: Acute DS: Summary Hospital Course Hospital Course: Admission note HPI Navneet Samaniego is a 58 years old man alcoholic chronic liver disease, seizures, hypertension and type 2 diabetes was brought to the ED via EMS due to generalized weakness and fall after tripped and fell hitting his head. Patient denied headache, dizziness, nausea, vomiting, chest pain, shortness of breath, palpitations, abdominal pain, confusion, seizures, acute urinary changes, black/bloody stools or diarrhea. Patient was recently hospitalized from September 13- with multiple diagnosis including acute alcoholic hepatitis, portal vein thrombosis, acute on chronic anemia, acute hepatorenal syndrome and hyperammonemia. During this hospitalization he was started on prednisone, receive blood transfusions and was seen by GI service. He underwent an EGD on September 14 that showed varices but no active bleeding as well as a colonoscopy that showed polyps and internal hemorrhoids treated with hydrocortisone. Last time he drank alcohol was over a month ago, and denied tobacco smoking or illicit drug use. In the ED, he was found to have normal vital signs. Blood workup including CBC and CMP are remarkable for mild wall setting of LFTs. Hemoglobin platelets are around baseline. There is lactic acidosis. Renal function is stable. Troponin is negative x2. INR is 1.6 which is better than prior. Ammonia is normal. Head and C-spine CT scan showed nothing acute. CXR is negative. Abdominal ultrasound is remarkable for contracted gallbladder, no CBD dilatation and moderate ascites.ED tx: Lactulose 20 g p.o.. Hospital course - Generalized weakness secondary to physical deconditioning due to chronic liver disease. He was evaluated by Physical therapy who recommended STR. he needs to be on Fall precautions. pending vitamin-D level. - Lactice acidosis. Secondary to poor clearance due to chronic liver disease and use on metformin. DC Metformin at time of discharge. Last A1c of 5.6. no need for diabetes medications at this point. can be followed by PCP. - Chronic liver disease w ascites. Continue steroids tapering dose and lactulose for recent hx of Alcoholic hepatitis. (on tapering dose, lower Prednisone dose to 30mg daily for 1 month on 10/13) US showed moderate asictes. Started on Spironolactone with good tolerance. increased Spironolactone to 25 mg bid for fluid management. Keep on fluid restrictions up to 1.5L. repeat BMP as outpatient. having bowel movements, hold lactulose for diarrhea Discharge plan Continue Spironolactone as prescribed Midodrine as needed for low blood pressure discontinue Metformin Decrease Fluid intake to 1.5L daily only Lactulose with goal of 1-2 Bowel movements daily Increase physical therapy as tolerated to repeat blood test next week Time Attestation Discharge Coordination Time (in mins): 38 Quality: Safe Use of Opioids Does Pt have an Active Cancer Diagnosis on the Problem List?: No Quality: Stroke Does the patient have a stroke diagnosis?: No Physical Exam Vital Signs: Vital Signs: Last Vital Signs Temp 98.4 F 10/10/23 07:48 Pulse 86 10/10/23 08:00 Resp 14 10/10/23 08:00 BP 130/75 10/10/23 07:48 Pulse Ox 98 10/10/23 07:48 O2 Del Method Room Air 10/10/23 07:48 BMI result Body Mass Index 25.7 DS: Data Data Completed and Pending Completed studies during hospitalization [Text1]: Procedures Control Bleeding in Gastrointestinal Tract, Via Natural or Artificial Opening Endoscopic (09/14/23) Detoxification Services for Substance Abuse Treatment (06/29/23) Drainage of Peritoneal Cavity, Percutaneous Approach (09/14/23) Excision of Ascending Colon, Via Natural or Artificial Opening Endoscopic, Diagnostic (09/14/23) Inspection of Upper Intestinal Tract, Via Natural or Artificial Opening Endoscopic (09/14/23) Introduction of Mineral-based Topical Hemostatic Agent into Lower GI, Via Natural or Artificial Opening Endoscopic, [employer] (09/14/23) Transfusion of Nonautologous Red Blood Cells into Peripheral Vein, Percutaneous Approach (09/14/23) Labs on day of discharge: Laboratory Results - last 24 hr 10/09/23 10/09/23 10/10/23 16:37 20:08 07:39 POC Glucose 209 H 179 H 135 H 10/10/23 11:39 POC Glucose 182 H Discharge Plan Discharge Anticipated Discharge Date/Time: 10/10/23 12:51 Patient Disposition: Xfer SNF Discharge Diagnosis: PHysical deconditioning Referrals: [facility] [Outside] - 1 Day (short term rehab) Jose Romero FNP- [Primary Care Provider] - 1 Week Discharge Medications: New spironolactone 25 mg Tablet 25 mg PO BID@0900,1800 Qty: 60 0RF Protocol: Hold for SBP< HOLD for SBP < : 90 Continued atorvastatin 20 mg tablet 20 mg PO BEDTIME 90 Days Qty: 90 1RF magnesium oxide 400 mg magnesium Tablet 400 mg PO BID levetiracetam 500 mg Tablet 500 mg PO BID Qty: 60 2RF famotidine 20 mg Tablet 20 mg PO Q2D@2100 Qty: 30 0RF omeprazole 20 mg Capsule,Delayed Release(Dr/Ec) 20 mg PO BID@0630,1630 Qty: 60 2RF hydrocortisone [Proctozone-HC] 2.5 % cream with perineal applicator 1 appl [place] BEDTIME PRN (Reason: hemorrhoids) Qty: 30 1RF lactulose 20 gram/30 mL solution 20 g PO BID Qty: 2880 2RF prednisolone 15 mg/5 mL solution 40 mg PO DAILY fluticasone propion-salmeterol [Advair Diskus] 250-50 mcg/dose blister with device 1 inh inhalation BID prazosin 1 mg capsule 1 mg PO BEDTIME 30 Days Qty: 30 2RF Changed midodrine 5 mg tablet 5 mg PO TID PRN (Reason: Hypotension) 30 Days Qty: 90 2RF Rx Instructions: do not give last dose of day after 6PM or within 4 hrs of bedtime Discontinued metformin 1,000 mg tablet 1,000 mg PO DAILY Qty: 90 1RF Discharge Orders: Discharge Order (Routine); Ordered 10/10/23 Ordered By: Mumtaz Roberson Diet: Advance to usual diet Activity on Discharge: As tolerated Stand Alone Forms: Patient Portal Discharge page Print Language: Mohawk Care Plan Goals: Continue Spironolactone as prescribed Midodrine as needed for low blood pressure discontinue Metformin Decrease Fluid intake to 1.5L daily only Lactulose with goal of 1-2 Bowel movements daily Increase physical therapy as tolerated to repeat blood test next week Health Concerns: Read below Plan of Treatment: Read below Assessment: Read below
[2023-10-13 18:33] LABS: Vitamin D 25-OH, D2 <4 ng/mL; Vitamin D 25-OH, D3 7 ng/mL; Vitamin D 25-OH, Total 7 ng/mL (30-100)
== END 2023-10-10 14:03 | disposition skilled nursing facility (03) ==
LOC: HO.ED 10-07 00:05 → HO.EDOVER 10-07 00:53 → HO.S3 10-07 07:31
PROVIDERS: Admitting Provider Internal Medicine; Emergency Provider Student in an Organized Health Care Education/Training Program; PCP Nurse Practitioner Family; Visit Provider Student in an Organized Health Care Education/Training Program
DX: R62.7 Adult failure to thrive (principal); Z68.25 Body mass index [BMI] 25.0-25.9, adult; K70.11 Alcoholic hepatitis with ascites; S09.90XA Unspecified injury of head, initial encounter; W19.XXXA Unspecified fall, initial encounter; Y93.9 Activity, unspecified; Y92.9 Unspecified place or not applicable; Y99.9 Unspecified external cause status; E87.20 Acidosis, unspecified; E11.22 Type 2 diabetes mellitus with diabetic chronic kidney disease; I12.9 Hypertensive chronic kidney disease with stage 1 through stage 4 chronic kidney disease, or unspecified chronic kidney disease; N18.9 Chronic kidney disease, unspecified; D63.1 Anemia in chronic kidney disease; I81 Portal vein thrombosis; E78.5 Hyperlipidemia, unspecified; Z79.899 Other long term (current) drug therapy; Z79.84 Long term (current) use of oral hypoglycemic drugs
CPT/HCPCS: 36415; 70450; 71045; 72125; 76705; 80048; 80053; 80076; 80307; 81001; 82140; 82306; 82947; 83036; 83605; 83735; 83880; 84484; 85025; 85027; 85610; 87086; 93005; 97162; 99221; 99285

== ENCOUNTER → 2023-10-06 19:37 | Outpatient (BNV) | payer OTHER, SELFPAY | PROVIDERS: Admitting Provider Internal Medicine; Emergency Provider Student in an Organized Health Care Education/Training Program; Visit Provider Internal Medicine Cardiovascular Disease | DX: R94.31 Abnormal electrocardiogram [ECG] [EKG] (principal) | CPT/HCPCS: 93010 ==

== ENCOUNTER → 2023-10-07 00:40 | Outpatient (BNV) | payer OTHER, SELFPAY | PROVIDERS: Admitting Provider Internal Medicine; Emergency Provider Student in an Organized Health Care Education/Training Program; Visit Provider Internal Medicine | DX: R53.1 Weakness (principal); W19.XXXA Unspecified fall, initial encounter; R18.8 Other ascites; R62.7 Adult failure to thrive; E87.20 Acidosis, unspecified | CPT/HCPCS: 99222; 99232; 99239; 99499 ==